=== PATIENT | female | born 1965 | race Caucasian/White ===

== ENCOUNTER → 2017-03-06 09:12 | Outpatient (CLI) | payer OTHER, SELFPAY ==
--- NOTE | 2017-03-06 | XR_ITS ---
XR foot RT min 3V, XR foot LT min 3V Ordering Physician: Indu Zhu DPM Patient Age: 51 years: Female HISTORY: ITS.REASON: FOOT PAIN Foot pain bilateral TECHNIQUE: Left foot 3 views weightbearing Right foot 3 views weightbearing COMPARISON :04/20/2011 left foot RIGHT FOOT 3 VIEWS: No previous right foot studies for comparison. Moderate bunion deformity. Moderate Hallux valgus deformity ~30 degree angulation first metatarsal phalangeal joint The mild irregularity at the dorsal medial aspect first minute partial head. Lateral films suggest mild pes planus scant developing plantar calcaneal spur. IMPRESSION: Moderate bunion/ hallux valgus deformity. [Suggestion mild has pes planus ===== LEFT FOOT 3 VIEWS Osseous structures appear intact. No significant callus valgus deformity on left The joint spaces are well-maintained. Lateral film does suggest pes planus Suggestion slight additional Mild soft tissue swelling is seen overlying the fifth MTP joint. Vs previous study. -Correlation required. Moderate ~8 mm plantar calcaneal spur noted minor flexion deformity at the fourth and fifth toe . Borderline narrowing first MTP joint. Oblique view shows a stable subcortical cyst beneath the more subtle medial aspect of first metatarsal head IMPRESSION suggestion mild pes planus moderate plantar calcaneal spur Question minor soft tissue swelling lateral to fifth MTP joint
== END ==
PROVIDERS: Visit Provider Podiatrist
DX: M79.673 Pain in unspecified foot (principal)
CPT/HCPCS: 73630

== ENCOUNTER 2017-05-16 10:00 | Outpatient (RCR) | payer OTHER, SELFPAY | END 2017-05-16 10:01 | disposition home or self-care (01) | LOC: OT 10:00 | PROVIDERS: Visit Provider Orthopaedic Surgery Adult Reconstructive Orthopaedic Surgery | DX: G56.01 Carpal tunnel syndrome, right upper limb (principal) | CPT/HCPCS: 97163; 97166 ==

== ENCOUNTER → 2017-05-30 08:00 | Outpatient (CLI) | payer OTHER, SELFPAY ==
[2017-05-30 08:20] LABS: Basophils # 0.1 K/mm3 (0-0.2); Basophils % 0.6 % (0.1-2.0); Eosinophils # 0.1 K/mm3 (0.0-0.4); Eosinophils % 1.1 % (0.1-12.0); Hematocrit 39.7 % (37.0-47.0); Hemoglobin 13.8 g/dL (12.2-16.2); Lymphocytes # 3.7 K/mm3 (0.7-4.5); Lymphocytes % 43.9 K/mm3 (10-50); Mean Corpuscular HGB Conc 34.9 g/dL (31.8-35.4); Mean Corpuscular Hemoglobin 30.9 pg (27.0-31.2); Mean Corpuscular Volume 88.5 fl (81-99); Mean Platelet Volume 6.8 fl (7.4-10.4); Monocytes # 0.5 K/mm3 (0.1-1.0); Monocytes % 5.4 % (1.7-9.3); Neutrophils # 4.1 K/mm3 (1.8-7.8); Neutrophils % 48.9 % (37.0-80.0); Platelet Count 332 K/mm3 (142-424); Red Blood Count 4.48 M/mm3 (4.20-5.40); Red Cell Distribution Width 12.2 % (11.5-17.5); White Blood Count 8.4 K/mm3 (4.8-10.8)
[2017-05-30 09:21] LABS: Alanine Aminotransferase 26 U/L (12-78); Albumin Level 4.1 gm/dL (3.4-5.0); Albumin/Globulin Ratio 1.1 (1.1-1.8); Alkaline Phosphatase 118 U/L (46-116); Anion Gap 13.3 mEq/L (5-15); Aspartate Amino Transferase 21 U/L (15-37); Bilirubin,Total 0.3 mg/dL (0.2-1.0); Blood Urea Nitrogen 21 mg/dL (7-18); Calcium 10.1 mg/dL (8.5-10.1); Carbon Dioxide 30 mmol/L (21.0-32.0); Chloride 96 mmol/L (98-107); Creatinine,Serum 1.06 mg/dL (0.55-1.02); Estimated Glomerular Filt Rate 54 ml/min (>60); GFR (African American) 66 ML/MIN (>60); Globulin 3.7 gm/dl (1.3-3.2); Glucose 114 mg/dL (74-106); Potassium 4.3 mmoL/L (3.5-5.1); Sodium 135 mmol/L (136-145); Thyroid Stimulating Hormone 0.35 uIU/ml (0.358-3.740); Total Protein,Serum 7.8 gm/dL (6.4-8.2)
[2017-05-31 16:17] LABS: Vitamin D 25 Hydroxy 37.5 ng/mL (30.0-100.0)
== END ==
PROVIDERS: Visit Provider Internal Medicine Adolescent Medicine
DX: N18.1 Chronic kidney disease, stage 1 (principal); E03.9 Hypothyroidism, unspecified; M81.0 Age-related osteoporosis without current pathological fracture
CPT/HCPCS: 36415; 80053; 82652; 84443; 85025

== ENCOUNTER → 2017-09-19 09:19 | Outpatient (POV) | payer OTHER, SELFPAY | PROVIDERS: Family Provider Internal Medicine Adolescent Medicine; PCP Internal Medicine Adolescent Medicine; Visit Provider Internal Medicine | DX: Z00.00 Encounter for general adult medical examination without abnormal findings (principal) ==

== ENCOUNTER → 2018-04-17 13:02 | Outpatient (CLI) | payer OTHER, SELFPAY ==
[2018-04-17 14:59] LABS: Alanine Aminotransferase 37 U/L (12-78); Albumin Level 4.1 gm/dL (3.4-5.0); Alkaline Phosphatase 137 U/L (46-116); Aspartate Amino Transferase 24 U/L (15-37); Bilirubin,Direct 0.1 mg/dL (0.0-0.2); Bilirubin,Indirect 0.4 mg/dL (0.0-0.9); Bilirubin,Total 0.5 mg/dL (0.2-1.0); Chol/HDL Ratio 6.5 (1-3.5); Cholesterol 253 mg/dL (140-200); HDL Cholesterol 39 mg/dL (29-89); LDL Cholesterol 148 mg/dL (0-130); Total Protein,Serum 7.9 gm/dL (6.4-8.2); Triglycerides 331 mg/dL (30-200); VLDL Cholesterol 66 mg/dL (0-40)
== END ==
PROVIDERS: Visit Provider Internal Medicine
DX: E78.5 Hyperlipidemia, unspecified (principal); I10 Essential (primary) hypertension; I25.10 Atherosclerotic heart disease of native coronary artery without angina pectoris
CPT/HCPCS: 36415; 80061; 80076

== ENCOUNTER → 2018-06-01 09:54 | Outpatient (CLI) | payer OTHER, SELFPAY ==
[2018-06-01 10:54] LABS: Basophils # 0.1 K/mm3 (0-0.2); Basophils % 0.7 % (0.1-2.0); Eosinophils # 0.1 K/mm3 (0.0-0.4); Eosinophils % 1.2 % (0.1-12.0); Mean Corpuscular HGB Conc 35.2 g/dL (31.8-35.4); Mean Corpuscular Hemoglobin 30.6 pg (27.0-31.2); Mean Corpuscular Volume 86.7 fl (81-99); Mean Platelet Volume 6.7 fl (7.4-10.4); Monocytes # 0.4 K/mm3 (0.1-1.0); Monocytes % 4.5 % (1.7-9.3); Neutrophils # 4.8 K/mm3 (1.8-7.8); Neutrophils % 57.7 % (37.0-80.0); Platelet Count 331 K/mm3 (142-424); Red Blood Count 4.27 M/mm3 (4.20-5.40); Red Cell Distribution Width 12.3 % (11.5-17.5); White Blood Count 8.3 K/mm3 (4.8-10.8)
[2018-06-01 13:51] LABS: Alanine Aminotransferase 33 U/L (12-78); Albumin Level 3.9 gm/dL (3.4-5.0); Albumin/Globulin Ratio 1.1 (1.1-1.8); Alkaline Phosphatase 128 U/L (46-116); Anion Gap 14.2 mEq/L (5-15); Aspartate Amino Transferase 17 U/L (15-37); Bilirubin,Total 0.4 mg/dL (0.2-1.0); Blood Urea Nitrogen 21 mg/dL (7-18); Calcium 9.3 mg/dL (8.5-10.1); Carbon Dioxide 28 mmol/L (21.0-32.0); Chloride 97 mmol/L (98-107); Chol/HDL Ratio 6.3 (1-3.5); Cholesterol 208 mg/dL (140-200); Creatinine,Serum 1.18 mg/dL (0.55-1.02); Estimated Glomerular Filt Rate 48 ml/min (>60); GFR (African American) 58 ML/MIN (>60); Globulin 3.5 gm/dl (1.3-3.2); Glucose 114 mg/dL (74-106); HDL Cholesterol 33 mg/dL (29-89); LDL Cholesterol 114 mg/dL (0-130); Potassium 4.2 mmoL/L (3.5-5.1); Sodium 135 mmol/L (136-145); Thyroid Stimulating Hormone 0.03 uIU/ml (0.358-3.740); Total Protein,Serum 7.4 gm/dL (6.4-8.2); Triglycerides 305 mg/dL (30-200); VLDL Cholesterol 61 mg/dL (0-40)
== END ==
PROVIDERS: Visit Provider Internal Medicine Adolescent Medicine
DX: Z00.00 Encounter for general adult medical examination without abnormal findings (principal); N18.1 Chronic kidney disease, stage 1; I10 Essential (primary) hypertension
CPT/HCPCS: 36415; 80053; 80061; 84443; 85025

== ENCOUNTER → 2018-07-25 08:10 | Outpatient (CLI) | payer OTHER, SELFPAY ==
[2018-07-25 10:52] LABS: Alanine Aminotransferase 30 U/L (12-78); Albumin Level 3.5 gm/dL (3.4-5.0); Alkaline Phosphatase 124 U/L (46-116); Aspartate Amino Transferase 14 U/L (15-37); Bilirubin,Direct 0.1 mg/dL (0.0-0.2); Bilirubin,Indirect 0.3 mg/dL (0.0-0.9); Bilirubin,Total 0.4 mg/dL (0.2-1.0); Cholesterol 180 mg/dL (140-200); HDL Cholesterol 30 mg/dL (29-89); LDL Cholesterol 77 mg/dL (0-130); Total Protein,Serum 6.6 gm/dL (6.4-8.2); Triglycerides 363 mg/dL (30-200); VLDL Cholesterol 73 mg/dL (0-40)
== END ==
PROVIDERS: Visit Provider Nurse Practitioner Family
DX: E78.5 Hyperlipidemia, unspecified (principal); I10 Essential (primary) hypertension; I25.10 Atherosclerotic heart disease of native coronary artery without angina pectoris
CPT/HCPCS: 36415; 80061; 80076

== ENCOUNTER → 2018-09-13 09:16 | Outpatient (CLI) | payer OTHER, SELFPAY ==
--- NOTE | 2018-09-13 09:21 | MM_ITS ---
MM Dig screening mamm BI w/CAD CAD Screening COMPARISON: Digital mammograms with CAD 08/18/2015 and postbiopsy right mammogram and biopsy specimen 10/08/2014 INDICATION: There is a history of breast cancer in patient's paternal great aunt and first cousin TECHNIQUE: Standard CC and MLO images were obtained. R2 CAD reviewed. FINDINGS: Scattered fibroglandular densities are seen throughout both breasts. There is a biopsy clip central portion right breast. There is very little fatty post biopsy scarring noted. There are couple benign-appearing microcalcifications left breast. There is no suspicious lesion in either breast and there are no suspicious microcalcifications. There are fatty replaced nodes in both axilla. IMPRESSION: Fibrofatty parenchyma with no suspicious lesion seen BI-RADS Category: 2 Benign Finding(s) RECOMMENDED FOLLOW-UP: 1YR - 1 YEAR FOLLOW-UP (A letter has been sent to the patient regarding results of the study.)
== END ==
PROVIDERS: PCP Internal Medicine Adolescent Medicine; Visit Provider Obstetrics & Gynecology
DX: Z12.31 Encounter for screening mammogram for malignant neoplasm of breast (principal)
CPT/HCPCS: 77067

== ENCOUNTER → 2018-09-25 08:37 | Outpatient (POV) | payer OTHER, SELFPAY | PROVIDERS: Visit Provider Internal Medicine | DX: Z00.00 Encounter for general adult medical examination without abnormal findings (principal) ==

== ENCOUNTER → 2018-10-22 09:41 | Outpatient (CLI) | payer OTHER, SELFPAY ==
[2018-10-22 14:30] VITALS: PULSE 63; PULSE 67
== END ==
PROVIDERS: PCP Internal Medicine Adolescent Medicine; Visit Provider Internal Medicine
DX: R06.09 Other forms of dyspnea (principal)
CPT/HCPCS: 94060; 94618; 94640; 94726; 94729

== ENCOUNTER → 2018-11-30 09:53 | Outpatient (CLI) | payer OTHER, SELFPAY | PROVIDERS: Visit Provider Internal Medicine Adolescent Medicine | DX: I10 Essential (primary) hypertension (principal) ==

== ENCOUNTER → 2018-12-05 07:18 | Outpatient (CLI) | payer OTHER, SELFPAY ==
[2018-12-05 07:39] LABS: Basophils # 0.1 K/mm3 (0-0.2); Basophils % 0.5 % (0.1-2.0); Eosinophils # 0.1 K/mm3 (0.0-0.4); Eosinophils % 1.5 % (0.1-12.0); Hematocrit 39.4 % (37.0-47.0); Hemoglobin 12.9 g/dL (12.2-16.2); Lymphocytes # 3.8 K/mm3 (0.7-4.5); Lymphocytes % 40.4 % (10-50); Mean Corpuscular HGB Conc 32.8 g/dL (31.8-35.4); Mean Corpuscular Hemoglobin 30.9 pg (27.0-31.2); Mean Corpuscular Volume 94.1 fl (81-99); Mean Platelet Volume 7.5 fl (7.4-10.4); Monocytes # 0.5 K/mm3 (0.1-1.0); Neutrophils % 52.6 % (37.0-80.0); Platelet Count 370 K/mm3 (142-424); Red Blood Count 4.19 M/mm3 (4.20-5.40); Red Cell Distribution Width 12.7 % (11.5-17.5); White Blood Count 9.4 K/mm3 (4.8-10.8)
[2018-12-05 08:21] LABS: Alanine Aminotransferase 23 U/L (12-78); Albumin Level 3.9 gm/dL (3.4-5.0); Albumin/Globulin Ratio 1.1 (1.1-1.8); Alkaline Phosphatase 128 U/L (46-116); Anion Gap 12.7 mEq/L (5-15); Aspartate Amino Transferase 14 U/L (15-37); Bilirubin,Total 0.4 mg/dL (0.2-1.0); Blood Urea Nitrogen 25 mg/dL (7-18); Carbon Dioxide 30 mmol/L (21.0-32.0); Chloride 99 mmol/L (98-107); Chol/HDL Ratio 5.4 (1-3.5); Cholesterol 198 mg/dL (140-200); Creatinine,Serum 1.19 mg/dL (0.55-1.02); Estimated Glomerular Filt Rate 47 ml/min (>60); GFR (African American) 57 ML/MIN (>60); Globulin 3.4 gm/dl (1.3-3.2); Glucose 127 mg/dL (74-106); HDL Cholesterol 37 mg/dL (29-89); LDL Cholesterol 92 mg/dL (0-130); Potassium 3.7 mmoL/L (3.5-5.1); Sodium 138 mmol/L (136-145); Thyroid Stimulating Hormone 0.04 uIU/ml (0.358-3.740); Total Protein,Serum 7.3 gm/dL (6.4-8.2); Triglycerides 347 mg/dL (30-200); VLDL Cholesterol 69 mg/dL (0-40)
[2018-12-06 11:00] LABS: Vitamin B12 420 pg/mL (232-1245)
[2018-12-06 11:01] LABS: Vitamin D 25 Hydroxy 39.7 ng/mL (30.0-100.0)
== END ==
PROVIDERS: Visit Provider Internal Medicine Adolescent Medicine
DX: N18.1 Chronic kidney disease, stage 1 (principal); I10 Essential (primary) hypertension; E03.9 Hypothyroidism, unspecified; M81.0 Age-related osteoporosis without current pathological fracture
CPT/HCPCS: 36415; 80053; 80061; 82607; 82652; 84443; 85025

== ENCOUNTER → 2019-03-12 08:28 | Outpatient (CLI) | payer OTHER, SELFPAY ==
[2019-03-12 11:35] LABS: Alanine Aminotransferase 20 U/L (12-78); Albumin Level 3.7 gm/dL (3.4-5.0); Albumin/Globulin Ratio 1.2 (1.1-1.8); Alkaline Phosphatase 107 U/L (46-116); Anion Gap 14.4 mEq/L (5-15); Aspartate Amino Transferase 17 U/L (15-37); Bilirubin,Total 0.4 mg/dL (0.2-1.0); Blood Urea Nitrogen 23 mg/dL (7-18); Calcium 9.3 mg/dL (8.5-10.1); Carbon Dioxide 30 mmol/L (21.0-32.0); Chloride 101 mmol/L (98-107); Chol/HDL Ratio 6.3 (1-3.5); Cholesterol 228 mg/dL (140-200); Estimated Glomerular Filt Rate 52 ml/min (>60); GFR (African American) 62 ML/MIN (>60); Globulin 3.1 gm/dl (1.3-3.2); Glucose 103 mg/dL (74-106); HDL Cholesterol 36 mg/dL (29-89); LDL Cholesterol 133 mg/dL (0-130); Potassium 4.4 mmoL/L (3.5-5.1); Sodium 141 mmol/L (136-145); Thyroid Stimulating Hormone 0.01 uIU/ml (0.358-3.740); Total Protein,Serum 6.8 gm/dL (6.4-8.2); Triglycerides 293 mg/dL (30-200); VLDL Cholesterol 59 mg/dL (0-40)
[2019-03-12 13:02] LABS: Hemoglobin A1C 6.2 % (0.0-7.0)
== END ==
PROVIDERS: Visit Provider Internal Medicine Adolescent Medicine
DX: R73.9 Hyperglycemia, unspecified (principal); E03.9 Hypothyroidism, unspecified
CPT/HCPCS: 36415; 80053; 80061; 83036; 84443

== ENCOUNTER → 2019-03-27 10:03 | Outpatient (CLI) | payer OTHER, SELFPAY ==
--- NOTE | 2019-03-27 10:04 | CA_ITS ---
APPROVED REPORT EXAM: Comprehensive 2D, Doppler, and color-flow Echocardiogram Telephony Engineer: Shirlene Terry RVT Ht: 5 ft 7 in Wt: 193lbs BSA: 1.99 BP: 122/78 mmHg Indications: Shortness of Breath, CAD, Hyperlipidemia, Hypertension,Edema 2D Dimensions LVOT 1.87 cm (M/F) 1.5-2.5 M-Mode Dimensions RVDd 3.32 cm (0.9-2.6) LVDd 3.64 cm (3.5-5.7) LVDs 2.39 cm (3.5-5.7) IVSd 1.04 cm (0.6-1.1) PWd 0.86 cm (0.6-1.1) EF (Teich) 64.20% FS 34.30% EDV (Teich) 55.90 mL ESV (Teich) 20.00 mL LV Diastology E/A Ratio 0.83 Mitral Valve MV A Velocity 83.00 (40-130 cm/s) Left Ventricle Left atrium is mildly enlarged, left ventricle is normal size, left ventricle wall thickness is upper limit of normal, there is preserved left ventricular systolic function, visually estimated ejection fraction 55% with no regional wall motion abnormality, grade 1 diastolic dysfunction seen without tissue Doppler evidence of raise left atrial pressure. Right Ventricle Right atrium and right ventricle is normal size and contractility. Aortic Valve Aortic valve is minimally thickened and fibrosed. There is no aortic stenosis or aortic insufficiency. Mitral Valve Mitral valve is grossly normal, there is mild mitral regurgitation. Tricuspid Valve Tricuspid valve is grossly normal, there is mild tricuspid regurgitation, calculated right ventricular systolic pressure is within normal range. Pulmonic Valve Pulmonic valve is poorly visualized. Great Vessels Aortic root is normal size. Pericardium No significant pericardial effusion noted. Conclusion 1. Normal left ventricular size, preserved left ventricular systolic function, visually estimated ejection fraction 55% with no regional wall motion abnormality, grade 1 diastolic dysfunction seen without tissue Doppler evidence of raise left atrial pressure. 2. Mild mitral and tricuspid regurgitation. Calculated right ventricular systolic pressure is within normal range. 3. No significant pericardial effusion noted. Electronically signed by : Juan Carlos Contreras, 03/28/2019 16:49:33
== END ==
PROVIDERS: PCP Internal Medicine Adolescent Medicine; Visit Provider Nurse Practitioner Family
DX: E78.5 Hyperlipidemia, unspecified (principal); I10 Essential (primary) hypertension; I25.10 Atherosclerotic heart disease of native coronary artery without angina pectoris; R06.00 Dyspnea, unspecified; R60.9 Edema, unspecified
CPT/HCPCS: 93306

== ENCOUNTER → 2019-06-04 07:25 | Outpatient (CLI) | payer OTHER, SELFPAY ==
[2019-06-04 08:07] LABS: Basophils # 0.1 K/mm3 (0-0.2); Basophils % 0.7 % (0.1-2.0); Eosinophils # 0.1 K/mm3 (0.0-0.4); Eosinophils % 1.8 % (0.1-12.0); Hematocrit 35.6 % (37.0-47.0); Lymphocytes # 3.6 K/mm3 (0.7-4.5); Lymphocytes % 44.5 % (10-50); Mean Corpuscular HGB Conc 33.8 g/dL (31.8-35.4); Mean Corpuscular Hemoglobin 30.9 pg (27.0-31.2); Mean Corpuscular Volume 91.4 fl (81-99); Mean Platelet Volume 7.3 fl (7.4-10.4); Monocytes # 0.4 K/mm3 (0.1-1.0); Monocytes % 5.1 % (1.7-9.3); Neutrophils # 3.9 K/mm3 (1.8-7.8); Platelet Count 317 K/mm3 (142-424); Red Blood Count 3.89 M/mm3 (4.20-5.40); Red Cell Distribution Width 12.4 % (11.5-17.5)
[2019-06-04 10:09] LABS: Alanine Aminotransferase 14 U/L (12-78); Albumin Level 4.3 g/dl (3.5-5.0); Albumin/Globulin Ratio 1.7 (1.1-1.8); Alkaline Phosphatase 77 U/L (38-126); Aspartate Amino Transferase 22 U/L (14-36); Bilirubin,Total 0.3 mg/dl (0.2-1.3); Blood Urea Nitrogen 18 mg/dl (7-17); Calcium 9.7 mg/dl (8.4-10.2); Carbon Dioxide 31 mmol/L (22.0-30.0); Chloride 98 mmol/L (98-107); Estimated Glomerular Filt Rate 58 ml/min (>60); GFR (African American) 70 ML/MIN (>60); Globulin 2.5 g/dL (1.3-3.2); Glucose 91 mg/dl (74-100); Sodium 135 mmol/L (136-145); Total Protein,Serum 6.8 g/dl (6.3-8.2)
[2019-06-04 10:39] LABS: Thyroid Stimulating Hormone 0.07 uIU/mL (0.465-4.68)
== END ==
PROVIDERS: Visit Provider Internal Medicine Adolescent Medicine
DX: N18.1 Chronic kidney disease, stage 1 (principal); E03.9 Hypothyroidism, unspecified
CPT/HCPCS: 36415; 80053; 84443; 85025

== ENCOUNTER → 2019-09-20 06:59 | Outpatient (CLI) | payer OTHER, SELFPAY ==
--- NOTE | 2019-09-20 | CA_ITS ---
APPROVED REPORT Exam: Pharmacologic Technologist: Laxmi Gr, Ht: 5 ft 7 in Wt: 197 lbs BSA: 2.01 m2 HR: 62 bpm BP: 106/61 mmHg Rhythm: NSR Medical History Medical History: HTN, Hyperlipidemia Medications: Omeprazole,,,,, Levothyroxine,,,,, Metoprolol,,,,, Asa,,,,, Allopurinol,,,,, Atorvastatin,,,,, Albuterol,,,,, Plavix,,,,, FeNOfibrate,,,,, Nitro,,,,, NifEDIPINE,,,,, IrbesTARTAN,,,,, Allergies: No known drug allergies Cardiac Risk Factors: HTN, Hyperlipidemia, FHX of CAD Stress Test Details Test: LEXISCAN HR Resting HR: 57 bpm Max Heart Rate (APMHR): 164 bpm Max HR Achieved: 87 bpm Target HR (85% APMHR): 139 bpm % of APMHR: 53 Recovery HR: 68 bpm BP Resting BP: 133.0/74.0 mmHg Max BP: 136.0/81.0 mmHg Recovery BP: 107.0/56.0 mmHg ECG Resting ECG: NSR Clinical Reason for Termination: Completed Protocol Exercise duration: 04:11 min Highest Stage Achieved: Exercise capacity: 1.0 METs Stress ECG Conclusion DURING INFUSION PATIENT HAD NO CHEST PAIN. NO ARRHYTHMIAS/ECTOPY. < 1.[address] SEGMENT CHANGES. NON-DIAGNOSTIC LEXISCAN STRESS TEST. Test Summary RECOVERY 04:19 . . 68 . 135/ 78 . . REST 07:07 . . 57 . 133/ 74 . . Stage 1 . . . . . . . Cardiolite injected Stage 1 01:00 . . 82 . . . . Stage 2 01:00 . . 75 . . . . Stage 3 01:00 . . 72 . 133/ 85 . . Stage 4 01:00 . . 69 . 135/ 85 . . Stage 4 01:11 . . 68 . 135/ 85 . Stop exercise at 04:11 RECOVERY 01:00 . . 66 . 136/ 81 . . RECOVERY 02:00 . . 63 . 136/ 81 . . RECOVERY 03:00 . . 65 . 132/ 79 . . RECOVERY 04:00 . . 67 . 135/ 78 . . RECOVERY 04:19 . . 68 . 135/ 78 . . RECOVERY 04:47 . . 68 . 90/ 57 . . Electronically signed by : Juan Carlos Contreras, 09/20/2019 11:53:47
--- NOTE | 2019-09-20 07:11 | NM_ITS ---
APPROVED REPORT Exam: Nuclear Stress Test Indication: HTN, HYPERLIPIDEMIA, FM HX, SOB, FATIGUE Patient Location: Outpatient Stress Tech: Kyra Bryantnkson AR Tech:Alycia Ugarte IRA RT(R)(N) Ht: 5 ft 7 in Wt: 144 lbs Bra Size: 46DD HR: 62 bpm BP: 106/61 mmHg BSA: 1.76 m2 BMI: 22.5 History: HTN, HYPERLIPIDEMIA, FM HX, SOB, FATIGUE Procedure: Patient received a 0.4 mg of intravenous Lexiscan, resting heart rate 62 bpm, resting blood pressure 106/61 mmHg, with Lexiscan maximum heart rate achived was 72 bpm which is Less than 85 % of the maximum predicted heart rate and blood pressure was 103/60 mmHg. With Lexiscan, patient denied any complaint of chest pain. Electrocardiogram Resting electrocardiogram showed sinus rhythm, with Lexiscan there is less than 1.[address] segment depression noted from the baseline EKG. The EKG portion of the Lexiscan Myoview is nondiagnostic. Cardiac Stress and Resting SPECT Images: Cardiac Stress and Resting SPECT images were obtained using technetium 99m Myoview 30.7 mCi stress and 9.91 mCi at rest. Gated SPECT for the analysis of segmental wall motion and calculation of the ejection fraction also done. Cardiac stress and resting SPECT images show uniform myocardial activity without segmental perfusion abnormality, computer derived ejection fraction is over 65% with no regional wall motion abnormality, right ventricle is normal size and contractility. Conclusion: 1. The EKG portion of the Lexiscan Myoview is nondiagnostic. 2. No scintigraphic evidence of reversible ischemia seen, computer derived ejection fraction is over 65% with no regional wall motion abnormality, right ventricle is normal size and contractility. 3. Normal Lexiscan Myoview study. Electronically signed by : Juan Carlos Contreras, 09/20/2019 11:56:41
== END ==
PROVIDERS: PCP Internal Medicine Adolescent Medicine; Visit Provider Internal Medicine Cardiovascular Disease
DX: R06.09 Other forms of dyspnea (principal); I25.10 Atherosclerotic heart disease of native coronary artery without angina pectoris; E78.2 Mixed hyperlipidemia; I10 Essential (primary) hypertension; R61 Generalized hyperhidrosis
CPT/HCPCS: 78452; 93017; A9502; J2785

== ENCOUNTER → 2019-10-31 12:35 | Outpatient (CLI) | payer OTHER, SELFPAY ==
[2019-10-31 13:15] LABS: Basophils % 0.5 % (0.1-2.0); Eosinophils # 0.1 K/mm3 (0.0-0.4); Eosinophils % 1.7 % (0.1-12.0); Hematocrit 37.4 % (37.0-47.0); Hemoglobin 13.6 g/dL (12.2-16.2); Lymphocytes # 3.6 K/mm3 (0.7-4.5); Lymphocytes % 44.4 % (10-50); Mean Corpuscular HGB Conc 36.5 g/dL (31.8-35.4); Mean Corpuscular Hemoglobin 32.5 pg (27.0-31.2); Mean Corpuscular Volume 89.1 fl (81-99); Mean Platelet Volume 7.1 fl (7.4-10.4); Monocytes # 0.4 K/mm3 (0.1-1.0); Monocytes % 4.7 % (1.7-9.3); Neutrophils # 3.9 K/mm3 (1.8-7.8); Neutrophils % 48.7 % (37.0-80.0); Platelet Count 363 K/mm3 (142-424); Red Cell Distribution Width 12.5 % (11.5-17.5)
[2019-10-31 14:31] LABS: 25-OH Vitamin D, Total 46.3 ng/mL (30-100)
[2019-10-31 14:53] LABS: Chloride 99 mmol/L (98-107); Potassium 4.7 mmoL/L (3.5-5.1); Sodium 137 mmol/L (136-145)
[2019-10-31 14:55] LABS: Blood Urea Nitrogen 26 mg/dl (7-17); Estimated Glomerular Filt Rate 51 ml/min (>60); GFR (African American) 62 ML/MIN (>60)
[2019-10-31 14:56] LABS: Alanine Aminotransferase 22 U/L (12-78); Albumin Level 4.4 g/dl (3.5-5.0); Albumin/Globulin Ratio 1.4 (1.1-1.8); Alkaline Phosphatase 94 U/L (38-126); Anion Gap 15.7 mEq/L (5-15); Aspartate Amino Transferase 28 U/L (14-36); Bilirubin,Total 0.4 mg/dl (0.2-1.3); Calcium 10.1 mg/dl (8.4-10.2); Carbon Dioxide 27 mmol/L (22.0-30.0); Cholesterol 304 mg/dl (140-200); Globulin 3.1 g/dL (1.3-3.2); Glucose 105 mg/dl (74-100); Total Protein,Serum 7.5 g/dl (6.3-8.2)
[2019-10-31 14:57] LABS: Chol/HDL Ratio 8.4 (1-3.5); HDL Cholesterol 36 mg/dl (40-60)
[2019-10-31 15:07] LABS: Direct LDL Cholesterol 122.55 mg/dL (100-129)
[2019-10-31 15:13] LABS: Triiodothryronine (T3) Uptake 30 % (23.5-40.5)
[2019-10-31 15:14] LABS: Free Thyroxine Index 3.9 ug/dL (5.93-13.13); T4 (Thyroxine) 12.9 ug/dl (5.53-11.0)
[2019-10-31 15:27] LABS: Thyroid Stimulating Hormone < 0.02 uIU/mL (0.465-4.68)
== END ==
PROVIDERS: Visit Provider Internal Medicine Adolescent Medicine
DX: N18.1 Chronic kidney disease, stage 1 (principal); M81.0 Age-related osteoporosis without current pathological fracture; E03.9 Hypothyroidism, unspecified
CPT/HCPCS: 36415; 80053; 80061; 82306; 84436; 84443; 84479; 85025

== ENCOUNTER → 2019-11-07 12:54 | Outpatient (CLI) | payer OTHER, SELFPAY ==
[2019-11-07 14:42] LABS: Free Thyroxine Index 3.4 ug/dL (5.93-13.13); T4 (Thyroxine) 11.7 ug/dl (5.53-11.0); Triiodothryronine (T3) Uptake 29 % (23.5-40.5)
[2019-11-07 14:56] LABS: Thyroid Stimulating Hormone 0.02 uIU/mL (0.465-4.68)
[2019-11-07 15:10] LABS: Vitamin B12 397 pg/mL (239-931)
[2019-11-09 18:18] LABS: Treponema pallidum Ab (FTA-ABS Non Reactive (Non Reactive)
[2019-11-10 17:05] LABS: Vitamin B6 20.5 ug/L (2.0-32.8)
[2019-11-12 03:11] LABS: Methylmalonic Acid 229 nmol/L (0-378)
== END ==
PROVIDERS: Visit Provider Internal Medicine Adolescent Medicine
DX: G60.9 Hereditary and idiopathic neuropathy, unspecified (principal)
CPT/HCPCS: 36415; 82131; 82607; 83036; 84207; 84436; 84443; 84479; 86780

== ENCOUNTER → 2020-03-16 15:20 | Outpatient (CLI) | payer BC, SELFPAY ==
[2020-03-16 16:21] LABS: Erythrocyte Sedimentation Rate 26 mm/hr (0-30)
[2020-03-19 10:15] LABS: Angiotensin Converting Enzyme <15 U/L (14-82)
[2020-04-18 21:53] LABS: Antinuclear Antibodies (ANA) NEGATIVE
== END ==
PROVIDERS: Visit Provider Specialist
DX: G62.9 Polyneuropathy, unspecified (principal)
CPT/HCPCS: 36415; 82164; 85651; 86038; 86225; 86235; 86618

== ENCOUNTER → 2020-05-14 11:21 | Outpatient (POV) | payer BC, SELFPAY ==
[2020-05-14 11:47] VITALS: BP 134/96; PULSE 80; RESP 18; O2SAT 97; BMI 31.3
--- NOTE | 2020-05-14 12:37 | HMH.PMCON ---
Assessment and Plan (1) Neuropathy Status: Chronic Category: Medical Code(s): G62.9 - Polyneuropathy, unspecified - Assessment and plan all Dx Assessment and Plan for all problems:: We will plan on getting an MRI of her lumbar spine to rule out any kind of disc issue and radicular symptoms I will follow-up with her after this reassess her symptoms at that time she has been instructed to call the office if she has any issues prior to her next appointment. Dr. Dawson has reviewed this note and agrees with this plan of care. This note was dictated using voice recognition software and may contain errors or omissions HPI - Data of Consult Consult date: 05/14/20 Requesting Physician: Cammy Erazo APRN Primary Care Provider: Kody Dunn MD - Consult Narrative Reason for consult: Neuropathy History of present illness: Ms. Ronquillo is a 54 year old female who presents today for consultation regards to her bilateral lower extremity neuropathy. Patient currently rates her pain a 9 out of 10. Patient states she has good days and bad days she is currently on Lyrica and gabapentin [place] per her neurologist they are switching her over from gabapentin to Lyrica as she states that they are weaning her in a specifically due to her bipolar disorder. Patient has tried gabapentin, tizanidine and Cymbalta for her pain. Patient does not have any recent imaging of her lower extremities or her lumbar spine. Patient states that she does not have diabetes. Patient states she has no idea where her neuropathy stemmed from. Patient does have a nerve conduction study showing neuropathy in her lower extremities. We discussed getting an MRI of her lower back to rule out any kind of disc issue or nerve impingement. She is agreeable CC: Cammy Erazo APRN [facility] History I have reviewed the patient's past medical history: Yes Medical History: Reports:: Anxiety, Asthma, Gastroesophageal Reflux Disease(GERD), Hypertension, Osteoporosis, Renal Disease Denies:: Aneurysm, Atherosclerotic Heart Disease, Atrial Fibrillation, Cancer, Cardiomyopathy, Carotid Stenosis, Congestive Heart Failure, Chronic Obstructive Pulmonary Disease (COPD), Congenital Heart Disease, Coronary Artery Disease, Cerebrovascular Accident, Diabetes Mellitus Type 1, Diabetes Mellitus Type 2, Gastrointestinal Bleed, Hyperlipidemia, Internal Pacemaker, Migraine, MRSA, Myocardial Infarction, Seizures *Have you ever received a pneumonia vaccine?: Yes *Have you received a flu vaccine this season?: Yes Other Medical History: Reports: Anemia, Arthritis, Cataracts, Hypothyroidism, Osteoporosis, Thyroid Disease. Denies: Blood Transfusion Reaction, Glaucoma Laterality Cases: Bilateral: Carpal Tunnel Release Other Surgeries: Yes: Appendectomy, Cardiac Catheterization, Colonoscopy, Hysterectomy-Total, Other. No: Pacemaker Amputation: No Fractures: No - *Social History Smoking Status: Never smoker Alcohol Intake: never Alcohol Intake Frequency:: other Substance Use Type: denies use *Occupational Status:: retired Housing: house Household Members: other *Travel in the last 8 weeks: None - Psychiatric History Pschychiatric History:: Reports:: Anxiety Family Hx:: Unable to obtain Review of Systems - Review of Systems ROS General: no recent weight change, no fever, no sleep disturbances Respiratory: no cough, no shortness of air, no recurring pulmonary infections Cardiovascular/Peripheral Vascular: No chest pain, No palpitations, no edema, no shortness of breath. Gastrointestinal: no new onset incontinence, normal bowel movements reported Genitourinary: no new onset incontinence Musculoskeletal: Bilateral leg pain Psychiatric: normal mood/ affect Neurological: [denies new onset weakness in extremities], [denies new onset balance issues] Meds Home Medications Medication Instructions Recorded Confirmed Type acetaminophen 325 mg tablet 650 mg PO Q4H PRN 03/06/17 0
== END ==
PROVIDERS: PCP Internal Medicine Adolescent Medicine; Visit Provider Clinical Nurse Specialist Family Health
DX: G62.9 Polyneuropathy, unspecified (principal)
CPT/HCPCS: 99202; G0463

== ENCOUNTER → 2020-05-20 09:35 | Outpatient (CLI) | payer BC, SELFPAY ==
[2020-05-20 10:15] VITALS: PULSE 75; PULSE 79
== END ==
PROVIDERS: PCP Internal Medicine Adolescent Medicine; Visit Provider Internal Medicine Pulmonary Disease
DX: J45.20 Mild intermittent asthma, uncomplicated (principal)
CPT/HCPCS: 94060; 94640

== ENCOUNTER → 2020-05-22 12:40 | Outpatient (CLI) | payer BC, SELFPAY ==
--- NOTE | 2020-05-22 12:52 | MR_ITS ---
PROCEDURE: MR LUMBAR SPINE WO CON CLINICAL INDICATION: BILATERAL FOOT NEUROPATHY Pt c/o bilateral neuropathy in lower extremities and feet with no known cause. Pt does not have back pain or hx of trauma. Prior x-ray of L-spine done 04/26/2016. COMPARISON: CR LS5 LUMBAR SPINE 5 VIEWS from 04/26/2016 TECHNIQUE: Standard multiplanar multiecho sequences are performed without contrast. 3-D MIP and myelographic images are also rendered and reviewed FINDINGS: There is normal alignment. The spinal cord ends at the T12-L1 level. L1-L2: Unremarkable. L2-L3:. L3-L4: Facet and ligamentum hypertrophy with mild bilateral lateral recess narrowing. Small amount fluid is present in facet joint at that level on the right. L4-5: Degenerative disc disease with minimal bulging disc with moderate facet and ligamentum hypertrophy with bilateral lateral recess narrowing and mild bilateral foraminal narrowing. Borderline narrowing of the canal is present at this level. L5-S1: Degenerative disc disease with bulging disc along with facet and ligamentum hypertrophy with moderate bilateral foraminal narrowing. Small annular fissure is present posteriorly. No extruded herniated disc or canal stenosis. No acute fracture or malalignment. IMPRESSION: 1. Multilevel lumbar spondylosis with degenerative disc disease, bulging disc, facet and ligamentum hypertrophy with lateral recess and foraminal narrowing. Please see above for detailed description at each level. 2. No extruded herniated disc Dictated by: Raman Blevins MD 05/24/2020 09:03 Raman Blevins MD in [place] 05/24/2020 09:03
== END ==
PROVIDERS: PCP Internal Medicine Adolescent Medicine; Visit Provider Clinical Nurse Specialist Family Health
DX: G62.9 Polyneuropathy, unspecified (principal); M79.605 Pain in left leg; M79.604 Pain in right leg
CPT/HCPCS: 72148; 76376

== ENCOUNTER → 2020-05-28 13:07 | Outpatient (POV) | payer BC, SELFPAY ==
[2020-05-28 13:53] VITALS: BP 132/78; PULSE 88; RESP 18; O2SAT 98; BMI 30.5
--- NOTE | 2020-05-28 14:23 | HMH.PAINSOAP ---
[facility] Pain Management SOAP Note Subjective:: Is a pleasant 54-year-old white female who presents today to follow-up after her MRI. Patient currently has pain in her bilateral lower extremities. Patient states she has good days and bad days today is a good day and she rates her pain a 2 out of 10. Patient is on Lyrica and gabapentin she is on this per her neurologist. They are weaning her in a specific pattern due to bipolar disorder. She is tried gabapentin, tizanidine and Cymbalta for her pain. Patient's MRI does show degenerative disc disease, bulging disc, facet and ligamentum hypertrophy. Patient and I discussed an epidural injection to see if this may benefit her. She is agreeable. ROS General: no recent weight change, no fever, no sleep disturbances Respiratory: no cough, no shortness of air, no recurring pulmonary infections Cardiovascular/Peripheral Vascular: No chest pain, No palpitations, no edema, no shortness of breath. Gastrointestinal: no new onset incontinence, normal bowel movements reported Genitourinary: no new onset incontinence Musculoskeletal: Bilateral lower extremity pain Psychiatric: normal mood/ affect Neurological: [denies new onset weakness in extremities], [denies new onset balance issues] Objective:: Physical Exam General: Alert and oriented x3, no acute distress, pleasant and cooperative, [on room air] Lungs: Resps E/U, Symmetrical chest expansion, Eyes: PERRL Musculoskeletal: Flexion and extension of lumbar spine somewhat guarded secondary to pain, deep tendon reflexes normal, strength in upper and lower extremities [5/5], slightly antalgic gait noted Neurological: speech clear, furniture reproducer equal, no gross sensory deficits Assessment:: Degenerative disc disease lumbar spine lumbar radiculopathy peripheral neuropathy Plan:: We will schedule L4-L5 lumbar epidural steroid injection for the patient. I will follow-up with her afterwards reassess her symptoms at that time she has been instructed to call the office if she has any issues prior to her next appointment. Patient is not on any anticoagulation therapy. Dr. Dawson has reviewed this note and agrees with this plan of care. This note was dictated using voice recognition software and may contain errors or omissions [facility] History I have reviewed the patient's past medical history: Yes Medical History: Reports:: Anxiety, Asthma, Gastroesophageal Reflux Disease(GERD), Hypertension, Osteoporosis, Renal Disease Denies:: Aneurysm, Atherosclerotic Heart Disease, Atrial Fibrillation, Cancer, Cardiomyopathy, Carotid Stenosis, Congestive Heart Failure, Chronic Obstructive Pulmonary Disease (COPD), Congenital Heart Disease, Coronary Artery Disease, Cerebrovascular Accident, Diabetes Mellitus Type 1, Diabetes Mellitus Type 2, Gastrointestinal Bleed, Hyperlipidemia, Internal Pacemaker, Migraine, MRSA, Myocardial Infarction, Seizures *Have you ever received a pneumonia vaccine?: Yes *Have you received a flu vaccine this season?: Yes Other Medical History: Reports: Anemia, Arthritis, Cataracts, Hypothyroidism, Osteoporosis, Thyroid Disease. Denies: Blood Transfusion Reaction, Glaucoma Laterality Cases: Bilateral: Carpal Tunnel Release Other Surgeries: Yes: Appendectomy, Cardiac Catheterization, Colonoscopy, Hysterectomy-Total, Other. No: Pacemaker Amputation: No Fractures: No - *Social History Smoking Status: Never smoker Alcohol Intake: never Alcohol Intake Frequency:: other Substance Use Type: denies use *Occupational Status:: other Housing: house Household Members: other *Travel in the last 8 weeks: None - Psychiatric History Pschychiatric History:: Reports:: Anxiety Family Hx:: Unable to obtain
== END ==
PROVIDERS: Visit Provider Clinical Nurse Specialist Family Health
DX: M51.16 Intervertebral disc disorders with radiculopathy, lumbar region (principal); G62.9 Polyneuropathy, unspecified
CPT/HCPCS: 99212; G0463

== ENCOUNTER 2020-06-05 11:47 | Day surgery (SDC) | payer BC, SELFPAY ==
[2020-06-05 11:52] VITALS: BP 136/85; PULSE 76; RESP 18; TEMP 36.6; O2SAT 98; BMI 30.5
[2020-06-05 12:07] VITALS: BP 131/63; PULSE 74; RESP 20; O2SAT 98
[2020-06-05 12:11] VITALS: BP 117/73; PULSE 72; RESP 20; O2SAT 97
--- NOTE | 2020-06-05 12:13 | P.PCN_ITS ---
- Procedure Date: 06/05/20 Time: 12:13 Anesthesiologist:: Maldonado Dawson MD Complications:: None Pre-procedure Diagnosis:: Degenerative disc disease of lumbar spine with lumbar radiculopathy symptoms Post-procedure Diagnosis:: Same Indications for Procedure:: This patient is a pleasant 54-year-old white female who we are treating for low back pain with lumbar radiculopathy symptoms. She has increasing pain in her back rating down both legs. She does have a bulging disc with facet and ligamentum flavum hypertrophy. We will do lumbar epidural steroid injection today to see if this will help her symptoms. Procedure Details:: Lumbar epidural steroid injection under fluoroscopy Informed consent was obtained and the risk and benefits of the procedure was ex plained to the patient. The patient was taken to the procedure room. The patient was placed prone on the procedure table. The patient was prepped and draped in sterile fashion. C-arm fluoroscopy was used to view the lumbar spine. Skin and subcutaneous tissues were anesthetized using lidocaine. I placed an 18-gauge epidural needle and advanced into the L4-L5 interspace using fluoroscopic guidance and [id number] to air. After confirmation of needle placement in the epidural space with dye I injected 2 mL of lidocaine 1.5% with Depo-Medrol 80 mg. Patient tolerated the procedure well with no complications. Plan and Disposition:: I will follow up with this patient 2 weeks. Will reevaluate symptoms at that time.
[2020-06-05 12:19] VITALS: BP 136/84; PULSE 76; RESP 18; O2SAT 98
== END 2020-06-05 12:20 | disposition home or self-care (01) ==
LOC: SC.PAINP 11:48
PROVIDERS: PCP Internal Medicine Adolescent Medicine; Visit Provider Anesthesiology
DX: M51.16 Intervertebral disc disorders with radiculopathy, lumbar region (principal); M81.0 Age-related osteoporosis without current pathological fracture; F41.9 Anxiety disorder, unspecified; D64.9 Anemia, unspecified; K21.9 Gastro-esophageal reflux disease without esophagitis; J45.909 Unspecified asthma, uncomplicated
CPT/HCPCS: 62323; J1040

== ENCOUNTER → 2020-06-15 09:29 | Outpatient (CLI) | payer BC, SELFPAY ==
--- NOTE | 2020-06-15 | ECG_ITS ---
APPROVED REPORT Exam: Resting ECG HR:71 bpm ECG Measurements Heart Rate 71 AXES IA 186 P 42 QRSd 82 QRS 55 QT 390 T 45 QTc 423 Conclusion Normal sinus rhythm Normal ECG Electronically signed by : Kody Dunn, 06/16/2020 08:49:28
--- NOTE | 2020-06-15 09:35 | XR_ITS ---
PROCEDURE: XR CHEST 2V CLINICAL HISTORY: HYPERTENSION COMPARISON: CR CXR CHEST(2 VIEWS-NOT PORTABLE) from 08/06/2012 CR CXR CHEST(2 VIEWS-NOT PORTABLE) from 09/23/2014 FINDINGS: The cardiomediastinal silhouette and pulmonary vascularity are within normal limits. The lungs are clear without infiltrates, suspicious nodules, or pleural effusions. There are minimal atelectatic or fibrotic changes in the left lower lobe IMPRESSION: Minimal atelectatic or fibrotic changes left lung base otherwise Dictated by: Raman Blevins MD 06/15/2020 10:26 Raman Blevins MD in [place] 06/15/2020 10:26
[2020-06-15 10:28] LABS: Basophils # 0.1 K/mm3 (0-0.2); Basophils % 0.4 % (0.1-2.0); Eosinophils # 0.1 K/mm3 (0.0-0.4); Eosinophils % 1.1 % (0.1-12.0); Hematocrit 39.5 % (37.0-47.0); Hemoglobin 13.8 g/dL (12.2-16.2); Lymphocytes # 4.4 K/mm3 (0.7-4.5); Lymphocytes % 39.2 % (10-50); Mean Corpuscular HGB Conc 34.9 g/dL (31.8-35.4); Mean Corpuscular Hemoglobin 31.1 pg (27.0-31.2); Mean Corpuscular Volume 89.1 fl (81-99); Mean Platelet Volume 7.3 fl (7.4-10.4); Monocytes # 0.6 K/mm3 (0.1-1.0); Neutrophils % 54.3 % (37.0-80.0); Platelet Count 393 K/mm3 (142-424); Red Blood Count 4.43 M/mm3 (4.20-5.40); Red Cell Distribution Width 12.3 % (11.5-17.5); White Blood Count 11.1 K/mm3 (4.8-10.8)
[2020-06-15 10:58] LABS: Anion Gap 14.4 mEq/L (5-15); Blood Urea Nitrogen 32 mg/dl (7-17); Calcium 10.3 mg/dl (8.4-10.2); Carbon Dioxide 29 mmol/L (22.0-30.0); Chloride 98 mmol/L (98-107); Estimated Glomerular Filt Rate 51 ml/min (>60); GFR (African American) 62 ML/MIN (>60); Glucose 106 mg/dl (74-100); Potassium 4.4 mmoL/L (3.5-5.1); Sodium 137 mmol/L (136-145)
== END ==
PROVIDERS: PCP Internal Medicine Adolescent Medicine; Visit Provider Colon & Rectal Surgery
DX: I10 Essential (primary) hypertension (principal); E07.9 Disorder of thyroid, unspecified; K59.02 Outlet dysfunction constipation
CPT/HCPCS: 36415; 71046; 80048; 85025; 93005

== ENCOUNTER → 2020-06-25 13:08 | Outpatient (POV) | payer BC, SELFPAY ==
[2020-06-25 13:23] VITALS: BP 118/80; PULSE 82; RESP 18; O2SAT 98; BMI 30.5
--- NOTE | 2020-07-02 09:14 | P.CONS_ITS ---
[facility] Pain Management SOAP Note Subjective:: Patient is a pleasant 54-year-old who presents today for follow-up after L4-L5 lumbar epidural steroid injection. Patient did extremely well with this getting up to 80% relief. She would like to move forward with a repeat injection. She is not on any anticoagulation therapy. She is done well with these in the past. We will set her up for an L4-L5 lumbar epidural steroid injection. She rates her pain today 4 out of 10. ROS General: no recent weight change, no fever, no sleep disturbances Respiratory: no cough, no shortness of air, no recurring pulmonary infections Cardiovascular/Peripheral Vascular: No chest pain, No palpitations, no edema, no shortness of breath. Gastrointestinal: no new onset incontinence, normal bowel movements reported Genitourinary: no new onset incontinence Musculoskeletal: Back pain, leg pain Psychiatric: normal mood/ affect Neurological: [denies new onset weakness in extremities], [denies new onset balance issues] Objective:: Physical Exam General: Alert and oriented x3, no acute distress, pleasant and cooperative, [on room air] Lungs: Resps E/U, Symmetrical chest expansion, Eyes: PERRL Musculoskeletal: Flexion and extension of lumbar spine somewhat guarded secondary to pain, deep tendon reflexes normal, strength in upper and lower extremities [5/5], [abnormal gait noted] Neurological: speech clear, 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 Patient's been instructed to call the office if she has any issues prior to her next appointment. Dr. Dawson has reviewed this note and agrees with this plan of care. This note was dictated using voice recognition software and may contain errors or omissions [facility] History I have reviewed the patient's past medical history: Yes Medical History: Reports:: Anxiety, Asthma, Congenital Heart Disease, Gastroesophageal Reflux Disease(GERD), Hyperlipidemia, Hypertension, Osteoporosis, Renal Disease Denies:: Aneurysm, Atherosclerotic Heart Disease, Atrial Fibrillation, Cancer, Cardiomyopathy, Carotid Stenosis, Congestive Heart Failure, Chronic Obstructive Pulmonary Disease (COPD), Coronary Artery Disease, Cerebrovascular Accident, Diabetes Mellitus Type 1, Diabetes Mellitus Type 2, Gastrointestinal Bleed, Internal Pacemaker, Migraine, MRSA, Myocardial Infarction, Seizures *Have you ever received a pneumonia vaccine?: No *Have you received a flu vaccine this season?: Yes Other Medical History: Reports: Anemia, Arthritis, Cataracts, Hypothyroidism, Osteoporosis, Thyroid Disease. Denies: Blood Transfusion Reaction, Glaucoma Laterality Cases: Bilateral: Carpal Tunnel Release Other Surgeries: Yes: Appendectomy, Cardiac Catheterization, Colonoscopy, Hysterectomy-Total, Other. No: Pacemaker Amputation: No Fractures: No - *Social History Smoking Status: Never smoker Alcohol Intake: never Alcohol Intake Frequency:: other Substance Use Type: denies use *Occupational Status:: employed Housing: house Household Members: other *Travel in the last 8 weeks: None - Psychiatric History Pschychiatric History:: Reports:: Anxiety Family Hx:: Unable to obtain
== END ==
PROVIDERS: PCP Internal Medicine Adolescent Medicine; Visit Provider Clinical Nurse Specialist Family Health
DX: M51.16 Intervertebral disc disorders with radiculopathy, lumbar region (principal)
CPT/HCPCS: 99212; G0463

== ENCOUNTER 2020-08-14 08:32 | Day surgery (SDC) | payer BC, SELFPAY ==
[2020-08-14 08:45] VITALS: BP 101/62; PULSE 64; RESP 18; TEMP 36.7; O2SAT 64; BMI 29.7
[2020-08-14 08:55] VITALS: BP 106/56; PULSE 55; RESP 18; O2SAT 96
[2020-08-14 09:02] VITALS: BP 103/67; PULSE 61; RESP 18; O2SAT 97
[2020-08-14 09:24] VITALS: BP 99/64; PULSE 20; PULSE 62; O2SAT 99
--- NOTE | 2020-08-14 10:10 | HMH.PMPROC ---
- Procedure Date: 08/14/20 Time: 10:10 Anesthesiologist:: Lisseth Larson MD Complications:: None Pre-procedure Diagnosis:: lumbar radiculopathy, degenerative disc disease lumbar spine Post-procedure Diagnosis:: Same Indications for Procedure:: Is a very pleasant 54-year-old white female who presents today with chronic low back pain radiating into bilateral lower extremities related to the above diagnosis. She is trialed and failed conservative treatment including oral pain medication and home stretching program. Is previously underwent a lumbar epidural steroid injection and notes receiving up to 80% pain relief but only for short-term. the plan for today is for the patient to undergo repeat lumbar epidural steroid injections at L5-S1. Procedure Details:: Informed consent was obtained and the risk and benefits of the procedure was explained to the patient. The patient was taken to the procedure room. The patient was placed prone on the procedure table. The patient was prepped and draped in sterile fashion. C-arm fluoroscopy was used to view the lumbar spine. Skin and subcutaneous tissues were anesthetized using lidocaine. I placed an 18-gauge epidural needle and advanced into the L5 -S1 interspace using fluoroscopic guidance and [id number] to air and saline. After confirmation of needle placement in the epidural space with dye I injected 2 mL of lidocaine 1.0% with Depo-Medrol 80 mg. Patient tolerated the procedure well with no complications. Plan and Disposition:: Follow-up with this patient in 2 weeks. Will reevaluate pain symptoms at that time. Discussed with the patient that should she only receive short-term pain relief she may benefit from spinal cord stimulation therapy in the future. We we discussed the spinal cord stim relation process today including trial prior to implant.
== END 2020-08-14 09:25 | disposition home or self-care (01) ==
LOC: SC.PAINP 08:32
PROVIDERS: PCP Internal Medicine Adolescent Medicine; Visit Provider Anesthesiology Pain Medicine
DX: M51.16 Intervertebral disc disorders with radiculopathy, lumbar region (principal); E07.9 Disorder of thyroid, unspecified; E78.5 Hyperlipidemia, unspecified; I10 Essential (primary) hypertension; J45.909 Unspecified asthma, uncomplicated; K21.9 Gastro-esophageal reflux disease without esophagitis; F41.9 Anxiety disorder, unspecified; F32.9 Major depressive disorder, single episode, unspecified
CPT/HCPCS: 62323; J1040; Q9966

== ENCOUNTER → 2020-08-21 09:59 | Outpatient (CLI) | payer BC, SELFPAY ==
--- NOTE | 2020-08-21 10:01 | MM_ITS ---
PROCEDURE INFORMATION: Exam: MG Screening 3D Mammography Exam date and time: 08/21/2020 10:01 AM Age: 54 years old Clinical indication: Encounter for screening mammogram for malignant neoplasm of breast TECHNIQUE: Imaging protocol: Screening tomosynthesis and 2D mammography including computer-aided detection (CAD) when performed. COMPARISON: 1. MG MM DIG SCREENING MAMM BI W/CAD 09/13/2018 9:38 AM 2. MG DMSB DIG MAMM-SCREEN IRENE 08/18/2015 10:00 AM FINDINGS: MAMMOGRAPHY: Breast composition: The breast tissue is composed of scattered areas of fibroglandular density. Mass: None. Architectural distortion: None. Calcifications: No suspicious calcifications. Asymmetric density: None. Skin thickening: None. Axillary adenopathy: None. IMPRESSION: No mammographic evidence of malignancy. Annual screening is recommended unless otherwise clinically indicated. ASSESSMENT: BI-RADS Category 1: Negative
== END ==
PROVIDERS: PCP Internal Medicine Adolescent Medicine; Visit Provider Internal Medicine Adolescent Medicine
DX: Z12.31 Encounter for screening mammogram for malignant neoplasm of breast (principal)
CPT/HCPCS: 77063; 77067

== ENCOUNTER → 2020-09-03 09:11 | Outpatient (POV) | payer BC, SELFPAY ==
[2020-09-03 09:32] VITALS: BP 117/68; PULSE 82; RESP 18; O2SAT 95; BMI 31.3
--- NOTE | 2020-09-03 12:54 | HMH.PAINSOAP ---
[facility] Pain Management SOAP Note Subjective:: Patient is a 55-year-old white female who presents today for follow-up after lumbar epidural steroid injection at L5-S1. She has been treated for degenerative disc disease lumbar spine with lumbar radiculopathy symptoms. Patient reports that she did not get any relief after her injection. She is having pain in her low back and her neck with radiation to her bilateral upper and lower extremities. Patient's pain is a 2 out of 10 at this time, however. She says that her pain is progressively worsening. She does not feel she is getting any significant relief with injective therapy. We did discuss possible spinal cord stimulation versus intrathecal therapy. Patient feels she may benefit more with oral medications and says that she will consider intrathecal therapy, however, she is also going to look into possible clinics that can offer her oral medications. Review of Systems General: No recent weight changes, no fever, no sleep disturbances Respiratory: No cough, no shortness of air, no recurring pulmonary infections Cardiovascular/peripheral vascular: No chest pain, no palpitations, no edema, no shortness of breath Gastrointestinal: No new onset incontinence, normal bowel movements reported Genitourinary: No new onset incontinence Musculoskeletal: Neck and low back pain Psychiatric: Normal mood/affect Neurological: [Denies weakness in extremities], [denies balance issues] Objective:: Physical exam General: Alert and oriented x3, no acute distress, pleasant and cooperative, [on room air] Lungs: Respirations even and unlabored, symmetrical chest expansion Eyes: PERRL Musculoskeletal: Flexion and extension of [] cervical and lumbar spine somewhat guarded secondary to pain, deep tendon reflexes normal, strength in upper and lower extremities [5/5], [abnormal gait noted] Neurological: Speech clear, 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 She will contact the clinic in the future if she decides to discuss alternative treatments other than oral medications. She also says she may seek other treatment options at other clinics for oral medications. If she does decide to return to the clinic, we will schedule her for psychological evaluation for possible intrathecal therapy versus spinal cord stimulation. Does have pain in the neck and low back. Intrathecal therapy may be a better option for her. She has tried physical therapy, along with continued home stretching and anti-inflammatories with no relief. Patient has been instructed to contact the clinic with any concerns before the next appointment. Dr. Dawson has reviewed this note and agrees with this plan of care. This note was dictated using voice recognition software and make contain errors or omissions. [facility] History I have reviewed the patient's past medical history: Yes Medical History: Reports:: Anxiety, Asthma, Congenital Heart Disease, Coronary Artery Disease, Gastroesophageal Reflux Disease(GERD), Hyperlipidemia, Hypertension, Osteoporosis, Renal Disease Denies:: Aneurysm, Atherosclerotic Heart Disease, Atrial Fibrillation, Cancer, Cardiomyopathy, Carotid Stenosis, Congestive Heart Failure, Chronic Obstructive Pulmonary Disease (COPD), Cerebrovascular Accident, Diabetes Mellitus Type 1, Diabetes Mellitus Type 2, Gastrointestinal Bleed, Internal Pacemaker, Migraine, MRSA, Myocardial Infarction, Seizures *Have you ever received a pneumonia vaccine?: No *Have you received a flu vaccine this season?: Yes Other Medical History: Reports: Anemia, Arthritis, Cataracts, Hormone Therapy, Hypothyroidism, Osteoporosis, Thyroid Disease. Denies: Blood Transfusion Reaction, Glaucoma Laterality Cases: Bilateral: Carpal Tunnel Release Other Surger
== END ==
PROVIDERS: PCP Internal Medicine Adolescent Medicine; Visit Provider Clinical Nurse Specialist Family Health
DX: M51.16 Intervertebral disc disorders with radiculopathy, lumbar region (principal); M45.2 Ankylosing spondylitis of cervical region; M54.12 Radiculopathy, cervical region
CPT/HCPCS: 99212; G0463

== ENCOUNTER → 2020-10-08 11:01 | Outpatient (POV) | payer BC, SELFPAY ==
[2020-10-08 11:17] VITALS: BP 120/90; PULSE 85; RESP 18; O2SAT 100; BMI 29.1
--- NOTE | 2020-10-08 11:35 | HMH.PAINSOAP ---
[facility] Pain Management SOAP Note Subjective:: Patient is a 55-year-old white female who presents today for follow-up. The patient was seen in the clinic on 09/03/2020. At that time she did not feel the injections were giving her much relief. As result she did not want to proceed with any further injective therapy. She is here today and does report that the injections have given her significant relief. Her pain is a 4 out of 10 at this time. She did want to discuss her options. Because the patient did get significant relief a couple weeks following the injection, she would like to discuss if further injective therapy would be beneficial for her pain. Patient says that this was her #2 lumbar epidural steroid injection at L5-S1. Patient says she is continue with home stretching and anti-inflammatories. She also takes gabapentin prescribed by Dr. Leo. Review of Systems General: No recent weight changes, no fever, no sleep disturbances Respiratory: No cough, no shortness of air, no recurring pulmonary infections Cardiovascular/peripheral vascular: No chest pain, no palpitations, no edema, no shortness of breath Gastrointestinal: No new onset incontinence, normal bowel movements reported Genitourinary: No new onset incontinence Musculoskeletal: Low back pain with bilateral lower extremity pain Psychiatric: [Normal mood/affect] Neurological: [Denies weakness in extremities], [denies balance issues] Objective:: Physical exam General: Alert and oriented x3, no acute distress, pleasant and cooperative, [on room air] Lungs: Respirations even and unlabored, symmetrical chest expansion Eyes: PERRL Musculoskeletal: Flexion and extension of lumbar [spine] somewhat guarded secondary to pain, strength in upper and lower extremities [5/5], [antalgic gait noted] Neurological: Speech clear, [technical professional equal], no gross sensory deficit Assessment:: Degenerative disc disease lumbar spine with lumbar radiculopathy symptoms Plan:: Patient does want to proceed with injective therapy, however, because she is at a 4 out of 10 at this time she would like to postpone the injection until her symptoms worsen. She has already had 2 injections this year. We did discuss trying a low-dose of tramadol to see if this helps in between injective therapy. We will order her tramadol 50 mg 1 tablet p.o. twice daily as needed pain. We will see her back in a month for reevaluation of symptoms. If her pain worsens before that time she can return to the clinic and we will schedule her for lumbar epidural steroid injection at L5-S1. Risks and benefits of the medication have been explained in detail to the patient. The patient has been advised to consult with his/her primary care provider and pharmacist regarding drug-drug interaction of medications currently prescribed. Patient has been instructed to contact the clinic with any concerns before the next appointment. Dr. Dawson has reviewed this note and agrees with this plan of care. This note was dictated using voice recognition software and make contain errors or omissions. [facility] History I have reviewed the patient's past medical history: Yes Medical History: Reports:: Anxiety, Asthma, Congenital Heart Disease, Coronary Artery Disease, Gastroesophageal Reflux Disease(GERD), Hyperlipidemia, Hypertension, Osteoporosis, Renal Disease Denies:: Aneurysm, Atherosclerotic Heart Disease, Atrial Fibrillation, Cancer, Cardiomyopathy, Carotid Stenosis, Congestive Heart Failure, Chronic Obstructive Pulmonary Disease (COPD), Cerebrovascular Accident, Diabetes Mellitus Type 1, Diabetes Mellitus Type 2, Gastrointestinal Bleed, Internal Pacemaker, Migraine, MRSA, Myocardial Infarction, Seizures *Have you ever received a pneumonia vaccine?: No *Have you received a flu vaccine this season?: Yes Other Medical History: Reports: Anemia, Arthritis, Cataracts, Hormone Therapy, Hypothyroidism, Osteoporosis, Thyroid Disease. Denies: Blood Tra
== END ==
PROVIDERS: Visit Provider Clinical Nurse Specialist Family Health
DX: M51.16 Intervertebral disc disorders with radiculopathy, lumbar region (principal)
CPT/HCPCS: 99212; G0463

== ENCOUNTER → 2020-11-05 13:26 | Outpatient (POV) | payer BC, SELFPAY ==
[2020-11-05 13:40] VITALS: BP 130/71; PULSE 89; RESP 18; O2SAT 97; BMI 27.3
--- NOTE | 2020-11-05 14:38 | HMH.PAINSOAP ---
[facility] Pain Management SOAP Note Subjective:: Patient is a pleasant 55-year-old white female who presents today for follow-up. She is being seen for degenerative disc disease lumbar spine with lumbar radiculopathy symptoms. Patient did have injective therapy in August 2020. She has had 2 lumbar epidural steroid injections. She has pain in her low back with radiation into bilateral lower extremities as well as numbness and tingling in feet and hands. Patient has been given tramadol in the past which she says did not give her any significant relief. She is not interested in further injective therapy at this time. Patient is very tearful today. She says that she feels guilty for having pain. She says that she does not feel comfortable discussing her pain due to family members telling the patient that she should not have pain. She says that she tries to tolerate the pain. At rest, her pain is 1 out of 10. Other days, the patient says the pain will be a 10 out of 10. She is very anxious along with complaints of pruritus today. She says that she has itching to her bilateral upper and lower extremities as well as her trunk. She does not have any notable rashes or open areas to her skin. She denies any changes in products that would contribute to pruritus. Review of Systems General: No recent weight changes, no fever, no sleep disturbances Respiratory: No cough, no shortness of air, no recurring pulmonary infections Cardiovascular/peripheral vascular: No chest pain, no palpitations, no edema, no shortness of breath Gastrointestinal: No new onset incontinence, normal bowel movements reported Genitourinary: No new onset incontinence Musculoskeletal: Low back pain with radiation into lower extremities, numbness and tingling hands and feet, itching to trunk and upper and lower extremities Psychiatric: [Normal mood/affect] Neurological: [Denies weakness in extremities], [denies balance issues] Objective:: Physical exam General: Alert and oriented x3, no acute distress, pleasant and cooperative, [on room air] Lungs: Respirations even and unlabored, symmetrical chest expansion Eyes: PERRL Musculoskeletal: Flexion and extension of lumbar [spine] somewhat guarded secondary to pain, strength in upper and lower extremities [5/5], [antalgic gait noted] Neurological: Speech clear, [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 3 times daily as needed for pruritus and for anxiety. The patient does not want to proceed with further injective therapy at this time. She understands that she is limited to the number of injections she can take within the year. At next visit, she may want to schedule an injection. The previous injections in her lumbar spine. She has had #2 lumbar epidural steroid injections at this point to the L5-S1 area. She also takes gabapentin as prescribed by Dr. Leo. In the future, if she does not want to proceed with injective therapy, she may be a spinal cord stimulator candidate. She was given educational information today. We will follow-up with patient in 1 month for reevaluation of symptoms. The medication was discussed in detail with the patient. She does understand the side effects of the medication and should use caution in conjunction with her other medications. She has also been advised to use caution with driving taking the medication. Risks and benefits of the medication have been explained in detail to the patient. The patient has been advised to consult with his/her primary care provider and pharmacist regarding drug-drug interaction of medications currently prescribed. Patient has been prescribed a controlled substance after being counseled on the medication, medication safety, and possible side effects. GEORGE report has been obtained and reviewed prior to prescri
[2020-11-05 16:45] LABS: Alanine Aminotransferase 20 U/L (12-78); Albumin Level 4.3 g/dl (3.5-5.0); Albumin/Globulin Ratio 1.7 (1.1-1.8); Alkaline Phosphatase 101 U/L (38-126); Aspartate Amino Transferase 27 U/L (14-36); Bilirubin,Total 0.3 mg/dl (0.2-1.3); Blood Urea Nitrogen 19 mg/dl (7-17); Calcium 9.1 mg/dl (8.4-10.2); Carbon Dioxide 27 mmol/L (22.0-30.0); Creatinine Clearance Estimated 80 mL/min (50-200); Estimated Glomerular Filt Rate 57 ml/min (>60); GFR (African American) 69 ML/MIN (>60); Globulin 2.6 g/dL (1.3-3.2); Glucose 92 mg/dl (74-100); Potassium 4.1 mmoL/L (3.5-5.1); Sodium 138 mmol/L (136-145); Total Protein,Serum 6.9 g/dl (6.3-8.2)
[2020-11-05 17:51] LABS: Vitamin B12 371 pg/mL (239-931)
[2020-11-05 17:56] LABS: Folate 8.64 ng/mL
[2020-11-05 18:13] LABS: Anion Gap 14.1 mEq/L (5-15); Chloride 101 mmol/L (98-107)
[2020-11-09 15:13] LABS: Albumin 3.5 g/dL (2.9-4.4); Alpha-1-Globulin 0.2 g/dL (0.0-0.4)
[2020-11-10 20:13] LABS: Vitamin B1 139.6 nmol/L (66.5-200.0)
[2020-11-13 04:14] LABS: Vitamin B6 11.4 ug/L (2.0-32.8)
== END ==
PROVIDERS: PCP Internal Medicine Adolescent Medicine; Visit Provider Clinical Nurse Specialist Family Health
DX: M51.16 Intervertebral disc disorders with radiculopathy, lumbar region (principal)
CPT/HCPCS: 36415; 80053; 82525; 82607; 82746; 84155; 84165; 84207; 84425; 99212; G0463

== ENCOUNTER → 2020-11-23 09:52 | Outpatient (POV) | payer BC, SELFPAY ==
--- NOTE | 2020-11-23 10:21 | HMH.PAINSOAP ---
[facility] Pain Management SOAP Note Subjective:: Patient is a 55-year-old white female who presents today for follow-up. The patient is having worsening low back pain with radiation into her bilateral lower extremities. The patient has had 2 lumbar epidural steroid injections and is continuing to have significant pain as well as numbness and tingling in her feet and hands. She is scheduled to see a neurologist and will undergo imaging. She says at rest the pain is a 1 out of 10 or 2 out of 10. With standing and walking the pain goes to a 10 out of 10. At last visit the patient was not interested in further injective therapy or spinal cord stimulation though given educational information. Today she is here to discuss a repeat injection at the L5-S1 area. Patient has tried and failed conservative therapies of physical therapy for more than 6 weeks along with continued home stretching and anti-inflammatories. These have not given her any significant relief. Review of Systems General: No recent weight changes, no fever, no sleep disturbances Respiratory: No cough, no shortness of air, no recurring pulmonary infections Cardiovascular/peripheral vascular: No chest pain, no palpitations, no edema, no shortness of breath Gastrointestinal: No new onset incontinence, normal bowel movements reported Genitourinary: No new onset incontinence Musculoskeletal: Low back pain with radiation into bilateral lower extremities Psychiatric: [Normal mood/affect] Neurological: [Denies weakness in extremities], [denies balance issues] Objective:: Physical exam General: Alert and oriented x3, no acute distress, pleasant and cooperative, [on room air] Lungs: Respirations even and unlabored, symmetrical chest expansion Eyes: PERRL Musculoskeletal: Flexion and extension of lumbar [spine] somewhat guarded secondary to pain, [antalgic gait noted] Neurological: Speech clear, no gross sensory deficit Assessment:: Degenerative disc disease lumbar spine with lumbar radiculopathy symptoms Plan:: We will schedule the patient for a #3 lumbar epidural steroid injection at L5-S1. She is not on anticoagulation therapy. We will follow up with her after her injection for reevaluation of symptoms. Possible side effects of corticosteroids have been discussed with the patient. Risks and benefits of the procedure have been explained to the patient. Patient would like to proceed with the procedure. Patient has been instructed to contact the clinic with any concerns before the next appointment. Dr. Dawson has reviewed this note and agrees with this plan of care. This note was dictated using voice recognition software and make contain errors or omissions. [facility] History I have reviewed the patient's past medical history: Yes Medical History: Reports:: Anxiety, Asthma, Congenital Heart Disease, Coronary Artery Disease, Gastroesophageal Reflux Disease(GERD), Hyperlipidemia, Hypertension, Osteoporosis, Renal Disease Denies:: Aneurysm, Atherosclerotic Heart Disease, Atrial Fibrillation, Cancer, Cardiomyopathy, Carotid Stenosis, Congestive Heart Failure, Chronic Obstructive Pulmonary Disease (COPD), Cerebrovascular Accident, Diabetes Mellitus Type 1, Diabetes Mellitus Type 2, Gastrointestinal Bleed, Internal Pacemaker, Migraine, MRSA, Myocardial Infarction, Seizures *Have you ever received a pneumonia vaccine?: No *Have you received a flu vaccine this season?: Yes Other Medical History: Reports: Anemia, Arthritis, Cataracts, Hormone Therapy, Hypothyroidism, Osteoporosis, Thyroid Disease. Denies: Blood Transfusion Reaction, Glaucoma Laterality Cases: Bilateral: Carpal Tunnel Release Other Surgeries: Yes: Appendectomy, Cardiac Catheterization, Colonoscopy, Hysterectomy-Total, Other (hemorrhoidectomy). No: Pacemaker Amputation: No Fractures: No - *Social History Smoking Status: Never smoker Alcohol Intake: never Alcohol Intake Frequency:: other Substance Use Type: denies use
[2020-11-23 10:23] VITALS: BP 127/81; PULSE 74; RESP 18; O2SAT 98; BMI 31.3
== END ==
PROVIDERS: Visit Provider Clinical Nurse Specialist Family Health
DX: M51.16 Intervertebral disc disorders with radiculopathy, lumbar region (principal)
CPT/HCPCS: 99212; G0463

== ENCOUNTER 2020-12-04 12:24 | Day surgery (SDC) | payer BC, SELFPAY ==
[2020-12-04 12:27] VITALS: BP 146/87; PULSE 80; RESP 18; TEMP 36.9; O2SAT 98; BMI 31.3
[2020-12-04 12:39] VITALS: BP 132/88; PULSE 79; RESP 20; O2SAT 96
[2020-12-04 12:40] VITALS: BP 145/89; PULSE 80; RESP 20; O2SAT 95
--- NOTE | 2020-12-04 12:44 | P.PCN_ITS ---
- Procedure Date: 12/04/20 Time: 12:44 Anesthesiologist:: Maldonado Dawson MD Complications:: None Pre-procedure Diagnosis:: Degenerative disc disease of lumbar spine with lumbar radiculopathy symptoms Post-procedure Diagnosis:: Same Indications for Procedure:: This patient is a pleasant 55-year-old white female who we are treating for low back pain with lumbar radiculopathy symptoms. She has increasing pain in her low back radiating down into both legs. She has done well with previous epidural steroid injections. She presents for repeat lumbar epidural steroid injection under fluoroscopy today. Procedure Details:: Informed consent was obtained and the risk and benefits of the procedure was explained to the patient. The patient was taken to the procedure room. The patient was placed prone on the procedure table. The patient was prepped and draped in sterile fashion. C-arm fluoroscopy was used to view the lumbar spine. Skin and subcutaneous tissues were anesthetized using lidocaine. I placed an 18-gauge epidural needle and advanced into the L4-L5 interspace using fluoroscopic guidance and [id number] to air. After confirmation of ne edle placement in the epidural space with dye I injected 2 mL of lidocaine 1.5% with Depo-Medrol 80 mg. Patient tolerated the procedure well with no complications. Plan and Disposition:: We will follow-up with her in 2 weeks. Will reevaluate symptoms at that time.
[2020-12-04 12:55] VITALS: BP 125/78; PULSE 78; RESP 20; O2SAT 98
== END 2020-12-04 12:55 | disposition home or self-care (01) ==
LOC: SC.PAINP 12:25
PROVIDERS: PCP Internal Medicine Adolescent Medicine; Visit Provider Anesthesiology
DX: M51.16 Intervertebral disc disorders with radiculopathy, lumbar region (principal); I10 Essential (primary) hypertension; E78.5 Hyperlipidemia, unspecified; I25.10 Atherosclerotic heart disease of native coronary artery without angina pectoris; J45.909 Unspecified asthma, uncomplicated; K21.9 Gastro-esophageal reflux disease without esophagitis; E07.9 Disorder of thyroid, unspecified
CPT/HCPCS: 62323; J1040; Q9966

== ENCOUNTER → 2021-01-11 11:20 | Outpatient (POV) | payer BC, SELFPAY ==
[2021-01-11 11:25] VITALS: BP 130/75; PULSE 86; RESP 20; TEMP 37.2; O2SAT 99; BMI 31.3
--- NOTE | 2021-01-11 11:39 | HMH.PAINSOAP ---
[facility] Pain Management SOAP Note Subjective:: Patient is a 55-year-old white female who presents today for follow-up after #3 lumbar epidural steroid injection at L4-L5 area. Patient says that her pain is a 3 out of 10 today. She does say that the injection gave her moderate relief. She was started on Elavil by her primary care provider and says that this is helped tremendously with her pain, however, she is having drowsiness. She is also taking Cymbalta. She says that Vistaril provided by our clinic has given her relief as well. Overall she is feeling much better since the 3 injections and changes in medication. Review of Systems General: No recent weight changes, no fever, no sleep disturbances Respiratory: No cough, no shortness of air, no recurring pulmonary infections Cardiovascular/peripheral vascular: No chest pain, no palpitations, no edema, no shortness of breath Gastrointestinal: No new onset incontinence, normal bowel movements reported Genitourinary: No new onset incontinence Musculoskeletal: Intermittent low back pain Psychiatric: [Normal mood/affect] Neurological: [Denies weakness in extremities], [denies balance issues] Objective:: Physical exam General: Alert and oriented x3, no acute distress, pleasant and cooperative Lungs: Respirations even and unlabored, symmetrical chest expansion Eyes: PERRL Musculoskeletal: Flexion and extension of lumbar [spine] somewhat guarded secondary to pain, [antalgic gait noted] Neurological: Speech clear, no gross sensory deficit Assessment:: Degenerative disc disease lumbar spine with lumbar radiculopathy symptoms Plan:: We will follow up with the patient in 2 months for further evaluation. The patient is not eligible for a repeat injection until June 05, 2021. She does have facet arthropathy noted to her MRI. We did discuss if patient's pain worsens she may be eligible to undergo injective therapy to her facet joints. At this time she is doing well. She can contact the clinic if she has any concerns before next visit. Patient has been instructed to contact the clinic with any concerns before the next appointment. Dr. Dawson has reviewed this note and agrees with this plan of care. This note was dictated using voice recognition software and make contain errors or omissions. [facility] History I have reviewed the patient's past medical history: Yes Medical History: Reports:: Anxiety, Asthma, Congenital Heart Disease, Coronary Artery Disease, Gastroesophageal Reflux Disease(GERD), Hyperlipidemia, Hypertension, Osteoporosis, Renal Disease, Seizures Denies:: Aneurysm, Atherosclerotic Heart Disease, Atrial Fibrillation, Cancer, Cardiomyopathy, Carotid Stenosis, Congestive Heart Failure, Chronic Obstructive Pulmonary Disease (COPD), Cerebrovascular Accident, Diabetes Mellitus Type 1, Diabetes Mellitus Type 2, Gastrointestinal Bleed, Internal Pacemaker, Migraine, MRSA, Myocardial Infarction *Have you ever received a pneumonia vaccine?: No *Have you received a flu vaccine this season?: Yes Other Medical History: Reports: Anemia, Arthritis, Cataracts, Hormone Therapy, Hypothyroidism, Osteoporosis, Thyroid Disease. Denies: Blood Transfusion Reaction, Glaucoma Laterality Cases: Bilateral: Carpal Tunnel Release Other Surgeries: Yes: Appendectomy, Cardiac Catheterization, Colonoscopy, Hysterectomy-Total, Other (hemorroid sx). No: Pacemaker Amputation: No Fractures: No - *Social History Smoking Status: Never smoker Alcohol Intake: never Alcohol Intake Frequency:: other Substance Use Type: denies use *Occupational Status:: employed Housing: house Household Members: other *Travel in the last 8 weeks: None - Psychiatric History Pschychiatric History:: Reports:: Anxiety Family Hx:: Unable to obtain
== END ==
PROVIDERS: Visit Provider Clinical Nurse Specialist Family Health
DX: M51.16 Intervertebral disc disorders with radiculopathy, lumbar region (principal)
CPT/HCPCS: 99212; G0463

== ENCOUNTER → 2021-03-08 17:13 | Outpatient (CLI) | payer MEDICARE, SELFPAY | PROVIDERS: Visit Provider Nurse Practitioner Family | DX: J02.9 Acute pharyngitis, unspecified (principal); U07.1 COVID-19 | CPT/HCPCS: C9803; U0003; U0005 ==

== ENCOUNTER → 2021-04-06 09:48 | Outpatient (CLI) | payer MEDICARE, SELFPAY ==
[2021-04-06 10:25] VITALS: PULSE 80; PULSE 84
== END ==
PROVIDERS: PCP Internal Medicine Adolescent Medicine; Visit Provider Internal Medicine Pulmonary Disease
DX: R06.09 Other forms of dyspnea (principal)
CPT/HCPCS: 94060; 94640; 94727; 94729

== ENCOUNTER → 2021-07-27 09:28 | Outpatient (CLI) | payer MEDICARE, SELFPAY ==
[2021-07-27 10:30] LABS: Hemoglobin A1C 6.5 % (4.0-6.0)
== END ==
PROVIDERS: PCP Internal Medicine Adolescent Medicine; Visit Provider Anesthesiology
DX: R73.09 Other abnormal glucose (principal)
CPT/HCPCS: 36415; 83036

== ENCOUNTER 2022-01-01 09:19 | Emergency (ER) | payer MEDICARE, SELFPAY ==
[2022-01-01 09:26] VITALS: BP 136/85; PULSE 72; RESP 19; TEMP 36.8; O2SAT 98; BMI 31.8
--- NOTE | 2022-01-01 09:34 | XR_ITS ---
PROCEDURE INFORMATION: Exam: XR Soft Tissue Neck Exam date and time: 01/01/2022 9:33 AM Age: 56 years old Clinical indication: Other: Pill stuck; Additional info: *pill stuck TECHNIQUE: Imaging protocol: Radiologic exam of the soft tissues of the neck. COMPARISON: CR XR CHEST 2V 06/15/2020 9:36 AM FINDINGS: Airway: No abnormal narrowing. Soft tissues: No radiopaque foreign body is demonstrated. Bones/joints: Mild degenerative changes not fully assessed. IMPRESSION: 1. No radiopaque foreign body is demonstrated. 2. If a non radiopaque foreign body is suspected, or if esophageal obstruction could be present, a barium swallow may be indicated.
[2022-01-01 09:43] VITALS: BP 130/86; PULSE 81; RESP 16; TEMP 36.5; O2SAT 98; BMI 31.3
--- NOTE | 2022-01-01 09:55 | EXP.UTC ---
Discharge Plan Disposition Patient Disposition: Home, Self-Care Condition: Good Prescriptions Prescriptions: New prednisone 10 mg tablet 10 mg PO BID 3 Days Qty: 6 0RF No Action duloxetine [Cymbalta] 60 mg capsule,delayed release(DR/EC) 60 mg PO BID gabapentin 800 mg tablet 800 mg PO QID acetaminophen [Tylenol] 325 mg tablet 650 mg PO Q4H PRN (Reason: pain) tizanidine 2 mg capsule 4 mg PO Q8H cholecalciferol (vitamin D3) 1,000 unit capsule 1,000 unit PO ONCE oxcarbazepine [Trileptal] 300 mg tablet 600 mg PO DAILY docusate sodium 50 mg capsule 100 mg PO QDAY PRN (Reason: stool softener) fluoxetine [Prozac] 20 mg capsule 40 mg PO BID levothyroxine 200 mcg tablet 200 mcg PO DAILY omeprazole 20 mg capsule,delayed release(DR/EC) 40 mg PO DAILY bupropion HCl 150 mg tablet extended release 24 hr 300 mg PO DAILY Label Comments: TAKE 2 TABLETS BY MOUTH ONCE DAILY albuterol sulfate 90 mcg/actuation HFA aerosol inhaler 2 inh INHALATION Q6H PRN (Reason: shortness of breath or wheezing) 90 Days Qty: 8.5 3RF Flovent HFA 110 mcg/actuation HFA aerosol inhaler 1 puff INHALATION BID 90 Days Qty: 12 3RF bisoprolol fumarate 5 mg tablet 5 mg PO DAILY Qty: 30 5RF lisinopril-hydrochlorothiazide 20-12.5 mg tablet 1 tab PO DAILY Qty: 30 5RF estradiol 2 mg tablet 2 mg PO DAILY Qty: 30 11RF Referrals Follow up/Referrals: Kody Dunn MD [Primary Care Provider] - See instructions Activity Restrictions/Add. Instructions Additional Instructions/Restrictions: Drink plenty of fluids. Eat soft foods like pudding and drink plenty of fluids for the next couple of days. Take the medications as directed. Follow up with your regular doctor. GO TO THE ER FOR ANY WORSENING SYMPTOMS Don't start the oral steroids (prednisone) tomorrow, since you had the shot here today. Clinical Impressions Clinical Impression: Unspecified foreign body in esophagus causing other injury, initial encounter Instructions Patient Instructions: Sore Throat Discharge ED Provider: Bayron Sharpe [facility] General Stated complaint: Pill didn't go all the way down Mode of Arrival: Ambulatory Source of Information: Patient Limitations: No Limitations Time Seen by Provider: 01/01/22 09:53 Description of Symptoms (Recalled from Triage Doc. by RN): pt states that last night around 2100 she attemped to take a tylenol pm and it went down the wrong way . pt states she vomitted last night and has been coughing since then. HEENT Symptoms (Recalled from RN notes): Yes Resp Symptoms (Recalled from RN notes): No Skin Symptoms (Recalled from RN notes): No MS Symptoms (Recalled from RN notes): No Functional Status (Recalled from RN notes): n/a History of Present Illness Provider Complaint: She states that she took her night time meds last night and she began feeling like one was stuck in her throat. She managed to cough up 1/2 of the pill and then she vomited up the rest of the pill, but since then her throat has been irritated and she has had a cough. She denies any shortness of breath. Related Data Home Medications Medication Instructions Recorded Confirmed acetaminophen 325 mg tablet 650 mg PO Q4H PRN pain 03/06/17 12/07/21 (Tylenol) cholecalciferol (vitamin D3) 25 1,000 unit PO ONCE Supplement 03/06/17 12/07/21 mcg (1,000 unit) capsule tizanidine 2 mg capsule 4 mg PO Q8H muscle relaxer 03/06/17 12/07/21 levothyroxine 200 mcg tablet 200 mcg PO DAILY thyroid 01/30/18 12/07/21 oxcarbazepine 300 mg tablet 600 mg PO DAILY epilepsy 01/30/18 12/07/21 (Trileptal) duloxetine 60 mg capsule,delayed 60 mg PO BID mood 03/19/18 12/07/21 release (Cymbalta) docusate sodium 50 mg capsule 100 mg PO QDAY PRN stool softener 09/11/19 12/07/21 omeprazole 20 mg capsule,delayed 40 mg PO DAILY GERD 09/11/19 12/07/21 release bupropion HCl 150 mg 24 hr tab
[2022-01-01 10:25] VITALS: BP 130/86; PULSE 81; RESP 16; TEMP 36.5
== END 2022-01-01 10:26 | disposition home or self-care (01) ==
PROVIDERS: Emergency Provider Nurse Practitioner Family; PCP Internal Medicine Adolescent Medicine
DX: T18.108A Unspecified foreign body in esophagus causing other injury, initial encounter (principal)
CPT/HCPCS: 70360; 96372; 99213; G0463

== ENCOUNTER 2022-02-23 06:38 | Emergency (ER) | payer MEDICARE, SELFPAY ==
[2022-02-23] VITALS (7 sets, daily range): BP systolic 115–146; BP diastolic 63–78; PULSE 89–95; RESP 18–20; TEMP 36.7–37.3; O2SAT 97–99; BMI 30.5
[2022-02-23 07:38] LABS: Basophils % 0.3 % (0.1-2.0); Eosinophils # 0.2 K/mm3 (0.0-0.4); Eosinophils % 1.6 % (0.1-12.0); Hematocrit 33.4 % (37.0-47.0); Hemoglobin 11.2 g/dL (12.2-16.2); Lymphocytes # 1.9 K/mm3 (0.7-4.5); Lymphocytes % 14.5 % (10-50); Mean Corpuscular HGB Conc 33.7 g/dL (31.8-35.4); Mean Platelet Volume 7.4 fl (7.4-10.4); Monocytes % 7.2 % (1.7-9.3); Neutrophils # 10.2 K/mm3 (1.8-7.8); Neutrophils % 76.3 % (37.0-80.0); Platelet Count 296 K/mm3 (142-424); Red Blood Count 3.63 M/mm3 (4.20-5.40); Red Cell Distribution Width 12.3 % (11.5-17.5); White Blood Count 13.3 K/mm3 (4.8-10.8)
[2022-02-23 07:50] LABS: Alanine Aminotransferase 20 U/L (12-78); Albumin Level 4.2 g/dl (3.5-5.0); Albumin/Globulin Ratio 1.3 (1.1-1.8); Alkaline Phosphatase 90 U/L (38-126); Amylase 46 U/L (30-110); Aspartate Amino Transferase 29 U/L (14-36); Bilirubin,Total 0.7 mg/dl (0.2-1.3); Blood Urea Nitrogen 22 mg/dl (7-17); Calcium 8.2 mg/dl (8.4-10.2); Carbon Dioxide 28 mmol/L (22.0-30.0); Chloride 88 mmol/L (98-107); Creatinine Clearance Estimated 78 mL/min (50-200); Estimated Glomerular Filt Rate 51 ml/min (>60); GFR (African American) 62 ML/MIN (>60); Globulin 3.2 g/dL (1.3-3.2); Glucose 149 mg/dl (74-100); Lipase 33 U/L (23-300); Sodium 126 mmol/L (136-145); Total Protein,Serum 7.4 g/dl (6.3-8.2)
[2022-02-23 08:04] LABS: Coronavirus 19, PCR Not Detected (NotDetected); Influenza A, PCR Not Detected (NotDetected); Influenza B, PCR Not Detected (NotDetected)
--- NOTE | 2022-02-23 08:08 | HMH.EDGENADL ---
Discharge Plan Disposition Patient Disposition: Home, Self-Care Condition: Good Prescriptions Prescriptions: New cefdinir 300 mg capsule 300 mg PO BID 10 Days Qty: 20 0RF ondansetron 4 mg tablet,disintegrating 4 mg PO Q8H PRN (Reason: nausea and vomiting) Qty: 10 0RF No Action duloxetine [Cymbalta] 60 mg capsule,delayed release(DR/EC) 60 mg PO BID gabapentin 800 mg tablet 800 mg PO QID acetaminophen [Tylenol] 325 mg tablet 650 mg PO Q4H PRN (Reason: pain) tizanidine 2 mg capsule 4 mg PO Q8H cholecalciferol (vitamin D3) 1,000 unit capsule 1,000 unit PO ONCE oxcarbazepine [Trileptal] 300 mg tablet 600 mg PO DAILY docusate sodium 50 mg capsule 100 mg PO QDAY PRN (Reason: stool softener) fluoxetine [Prozac] 20 mg capsule 40 mg PO BID levothyroxine 200 mcg tablet 200 mcg PO DAILY omeprazole 20 mg capsule,delayed release(DR/EC) 40 mg PO DAILY bupropion HCl 150 mg tablet extended release 24 hr 300 mg PO DAILY Label Comments: TAKE 2 TABLETS BY MOUTH ONCE DAILY albuterol sulfate 90 mcg/actuation HFA aerosol inhaler 2 inh INHALATION Q6H PRN (Reason: shortness of breath or wheezing) 90 Days Qty: 8.5 3RF Flovent HFA 110 mcg/actuation HFA aerosol inhaler 1 puff INHALATION BID 90 Days Qty: 12 3RF bisoprolol fumarate 5 mg tablet 5 mg PO DAILY Qty: 30 5RF lisinopril-hydrochlorothiazide 20-12.5 mg tablet 1 tab PO DAILY Qty: 30 5RF estradiol 2 mg tablet 2 mg PO DAILY Qty: 30 11RF prednisone 10 mg tablet 10 mg PO BID 3 Days Qty: 6 0RF Referrals Follow up/Referrals: Kody Dunn MD [Primary Care Provider] - See instructions Activity Restrictions/Add. Instructions Additional Instructions/Restrictions: Drink plenty of fluids, Gatorade or electrolyte drinks to hydrate. Zofran as needed for nausea. Antibiotic as prescribed for possible urinary tract infection, culture results are pending. Urine culture has been performed, results generally take 2 to 3 days. Follow-up the results of this test with your primary care provider within 2 to 3 days. Return emergency department if worsening symptoms. Clinical Impressions Clinical Impression: Nausea, Hyponatremia Instructions Patient Instructions: DI for Nausea -- Adult Discharge ED Provider: Tod Cesar General Adult HPI General Chief complaint: Nausea/Vomiting/Diarrhea Stated complaint: possible dehydration; nausea; tired Time Seen by Provider: 02/23/22 08:08 Mode of Arrival: Ambulatory Source of Information: Patient Limitations: No Limitations Description of Symptoms (Recalled from ER Triage Doc. by RN): Pt states that she has been nauseaus since last following suspected food poisoning. States she vomited consistently overnight and into the next day. States that she has been nauseaus since then and is afraid that she may be dehydrated. History of Present Illness HPI narrative: Patient states that she has been sick since or Monday of last week. She states she ate pizza and afterwards got sick. She had vomiting. Since then she has been nauseated, but has not vomited in several days. Denies diarrhea. Denies abdominal pain. States she is hungry, but does not feel like she can eat. States she has been drinking lots of water. She has some slight lower right-sided back pain. She thinks she had a low-grade fever 1 night. She says her urine turned brown and she thought she might be dehydrated. She says she has a history of stage I kidney disease. Related Data Home Medications Medication Instructions Recorded Confirmed acetaminophen 325 mg tablet 650 mg PO Q4H PRN pain 03/06/17 12/07/21 (Tylenol) cholecalciferol (vitamin D3) 25 1,000 unit PO ONCE Supplement 03/06/17 12/07/21 mcg (1,000 unit) capsule tizanidine 2 mg capsule 4 mg PO Q8H muscle relaxer 03/06/17 12/07/21 levothyroxine 200 mcg tablet 200 mcg PO DEREK
--- NOTE | 2022-02-23 08:46 | PC.NURSE ---
UA COLLECTED AND SENT TO LAB
[2022-02-23 08:56] LABS: Microscopic, Urine URINE MICROSCOPIC (MICROSCOPIC)
[2022-02-23 09:00] LABS: Appearance,Urine CLEAR (Clear); Bilirubin,Urine Negative (Negative); Blood, Urine Negative (Negative); Color,Urine YELLOW (Yellow); Glucose,Urine (UA) Negative (Negative); Ketones,Urine Negative (Negative); Leukocyte Esterase,Urine 1+ (Negative); Nitrate,Urine Negative (Negative); Protein,Urine 1+ (Negative); Specific Gravity, Urine 1.015 (1.005-1.030)
[2022-02-23 09:09] LABS: Bacteria,Urine Trace /lpf; RBC,Urine Occasional #/hpf (0-3); Squamous Epithelial Cell,Urine Occasional #/hpf (0-5)
== END 2022-02-23 09:36 | disposition home or self-care (01) ==
PROVIDERS: Emergency Medicine; Emergency Provider Emergency Medicine; PCP Internal Medicine Adolescent Medicine
DX: E87.1 Hypo-osmolality and hyponatremia (principal); R11.2 Nausea with vomiting, unspecified; J45.909 Unspecified asthma, uncomplicated; I25.10 Atherosclerotic heart disease of native coronary artery without angina pectoris; E78.5 Hyperlipidemia, unspecified; K21.9 Gastro-esophageal reflux disease without esophagitis; I10 Essential (primary) hypertension; G62.9 Polyneuropathy, unspecified; E07.9 Disorder of thyroid, unspecified; Z90.710 Acquired absence of both cervix and uterus; Z20.822 Contact with and (suspected) exposure to COVID-19
CPT/HCPCS: 80053; 81001; 82150; 83690; 85025; 87086; C9803; J2405; U0003; U0005

== ENCOUNTER 2022-02-23 17:41 | Emergency (ER) | payer MEDICARE, SELFPAY ==
[2022-02-23 18:34] VITALS: BMI 31.3
--- NOTE | 2022-02-23 18:35 | CT_ITS ---
PROCEDURE INFORMATION: Exam: CT Head Without Contrast Exam date and time: 02/23/2022 6:42 PM Age: 56 years old Clinical indication: Altered mental status/memory loss; Confusion or disorientation; Additional info: AMS TECHNIQUE: Imaging protocol: Computed tomography of the head without contrast. Radiation optimization: All CT scans at this facility use at least one of these dose optimization techniques: automated exposure control; mA and/or kV adjustment per patient size (includes targeted exams where dose is matched to clinical indication); or iterative reconstruction. COMPARISON: CR XR SOFT TISSUE NECK 01/01/2022 9:33 AM FINDINGS: Brain: Tiny remote lacunar infarct within the left basal ganglia. No hemorrhage. Unremarkable white matter. No mass effect. Cerebral ventricles: No ventriculomegaly. Paranasal sinuses: Visualized sinuses are unremarkable. No fluid levels. Mastoid air cells: Visualized mastoid air cells are well aerated. Bones/joints: Unremarkable. No acute fracture. Soft tissues: Unremarkable. IMPRESSION: No acute intracranial abnormality.
[2022-02-23 18:40] VITALS: BP 115/69; PULSE 79; RESP 16; TEMP 39; O2SAT 93; BMI 31.4
[2022-02-23 19:17] LABS: Basophils # 0.1 K/mm3 (0-0.2); Basophils % 0.3 % (0.1-2.0); Eosinophils # 0.2 K/mm3 (0.0-0.4); Eosinophils % 1.2 % (0.1-12.0); Hematocrit 30.9 % (37.0-47.0); Hemoglobin 10.6 g/dL (12.2-16.2); Lymphocytes # 1.7 K/mm3 (0.7-4.5); Lymphocytes % 11.8 % (10-50); Mean Corpuscular HGB Conc 34.4 g/dL (31.8-35.4); Mean Corpuscular Hemoglobin 31.7 pg (27.0-31.2); Mean Corpuscular Volume 92.2 fl (81-99); Mean Platelet Volume 7.6 fl (7.4-10.4); Monocytes # 0.9 K/mm3 (0.1-1.0); Monocytes % 6.2 % (1.7-9.3); Neutrophils # 11.7 K/mm3 (1.8-7.8); Neutrophils % 80.4 % (37.0-80.0); Platelet Count 300 K/mm3 (142-424); Red Blood Count 3.36 M/mm3 (4.20-5.40); Red Cell Distribution Width 12.2 % (11.5-17.5); White Blood Count 14.5 K/mm3 (4.8-10.8)
[2022-02-23 19:25] LABS: Alanine Aminotransferase 23 U/L (12-78); Albumin/Globulin Ratio 1.3 (1.1-1.8); Alkaline Phosphatase 88 U/L (38-126); Anion Gap 13.3 mEq/L (5-15); Aspartate Amino Transferase 29 U/L (14-36); Bilirubin,Total 0.6 mg/dl (0.2-1.3); Blood Urea Nitrogen 20 mg/dl (7-17); Calcium 7.7 mg/dl (8.4-10.2); Carbon Dioxide 26 mmol/L (22.0-30.0); Chloride 88 mmol/L (98-107); Creatinine Clearance Estimated 88 mL/min (50-200); Estimated Glomerular Filt Rate 57 ml/min (>60); GFR (African American) 69 ML/MIN (>60); Globulin 3.1 g/dL (1.3-3.2); Glucose 168 mg/dl (74-100); Lactic Acid 1.3 mmol/L (0.7-2.1); Potassium 3.3 mmoL/L (3.5-5.1); Sodium 124 mmol/L (136-145); Total Protein,Serum 7.1 g/dl (6.3-8.2)
[2022-02-23 20:00] VITALS: BP 115/65; PULSE 87; O2SAT 96
[2022-02-23 20:30] VITALS: BP 125/69; PULSE 83; O2SAT 95
--- NOTE | 2022-02-23 20:30 | XR_ITS ---
PROCEDURE INFORMATION: Exam: XR Chest Exam date and time: 02/23/2022 8:53 PM Age: 56 years old Clinical indication: Cough TECHNIQUE: Imaging protocol: Radiologic exam of the chest. Views: 2 views. COMPARISON: CR XR CHEST 2V 06/15/2020 9:36 AM FINDINGS: Lungs: Large area of opacity in the right lower lobe concerning for pneumonia. Mild densities in the left lung base concerning for pneumonia. Pleural spaces: Unremarkable. No pleural effusion. No pneumothorax. Heart/Mediastinum: Unremarkable. No cardiomegaly. Bones/joints: Unremarkable. IMPRESSION: Bilateral lower lobe pneumonia right greater than left. Recommend follow-up radiographs until resolution to exclude malignancy on the right.
--- NOTE | 2022-02-23 20:30 | CT_ITS ---
PROCEDURE INFORMATION: Exam: CT Abdomen And Pelvis With Contrast Exam date and time: 02/23/2022 9:08 PM Age: 56 years old Clinical indication: Abdominal pain; Flank; Right; Additional info: Abd pain TECHNIQUE: Imaging protocol: Computed tomography of the abdomen and pelvis with contrast. Radiation optimization: All CT scans at this facility use at least one of these dose optimization techniques: automated exposure control; mA and/or kV adjustment per patient size (includes targeted exams where dose is matched to clinical indication); or iterative reconstruction. Contrast material: ISOVUE; Contrast volume: 75 ml; Contrast route: IV; COMPARISON: MR LUMBAR SPINE WO CON 05/22/2020 1:02 PM FINDINGS: Lungs: There is focal airspace disease/consolidation in the inferior right upper lobe concerning for pneumonia. Liver: Normal. No mass. Gallbladder and bile ducts: Normal. No calcified stones. No ductal dilation. Pancreas: Normal. No ductal dilation. Spleen: Normal. No splenomegaly. Adrenal glands: Normal. No mass. Kidneys and ureters: Normal. No hydronephrosis. Stomach and bowel: Unremarkable. No obstruction. No mucosal thickening. Appendix: No evidence of appendicitis. Intraperitoneal space: Unremarkable. No free air. No significant fluid collection. Vasculature: Unremarkable. No abdominal aortic aneurysm. Lymph nodes: Unremarkable. No enlarged lymph nodes. Urinary bladder: Unremarkable as visualized. Reproductive: Hysterectomy. Bones/joints: Degenerative changes at L4-L5 and L5-S1. No acute fracture. Soft tissues: Unremarkable. IMPRESSION: 1. No acute findings within the abdomen and pelvis. 2. Right lower lobe pneumonia
--- NOTE | 2022-02-23 20:35 | HMH.EDAMS ---
Discharge Plan Disposition Patient Disposition: Home, Self-Care Prescriptions Prescriptions: New azithromycin [azithromycin] 250 mg tablet 250 mg PO DIRECTED Qty: 6 0RF Rx Instructions: Take two (2) tablets on day #1, then one (1) tablet day #2 thru #5 No Action duloxetine [Cymbalta] 60 mg capsule,delayed release(DR/EC) 60 mg PO BID gabapentin 800 mg tablet 800 mg PO QID acetaminophen [Tylenol] 325 mg tablet 650 mg PO Q4H PRN (Reason: pain) tizanidine 2 mg capsule 4 mg PO Q8H cholecalciferol (vitamin D3) 1,000 unit capsule 1,000 unit PO ONCE oxcarbazepine [Trileptal] 300 mg tablet 600 mg PO DAILY docusate sodium 50 mg capsule 100 mg PO QDAY PRN (Reason: stool softener) fluoxetine [Prozac] 20 mg capsule 40 mg PO BID levothyroxine 200 mcg tablet 200 mcg PO DAILY omeprazole 20 mg capsule,delayed release(DR/EC) 40 mg PO DAILY bupropion HCl 150 mg tablet extended release 24 hr 300 mg PO DAILY Label Comments: TAKE 2 TABLETS BY MOUTH ONCE DAILY albuterol sulfate 90 mcg/actuation HFA aerosol inhaler 2 inh INHALATION Q6H PRN (Reason: shortness of breath or wheezing) 90 Days Qty: 8.5 3RF Flovent HFA 110 mcg/actuation HFA aerosol inhaler 1 puff INHALATION BID 90 Days Qty: 12 3RF bisoprolol fumarate 5 mg tablet 5 mg PO DAILY Qty: 30 5RF lisinopril-hydrochlorothiazide 20-12.5 mg tablet 1 tab PO DAILY Qty: 30 5RF estradiol 2 mg tablet 2 mg PO DAILY Qty: 30 11RF cefdinir 300 mg capsule 300 mg PO BID 10 Days Qty: 20 0RF ondansetron 4 mg tablet,disintegrating 4 mg PO Q8H PRN (Reason: nausea and vomiting) Qty: 10 0RF prednisone 10 mg tablet 10 mg PO BID 3 Days Qty: 6 0RF Referrals Follow up/Referrals: Kody Dunn MD [Primary Care Provider] - See instructions Clinical Impressions Clinical Impression: Pneumonia, CAP (community acquired pneumonia), Delirium due to general medical condition, SIRS (systemic inflammatory response syndrome) Instructions Patient Instructions: Pneumonia-Adult Discharge ED Provider: Asad Stone Altered Mental Status HPI General Chief Complaint: Altered Mental Status Stated Complaint: confussed weakness Time Seen by Provider: 02/23/22 20:36 Mode of Arrival: Family Vehicle Source of Information: Patient and Medical Record Limitations: Altered Mental Status Description of Symptoms (Recalled from ER Triage Doc. by RN): Pt from home via neighbor who reports doing welfare check and finding pt in floor between couch and bed, and household items scattered about, stating she's become much more disoriented since this morning when she was evaluated for UTI at ED and took one dose of abx. Pt c/o dysuria and right back/flank pain History of Present Illness HPI narrative: pt was seen in the ed this am and tonight was in floor at home and confused - has fever - sl cough and sl abd pain - no rash MD complaint: confusion Onset (ago): day(s) Timing confirmed by: family member and other (neighbor ) Severity: moderate Consistency of symptoms: waxing and waning Context: recent fever Associated symptoms: denies other symptoms Related Data Home Medications Medication Instructions Recorded Confirmed acetaminophen 325 mg tablet 650 mg PO Q4H PRN pain 03/06/17 12/07/21 (Tylenol) cholecalciferol (vitamin D3) 25 1,000 unit PO ONCE Supplement 03/06/17 12/07/21 mcg (1,000 unit) capsule tizanidine 2 mg capsule 4 mg PO Q8H muscle relaxer 03/06/17 12/07/21 levothyroxine 200 mcg tablet 200 mcg PO DAILY thyroid 01/30/18 12/07/21 oxcarbazepine 300 mg tablet 600 mg PO DAILY epilepsy 01/30/18 12/07/21 (Trileptal) duloxetine 60 mg capsule,delayed 60 mg PO BID mood 03/19/18 12/07/21 release (Cymbalta) docusate sodium 50 mg capsule 100 mg PO QDAY PRN stool softener 09/11/19 12/07/21 omeprazole 20 mg capsule,delayed 40 mg PO DAILY GERD 09/11/19 12/07/21 release buprop
[2022-02-23 21:02] LABS: C-Reactive Protein 310.7 mg/L (0-4)
[2022-02-23 21:05] LABS: T4 (Thyroxine) 9.9 ug/dl (5.53-11.0)
[2022-02-23 21:18] LABS: Thyroid Stimulating Hormone 0.05 uIU/mL (0.465-4.68)
[2022-02-23 21:30] VITALS: BP 114/66; PULSE 80; RESP 15; O2SAT 95
[2022-02-23 22:51] VITALS: BP 110/62; PULSE 80; RESP 16; TEMP 37.1; O2SAT 95
== END 2022-02-23 22:51 | disposition home or self-care (01) ==
PROVIDERS: Emergency Medicine; Emergency Provider Emergency Medicine; PCP Internal Medicine Adolescent Medicine
DX: R65.10 Systemic inflammatory response syndrome (SIRS) of non-infectious origin without acute organ dysfunction (principal); J18.9 Pneumonia, unspecified organism; F05 Delirium due to known physiological condition; J45.909 Unspecified asthma, uncomplicated; I25.10 Atherosclerotic heart disease of native coronary artery without angina pectoris; E78.5 Hyperlipidemia, unspecified; I10 Essential (primary) hypertension; K21.9 Gastro-esophageal reflux disease without esophagitis; G62.9 Polyneuropathy, unspecified; E07.9 Disorder of thyroid, unspecified
CPT/HCPCS: 70450; 71046; 74177; 80053; 81001; 82150; 83605; 83690; 84436; 84443; 85025; 86140; 87040; 87086; 96361; 96374; 96375; 99285; C9803; J0456; J0696; J2405; Q9967; U0003; U0005

== ENCOUNTER 2022-03-01 15:25 | Observation (INO) | payer MEDICARE, SELFPAY ==
[2022-03-01 13:41] VITALS: BP 131/70; PULSE 75; RESP 18; O2SAT 99
[2022-03-01 14:06] LABS: Chloride 88 mmol/L (98-107); Sodium 127 mmol/L (136-145)
[2022-03-01 14:09] LABS: Alanine Aminotransferase 38 U/L (12-78); Albumin Level 3.8 g/dl (3.5-5.0); Albumin/Globulin Ratio 1.1 (1.1-1.8); Alkaline Phosphatase 156 U/L (38-126); Aspartate Amino Transferase 52 U/L (14-36); Bilirubin,Total 0.6 mg/dl (0.2-1.3); Blood Urea Nitrogen 13 mg/dl (7-17); Calcium 8.1 mg/dl (8.4-10.2); Carbon Dioxide 28 mmol/L (22.0-30.0); Creatinine Clearance Estimated 105 mL/min (50-200); Estimated Glomerular Filt Rate 74 ml/min (>60); GFR (African American) 89 ML/MIN (>60); Globulin 3.6 g/dL (1.3-3.2); Glucose 120 mg/dl (74-100); Total Protein,Serum 7.4 g/dl (6.3-8.2)
[2022-03-01 14:18] LABS: Basophils # 0.1 K/mm3 (0-0.2); Basophils % 0.6 % (0.1-2.0); Eosinophils # 0.1 K/mm3 (0.0-0.4); Eosinophils % 0.8 % (0.1-12.0); Hematocrit 33.9 % (37.0-47.0); Hemoglobin 11.7 g/dL (12.2-16.2); Lymphocytes # 2.5 K/mm3 (0.7-4.5); Lymphocytes % 17.5 % (10-50); Mean Corpuscular HGB Conc 34.7 g/dL (31.8-35.4); Mean Corpuscular Hemoglobin 30.7 pg (27.0-31.2); Mean Corpuscular Volume 88.5 fl (81-99); Mean Platelet Volume 7.8 fl (7.4-10.4); Monocytes # 0.7 K/mm3 (0.1-1.0); Monocytes % 4.6 % (1.7-9.3); Neutrophils % 76.5 % (37.0-80.0); Platelet Count 608 K/mm3 (142-424); Red Blood Count 3.83 M/mm3 (4.20-5.40); Red Cell Distribution Width 12.6 % (11.5-17.5); White Blood Count 14.4 K/mm3 (4.8-10.8)
[2022-03-01 15:32] VITALS: BP 132/74; PULSE 73; RESP 18; O2SAT 99
--- NOTE | 2022-03-01 15:57 | PC.NURSE ---
PT arrived to the floor at this time
[2022-03-01 16:00] VITALS: BP 139/81; PULSE 91; RESP 18; TEMP 36.9; O2SAT 92; BMI 29.7
--- NOTE | 2022-03-01 16:23 | XR_ITS ---
PROCEDURE INFORMATION: Exam: XR Chest Exam date and time: 03/01/2022 5:30 PM Age: 56 years old Clinical indication: Shortness of breath; Additional info: SOA TECHNIQUE: Imaging protocol: Radiologic exam of the chest. Views: 2 views. COMPARISON: CR XR CHEST 2V 02/23/2022 8:53 PM FINDINGS: Lungs: Persistent large, dense right perihilar consolidations consistent with pneumonia, slight improvement compared with 02/23/2022. This appears greatest in the anterior right upper lobe. There is increased hazy airspace opacity in the periphery of the right lung compared with the prior exam, which could be new or worsening ground-glass pulmonary infiltrates. Milder patchy airspace opacity in the left lower lung, improved. Pulmonary vessels do not appear congested. Pleural spaces: Trace fluid or thickening in the minor fissure on the right. No significant layering pleural effusion. No pneumothorax. Heart/Mediastinum: Cardiac silhouette within upper limits normal. Bones/joints: Bones appear mildly demineralized. Mild multilevel disc narrowing and spondylosis in the visualized cervical and thoracic spine. Cervical facet arthropathy. IMPRESSION: 1. Persistent dense right perihilar consolidations have slightly improved compared with 02/23/2022, but there are increased hazy airspace opacities in the periphery of the right lung compared with the prior study. 2. Milder patchy left lower lobe airspace disease has slightly improved. 3. Findings are most likely due to bilateral pneumonia; as previously reported, recommend follow-up to resolution to exclude underlying malignancy on the right.
[2022-03-01 16:41] LABS: Coronavirus 19, PCR Not Detected (NotDetected); Influenza A, PCR Not Detected (NotDetected); Influenza B, PCR Not Detected (NotDetected)
[2022-03-01 16:55] VITALS: O2SAT 96
--- NOTE | 2022-03-01 17:16 | EXP.HP ---
History of Present Illness *Admission Date: 03/01/22 *Reason for visit:: SOA, weakness *History of present illness: 56 year old female who was seen in the ED last week bilateral pneumonia presented to PCP office with worsening SOA and weakness. In the ED, she was noted to be hyponatremic, given IVF's and sent home with a zpack. Today, sodium remained low. Reports diarrhea, mildly hypokalemic at 3. She was given 1 liter of NS and 40 MEQ of KCL po in outpatient infusion early today. Continued to feel weak, soa, oxygen saturations 92% on RA. She was direct admitted for IV fluids for her hyponatremia and IV antibiotics for pneumonia failed outpatient treatment. [facility] Disclaimer: The information contained in this section may have been updated after the patient was seen, as this information can be updated by other users. 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 current occupational exposures/hazards: No caffeine: Yes Review of Systems Review of Systems Review of systems:: pertinent systems reviewed and negative unless documented below Constitutional Constitutional: Reports body ache(s), Reports chills, Reports headache(s) and Reports malaise ENT Ears, Nose, Mouth, and Throat: Reports headache(s) *Cardiovascular Cardiovascular: Reports dyspnea *Respiratory Respiratory: Reports cough and Reports dyspnea *Gastrointestinal Gastrointestinal: Reports diarrhea *Neurologic Neurologic: Reports headache(s) Meds Home Medications and Allergies Home Medications Medication Instructions Recorded Confirmed Type acetaminophen 325 mg tablet 650 mg PO Q4H PRN pain 03/06/17 03/01/22 History (Tylenol) cholecalciferol (vitamin D3) 25 1,000 unit PO ONCE Supplement 03/06/17 03/01/22 History mcg (1,000 unit) capsule tizanidine 2 mg capsule 4 mg PO Q8H muscle relaxer 03/06/17 03/01/22 History levothyroxine 200 mcg tablet 200 mcg PO DAILY thyroid 01/30/18 03/01/22 History oxcarbazepine 300 mg tablet 600 mg PO DAILY epilepsy 01/30/18 03/01/22 History (Trileptal) duloxetine 60 mg capsule,delayed 60 mg PO BID mood 03/19/18 03/01/22 History release (Cymbalta) docusate sodium 50 mg capsule 100 mg PO QDAY PRN stool softener 09/11/19 03/01/22 History omeprazole 20 mg capsule,delayed 40 mg PO DAILY GERD 09/11/19 03/01/22 History release bupropion HCl 150 mg 24 hr tablet, 300 mg PO DAILY mood 03/16/20 03/01/22 History extended release fluoxetine 20 mg capsule (Prozac) 40 mg PO BID Depression 03/16/20 03/01/22 History bisoprolol fumarate 5 mg tablet 5 mg PO DAILY bp #30 tabs 12/08/20 03/01/22 Rx lisinopril 20 1 tab PO DAILY bp #30 tabs 12/08/20 03/01/22 Rx mg-hydrochlorothiazide 12.5 mg tablet albuterol sulfate 90 mcg/actuation 2 inh inhalation Q6H PRN shortness 04/27/21 03/01/22 Rx aerosol inhaler of breath or wheezing 90 days #8.5 grams gabapentin 800 mg tablet 800 mg PO QID neuropathy 06/07/21 03/01/22 History estradiol 2 mg tablet 2 mg PO DAILY hormones #30 tabs 11/10/21 03/01/22 Rx New Prescriptions to Start Prescriptions: Allergies Allergy/AdvReac Type Severity Reaction Status Date / Time No Known Allergies Allergy Verified 01/01/22 09:45
[2022-03-01 18:44] LABS: Lactic Acid 1.7 mmol/L (0.7-2.1)
[2022-03-01 20:00] VITALS: BP 148/76; PULSE 81; RESP 16; TEMP 36.6; O2SAT 96
--- NOTE | 2022-03-01 21:24 | PC.NURSE ---
2105- Teofilo JIM here to speak with pt.
[2022-03-02] VITALS: BP 124/68; PULSE 66; RESP 16; TEMP 36.6; O2SAT 99
[2022-03-02 04:00] VITALS: BP 116/71; PULSE 67; RESP 16; TEMP 36.6; O2SAT 99; BMI 29.8
--- NOTE | 2022-03-02 05:05 | PC.NURSE ---
Pt has not voiced any c/o to staff t/o shift. Lung sounds clear and tolerating RA well with sats >90%. Ambulating to BR with standby assist. Call light within reach.
[2022-03-02 06:37] LABS: Basophils # 0.1 K/mm3 (0-0.2); Basophils % 1.1 % (0.1-2.0); Eosinophils # 0.2 K/mm3 (0.0-0.4); Eosinophils % 1.3 % (0.1-12.0); Hematocrit 29.5 % (37.0-47.0); Lymphocytes # 2.7 K/mm3 (0.7-4.5); Lymphocytes % 22.9 % (10-50); Mean Corpuscular HGB Conc 34.7 g/dL (31.8-35.4); Mean Corpuscular Hemoglobin 31.1 pg (27.0-31.2); Mean Corpuscular Volume 89.5 fl (81-99); Mean Platelet Volume 7.9 fl (7.4-10.4); Monocytes # 0.5 K/mm3 (0.1-1.0); Monocytes % 4.4 % (1.7-9.3); Neutrophils # 8.1 K/mm3 (1.8-7.8); Neutrophils % 70.3 % (37.0-80.0); Platelet Count 571 K/mm3 (142-424); Red Cell Distribution Width 12.7 % (11.5-17.5); White Blood Count 11.6 K/mm3 (4.8-10.8)
[2022-03-02 06:42] LABS: Hemoglobin 10.2 g/dL (12.2-16.2)
[2022-03-02 06:49] LABS: Anion Gap 8.9 mEq/L (5-15); Blood Urea Nitrogen 10 mg/dl (7-17); Calcium 7.8 mg/dl (8.4-10.2); Carbon Dioxide 26 mmol/L (22.0-30.0); Chloride 99 mmol/L (98-107); Creatinine Clearance Estimated 104 mL/min (50-200); Estimated Glomerular Filt Rate 74 ml/min (>60); GFR (African American) 89 ML/MIN (>60); Glucose 125 mg/dl (74-100); Sodium 131 mmol/L (136-145)
[2022-03-02 06:52] LABS: Potassium 2.9 mmoL/L (3.5-5.1)
--- NOTE | 2022-03-02 07:28 | EXP.ACUTE.PN ---
Subjective *Date: 03/02/22 *Time: 07:28 Interval history: Overall feels much better. Is hungry. Has had 1 or 2 episodes of loose stools but no vomiting. Breathing is much better. Medical Exam Vital signs and Labs for Last 24 Hours: Vital Signs Temp Pulse Resp BP Pulse Ox 03/02/22 00:00 98 F 66 16 124/68 99 03/02/22 04:00 98 F 67 16 116/71 99 03/01/22 20:00 98 F 81 16 148/76 H 96 03/01/22 16:55 96 03/01/22 16:00 98.5 F 91 H 18 139/81 92 L 03/01/22 15:32 73 18 132/74 99 03/01/22 13:41 75 18 131/70 99 Intake and Output 03/01/22 03/02/22 03/02/22 19:59 03:59 11:59 Intake Total 360 / 360 Output Total 0 / 0 0 / 0 Balance 360 / 360 0 / 360 0 / 360 Intake: Intake, Oral Amount 360 / 360 Output: Output, Urine Amount 0 / 0 0 / 0 Other: Number of Unmeasured Voids 1 3 Weight 190 lb 1 oz 190 lb Patient Weight 03/02/22 11:59 Weight 190 lb Laboratory Results - last 24 hr 03/01/22 13:33: WBC 14.4 H, RBC 3.83 L, Hgb 11.7 L, Hct 33.9 L, MCV 88.5, MCH 30.7, MCHC 34.7, RDW 12.6, Plt Count 608 H, MPV 7.8, Neut % (Auto) 76.5, Lymph % (Auto) 17.5, [place] % (Auto) 4.6, Eos % (Auto) 0.8, Baso % (Auto) 0.6, Neut # (Auto) 11.0 H, Lymph # (Auto) 2.5, [place] # (Auto) 0.7, Eos # (Auto) 0.1, Baso # (Auto) 0.1 03/01/22 13:33: Sodium 127 L, Potassium 3.0 L, Chloride 88 L, Carbon Dioxide 28, Anion Gap 14.0, BUN 13, Creatinine 0.80, Estimated Creat Clear 105, Estimated GFR 74, Est GFR ( Amer) 89, Glucose 120 H, Calcium 8.1 L, Total Bilirubin 0.6, AST 52 H, ALT 38, Alkaline Phosphatase 156 H, Total Protein 7.4, Albumin 3.8, Globulin 3.6 H, Albumin/Globulin Ratio 1.1 03/01/22 16:12: SARS-CoV-2 (PCR) Not detected, Influenza A Untype (PCR) Not detected, Influenza Type B (PCR) Not detected 03/01/22 18:05: Lactate 1.7 03/02/22 06:21: WBC 11.6 H, RBC 3.30 L, Hgb 10.2 L D, Hct 29.5 L, MCV 89.5, MCH 31.1, MCHC 34.7, RDW 12.7, Plt Count 571 H, MPV 7.9, Neut % (Auto) 70.3, Lymph % (Auto) 22.9, [place] % (Auto) 4.4, Eos % (Auto) 1.3, Baso % (Auto) 1.1, Neut # (Auto) 8.1 H, Lymph # (Auto) 2.7, [place] # (Auto) 0.5, Eos # (Auto) 0.2, Baso # (Auto) 0.1 03/02/22 06:21: Sodium 131 L, Potassium 2.9 L*, Chloride 99, Carbon Dioxide 26, Anion Gap 8.9, BUN 10, Creatinine 0.80, Estimated Creat Clear 104, Estimated GFR 74, Est GFR ( Amer) 89, Glucose 125 H, Calcium 7.8 L I & O for Labs for Last 24 Hours: Intake & Output 02/27/22 02/28/22 03/01/22 03/02/22 11:59 11:59 11:59 11:59 Intake Total 360 / 360 Output Total 0 / 0 Balance 360 / 360 Weight 190 lb Comment:: Alert, pleasant. Oriented. Oropharynx clear and moist. Heart rate regular. Lungs have good air movement. Abdomen soft, no edema or clubbing. Neurologically back to baseline. Assessment and Plan *Assessment and plan (1) Community acquired bilateral lower lobe pneumonia: Status: Acute Category: Medical Code(s): J18.9 - Pneumonia, unspecified organism (2) Hyponatremia: Status: Acute Category: Medical Code(s): E87.1 - Hypo-osmolality and hyponatremia (3) Nausea: Status: Acute Category: Medical Code(s): R11.0 - Nausea (4) Neuropathy: Status: Chronic Category: Medical Code(s): G62.9 - Polyneuropathy, unspecified (5) HLD (hyperlipidemia): Status: Chronic Qualifiers: Hyperlipidemia type: mixed hyperlipidemia Qualified Code(s): E78.2 - Mixed hyperlipidemia Category: Medical Code(s): E78.5 - Hyperlipidemia, unspecified (6) HTN (hypertension): Status: Chronic Qualifiers: Hypertension type: essential hypertension Qualified Code(s): I10 - Essential (primary) hypertension Category: Medical Code(s): I10 - Essential (primary) hypertension (7) Hypothyroidism (acquired): Status: Acute Category: Medical Code(s): E03.9 - Hypothyroidism, unspecified (8) Hypocalcem
[2022-03-02 08:00] VITALS: BP 141/58; PULSE 69; RESP 16; TEMP 36.7; O2SAT 94
[2022-03-02 08:50] VITALS: PULSE 74; RESP 18
[2022-03-02 11:06] VITALS: BMI 29.7
[2022-03-02 12:00] VITALS: BP 154/87; PULSE 70; RESP 20; TEMP 36.6; O2SAT 96
--- NOTE | 2022-03-02 12:04 | HMH.PHAINT1 ---
Pharmacy Intervention Comments: Home medications reconciled via patient interview and external fill history from outside pharmacy. -Nevin Siegel, PharmD Candidate 2022
[2022-03-02 14:03] LABS: Chloride 103 mmol/L (98-107); Potassium 3.8 mmoL/L (3.5-5.1); Sodium 134 mmol/L (136-145)
[2022-03-02 14:06] LABS: Anion Gap 12.8 mEq/L (5-15); Blood Urea Nitrogen 9 mg/dl (7-17); Calcium 8.5 mg/dl (8.4-10.2); Carbon Dioxide 22 mmol/L (22.0-30.0); Creatinine Clearance Estimated 119 mL/min (50-200); Estimated Glomerular Filt Rate 86 ml/min (>60); GFR (African American) 104 ML/MIN (>60); Glucose 148 mg/dl (74-100)
--- NOTE | 2022-03-02 15:19 | EXP.DC.SUM ---
General Admission date:: 03/01/22 Discharge date: 03/02/22 HPI HPI HPI: 56 year old female who was seen in the ED last week bilateral pneumonia presented to PCP office with worsening SOA and weakness. In the ED, she was noted to be hyponatremic, given IVF's and sent home with a zpack. Today, sodium remained low. Reports diarrhea, mildly hypokalemic at 3. She was given 1 liter of NS and 40 MEQ of KCL po in outpatient infusion early today. Continued to feel weak, soa, oxygen saturations 92% on RA. She was direct admitted for IV fluids for her hyponatremia and IV antibiotics for pneumonia failed outpatient treatment. Hospital Course Hospital Course Hospital Course: Patient was placed on Levaquin, tolerated this well. White count normalized. Treated with electrolyte replacement and did well with this. Appetite normalized and felt much better. Today electrolytes were demonstrated to be normal. She will be discharged home. Follow-up on Monday morning Exam Data for Last 24 hours Vital signs and Labs for Last 24 Hours: Temp Pulse Resp BP Pulse Ox 97.9 F 70 20 154/87 H 96 03/02/22 12:00 03/02/22 12:00 03/02/22 12:00 03/02/22 12:00 03/02/22 12:00 Laboratory Results - last 24 hr 03/01/22 16:12: SARS-CoV-2 (PCR) Not detected, Influenza A Untype (PCR) Not detected, Influenza Type B (PCR) Not detected 03/01/22 18:05: Lactate 1.7 03/02/22 06:21: WBC 11.6 H, RBC 3.30 L, Hgb 10.2 L D, Hct 29.5 L, MCV 89.5, MCH 31.1, MCHC 34.7, RDW 12.7, Plt Count 571 H, MPV 7.9, Neut % (Auto) 70.3, Lymph % (Auto) 22.9, [place] % (Auto) 4.4, Eos % (Auto) 1.3, Baso % (Auto) 1.1, Neut # (Auto) 8.1 H, Lymph # (Auto) 2.7, [place] # (Auto) 0.5, Eos # (Auto) 0.2, Baso # (Auto) 0.1 03/02/22 06:21: Sodium 131 L, Potassium 2.9 L*, Chloride 99, Carbon Dioxide 26, Anion Gap 8.9, BUN 10, Creatinine 0.80, Estimated Creat Clear 104, Estimated GFR 74, Est GFR ( Amer) 89, Glucose 125 H, Calcium 7.8 L 03/02/22 13:29: Sodium 134 L, Potassium 3.8 D, Chloride 103, Carbon Dioxide 22, Anion Gap 12.8, BUN 9, Creatinine 0.70, Estimated Creat Clear 119, Estimated GFR 86, Est GFR ( Amer) 104, Glucose 148 H, Calcium 8.5 I & O for Last 24 hours: Intake & Output 02/28/22 03/01/22 03/02/22 03/03/22 11:59 11:59 11:59 11:59 Intake Total 840 / 840 240 / 240 Output Total 0 / 0 0 / 0 Balance 840 / 840 240 / 240 Weight 189 lb 9.561 oz Constitutional Constitutional: no acute distress *Routine HEENT Exam Head: Present normocephalic Eye: Present EOMI and PERRL ENT: Present mucous membranes moist *Routine Neck Exam Neck: Present supple; Absent lymphadenopathy *Routine Respiratory Exam Respiratory: Present CTA bilaterally *Routine Cardiovascular Exam Cardiovascular: Present RRR *Routine Abdominal Exam Abdominal: Present soft and normoactive bowel sounds; Absent tenderness *Routine Extremities Exam Extremities: Absent cyanosis, clubbing or edema *Routine Skin Exam Skin: Present warm; Absent rash *Routine Neurological Exam Neurological: Present alert and oriented X3 Results Data Completed and Pending Labs on day of discharge: Labs from last 24 hours 03/02/22 03/02/22 03/02/22 13:29 06:21 06:21 WBC 11.6 H RBC 3.30 L Hgb 10.2 L D Hct 29.5 L MCV 89.5 MCH 31.1 MCHC 34.7 RDW 12.7 Plt Count 571 H MPV 7.9 Neut % (Auto) 70.3 Lymph % (Auto) 22.9 [place] % (Auto) 4.4 Eos % (Auto) 1.3 Baso % (Auto) 1.1 Neut # (Auto) 8.1 H Lymph # (Auto) 2.7 [place] # (Auto) 0.5 Eos # (Auto) 0.2 Baso # (Auto) 0.1 Sodium 134 L 131 L Potassium 3.8 D 2.9 L* Chloride 103 99 Carbon Dioxide 22 26 Anion Gap 12.8 8.9 BUN 9 10 Creatinine 0.70 0.80 Estimated Creat Clear 119 104 Estimated GFR 86 74 Est GFR ( Amer) 104 89 Glucose 148 H 125 H Lactate Calcium 8.5 7.8 L SARS-CoV-2 (PCR) Influenza A Untype (PCR) Influenza Type B (PCR) 03/01/22 03/01/22
--- NOTE | 2022-03-03 13:45 | CARE MANAGER ---
Spoke with patient related to hospital discharge. She states that she is doing ok. She picked up prescription and is aware of follow up appointment. Denies other questions or concerns. LALIT Max
== END 2022-03-02 16:08 | disposition home or self-care (01) ==
LOC: 2ND 15:26
PROVIDERS: Nurse Practitioner Family; Admitting Provider Internal Medicine Adolescent Medicine; PCP Internal Medicine Adolescent Medicine; Visit Provider Internal Medicine Adolescent Medicine
DX: J18.9 Pneumonia, unspecified organism (principal); I10 Essential (primary) hypertension; E03.9 Hypothyroidism, unspecified; E83.51 Hypocalcemia; E78.5 Hyperlipidemia, unspecified; Z79.899 Other long term (current) drug therapy; I25.10 Atherosclerotic heart disease of native coronary artery without angina pectoris; R11.0 Nausea; E87.1 Hypo-osmolality and hyponatremia; Z20.822 Contact with and (suspected) exposure to COVID-19
CPT/HCPCS: G0378; G0379; 36415; 71046; 80048; 80053; 83605; 85025; 87040; C9803; J1956; U0003; U0005

== ENCOUNTER → 2022-03-05 09:21 | Outpatient (CLI) | payer MEDICARE, SELFPAY ==
[2022-03-05 10:53] LABS: Alanine Aminotransferase 35 U/L (12-78); Albumin Level 3.9 g/dl (3.5-5.0); Albumin/Globulin Ratio 1.2 (1.1-1.8); Alkaline Phosphatase 162 U/L (38-126); Anion Gap 17.7 mEq/L (5-15); Aspartate Amino Transferase 44 U/L (14-36); Bilirubin,Total 0.6 mg/dl (0.2-1.3); Blood Urea Nitrogen 14 mg/dl (7-17); Carbon Dioxide 25 mmol/L (22.0-30.0); Chloride 96 mmol/L (98-107); Estimated Glomerular Filt Rate 64 ml/min (>60); GFR (African American) 78 ML/MIN (>60); Globulin 3.3 g/dL (1.3-3.2); Glucose 174 mg/dl (74-100); Potassium 4.7 mmoL/L (3.5-5.1); Sodium 134 mmol/L (136-145); Total Protein,Serum 7.2 g/dl (6.3-8.2)
[2022-03-07 18:08] LABS: Calcium, Ionized 5.3 mg/dL (4.5-5.6)
== END ==
PROVIDERS: PCP Internal Medicine Adolescent Medicine; Visit Provider Internal Medicine Adolescent Medicine
DX: E03.9 Hypothyroidism, unspecified (principal); M81.0 Age-related osteoporosis without current pathological fracture
CPT/HCPCS: 36415; 80053; 82330; 83970

== ENCOUNTER → 2022-03-28 12:39 | Outpatient (CLI) | payer MEDICARE, SELFPAY ==
[2022-03-28 14:29] LABS: Albumin Level 4.5 g/dl (3.5-5.0); Anion Gap 11.7 mEq/L (5-15); Blood Urea Nitrogen 16 mg/dl (7-17); Calcium 9.2 mg/dl (8.4-10.2); Carbon Dioxide 30 mmol/L (22.0-30.0); Chloride 98 mmol/L (98-107); Estimated Glomerular Filt Rate 57 ml/min (>60); GFR (African American) 69 ML/MIN (>60); Glucose 105 mg/dl (74-100); Phosphorous 4.2 mg/dl (2.5-4.5); Potassium 4.7 mmoL/L (3.5-5.1); Sodium 135 mmol/L (136-145)
[2022-04-01 00:09] LABS: N-Telopeptide Cross-linked 12.7 nmol BCE/L (6.2-19.0); Tandem-R Ostase 14.4 ug/L (.)
== END ==
PROVIDERS: PCP Internal Medicine Adolescent Medicine; Visit Provider Physician Assistant Medical
DX: M81.0 Age-related osteoporosis without current pathological fracture (principal); E55.9 Vitamin D deficiency, unspecified
CPT/HCPCS: 36415; 80069; 82306; 82523; 84080

== ENCOUNTER → 2022-04-13 09:43 | Outpatient (CLI) | payer MEDICARE, SELFPAY ==
[2022-04-13 10:30] VITALS: PULSE 76; PULSE 79
== END ==
PROVIDERS: PCP Internal Medicine Adolescent Medicine; Visit Provider Internal Medicine Pulmonary Disease
DX: R06.02 Shortness of breath (principal)
CPT/HCPCS: 94060; 94640

== ENCOUNTER → 2022-04-27 11:50 | Outpatient (CLI) | payer MEDICARE, SELFPAY ==
--- NOTE | 2022-04-27 11:53 | XR_ITS ---
FINAL REPORT CLINICAL HISTORY: PNM COMPARISON: 03/01/2022 FINDINGS: Two views of the chest were obtained. The heart size and pulmonary vascularity are within normal limits. The mediastinum is normal. No acute pulmonary abnormality is identified. There is no pneumothorax. The bony thorax is intact. IMPRESSION: No active cardiopulmonary disease, improved since the prior exam. Reviewed, Interpreted and Dictated by Ck Mitchell III, MD Transcribed by Bryanna Martin Authenticated and [facility]
== END ==
PROVIDERS: PCP Internal Medicine Adolescent Medicine; Visit Provider Internal Medicine Pulmonary Disease
DX: R06.02 Shortness of breath (principal)
CPT/HCPCS: 71046

== ENCOUNTER → 2022-05-23 12:09 | Outpatient (CLI) | payer MEDICARE, SELFPAY ==
[2022-05-23 12:22] LABS: Microscopic, Urine URINE MICROSCOPIC (MICROSCOPIC)
[2022-05-23 12:38] LABS: Appearance,Urine CLEAR (Clear); Bilirubin,Urine Negative (Negative); Blood, Urine Negative (Negative); Color,Urine YELLOW (Yellow); Glucose,Urine (UA) Negative (Negative); Ketones,Urine Negative (Negative); Leukocyte Esterase,Urine Negative (Negative); Nitrate,Urine Negative (Negative); Protein,Urine TRACE (Negative); Specific Gravity, Urine 1.025 (1.005-1.030)
[2022-05-23 12:45] LABS: Basophils # 0.1 K/mm3 (0-0.2); Basophils % 0.7 % (0.1-2.0); Eosinophils # 0.2 K/mm3 (0.0-0.4); Hematocrit 38.9 % (37.0-47.0); Hemoglobin 13.3 g/dL (12.2-16.2); Lymphocytes # 3.5 K/mm3 (0.7-4.5); Mean Corpuscular HGB Conc 34.1 g/dL (31.8-35.4); Mean Corpuscular Hemoglobin 30.7 pg (27.0-31.2); Mean Platelet Volume 7.3 fl (7.4-10.4); Monocytes # 0.4 K/mm3 (0.1-1.0); Monocytes % 5.5 % (1.7-9.3); Neutrophils # 3.5 K/mm3 (1.8-7.8); Neutrophils % 45.9 % (37.0-80.0); Platelet Count 342 K/mm3 (142-424); Red Blood Count 4.32 M/mm3 (4.20-5.40); Red Cell Distribution Width 13.7 % (11.5-17.5); White Blood Count 7.5 K/mm3 (4.8-10.8)
[2022-05-23 12:48] LABS: Bacteria,Urine Trace /lpf
[2022-05-23 13:16] LABS: Erythrocyte Sedimentation Rate 23 mm/hr (0-30)
[2022-05-23 14:04] LABS: Alanine Aminotransferase 28 U/L (12-78); Albumin Level 4.6 g/dl (3.5-5.0); Albumin/Globulin Ratio 1.5 (1.1-1.8); Alkaline Phosphatase 106 U/L (38-126); Anion Gap 14.6 mEq/L (5-15); Aspartate Amino Transferase 36 U/L (14-36); Bilirubin,Total 0.5 mg/dl (0.2-1.3); Blood Urea Nitrogen 21 mg/dl (7-17); Calcium 8.9 mg/dl (8.4-10.2); Carbon Dioxide 25 mmol/L (22.0-30.0); Chloride 98 mmol/L (98-107); Estimated Glomerular Filt Rate 64 ml/min (>60); GFR (African American) 78 ML/MIN (>60); Glucose 122 mg/dl (74-100); Potassium 4.6 mmoL/L (3.5-5.1); Sodium 133 mmol/L (136-145); Total Protein,Serum 7.6 g/dl (6.3-8.2)
[2022-05-23 14:11] LABS: C-Reactive Protein 11.9 mg/L (0-4)
[2022-05-23 14:22] LABS: 25-OH Vitamin D, Total 39.7 ng/mL (30-100)
[2022-05-23 14:53] LABS: Vitamin B12 574 pg/mL (239-931)
[2022-05-24 12:59] LABS: Anti-Cyclic Citrullinated Pept 6 units (0-19); Complement C3 182 mg/dL (82-167)
[2022-05-24 14:34] LABS: Anti-Centromere B Antibodies <0.2 AI (0.0-0.9); Anti-DNA (DS) Ab Qn 1 IU/mL (0-9); Anti-Jo-1 <0.2 AI (0.0-0.9); Anti-Smith Antibody <0.2 AI (0.0-0.9); Antichromatin Antibodies <0.2 AI (0.0-0.9); Antiscleroderma-70 Antibodies <0.2 AI (0.0-0.9); Sjogren's Anti-SS-A <0.2 AI (0.0-0.9); Sjogren's Anti-SS-B <0.2 AI (0.0-0.9)
== END ==
PROVIDERS: PCP Internal Medicine Adolescent Medicine; Visit Provider Nurse Practitioner Family
DX: E53.8 Deficiency of other specified B group vitamins (principal); E55.9 Vitamin D deficiency, unspecified; M25.50 Pain in unspecified joint; N28.9 Disorder of kidney and ureter, unspecified; R76.8 Other specified abnormal immunological findings in serum
CPT/HCPCS: 36415; 80053; 81001; 82306; 82607; 82746; 85025; 85651; 86140; 86161; 86200; 86225; 86235

== ENCOUNTER → 2022-06-01 12:54 | Outpatient (CLI) | payer MEDICARE, SELFPAY ==
[2022-06-01 13:00] LABS: Microscopic, Urine URINE MICROSCOPIC (MICROSCOPIC)
[2022-06-01 13:23] LABS: Basophils # 0.1 K/mm3 (0-0.2); Basophils % 1.2 % (0.1-2.0); Eosinophils # 0.2 K/mm3 (0.0-0.4); Hematocrit 40.2 % (37.0-47.0); Hemoglobin 13.9 g/dL (12.2-16.2); Lymphocytes # 3.9 K/mm3 (0.7-4.5); Lymphocytes % 43.6 % (10-50); Mean Corpuscular HGB Conc 34.5 g/dL (31.8-35.4); Mean Corpuscular Hemoglobin 30.9 pg (27.0-31.2); Mean Corpuscular Volume 89.5 fl (81-99); Mean Platelet Volume 6.9 fl (7.4-10.4); Monocytes # 0.5 K/mm3 (0.1-1.0); Monocytes % 5.2 % (1.7-9.3); Neutrophils # 4.3 K/mm3 (1.8-7.8); Platelet Count 360 K/mm3 (142-424); Red Cell Distribution Width 13.6 % (11.5-17.5); White Blood Count 8.9 K/mm3 (4.8-10.8)
[2022-06-01 13:25] LABS: Appearance,Urine CLEAR (Clear); Bilirubin,Urine Negative (Negative); Blood, Urine Negative (Negative); Color,Urine YELLOW (Yellow); Glucose,Urine (UA) Negative (Negative); Ketones,Urine Negative (Negative); Leukocyte Esterase,Urine Negative (Negative); Nitrate,Urine Negative (Negative); Protein,Urine Negative (Negative); Urobilinogen,Urine 0.2 EU/dl (0.2)
[2022-06-01 13:56] LABS: Bacteria,Urine Trace /lpf
[2022-06-01 15:00] LABS: Alanine Aminotransferase 26 U/L (12-78); Albumin Level 4.7 g/dl (3.5-5.0); Albumin/Globulin Ratio 1.5 (1.1-1.8); Alkaline Phosphatase 109 U/L (38-126); Anion Gap 16.6 mEq/L (5-15); Aspartate Amino Transferase 35 U/L (14-36); Bilirubin,Total 0.4 mg/dl (0.2-1.3); Blood Urea Nitrogen 18 mg/dl (7-17); Calcium 9.4 mg/dl (8.4-10.2); Carbon Dioxide 25 mmol/L (22.0-30.0); Chloride 100 mmol/L (98-107); Estimated Glomerular Filt Rate 64 ml/min (>60); GFR (African American) 78 ML/MIN (>60); Globulin 3.1 g/dL (1.3-3.2); Glucose 103 mg/dl (74-100); Potassium 4.6 mmoL/L (3.5-5.1); Sodium 137 mmol/L (136-145); Total Protein,Serum 7.8 g/dl (6.3-8.2)
[2022-06-01 15:08] LABS: C-Reactive Protein 11.6 mg/L (0-4)
[2022-06-01 15:18] LABS: 25-OH Vitamin D, Total 41.1 ng/mL (30-100)
[2022-06-01 16:06] LABS: Vitamin B12 531 pg/mL (239-931)
[2022-06-01 17:44] LABS: Erythrocyte Sedimentation Rate 22 mm/hr (0-30)
== END ==
PROVIDERS: PCP Internal Medicine Adolescent Medicine; Visit Provider Nurse Practitioner Family
DX: E53.8 Deficiency of other specified B group vitamins (principal); E55.9 Vitamin D deficiency, unspecified; M25.50 Pain in unspecified joint; N28.9 Disorder of kidney and ureter, unspecified; R76.8 Other specified abnormal immunological findings in serum
CPT/HCPCS: 36415; 80053; 81001; 82306; 82607; 82746; 85025; 85651; 86140

== ENCOUNTER → 2022-06-22 14:17 | Outpatient (CLI) | payer MEDICARE, SELFPAY | PROVIDERS: PCP Internal Medicine Adolescent Medicine; Visit Provider Nurse Practitioner Family | DX: R06.09 Other forms of dyspnea (principal) | CPT/HCPCS: 93306 ==

== ENCOUNTER 2022-07-09 15:36 | Emergency (ER) | payer MEDICARE, SELFPAY ==
[2022-07-09 15:36] VITALS: BP 133/83; PULSE 82; RESP 17; TEMP 36.8; O2SAT 97; BMI 31.3
[2022-07-09 16:00] VITALS: BP 133/83; PULSE 82; RESP 17; TEMP 36.8; O2SAT 97; BMI 31.4
--- NOTE | 2022-07-09 16:36 | EXP.UTC ---
Discharge Plan Disposition Patient Disposition: Home, Self-Care Condition: Good Prescriptions Prescriptions: New mupirocin 2 % ointment 1 applic topical BID Qty: 15 0RF cephalexin [cephalexin] 500 mg tablet 500 mg PO BID 7 Days Qty: 14 0RF No Action duloxetine [Cymbalta] 60 mg capsule,delayed release(DR/EC) 60 mg PO BID gabapentin 800 mg tablet 800 mg PO QID acetaminophen [Tylenol] 325 mg tablet 650 mg PO Q4H PRN (Reason: pain) cholecalciferol (vitamin D3) 1,000 unit capsule 1,000 unit PO DAILY oxcarbazepine [Trileptal] 300 mg tablet 600 mg PO HS docusate sodium 50 mg capsule 100 mg PO QDAY PRN (Reason: stool softener) fluoxetine [Prozac] 20 mg capsule 40 mg PO BID levothyroxine 200 mcg tablet 200 mcg PO DAILY omeprazole 20 mg capsule,delayed release(DR/EC) 20 mg PO BID bupropion HCl 150 mg tablet extended release 24 hr 150 mg PO TID Label Comments: TAKE 2 TABLETS BY MOUTH ONCE DAILY Advair HFA 230-21 mcg/actuation HFA aerosol inhaler 1 puff inhalation BID 90 Days Qty: 12 3RF albuterol sulfate 90 mcg/actuation HFA aerosol inhaler 2 inh INHALATION Q6H PRN (Reason: shortness of breath or wheezing) 90 Days Qty: 8.5 3RF estradiol 2 mg tablet 2 mg PO DAILY Qty: 30 11RF bisoprolol fumarate 5 mg tablet 5 mg PO DAILY Auvelity 45-105 mg tablet,IR,delayed rel,biphasic 1 tab PO DAILY bisoprolol fumarate 5 mg tablet 5 mg PO HS lisinopril-hydrochlorothiazide 20-12.5 mg tablet 1 tab PO DAILY tizanidine 4 mg tablet 4 - 8 mg PO DIRECTED Label Comments: 1 in morning, 1 in afternoon, 2 at night niacin 500 mg Tablet 500 mg PO HS Referrals Follow up/Referrals: Jemma Lees APRN [Primary Care Provider] - See instructions Activity Restrictions/Add. Instructions Additional Instructions/Restrictions: monitor s/s infection meds as ordered call dr Zhu on for a appointment Clinical Impressions Clinical Impression: Foot ulcer Instructions Patient Instructions: DI for Blisters Discharge [facility] [place] General Stated complaint: blister and bruise on RT foot Mode of Arrival: Ambulatory Source of Information: Patient Limitations: No Limitations Time Seen by Provider: 07/09/22 16:37 Description of Symptoms (Recalled from Triage Doc. by RN): blister on R foot HEENT Symptoms (Recalled from RN notes): Yes Resp Symptoms (Recalled from RN notes): No Skin Symptoms (Recalled from RN notes): No MS Symptoms (Recalled from RN notes): No Functional Status (Recalled from RN notes): n/a History of Present Illness Provider Complaint: 56 yr old female presents for a blister to rt foot. pt states she was on vacation last week and walked alot more than usual and she had a corn that now has turned into a blister area Related Data Home Medications Medication Instructions Recorded Confirmed acetaminophen 325 mg tablet 650 mg PO Q4H PRN pain 03/06/17 06/07/22 (Tylenol) cholecalciferol (vitamin D3) 25 1,000 unit PO DAILY Supplement 03/06/17 06/07/22 mcg (1,000 unit) capsule levothyroxine 200 mcg tablet 200 mcg PO DAILY thyroid 01/30/18 07/09/22 oxcarbazepine 300 mg tablet 600 mg PO HS Mood 01/30/18 07/09/22 (Trileptal) duloxetine 60 mg capsule,delayed 60 mg PO BID mood and nerve pain 03/19/18 07/09/22 release (Cymbalta) docusate sodium 50 mg capsule 100 mg PO QDAY PRN stool softener 09/11/19 06/07/22 omeprazole 20 mg capsule,delayed 20 mg PO BID Acid reflux 09/11/19 07/09/22 release bupropion HCl 150 mg 24 hr tablet, 150 mg PO TID mood 03/16/20 07/09/22 extended release fluoxetine 20 mg capsule (Prozac) 40 mg PO BID Depression 03/16/20 07/09/22 gabapentin 800 mg tablet 800 mg PO QID neuropathy 06/07/21 07/09/22 bisoprolol fumarate 5 mg tablet 5 mg PO HS High blood pressure 03/01/22 06/07/22 lisinopril 20 1 tab PO DAILY High blood pre
[2022-07-09 16:53] VITALS: BP 133/83; PULSE 82; RESP 17; TEMP 36.8; O2SAT 97
== END 2022-07-09 16:53 | disposition home or self-care (01) ==
PROVIDERS: Emergency Provider Nurse Practitioner Family; PCP Nurse Practitioner Family
DX: L97.519 Non-pressure chronic ulcer of other part of right foot with unspecified severity (principal); K21.9 Gastro-esophageal reflux disease without esophagitis; E78.5 Hyperlipidemia, unspecified; I10 Essential (primary) hypertension; J45.40 Moderate persistent asthma, uncomplicated
CPT/HCPCS: 99212; 99214; G0463

== ENCOUNTER → 2022-08-26 14:25 | Outpatient (CLI) | payer MEDICARE, SELFPAY ==
[2022-08-26 15:13] LABS: Basophils # 0.1 K/mm3 (0-0.2); Basophils % 0.6 % (0.1-2.0); Eosinophils # 0.1 K/mm3 (0.0-0.4); Eosinophils % 1.3 % (0.1-12.0); Hematocrit 37.5 % (37.0-47.0); Hemoglobin 12.7 g/dL (12.2-16.2); Lymphocytes # 3.2 K/mm3 (0.7-4.5); Lymphocytes % 34.7 % (10-50); Mean Corpuscular HGB Conc 33.9 g/dL (31.8-35.4); Mean Corpuscular Hemoglobin 30.5 pg (27.0-31.2); Mean Platelet Volume 7.3 fl (7.4-10.4); Monocytes # 0.4 K/mm3 (0.1-1.0); Monocytes % 4.6 % (1.7-9.3); Neutrophils # 5.4 K/mm3 (1.8-7.8); Neutrophils % 58.9 % (37.0-80.0); Platelet Count 330 K/mm3 (142-424); Red Blood Count 4.16 M/mm3 (4.20-5.40); Red Cell Distribution Width 12.5 % (11.5-17.5); White Blood Count 9.1 K/mm3 (4.8-10.8)
[2022-08-26 16:32] LABS: Alanine Aminotransferase 27 U/L (12-78); Albumin Level 4.7 g/dl (3.5-5.0); Albumin/Globulin Ratio 1.6 (1.1-1.8); Alkaline Phosphatase 93 U/L (38-126); Anion Gap 14.7 mEq/L (5-15); Aspartate Amino Transferase 34 U/L (14-36); Bilirubin,Total 0.4 mg/dl (0.2-1.3); Blood Urea Nitrogen 23 mg/dl (7-17); Calcium 9.8 mg/dl (8.4-10.2); Carbon Dioxide 30 mmol/L (22.0-30.0); Chloride 96 mmol/L (98-107); Estimated Glomerular Filt Rate 42 ml/min (>60); GFR (African American) 51 ML/MIN (>60); Globulin 2.9 g/dL (1.3-3.2); Glucose 161 mg/dl (74-100); Potassium 4.7 mmoL/L (3.5-5.1); Sodium 136 mmol/L (136-145); Total Protein,Serum 7.6 g/dl (6.3-8.2)
[2022-08-28 08:10] LABS: HBsAg Screen Negative (Negative); HCV Ab Non Reactive (Non Reactive); Hep A Ab, IGM Negative (Negative); Hep B Core Ab, IgM Negative (Negative)
== END ==
PROVIDERS: PCP Internal Medicine Adolescent Medicine; Visit Provider Internal Medicine Rheumatology
DX: L40.50 Arthropathic psoriasis, unspecified (principal); R53.83 Other fatigue; N28.9 Disorder of kidney and ureter, unspecified; R76.8 Other specified abnormal immunological findings in serum; Z79.899 Other long term (current) drug therapy
CPT/HCPCS: 36415; 80053; 80074; 85025

== ENCOUNTER → 2022-09-02 11:57 | Outpatient (CLI) | payer MEDICARE, SELFPAY ==
--- NOTE | 2022-09-02 12:05 | XR_ITS ---
FINAL REPORT CLINICAL HISTORY: Ankle Pain, hx of arthritis FINDINGS: AP, oblique, and lateral views of the right ankle were obtained. There is no prior exam for comparison. There is no fracture or dislocation. The ankle mortise is intact. Soft tissues are normal. Mild degenerative change is noted in multiple joints. IMPRESSION: No acute osseous abnormality of the right ankle. Reviewed, Interpreted and Dictated by Becka Lemus MD Transcribed by Roselia Muhammad Authenticated and [facility]
--- NOTE | 2022-09-02 12:05 | XR_ITS ---
FINAL REPORT CLINICAL HISTORY: Foot Pain, hx of arthritis FINDINGS: AP, oblique and lateral views of the right foot were obtained. There is no prior exam for comparison. There is no acute fracture or dislocation. There is mild degenerative change in multiple joints, especially at the first MTP articulation. There is a mild hallux valgus deformity. Soft tissues are normal. IMPRESSION: Mild degenerative change, no acute abnormality identified. Reviewed, Interpreted and Dictated by Becka Lemus MD Transcribed by Roselia Muhammad Authenticated and [facility]
--- NOTE | 2022-09-02 12:05 | XR_ITS ---
FINAL REPORT CLINICAL HISTORY: Foot Pain, hx of arthritis COMPARISON: None FINDINGS: AP, oblique and lateral views of the left foot were obtained. There is no prior exam for comparison. There is no acute fracture or dislocation. There is mild multijoint degenerative change present, particularly involving the first MTP articulation. Soft tissues are normal. IMPRESSION: Mild degenerative change, otherwise unremarkable. Reviewed, Interpreted and Dictated by Becka Lemus MD Transcribed by Roselia Muhammad Authenticated and [facility]
--- NOTE | 2022-09-02 12:05 | XR_ITS ---
FINAL REPORT CLINICAL HISTORY: Ankle Pain, hx of arthritis COMPARISON: None FINDINGS: AP, oblique, and lateral views of the left ankle were obtained. There is no prior exam for comparison. There is no fracture or dislocation. The ankle mortise is intact. Soft tissues are normal. IMPRESSION: No acute osseous abnormality of the left ankle. Reviewed, Interpreted and Dictated by Becka Lemus MD Transcribed by Roselia Muhammad Authenticated and [facility]
== END ==
PROVIDERS: PCP Internal Medicine Adolescent Medicine; Visit Provider Podiatrist
DX: M25.571 Pain in right ankle and joints of right foot; M25.572 Pain in left ankle and joints of left foot; M79.671 Pain in right foot; M79.672 Pain in left foot
CPT/HCPCS: 73610; 73630

== ENCOUNTER → 2022-11-15 09:37 | Outpatient (POV) | payer MEDICARE, SELFPAY | PROVIDERS: Visit Provider Dermatology | DX: Z00.00 Encounter for general adult medical examination without abnormal findings (principal) ==

== ENCOUNTER → 2022-12-15 13:16 | Outpatient (CLI) | payer MEDICARE, SELFPAY ==
--- NOTE | 2022-12-15 13:16 | MM_ITS ---
PROCEDURE INFORMATION: Exam: MG Bilateral Screening 3D Mammography Exam date and time: 12/15/2022 1:08 PM Age: 57 years old Clinical indication: Screening examination TECHNIQUE: Imaging protocol: Bilateral Screening tomosynthesis and 2D mammography including computer-aided detection (CAD) when performed. COMPARISON: 1. MG MM DIG SCREENING MAMM BI W/CAD 08/21/2020 10:02 AM 2. MG MM DIG SCREENING MAMM BI W/CAD 09/13/2018 9:38 AM FINDINGS: MAMMOGRAPHY: Breast composition: There are scattered areas of fibroglandular density. Mass: None. Architectural distortion: None. Calcifications: Clustered calcifications in the posterior left upper inner quadrant Asymmetric density: None. Skin thickening: None. Axillary adenopathy: None. IMPRESSION: Patient to be recalled for spot magnification views of the left breast in the CC and MLO projections for further evaluation of left breast calcifications. ASSESSMENT: BI-RADS Category 0: Incomplete- Need Additional Imaging Evaluation and/or Prior Mammograms for Comparison
== END ==
PROVIDERS: PCP Internal Medicine Adolescent Medicine; Visit Provider Nurse Practitioner Obstetrics & Gynecology
DX: Z12.31 Encounter for screening mammogram for malignant neoplasm of breast (principal)
CPT/HCPCS: 77063; 77067

== ENCOUNTER → 2022-12-30 11:04 | Outpatient (CLI) | payer MEDICARE, SELFPAY ==
--- OUTSIDE RECORDS SUMMARY | 2022-12-30 11:08 | XMS_ITS | Patient Health Record ---
Author Name Unknown Organization [facility] Address [address] [place] [address] Care Team Providers Care Sba Business Development Officer Name Role Phone Kody Dunn Primary Care Provider UnavailCk Oliva Unavailable [phone] Sara Bob Unavailable Unavailable ALLERGIES Allergen (clinical drug ingredient) Drug/Non Drug Allergy documented on EMR Reaction Allergy Type Onset Date Status hydroxychloroquine Plaquenil hives Drug Allergy Active REASON FOR REFERRAL No Information MEDICATIONS Medication SIG (Take, Route, Frequency, Duration) Notes Start Date End Date Status Docusate Sodium 100 MG 1 capsule as need ed Orally Once a day Active Vitamin D3 50 MCG (1999) 1 tablet Ora lly Once a day Active Estradiol 2 MG 1 tablet Orally Once a day Active Niacin 500 MG 1 tablet with food Orally Once a day Active Omeprazole 20 MG 1 capsule 30 minutes before morning meal Orally Once a day Active Bisoprolol Fumarate 5 MG 1 tablet Orally Once a day Active Magnesium 400 MG as directed Orally daily Active Biotin 10 MG as directed Orally Active tiZANidine HCl 4 MG 1 tablet as needed Orally Three times a day Active Gabapentin 800 MG 1 tablet Ora
--- OUTSIDE RECORDS SUMMARY | 2022-12-30 11:10 | XMS_ITS | Continuity of Care Document ---
Author Name Unknown Organization [facility] Address [address] [id number] Phone Care Team Providers Care Supervisor Whipped Topping Name Role Phone Sara Bob MD Unavailable Unavailable Allergies, Adverse Reactions, Alerts Substance Reaction Status Criticality HYDROXYCHLOROQUINE SULFATE Active N o Information Medications Medication Instructions Dosage Effective Dates (start - stop) Status Comments TIZANIDINE TAB 4MG TAKE 1/2 TO 1 TABLET BY MOUTH 3 TIMES A DAY NEEDED FOR SPASM BUT CAN TAKE 2 AT BEDTIME. *MAY CAUSE DROWSINESS* - Active methotrexate sodium 2.5 mg tablet take 6 tablet by oral route every week 15 MG - Active folic acid 1 mg tablet 1 tablet daily except mtx day. - Active Tylenol Arthritis Pain 650 mg tablet,extended release take 1 tablet by oral route every 8 hours as needed swallowing whole with water. Do not break, crush, dissolve and/or chew. 650 MG - Active Prozac 20 mg capsule Take 1 po qam and 2 in the afternoon. - Active gabapentin 800 mg tablet take 1 tablet by oral route 4 times daily - Active niacin 500 mg tablet take 1 tablet by oral ro
[2022-12-30 11:12] LABS: Microscopic, Urine URINE MICROSCOPIC (MICROSCOPIC)
[2022-12-30 11:51] LABS: Basophils % 0.6 % (0.1-2.0); Eosinophils # 0.1 K/mm3 (0.0-0.4); Eosinophils % 1.5 % (0.1-12.0); Hematocrit 38.9 % (37.0-47.0); Hemoglobin 14.1 g/dL (12.2-16.2); Lymphocytes # 2.6 K/mm3 (0.7-4.5); Lymphocytes % 40.5 % (10-50); Mean Corpuscular HGB Conc 36.3 g/dL (31.8-35.4); Mean Corpuscular Hemoglobin 32.9 pg (27.0-31.2); Mean Corpuscular Volume 90.6 fl (81-99); Mean Platelet Volume 6.2 fl (7.4-10.4); Monocytes # 0.3 K/mm3 (0.1-1.0); Monocytes % 4.5 % (1.7-9.3); Neutrophils # 3.4 K/mm3 (1.8-7.8); Neutrophils % 52.9 % (37.0-80.0); Platelet Count 301 K/mm3 (142-424); Red Cell Distribution Width 12.3 % (11.5-17.5); White Blood Count 6.4 K/mm3 (4.8-10.8)
[2022-12-30 11:53] LABS: Appearance,Urine CLEAR (Clear); Bilirubin,Urine Negative (Negative); Blood, Urine Negative (Negative); Color,Urine YELLOW (Yellow); Glucose,Urine (UA) Negative (Negative); Ketones,Urine Negative (Negative); Leukocyte Esterase,Urine Negative (Negative); Nitrate,Urine Negative (Negative); Protein,Urine Negative (Negative); Specific Gravity, Urine 1.025 (1.005-1.030)
[2022-12-30 11:58] LABS: Alanine Aminotransferase 24 U/L (12-78); Albumin Level 4.5 g/dl (3.5-5.0); Albumin/Globulin Ratio 1.5 (1.1-1.8); Alkaline Phosphatase 108 U/L (38-126); Anion Gap 14.4 mEq/L (5-15); Aspartate Amino Transferase 36 U/L (14-36); Bilirubin,Total 0.3 mg/dl (0.2-1.3); Blood Urea Nitrogen 23 mg/dl (7-17); Calcium 9.6 mg/dl (8.4-10.2); Carbon Dioxide 29 mmol/L (22.0-30.0); Chloride 97 mmol/L (98-107); Estimated Glomerular Filt Rate 57 ml/min (>60); GFR (African American) 69 ML/MIN (>60); Glucose 117 mg/dl (74-100); Potassium 4.4 mmoL/L (3.5-5.1); Sodium 136 mmol/L (136-145); Total Protein,Serum 7.5 g/dl (6.3-8.2)
[2022-12-30 13:45] LABS: Bacteria,Urine Trace /lpf; WBC,Urine Occasional #/hpf (0-3)
== END ==
PROVIDERS: PCP Internal Medicine Adolescent Medicine; Visit Provider Internal Medicine Nephrology
DX: N18.2 Chronic kidney disease, stage 2 (mild) (principal); I12.9 Hypertensive chronic kidney disease with stage 1 through stage 4 chronic kidney disease, or unspecified chronic kidney disease
CPT/HCPCS: 36415; 80053; 81001; 85025

== ENCOUNTER → 2023-01-06 14:09 | Outpatient (CLI) | payer MEDICARE, SELFPAY ==
--- NOTE | 2023-01-06 14:10 | MM_ITS ---
PROCEDURE INFORMATION: Exam: MG Left Diagnostic Breast Tomosynthesis Exam date and time: 01/06/2023 2:04 PM Age: 57 years old Clinical indication: Patient recalled on the basis of a screening mammogram for further evaluation; Left breast; calcifications TECHNIQUE: Imaging protocol: Left Diagnostic tomosynthesis and 2D mammography including computer-aided detection (CAD) when performed. Unilateral or bilateral exam. COMPARISON: 1. MG MM DIG SCREENING MAMM BI W/CAD 12/15/2022 1:08 PM 2. MG MM DIG SCREENING MAMM BI W/CAD 08/21/2020 10:02 AM FINDINGS: MAMMOGRAPHY: Digital diagnostic magnification views of the posterior left upper breast demonstrate 3 smoothly marginated uniformly dense calcifications. These are considered benign. IMPRESSION: No mammographic evidence of malignancy. Benign calcifications in the left posterior breast.Annual bilateral mammographic screening is recommended unless otherwise clinically indicated. ASSESSMENT: BI-RADS Category 2: Benign
[2023-01-10 23:07] LABS: QuantiFERON-TB Gold Plus Negative (Negative)
== END ==
PROVIDERS: Internal Medicine Rheumatology; PCP Internal Medicine Adolescent Medicine; Visit Provider Nurse Practitioner Obstetrics & Gynecology
DX: R92.8 Other abnormal and inconclusive findings on diagnostic imaging of breast (principal); E53.8 Deficiency of other specified B group vitamins; E55.9 Vitamin D deficiency, unspecified; L40.50 Arthropathic psoriasis, unspecified; N28.9 Disorder of kidney and ureter, unspecified; R76.8 Other specified abnormal immunological findings in serum; Z68.30 Body mass index [BMI] 30.0-30.9, adult
CPT/HCPCS: 36415; 77061; 77065; 86480; G0279

== ENCOUNTER → 2023-01-10 16:03 | Outpatient (POV) | payer MEDICARE, SELFPAY | PROVIDERS: PCP Internal Medicine Adolescent Medicine; Visit Provider Dermatology | DX: Z00.00 Encounter for general adult medical examination without abnormal findings (principal) ==

== ENCOUNTER 2023-02-04 13:54 | Emergency (ER) | payer MEDICARE, SELFPAY ==
[2023-02-04 15:55] VITALS: BP 141/85; PULSE 78; RESP 19; TEMP 36.8; O2SAT 99; BMI 29.8
--- NOTE | 2023-02-04 17:02 | EXP.UTC ---
Discharge Plan Disposition Patient Disposition: Home, Self-Care Condition: Good Prescriptions Prescriptions: New ondansetron 8 mg tablet,disintegrating 8 mg PO Q8H PRN (Reason: nausea and vomiting) Qty: 15 0RF No Action duloxetine [Cymbalta] 60 mg capsule,delayed release(DR/EC) 60 mg PO BID levothyroxine 200 mcg tablet 200 mcg PO DAILY fluoxetine 20 mg tablet 20 mg PO DAILY estradiol 2 mg tablet 2 mg PO DAILY Qty: 30 11RF lisinopril-hydrochlorothiazide 20-12.5 mg tablet 1 tab PO DAILY Referrals Follow up/Referrals: Kody Dunn MD [Primary Care Provider] - See instructions Activity Restrictions/Add. Instructions Additional Instructions/Restrictions: Follow up with Dr. Dunn next week. BRAT (Bananas, rice, apple sauce, and toast) diet as needed. Increase fluids. If symptoms worsen, return to the clinic. Clinical Impressions Clinical Impression: Diarrhea in adult patient Nausea & vomiting Qualifiers: Vomiting type: unspecified Qualified Code(s): R11.2 - Nausea with vomiting, unspecified Instructions Patient Instructions: Nausea and Vomiting-Adult, DI for Diarrhea and Traveler's Diarrhea -- Adult Discharge ED Provider: Gilda Issa [facility] General Stated complaint: nausea vomiting diarrhea for 2wks Mode of Arrival: Ambulatory Source of Information: Patient Limitations: No Limitations Time Seen by Provider: 02/04/23 17:01 Description of Symptoms (Recalled from Triage Doc. by RN): PATIENT C/O NAUSEA, VOMITING, AND DIARRHEA X 2 WEEKS HEENT Symptoms (Recalled from RN notes): No Resp Symptoms (Recalled from RN notes): No Skin Symptoms (Recalled from RN notes): No MS Symptoms (Recalled from RN notes): No Functional Status (Recalled from RN notes): WNL History of Present Illness Provider Complaint: Pt reports that she has had Nausea, vomiting, and diarrhea for the past 2 weeks and has lost 10 pounds. Related Data Home Medications Medication Instructions Recorded Confirmed levothyroxine 200 mcg tablet 200 mcg PO DAILY thyroid 01/30/18 02/04/23 duloxetine 60 mg capsule,delayed 60 mg PO BID mood and nerve pain 03/19/18 02/04/23 release (Cymbalta) lisinopril 20 1 tab PO DAILY High blood pressure 03/02/22 02/04/23 mg-hydrochlorothiazide 12.5 mg tablet fluoxetine 20 mg tablet 20 mg PO DAILY 12/01/22 02/04/23 Previous Rx's Medication Instructions Recorded estradiol 2 mg tablet 2 mg PO DAILY #30 tabs 12/01/22 ondansetron 8 mg disintegrating 8 mg PO Q8H PRN nausea and 02/04/23 tablet vomiting #15 tabs Allergies Allergy/AdvReac Type Severity Reaction Status Date / Time hydroxychloroquine Allergy Verified 12/01/22 13:23 [From Plaquenil] Worker's Comp Is this a Worker's Comp case?: No [facility] Disclaimer: The information contained in this section may have been updated after the patient was seen, as this information can be updated by other users. Medical History Asthma CAD (coronary artery disease) Diaphoresis Dyspnea Dyspnea on exertion Dyspnea on exertion Edema GERD (gastroesophageal reflux disease) History of 2019 novel coronavirus disease (COVID-19) HLD (hyperlipidemia) HTN (hypertension) Moderate persistent asthma Neuropathy Psoriatic arthritis SOB (shortness of breath) on exertion Thyroid condition Surgical History History of cardiac cath History of carpal tunnel release History of hemorrhoidectomy History of hysterectomy Family History Other Family history of acute congestive heart failure Family history of cancer Social History Smoking Status: Never smoker second hand exposure: No alcohol intake: never substance use type: denies use current
[2023-02-04 17:22] VITALS: BP 141/85; PULSE 78; RESP 19; TEMP 36.8; O2SAT 99
== END 2023-02-04 17:25 | disposition home or self-care (01) ==
PROVIDERS: Emergency Provider Nurse Practitioner Family; PCP Internal Medicine Adolescent Medicine
DX: R11.2 Nausea with vomiting, unspecified (principal); R19.7 Diarrhea, unspecified; I25.10 Atherosclerotic heart disease of native coronary artery without angina pectoris; I11.9 Hypertensive heart disease without heart failure; E78.5 Hyperlipidemia, unspecified; E03.9 Hypothyroidism, unspecified; J45.909 Unspecified asthma, uncomplicated; K21.9 Gastro-esophageal reflux disease without esophagitis
CPT/HCPCS: 99212; 99214; G0463

== ENCOUNTER 2023-02-16 16:40 | Outpatient (CLI) | payer MEDICARE, SELFPAY ==
--- NOTE | 2023-02-16 17:02 | XR_ITS ---
PROCEDURE INFORMATION: Exam: XR Chest Exam date and time: 02/16/2023 5:03 PM Age: 57 years old Clinical indication: Fever and shortness of breath; Patient HX: C/O SOA, weakness for 2 weeks. ; Additional info: Fever, weakness TECHNIQUE: Imaging protocol: Radiologic exam of the chest. Views: 2 views. Total images: 2 COMPARISON: CR XR CHEST 2V 04/27/2022 11:55 AM FINDINGS: Lungs: Atelectatic changes noted within both lung bases. Bilateral hyperinflation is present. Pleural spaces: Unremarkable. No pleural effusion. No pneumothorax. Heart/Mediastinum: Unremarkable. No cardiomegaly. Bones/joints: Unremarkable. IMPRESSION: 1. Atelectatic changes noted within both lung bases. 2. Bilateral hyperinflation is present.
[2023-02-16 17:03] LABS: Basophils # 0.1 K/mm3 (0-0.2); Basophils % 0.9 % (0.1-2.0); Eosinophils # 0.1 K/mm3 (0.0-0.4); Eosinophils % 1.3 % (0.1-12.0); Hematocrit 40.3 % (37.0-47.0); Hemoglobin 14.4 g/dL (12.2-16.2); Lymphocytes # 1.6 K/mm3 (0.7-4.5); Lymphocytes % 25.2 % (10-50); Mean Corpuscular HGB Conc 35.8 g/dL (31.8-35.4); Mean Corpuscular Hemoglobin 32.3 pg (27.0-31.2); Mean Corpuscular Volume 90.3 fl (81-99); Mean Platelet Volume 7.6 fl (7.4-10.4); Monocytes # 0.4 K/mm3 (0.1-1.0); Neutrophils # 4.3 K/mm3 (1.8-7.8); Neutrophils % 66.5 % (37.0-80.0); Platelet Count 298 K/mm3 (142-424); Red Blood Count 4.47 M/mm3 (4.20-5.40); Red Cell Distribution Width 12.4 % (11.5-17.5); White Blood Count 6.4 K/mm3 (4.8-10.8)
[2023-02-16 17:22] LABS: Chloride 86 mmol/L (98-107); Potassium 3.7 mmoL/L (3.5-5.1); Sodium 126 mmol/L (136-145)
[2023-02-16 17:25] LABS: Alanine Aminotransferase 33 U/L (12-78); Albumin Level 4.5 g/dl (3.5-5.0); Albumin/Globulin Ratio 1.3 (1.1-1.8); Alkaline Phosphatase 119 U/L (38-126); Anion Gap 14.7 mEq/L (5-15); Aspartate Amino Transferase 51 U/L (14-36); Bilirubin,Total 0.6 mg/dl (0.2-1.3); Blood Urea Nitrogen 12 mg/dl (7-17); Carbon Dioxide 29 mmol/L (22.0-30.0); Estimated Glomerular Filt Rate 57 ml/min (>60); GFR (African American) 69 ML/MIN (>60); Globulin 3.4 g/dL (1.3-3.2); Total Protein,Serum 7.9 g/dl (6.3-8.2)
[2023-02-16 17:26] LABS: Glucose 108 mg/dl (74-100)
== END 2023-02-16 23:59 ==
LOC: LAB 16:41
PROVIDERS: PCP Internal Medicine Adolescent Medicine; Visit Provider Nurse Practitioner Family
DX: R50.9 Fever, unspecified; R53.1 Weakness
CPT/HCPCS: 36415; 71046; 80053; 85025

== ENCOUNTER 2023-02-17 08:49 | Outpatient (CLI) | payer MEDICARE, SELFPAY ==
[2023-02-17 09:15] VITALS: BP 142/92; PULSE 73; RESP 17; O2SAT 98
[2023-02-17] MEDS: 0.9 % SODIUM CHLORIDE 1000ML 1,000 ML 999 ML IV ×2 (09:15→10:12)
[2023-02-17 10:15] VITALS: BP 143/88; PULSE 71; RESP 17
[2023-02-17 11:15] VITALS: BP 129/71; PULSE 76; RESP 18
== END 2023-02-17 11:50 | disposition home or self-care (01) ==
LOC: INF 08:51
PROVIDERS: PCP Internal Medicine Adolescent Medicine; Visit Provider Nurse Practitioner Family
DX: R19.7 Diarrhea, unspecified (principal); E86.0 Dehydration
CPT/HCPCS: 96360; 96361

== ENCOUNTER 2023-02-18 09:00 | Outpatient (CLI) | payer MEDICARE, SELFPAY ==
[2023-02-18 10:34] LABS: Chloride 97 mmol/L (98-107); Potassium 3.7 mmoL/L (3.5-5.1); Sodium 134 mmol/L (136-145)
[2023-02-18 10:37] LABS: Anion Gap 15.7 mEq/L (5-15); Blood Urea Nitrogen 12 mg/dl (7-17); Calcium 8.8 mg/dl (8.4-10.2); Carbon Dioxide 25 mmol/L (22.0-30.0); Estimated Glomerular Filt Rate 64 ml/min (>60); GFR (African American) 78 ML/MIN (>60); Glucose 126 mg/dl (74-100)
== END 2023-02-18 23:59 ==
LOC: LAB 09:01
PROVIDERS: PCP Internal Medicine Adolescent Medicine; Visit Provider Nurse Practitioner Family
DX: R53.1 Weakness (principal); R19.7 Diarrhea, unspecified
CPT/HCPCS: 36415; 80048

== ENCOUNTER 2023-02-18 19:16 | Emergency (ER) | payer MEDICARE, SELFPAY ==
[2023-02-18 19:16] VITALS: BP 174/99; PULSE 68; RESP 16; TEMP 36.6; O2SAT 98; BMI 28.8
--- NOTE | 2023-02-18 19:24 | ECG_ITS ---
APPROVED REPORT Exam: Resting ECG HR:65 bpm ECG Measurements Heart Rate 65 AXES AL 190 P 51 QRSd 92 QRS 32 QT 440 T 38 QTc 451 Conclusion SINUS RHYTHM LOW QRS VOLTAGE IN PRECORDIAL LEADS [QRS DEFLECTION < 1.0 mV IN CHEST LEADS] BORDERLINE ECG UNCONFIRMED REPORT Electronically signed by : Kody Dunn MD 02/19/2023 09:02:47
--- NOTE | 2023-02-18 19:24 | XR_ITS ---
PROCEDURE INFORMATION: Exam: XR Chest Exam date and time: 02/18/2023 7:26 PM Age: 57 years old Clinical indication: Shortness of breath; Additional info: SOB, productive cough TECHNIQUE: Imaging protocol: Radiologic exam of the chest. Views: 1 view. Total images: 1 COMPARISON: CR XR CHEST 2V 02/16/2023 5:03 PM FINDINGS: Lungs: Nonspecific hyperinflation. Upper lungs appear emphysematous. No consolidation. No pulmonary vascular congestion or edema. Pleural spaces: Unremarkable. No pleural effusion. No pneumothorax. Heart/Mediastinum: Unremarkable. No cardiomegaly. No mediastinal widening or hilar enlargement. Bones/joints: Unremarkable. IMPRESSION: 1. No radiographically acute cardiopulmonary process. 2. Emphysema/COPD.
--- NOTE | 2023-02-18 19:26 | ED_ITS ---
Discharge Plan Disposition Patient Disposition: Home, Self-Care Prescriptions Prescriptions: New oseltamivir 75 mg capsule 75 mg PO DAILY 7 Days Qty: 7 0RF No Action duloxetine [Cymbalta] 60 mg capsule,delayed release(DR/EC) 60 mg PO BID levothyroxine 200 mcg tablet 200 mcg PO DAILY fluoxetine 20 mg tablet 20 mg PO DAILY estradiol 2 mg tablet 2 mg PO DAILY Qty: 30 11RF tizanidine 4 mg tablet 4 mg PO BID oxcarbazepine 300 mg Tablet 300 mg PO HS bisoprolol fumarate 5 mg Tablet 5 mg PO DAILY gabapentin 800 mg tablet 800 mg PO TID biotin 10,000 mcg Capsule 10,000 mcg PO DAILY niacin 500 mg Tablet 500 mg PO DAILY docusate sodium [Colace] 100 mg Capsule 100 mg PO DAILY omeprazole 20 mg capsule,delayed release(DR/EC) 20 mg PO DAILY levothyroxine 200 mcg tablet 200 mcg PO DAILY cholecalciferol (vitamin D3) [Vitamin D3] 50 mcg (2,000 unit) Capsule 50 mcg PO DAILY magnesium oxide 400 mg magnesium Capsule 400 mg PO DAILY lisinopril-hydrochlorothiazide 20-12.5 mg tablet 1 tab PO DAILY ondansetron 8 mg tablet,disintegrating 8 mg PO Q8H PRN (Reason: nausea and vomiting) Qty: 15 0RF Referrals Follow up/Referrals: Provider,Referral, MD [Primary Care Provider] - See instructions Activity Restrictions/Add. Instructions Additional Instructions/Restrictions: Please follow-up with your primary care provider. Please return to the emergency department if you develop any new or worsening symptoms or become concerned for your health. Please use inhaler as needed. Take Tylenol and ibuprofen as needed for pain. Clinical Impressions Clinical Impression: Asthma, Influenza A, Dyspnea Discharge ED Provider: Goran Worley General Adult HPI General Chief complaint: Weakness Stated complaint: Weakness Time Seen by Provider: 02/18/23 19:24 Mode of Arrival: EMS Source of Information: Patient Limitations: No Limitations Description of Symptoms (Recalled from ER Triage Doc. by RN): pt states she being having diarrhea x 2 weeks and being treated for dehyrdation. pt c/o SOA, dizzy and weakness. also per her md pt hasn't taken lisinopril x 3 days History of Present Illness HPI narrative: 57-year-old female, history of asthma (has been unable to use her inhaler recently due to pharmacy being out of the [facility]) psoriatic arthritis on no immunomodulators, presents with relatively sudden onset shortness of breath. Patient reports that she started wheezing and feeling tight consistent with asthma. Patient also reports intermittently productive cough recently. She called EMS and they brought her in. Reports that her symptoms already improved. She denies any chest pain during any of this. She denies any history of cardiac pathology. She reports that she had a recent diarrheal/GI illness. Related Data Home Medications Medication Instructions Recorded Confirmed levothyroxine 200 mcg tablet 200 mcg PO DAILY thyroid 01/30/18 02/18/23 duloxetine 60 mg capsule,delayed 60 mg PO BID mood and nerve pain 03/19/18 02/18/23 release (Cymbalta) lisinopril 20 1 tab PO DAILY High blood pressure 03/02/22 02/18/23 mg-hydrochlorothiazide 12.5 mg tablet fluoxetine 20 mg tablet 20 mg PO DAILY 12/01/22 02/18/23 biotin 10,000 mcg capsule 10,000 mcg PO DAILY 02/18/23 02/18/23 bisoprolol fumarate 5 mg tablet 5 mg PO DAILY 02/18/23 02/18/23 cholecalciferol (vitamin D3) 50 50 mcg PO DAILY 02/18/23 02/18/23 mcg (2,000 unit) capsule (Vitamin D3) docusate sodium 100 mg capsule 100 mg PO DAILY 02/18/23 02/18/23 (Colace) gabapentin 800 mg tablet 800 mg PO TID 02/18/23 02/18/23 levothyroxine 200 mcg tablet 200 mcg PO DAILY 02/18/23 02/18/23 magnesium oxide 400 mg PO DAILY 02/18/23 02/18/23 niacin 500 mg tablet 500 mg PO DAILY 02/18/23 02/18/23 omeprazole 20 mg capsule,delayed 20 mg PO DAILY 02/18/23 02/18/23 release oxcarbazepine 300 mg tablet 300 mg PO HS 02/18/23 02/18/23 tizanidine 4 mg tablet 4 mg PO BID 02/18/23 02/18/23 Previous Rx's Medication Instructions Recorded estradiol 2 mg tablet 2 mg PO DAILY #30 tabs 12/01/22 ondansetron 8 mg disintegrating 8 mg PO Q8H PRN nausea and 02/04/23 tablet vomiting #15 tabs oseltamivir 75 mg capsule 75 mg PO DAILY 7 days #7 caps 02/19/23 Allergies Allergy/AdvReac Type Severity Reaction Status Date / Time hydroxychloroquine Allergy Verified 12/01/22 13:23 [From Plaquenil] [facility] Disclaimer: The information contained in this section may have been updated after the patient was seen, as this information can be updated by other users. Medical History Asthma CAD (coronary artery disease) Diaphoresis Dyspnea Dyspnea on exertion Dyspnea on exertion Edema GERD (gastroesophageal reflux disease) History of 2019 novel coronavirus disease (COVID-19) HLD (hyperlipidemia) HTN (hypertension) Moderate persistent asthma Neuropathy Psoriatic arthritis SOB (shortness of breath) on exertion Thyroid condition Surgical History History of cardiac cath History of carpal tunnel release History of hemorrhoidectomy History of hysterectomy Family History Other Family history of acute congestive heart failure Family history of cancer Social History Smoking Status: Never smoker second hand exposure: No alcohol intake: never substance use type: denies use current occupational status: employed Travel in the last 8 weeks: None household members: other housing: house 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 current occupational exposures/hazards: No caffeine: Yes ROS Obtained: Yes All systems reviewed & no additional complaints except as documented Physical Exam General General appearance: alert and anxious Head Head exam: atraumatic and normocephalic Eye Eye exam: Present normal appearance, PERRL and EOMI ENT ENT exam: Present normal oropharynx and normal external ear exam Neck Neck exam: Present normal inspection and full ROM Chest Chest inspection: Present normal inspection and symmetric chest wall rise; Absent tenderness Respiratory Respiratory exam: Present wheezes and prolonged expiratory phase; Absent respiratory distress Cardiovascular Cardiovascular exam: Present regular rate and normal rhythm Abdominal Exam Abdominal exam: Present soft; Absent distention, tenderness or guarding Extremities Exam Extremities exam: Present normal inspection; Absent edema or joint swelling Back Exam Back exam: Present normal inspection; Absent tenderness Neurological Exam Neurological exam: Present alert and oriented X3; Absent motor sensory deficit Psychiatric Psychiatric exam: Present normal affect and normal mood Skin Skin exam: Present warm, dry and normal color Lymphatic Lymphatic Findings: no adenopathy Medical Decision Making Medical Records Medical records reviewed: Yes I reviewed the patient's medical records. Wilfrido Inquiry Pt receiving controlled substance: No Wilfrido was queried for this patient: No Vital Signs: 02/18/23 19:16 02/18/23 19:55 02/18/23 20:00 Temperature 97.8 F Temperature Source Oral Pulse Rate 71 76 Pulse Rate [Right] 68 Respiratory Rate 16 20 Blood Pressure 160/116 H Blood Pressure [Right Arm] 174/99 H Blood Pressure Mean 122 Blood Pressure Mean [Right Arm] 124 02 Sat by Pulse Oximetry 98 99 Oxygen Delivery Method Room Air 02/18/23 21:15 Temperature 98.2 F Temperature Source Oral Pulse Rate 98 H Pulse Rate [Right] Respiratory Rate 18 Blood Pressure 130/78 Blood Pressure [Right Arm] Blood Pressure Mean Blood Pressure Mean [Right Arm] 02 Sat by Pulse Oximetry Oxygen Delivery Method Lab Data Lab results reviewed: Yes I reviewed the patient's lab results. Lab Results 02/18/23 19:29: SARS-CoV-2 (PCR) Not detected, Influenza A Untype (PCR) Detected A, Influenza Type B (PCR) Not detected Orders (Tests/Meds): ED MEDICATIONS Discontinued Medications Generic Name Dose Route Start Last Admin Trade Name Freq PRN Reason Stop Dose Admin Albuterol Sulfate 2 puff 02/18/23 21:02 Albuterol-Hfa 90mcg/Puff Inhaler 8gm 03/20/23 21:01 Q4HP PRN Shortness Of Breath Albuterol/Ipratropium 6 ml 02/18/23 19:24 02/18/23 19:54 Ipratropium/Albuterol 3 Ml Neb 02/18/23 19:25 6 ml ONCE ONE Administration Fluticasone Propionate 2 puff 02/19/23 06:00 Fluticasone Hfa 220mcg Inhaler 03/21/23 05:59 Q12RT YARELIS Fluticasone Propionate 2 puff 02/18/23 21:21 02/18/23 21:22 Fluticasone Hfa 110mcg Inhaler 02/18/23 21:22 2 puff ONCE ONE Administration Miscellaneous 1 unit 02/18/23 21:02 Aerochamber/Optihaler 02/18/23 21:03 ONCE ONE Miscellaneous 1 unit 02/18/23 21:10 Aerochamber/Optihaler 02/18/23 21:11 ONCE ONE ORDERS Category Date Time Status CXR --portable [XR chest portable] Stat Exams 02/18/23 19:24 Completed Rapid PCR Covid and Flu A/B Stat Lab 02/18/23 19:29 Completed ECG initial Besson Routine Y 02/18/23 19:24 Completed Medical Decision Narrative: 57-year-old female, presentation complicated by history of asthma and psoriatic arthritis presents with acute shortness of breath without chest pain that is already resolved. History was obtained via conversation with patient, EMS. On arrival, patient is [afebrile, hemodynamically stable, satting appropriately, alert, oriented x4, GCS 15], moving all extremities spontaneously. Full physical exam performed and significant for mild wheezing and prolonged expiratory phase in all lung meyer. Differential includes but is not limited to asthma exacerbation, COVID, flu, allergies, pneumonia. Patient was given DuoNeb's x 2 for symptomatic management and correction of underlying abnormalities. Workup initiated including chest x-ray, COVID flu swab. On re-evaluation, patient [remains afebrile, HD stable.] Reports symptomatic resolution. Lungs clear bilaterally on exam now. Laboratory workup independently interpreted by me and significant for positive flu test.. Imaging independently interpreted by me and significant for no focal lung opacities. See radiology read for full review of final results. EKG independently interpreted by me and significant for sinus rhythm, regular rate at 65, no concerning ST changes.. Steroids for asthma exacerbation in setting of influenza was considered, but patient reports that she cannot tolerate steroids due to they make me crazy . Given patient history, exam and workup, patient's presentation most likely represents mild asthma exacerbation in the setting of influenza infection. Patient discharged in stable condition. She was her fluticasone inhaler that she was unable to get from her pharmacy. Return precautions given. Procedures Risk/Benefits of Procedure(s) Were Explained: Yes Critical Care Critical Care Time Critical Care Time: No
[2023-02-18 19:35] LABS: Coronavirus 19, PCR Not Detected (NotDetected); Influenza B, PCR Not Detected (NotDetected)
[2023-02-18] MEDS: IPRATROPIUM/ALBUTEROL 3 ML NEB 6 ML IH (19:54)
[2023-02-18 19:55] VITALS: PULSE 71
[2023-02-18 20:00] VITALS: BP 160/116; PULSE 76; RESP 20; O2SAT 99
[2023-02-18 20:19] LABS: Influenza A, PCR Detected (NotDetected)
--- NOTE | 2023-02-18 20:59 | PC.NURSE ---
in room talking with patient at this time.
[2023-02-18 21:15] VITALS: BP 130/78; PULSE 98; RESP 18; TEMP 36.8
[2023-02-18] MEDS: FLUTICASONE HFA 110MCG INHALER 2 PUFF IH (21:22)
== END 2023-02-18 21:31 | disposition home or self-care (01) ==
PROVIDERS: Emergency Provider Emergency Medicine
DX: J10.1 Influenza due to other identified influenza virus with other respiratory manifestations (principal); J10.2 Influenza due to other identified influenza virus with gastrointestinal manifestations; R06.02 Shortness of breath; R05.9 Cough, unspecified; R19.7 Diarrhea, unspecified; J45.30 Mild persistent asthma, uncomplicated; I25.10 Atherosclerotic heart disease of native coronary artery without angina pectoris; E78.5 Hyperlipidemia, unspecified; I10 Essential (primary) hypertension; L40.52 Psoriatic arthritis mutilans
CPT/HCPCS: 36415; 71045; 80048; 87636; 93005; 99284

== ENCOUNTER 2023-02-28 07:18 | Inpatient (IN) | payer MEDICARE, SELFPAY ==
[2023-02-28] VITALS (12 sets, daily range): BP systolic 103–131; BP diastolic 59–79; PULSE 77–100; RESP 14–29; TEMP 36.6–37.7; O2SAT 90–97; BMI 29.0; BMI 29.1
--- NOTE | 2023-02-28 07:20 | ECG_ITS ---
APPROVED REPORT Exam: Resting ECG HR:95 bpm ECG Measurements Heart Rate 95 AXES RI 177 P 62 QRSd 90 QRS 68 QT 340 T 91 QTc 393 Conclusion SINUS RHYTHM NORMAL ECG UNCONFIRMED REPORT Electronically signed by : Kody Dunn MD 03/01/2023 08:39:04
--- NOTE | 2023-02-28 07:31 | XR_ITS ---
FINAL REPORT CLINICAL HISTORY: dyspnea asthma since 2000 cough since january 2023 COMPARISON: 02/18/2023 FINDINGS: A single portable view of the chest was obtained. The heart size is within normal limits. The mediastinum is within normal limits. There are bilateral pulmonary opacities new since the prior chest x-ray of February 18, consistent with either pneumonia or pulmonary edema. The bony thorax is intact. IMPRESSION: New bilateral pulmonary opacities since the prior film of February 18, consistent with either pneumonia or pulmonary edema. Reviewed, Interpreted and Dictated by Ck Mitchell III, MD Transcribed by Roselia Muhammad Authenticated and [facility]
--- NOTE | 2023-02-28 07:32 | [facility]H.EDCP ---
Discharge Plan Disposition Patient Disposition: Admitted Prescriptions Prescriptions: No Action duloxetine [Cymbalta] 60 mg capsule,delayed release(DR/EC) 60 mg PO BID levothyroxine 200 mcg tablet 200 mcg PO DAILY fluoxetine 20 mg tablet 20 mg PO DAILY estradiol 2 mg tablet 2 mg PO DAILY Qty: 30 11RF ipratropium-albuterol 0.5 mg-3 mg(2.5 mg base)/3 mL solution for nebulization 3 ml inhalation Q6H PRN (Reason: shortness of breath or wheezing) 30 Days Qty: 90 3RF tizanidine 4 mg tablet 4 mg PO BID oxcarbazepine 300 mg Tablet 300 mg PO HS bisoprolol fumarate 5 mg Tablet 5 mg PO DAILY gabapentin 800 mg tablet 800 mg PO TID biotin 10,000 mcg Capsule 10,000 mcg PO DAILY niacin 500 mg Tablet 500 mg PO DAILY docusate sodium [Colace] 100 mg Capsule 100 mg PO DAILY omeprazole 20 mg capsule,delayed release(DR/EC) 20 mg PO DAILY levothyroxine 200 mcg tablet 200 mcg PO DAILY cholecalciferol (vitamin D3) [Vitamin D3] 50 mcg (2,000 unit) Capsule 50 mcg PO DAILY magnesium oxide 400 mg magnesium Capsule 400 mg PO DAILY oseltamivir 75 mg capsule 75 mg PO DAILY 7 Days Qty: 7 0RF lisinopril-hydrochlorothiazide 20-12.5 mg tablet 1 tab PO DAILY ondansetron 8 mg tablet,disintegrating 8 mg PO Q8H PRN (Reason: nausea and vomiting) Qty: 15 0RF Referrals Follow up/Referrals: Provider,Referral, MD [Referring] - See instructions Clinical Impressions Clinical Impression: Multifocal pneumonia, Sepsis Discharge ED Provider: Yelitza Seth HPI General Chief Complaint: Shortness of Breath/Dyspnea Stated Complaint: SOA Time Seen by Provider: 02/28/23 07:20 Mode of Arrival: EMS Source of Information: Patient Limitations: No Limitations Description of Symptoms (Recalled from ER Triage Doc. by RN): Patient reports being diagnosed with the Flu last week. States that she has been SOB, wheezing and cough. Increased anxiety this morning. History of Present Illness HPI narrative: Patient is a 57-year-old female presents today with anxiety feeling like she cannot breathe. She states that she began feeling sick in January has had a mild cough since that time has a history of asthma has had some wheezing was actually the emergency department last week diagnosed with the flu. She has not had a fever greater than 100.4 recently. She denies any worsening sputum production or wheezing. She states she was sitting at home she lives by herself and that she had a sensation of not being able to breathe and worked herself up into a panic being unable to fall asleep which was her prompted her to come to the emergency department. Related Data Home Medications Medication Instructions Recorded Confirmed levothyroxine 200 mcg tablet 200 mcg PO DAILY thyroid 01/30/18 02/18/23 duloxetine 60 mg capsule,delayed 60 mg PO BID mood and nerve pain 03/19/18 02/18/23 release (Cymbalta) lisinopril 20 1 tab PO DAILY High blood pressure 03/02/22 02/18/23 mg-hydrochlorothiazide 12.5 mg tablet fluoxetine 20 mg tablet 20 mg PO DAILY 12/01/22 02/18/23 biotin 10,000 mcg capsule 10,000 mcg PO DAILY 02/18/23 02/18/23 bisoprolol fumarate 5 mg tablet 5 mg PO DAILY 02/18/23 02/18/23 cholecalciferol (vitamin D3) 50 50 mcg PO DAILY 02/18/23 02/18/23 mcg (2,000 unit) capsule (Vitamin D3) docusate sodium 100 mg capsule 100 mg PO DAILY 02/18/23 02/18/23 (Colace) gabapentin 800 mg tablet 800 mg PO TID 02/18/23 02/18/23 levothyroxine 200 mcg tablet 200 mcg PO DAILY 02/18/23 02/18/23 magnesium oxide 400 mg PO DAILY 02/18/23 02/18/23 niacin 500 mg tablet 500 mg PO DAILY 02/18/23 02/18/23 omeprazole 20 mg capsule,delayed 20 mg PO DAILY 02/18/23 02/18/23 release oxcarbazepine 300 mg tablet 300 mg PO HS 02/18/23 02/18/23 tizanidine 4 mg tablet 4 mg PO BID 02/18/23 02/18/23 Previous Rx's Medication Instructions Recorded estradiol 2 mg tablet 2 mg PO DAILY #30 tabs 12/01/22 ondansetron 8 mg disintegrating 8 mg PO Q8H PRN nausea and 02/04/23 tablet vomiting #15 tabs oseltamivir 75 mg capsule 75 mg PO DAILY 7 days #7 caps 02/19/23 ipratropium 0.5 mg-albuterol 3 mg 3 ml inhalation Q6H PRN shortness 02/21/23 (2.5 mg base)/3 mL nebulization of breath or wheezing 30 days #90 soln mL Allergies Allergy/AdvReac Type Severity Reaction Status Date / Time hydroxychloroquine Allergy Verified 12/01/22 13:23 [From Plaquenil] [facility] Disclaimer: The information contained in this section may have been updated after the patient was seen, as this information can be updated by other users. Medical History Asthma CAD (coronary artery disease) Diaphoresis Dyspnea Dyspnea on exertion Dyspnea on exertion Edema GERD (gastroesophageal reflux disease) History of 2019 novel coronavirus disease (COVID-19) HLD (hyperlipidemia) HTN (hypertension) Moderate persistent asthma Neuropathy Psoriatic arthritis SOB (shortness of breath) on exertion Thyroid condition Surgical History History of cardiac cath History of carpal tunnel release History of hemorrhoidectomy History of hysterectomy Family History Other Family history of acute congestive heart failure Family history of cancer Social History Smoking Status: Unknown if ever smoked second hand exposure: No alcohol intake: never substance use type: denies use current occupational status: employed Travel in the last 8 weeks: None household members: other housing: house 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 current occupational exposures/hazards: No caffeine: Yes ROS Obtained: Yes All systems reviewed & no additional complaints except as documented Physical Exam General General appearance: alert and anxious Respiratory Respiratory exam: Present normal lung sounds bilaterally; Absent respiratory distress, wheezes or stridor Cardiovascular Cardiovascular exam: Present regular rate and normal rhythm; Absent bradycardia or tachycardia Neurological Exam Neurological exam: Present alert and oriented X3 HEART Score HEART Score HEART Score assessment performed?: Yes History (anamnesis): Slightly suspicious ECG: Normal Age: 45-65 years Risk factors: No known risk factors Troponin: </= normal limit HEART Score: 1 Critical Care Critical Care Time Critical Care Time: Yes Attestation: On 02/28/23, the high probability of a clinically significant, sudden or life threatening deterioration of the following system(s) required my full and direct attention, intervention and personal management. The time I documented below is in addition to time spent performing reported procedures but includes the following listed in this critical care notation. Total Time Total Critical Care Time: 35 Medical Decision Making Wilfrido Inquiry Pt receiving controlled substance: No Vital Signs Vital Signs: 02/28/23 07:18 02/28/23 07:31 02/28/23 08:00 Temperature 98.8 F Temperature Source Oral Pulse Rate 93 H 83 Pulse Rate [Radial] 77 Respiratory Rate 22 17 15 Blood Pressure 116/59 L 121/79 Blood Pressure [Right Arm] 103/59 L Blood Pressure Mean [Right Arm] 73 Blood Pressure Source [Right Arm] Automatic Cuff Blood Pressure Position [Right Arm] Sitting 02 Sat by Pulse Oximetry 94 L 96 96 Oxygen Delivery Method Room Air Room Air Room Air 02/28/23 08:30 Temperature Temperature Source Pulse Rate 99 H Pulse Rate [Radial] Respiratory Rate 20 Blood Pressure 130/73 Blood Pressure [Right Arm] Blood Pressure Mean [Right Arm] Blood Pressure Source [Right Arm] Blood Pressure Position [Right Arm] 02 Sat by Pulse Oximetry 95 Oxygen Delivery Method Room Air Lab Data Lab results reviewed: Yes I reviewed the patient's lab results. Labs: Lab Results 02/28/23 07:25: WBC 14.3 H, RBC 3.74 L, Hgb 11.7 L, Hct 33.5 L, MCV 89.5, MCH 31.2, MCHC 34.9, RDW 12.9, Plt Count 450 H, MPV 7.3 L, Neut % (Auto) 80.8 H, Lymph % (Auto) 13.8, [place] % (Auto) 4.5, Eos % (Auto) 0.6, Baso % (Auto) 0.3, Neut # (Auto) 11.6 H, Lymph # (Auto) 2.0, [place] # (Auto) 0.6, Eos # (Auto) 0.1, Baso # (Auto) 0.0, Sodium 131 L, Potassium 3.6, Chloride 98, Carbon Dioxide 24, Anion Gap 12.6, BUN 14, Creatinine 0.90, Estimated Creat Clear 89, Estimated GFR 64, Est GFR ( Amer) 78, Glucose 163 H, Calcium 8.3 L, Total Bilirubin 1.2, AST 27, ALT 23, Alkaline Phosphatase 109, Total Protein 7.2, Albumin 3.9, Globulin 3.3 H, Albumin/Globulin Ratio 1.2 02/28/23 08:02: Lactate 1.8 02/28/23 08:04: SARS-CoV-2 (PCR) Not detected, Influenza A Untype (PCR) Not detected, Influenza Type B (PCR) Not detected 02/28/23 07:25 02/28/23 07:25 Response Orders (Tests/Meds): ED MEDICATIONS Generic Name Dose Route Start Last Admin Trade Name Freq PRN Reason Stop Dose Admin Vancomycin/PEG/NADA/Lysine/Water 1.75 gm in 350 mls @ 175 mls/hr 02/28/23 08:30 Vancomycin 1.75gm/350ml (Peg) Premix IV 02/28/23 10:29 ONCE ONE Miscellaneous 1 each 02/28/23 08:00 02/28/23 08:12 Vancomycin Consult Request NOTAPPLIC 03/30/23 07:59 1 each CONSULT PHARMACY YARELIS Administration Sodium Chloride 10 ml 02/28/23 07:31 Sodium Chloride 0.9% 10ml Vial IV 03/30/23 07:30 NEEDED PRN to Dilute Lorazepam inj Discontinued Medications Generic Name Dose Route Start Last Admin Trade Name Freq PRN Reason Stop Dose Admin Benzonatate 100 mg 02/28/23 07:45 Benzonatate 100mg Capsule PO 03/30/23 07:44 ONCE YARELIS Benzonatate 100 mg 02/28/23 07:45 02/28/23 08:33 Benzonatate 100mg Capsule PO 02/28/23 07:46 100 mg ONCE ONE Administration Ceftriaxone Sodium 2 gm/ 100 mls @ 200 mls/hr 02/28/23 08:01 02/28/23 08:07 Sodium Chloride IV 02/28/23 08:30 200 mls/hr ONCE ONE Administration Azithromycin 500 mg/ Sodium 250 mls @ 250 mls/hr 02/28/23 08:01 02/28/23 08:33 Chloride IV 02/28/23 08:02 250 mls/hr ONCE ONE Administration Lactated Ringer's 1,000 mls @ 999 mls/hr 02/28/23 08:15 02/28/23 08:32 Lactated Ringer's 1000 Ml Bag IV 02/28/23 09:15 999 mls/hr .Q1H1M YARELIS Administration Lorazepam 1 mg 02/28/23 07:31 02/28/23 07:52 Lorazepam 2mg/Ml Vial IV 02/28/23 07:32 1 mg ONCE ONE Administration ORDERS Category Date Time Status CXR --portable [XR chest portable] Stat Exams 02/28/23 07:31 Completed BNP [Brain Natriuretic Peptide] Stat Lab 02/28/23 07:25 Results CBC w/Auto Diff [Complete Blood Count Auto Diff] Stat Lab 02/28/23 07:25 Completed CMP [Comprehensive Metabolic Panel] Stat Lab 02/28/23 07:25 Results Lactic Acid Stat Lab 02/28/23 08:02 Completed Rapid PCR Covid and Flu A/B Stat Lab 02/28/23 08:04 Completed Streptococcus pneumoniae Ag Stat Lab 02/28/23 07:59 Ordered Trop I [Troponin I] Stat Lab 02/28/23 07:25 Results Troponin I Q3H Lab 02/28/23 10:45 Ordered Troponin I Q3H Lab 02/28/23 13:45 Ordered Blood Culture Stat Micro 02/28/23 08:02 Received ECG initial Besson Routine Y 02/28/23 07:20 Completed MDM Narrative Medical Decision Narrative: Very well-appearing 57-year-old female with normal respiratory exam normal oxygen saturations no focal adventitious lung sounds no respiratory distress presents today with difficulty breathing. She has had a cough and was diagnosed with an asthma exacerbation superimposed upon influenza over a week ago. Differential includes pneumonia, heart failure, OR, asthma exacerbation, anxiety. Currently I favor anxiety as her exam is objectively normal. Will obtain a chest x-ray basic blood work give Ativan as well as benzonatate for cough and reassess. EKG performed which I personally interpreted shows a ventricular rate of 95 no acute ischemic changes noted normal axis no conduction abnormalities nondiagnostic emergency EKG. Reassessment 8:08 AM patient is mildly tachypneic at this point respiratory in the mid 20s additionally white blood cell count came back at 14 chest x-ray performed which I personally interpreted which shows multifocal airspace disease significantly worse than when she was admitted last year with multifocal pneumonia. At this point her anxiety that she was feeling is appropriate in the setting of air hunger with multifocal pneumonia. Given the fact that she has tachypnea and leukocytosis we will treat her for sepsis. IV fluids initiated blood cultures lactate added. She was diagnosed with influenza 10 days ago I will repeat a COVID and flu to see if she still positive from a PCR standpoint which would change my management and I would add antiviral therapy onto her because she will be admitted. Rationale for admission is highly concerned about post influenza staph pneumonia. For this reason I will add vancomycin onto her coverage. Most likely this is strep pneumo but staph pneumonia is my great concern. Strep pneumo antigen has been added as well. Rocephin azithromycin added in addition to the vancomycin. She still does not have any oxygen requirement and actually looks better clinically than her radiographic appearance and I am also concerned that she may worsen clinically given the appearance of her chest x-ray. Patient is agreeable to be admitted I will discuss the case with Dr. Leo her primary care doctor after a chemistries return. Dr. Leo's patient's are being admitted to hospital medicine spoke to Dereck who agreed to admit this patient further evaluation and treatment.
[2023-02-28 07:45] LABS: Alanine Aminotransferase 23 U/L (12-78); Albumin Level 3.9 g/dl (3.5-5.0); Albumin/Globulin Ratio 1.2 (1.1-1.8); Alkaline Phosphatase 109 U/L (38-126); Anion Gap 12.6 mEq/L (5-15); Aspartate Amino Transferase 27 U/L (14-36); Bilirubin,Total 1.2 mg/dl (0.2-1.3); Blood Urea Nitrogen 14 mg/dl (7-17); Calcium 8.3 mg/dl (8.4-10.2); Carbon Dioxide 24 mmol/L (22.0-30.0); Chloride 98 mmol/L (98-107); Creatinine Clearance Estimated 89 mL/min (50-200); Estimated Glomerular Filt Rate 64 ml/min (>60); GFR (African American) 78 ML/MIN (>60); Globulin 3.3 g/dL (1.3-3.2); Glucose 163 mg/dl (74-100); Potassium 3.6 mmoL/L (3.5-5.1); Sodium 131 mmol/L (136-145); Total Protein,Serum 7.2 g/dl (6.3-8.2)
[2023-02-28 07:51] LABS: Basophils % 0.3 % (0.1-2.0); Eosinophils # 0.1 K/mm3 (0.0-0.4); Eosinophils % 0.6 % (0.1-12.0); Hematocrit 33.5 % (37.0-47.0); Hemoglobin 11.7 g/dL (12.2-16.2); Lymphocytes % 13.8 % (10-50); Mean Corpuscular HGB Conc 34.9 g/dL (31.8-35.4); Mean Corpuscular Hemoglobin 31.2 pg (27.0-31.2); Mean Corpuscular Volume 89.5 fl (81-99); Mean Platelet Volume 7.3 fl (7.4-10.4); Monocytes # 0.6 K/mm3 (0.1-1.0); Monocytes % 4.5 % (1.7-9.3); Neutrophils # 11.6 K/mm3 (1.8-7.8); Neutrophils % 80.8 % (37.0-80.0); Platelet Count 450 K/mm3 (142-424); Red Blood Count 3.74 M/mm3 (4.20-5.40); Red Cell Distribution Width 12.9 % (11.5-17.5); White Blood Count 14.3 K/mm3 (4.8-10.8)
[2023-02-28] MEDS: LORazepam 2MG/ML VIAL 1 MG IV (07:52)
[2023-02-28] MEDS: CEFTRIAXONE SODIUM 2 GM in 0.9 % SODIUM CHLORIDE 100 ML IV (08:07)
--- NOTE | 2023-02-28 08:08 | PC.NURSE ---
covid/flu swab sent to lab
[2023-02-28] MEDS: VANCOMYCIN CONSULT REQUEST 1 EACH NOTAPPLIC (08:12)
[2023-02-28 08:14] LABS: Coronavirus 19, PCR Not Detected (NotDetected); Influenza A, PCR Not Detected (NotDetected); Influenza B, PCR Not Detected (NotDetected)
[2023-02-28 08:23] LABS: Lactic Acid 1.8 mmol/L (0.7-2.1)
[2023-02-28] MEDS: LACTATED RINGERS 1000ML 1,000 ML 999 ML IV (08:32)
[2023-02-28] MEDS: BENZONATATE 100MG CAPSULE 100 MG PO (08:33)
[2023-02-28] MEDS: AZITHROMYCIN 500 MG in 0.9 % SODIUM CHLORIDE 250 ML 250 MG IV (08:33)
--- NOTE | 2023-02-28 09:23 | PC.NURSE ---
on phone with hospitalist
--- NOTE | 2023-02-28 09:29 | PC.NURSE ---
pt unable to provide urine at this time for lab test. Pt aware we need some to collect. Rachana in lab aware that pt is unable to urinate at this time but will send it as soon as pt provides a sample
--- NOTE | 2023-02-28 10:04 | PC.NURSE ---
spoke with lab about pt BNP , states that they have to put it on the other analyzer, will result in 5-10 minutes. aware
--- NOTE | 2023-02-28 10:06 | PC.NURSE ---
transported to 2nd floor via wheelchair and [facility] staff
[2023-02-28] MEDS: VANCOMYCIN/WATER FOR INJ (PEG) 1.75 GM/350 ML PIGGYBACK IV (10:14)
[2023-02-28 10:16] LABS: Troponin I 0.18 ng/ml (0.00-0.034)
--- NOTE | 2023-02-28 10:26 | PC.NURSE ---
spoke with Rachana in lab, bnp will be approx another 10 minutes due to analyzer
[2023-02-28 10:37] LABS: NT Pro Brain Natriuretic Pep. 19400 pg/mL (0-125)
--- NOTE | 2023-02-28 10:46 | PC.NURSE ---
aware of BNP results, contacting to update
--- NOTE | 2023-02-28 10:54 | HMH.PHAINT1 ---
Pharmacy Intervention Comments: Home med list verified with patient at bedside and with external pharmacy list.
[2023-02-28 11:33] LABS: Troponin I 0.22 ng/ml (0.00-0.034)
[2023-02-28] MEDS: HEPARIN SODIUM 5,000 UNIT/ML VIAL 5000 UNIT SQ ×2 (12:46→20:58)
--- NOTE | 2023-02-28 13:40 | CA_ITS ---
APPROVED REPORT EXAM: Comprehensive 2D, Doppler, and color-flow Echocardiogram [employer]: Sabra Wang RT(R) Ht: 5 ft 7 in Wt: 186lbs BSA: 1.96 BP: 130/73 mmHg Indications: SOA, edema, HTN, hyperlipidemia, recent flu, CAD, GERD. 2D Dimensions LA Volume 31.70 mL LA Volume Index 16.17 mL/m2 (M/F) 16-34 EF AP4 52.30 % GL Strain -18.1 % M-Mode Dimensions RVDd 3.23 cm (0.9-2.6) LA Diam 3.11 cm (1.9-4.0) LVDd 4.88 cm (3.5-5.7) LVDs 4.25 cm (3.5-5.7) IVSd 0.85 cm (0.6-1.1) PWd 0.85 cm (0.6-1.1) EF (Teich) 27.70% FS 12.90% EDV (Teich) 111.70 mL ESV (Teich) 80.80 mL LV Diastology E Decel Time 150 (160-240 msec) E/A Ratio 0.9 Mitral Valve MV E Max Nikolai. 82.0 (40-130 cm/s) MV A Velocity 90.0 (40-130 cm/s) E/A Ratio 0.91 MV PHT 44.0 ms Tricuspid Valve TR P. Velocity 316.00 cm/s RAP Estimate 15.00 mmHg RVSP 54.80 mmHg Left Ventricle The left ventricle is normal size. Left ventricular systolic function is severely decreased. There is increased left ventricular wall thickness. There is no evidence of LVOT gradient at rest. The bases appear to have normal systolic function. However, there is near akinesis of the entire mid to distal as well as apical LV blas. Grade 1 diastolic dysfunction is present. LVEF is 20-25%. Right Ventricle The right ventricle is mildly dilated. The right ventricular systolic function is normal. Atria The left atrium size is normal. The right atrium is mildly dilated. There is no Doppler evidence of interatrial shunt. Aortic Valve The aortic valve is mildly thickened. There is no aortic valvular stenosis. Trace aortic regurgitation. Mitral Valve The mitral valve leaflets are mildly thickened. There is no evidence of systolic anterior motion of the mitral valve. No evidence of mitral valve stenosis. Trace mitral regurgitation. Tricuspid Valve The tricuspid valve leaflets are thin and pliable. Mild tricuspid regurgitation. RVSP is 40-45 mmHg. Pulmonic Valve The pulmonary valve is normal in structure. Mild pulmonic regurgitation. Great Vessels The aortic root is normal in size. The ascending aorta is normal in size. IVC is normal in size and collapses >50% with inspiration. Pericardium There is no pericardial effusion. Other Information Study Quality: Fair Conclusion Severe reduction in LV systolic function (LVEF 20-25%). Near akinesis of the mid to distal, as well as the apical, LV blas. The LV base systolic function is preserved. Mild RV dilation with normal RV function. Mild TR. Elevated RVSP 40-45 mmHg. The above findings are suggestive of possible stress cardiomyopathy. However, as this is a diagnosis of exclusion, further evaluation for ischemia is recommended first. Also, in the absence of ultrasound enhancing agent. Evaluation of LV apical thrombus cannot be made. Repeat limited TTE with administration of ultrasound enhancing agent to evaluate for apical LV thrombus in the setting of apical akinesis is recommended. Electronically signed by : Nadia Bundy MD 03/01/2023 03:50:46
--- NOTE | 2023-02-28 14:47 | EXP.CARD.CON ---
History of Present Illness History of Present Illness Consult date: 02/28/23 Requesting physician: Salty Harden Consult reason: shortness of breath Chief complaint: soa History of present illness: 57-year-old white female with past medical history of coronary artery disease with medical management 2014 and a normal Myoview in 2019, asthma and historically normal ejection fraction presented to emergency department with complaints of increased shortness of breath. Patient reports he has been sick since right after [place] and was diagnosed with influenza on 02/18/2023 and that last week she was diagnosed with an asthma exacerbation. Reports since then has continued to have shortness of breath, generalized weakness and overall not feeling well. Reports fever of 99.9 yesterday morning with a productive cough. Also endorses 3 days ago experienced some anterior chest pain at rest that lasted about 30 minutes.. EKG upon presentation to ER shows normal sinus rhythm at a rate of 95 without acute ischemic changes noted. Sepsis protocol was initiated based on symptoms of tachypnea and leukocytosis upon presentation. Labs as follow: WBCs 14.3, hemoglobin 11.7, platelet count 450, sodium 131, potassium 3.6, creatinine 0.9, initial troponin 0.18 trending up to 0.3 and a proBNP 19,400. Chest x-ray obtained shows new bilateral pulmonary opacities since the prior film February 18 which is consistent with either pneumonia or pulmonary edema. Patient was admitted for pneumonia versus pulmonary edema and for cardiology consultation. On exam patient is tachypneic and reports mild chest tightness. A stat bedside echo and Lasix 40 mg IV x 1 is ordered. [facility] Disclaimer: The information contained in this section may have been updated after the patient was seen, as this information can be updated by other users. Medical History Asthma CAD (coronary artery disease) Diaphoresis Dyspnea Dyspnea on exertion Dyspnea on exertion Edema GERD (gastroesophageal reflux disease) History of 2019 novel coronavirus disease (COVID-19) HLD (hyperlipidemia) HTN (hypertension) Moderate persistent asthma Neuropathy Psoriatic arthritis SOB (shortness of breath) on exertion Thyroid condition Surgical History History of cardiac cath History of carpal tunnel release History of hemorrhoidectomy History of hysterectomy Family History Other Family history of acute congestive heart failure Family history of cancer Social History (Updated 02/28/23 @ 11:48 by Gilda Malik, LALIT) Smoking Status: Former smoker second hand exposure: No alcohol intake: never substance use type: denies use current occupational status: employed and retired Travel in the last 8 weeks: None household members: other housing: house 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 current occupational exposures/hazards: No caffeine: Yes Review of Systems *Cardiovascular Cardiovascular: Reports chest pain and Reports dyspnea *Respiratory Respiratory: Reports cough and Reports dyspnea Exam Data for Last 24 hours Vital signs and Labs for Last 24 Hours: Temp Pulse Resp BP Pulse Ox O2 Del Method 99.9 F H 93 H 20 107/66 L 92 L Room Air 02/28/23 10:31 02/28/23 10:31 02/28/23 10:31 02/28/23 10:31 02/28/23 10:31 02/28/23 10:31 Laboratory Results - last 24 hr 02/28/23 07:25: WBC 14.3 H, RBC 3.74 L, Hgb 11.7 L, Hct 33.5 L, MCV 89.5, MCH 31.2, MCHC 34.9, RDW 12.9, Plt Count 450 H, MPV 7.3 L, Neut % (Auto) 80.8 H, Lymph % (Auto) 13.8, [place] % (Auto) 4.5, Eos % (Auto) 0.6, Baso % (Auto) 0.3, Neut # (Auto) 11.6 H, Lymph # (Auto) 2.0, [place] # (Auto) 0.6, Eos # (Auto) 0.1, Baso # (Auto) 0.0, Sodium 131 L, Potassium 3.6, Chloride 98, Carbon Dioxide 24, Anion Gap 12.6, BUN 14, Creatinine 0.90, Estimated Creat Clear 89, Estimated GFR 64, Est GFR ( Amer) 78, Glucose 163 H, Calcium 8.3 L, Total Bilirubin 1.2, AST 27, ALT 23, Alkaline Phosphatase 109, Troponin I 0.18 H, NT-Pro-B Natriuret Pep 70901 H, Total Protein 7.2, Albumin 3.9, Globulin 3.3 H, Albumin/Globulin Ratio 1.2 02/28/23 08:02: Lactate 1.8 02/28/23 08:04: SARS-CoV-2 (PCR) Not detected, Influenza A Untype (PCR) Not detected, Influenza Type B (PCR) Not detected 02/28/23 10:40: Troponin I 0.22 H 02/28/23 13:58: Troponin I 0.30 H I & O for Last 24 hours: Intake & Output 02/25/23 02/26/23 02/27/23 02/28/23 23:59 23:59 23:59 23:59 Intake Total 240 / 240 Output Total 0 / 0 Balance 240 / 240 Weight 186 lb 1 oz Constitutional Constitutional: no acute distress *Routine Respiratory Exam Respiratory: Present rhonchi, wheezes and symmetric chest movement *Routine Cardiovascular Exam Cardiovascular: Present RRR, Normal S1 and Normal S2 *Routine Abdominal Exam Abdominal: Present soft and normoactive bowel sounds; Absent tenderness *Routine Extremities Exam Extremities: Present full ROM and normal capillary refill; Absent edema *Routine Skin Exam Skin: Present intact, dry and warm Detailed Neck Exam: Thyroids Thyroid: Absent bruit Meds Home Medications and Allergies Home Medications Medication Instructions Recorded Confirmed Type levothyroxine 200 mcg tablet 200 mcg PO DAILY 01/30/18 02/28/23 History duloxetine 60 mg capsule,delayed 60 mg PO BID 03/19/18 02/28/23 History release (Cymbalta) lisinopril 20 1 tab PO DAILY 03/02/22 02/28/23 History mg-hydrochlorothiazide 12.5 mg tablet estradiol 2 mg tablet 2 mg PO DAILY #30 tabs 12/01/22 02/28/23 Rx fluoxetine 20 mg tablet 20 mg PO DAILY 12/01/22 02/28/23 History cholecalciferol (vitamin D3) 50 50 mcg PO DAILY 02/18/23 02/28/23 History mcg (2,000 unit) capsule (Vitamin D3) docusate sodium 100 mg capsule 100 mg PO DAILY 02/18/23 02/28/23 History (Colace) gabapentin 800 mg tablet 800 mg PO TID 02/18/23 02/28/23 History omeprazole 20 mg capsule,delayed 20 mg PO BID 02/18/23 02/28/23 History release oxcarbazepine 300 mg tablet 300 mg PO BID 02/18/23 02/28/23 History tizanidine 4 mg tablet 4 mg PO Q8H PRN Muscle Pain 02/18/23 02/28/23 History oseltamivir 75 mg capsule 75 mg PO DAILY 7 days #7 caps 02/19/23 02/28/23 Rx ipratropium 0.5 mg-albuterol 3 mg 3 ml inhalation Q6H PRN Shortness 02/28/23 02/28/23 History (2.5 mg base)/3 mL nebulization Of Breath Or Wheezing soln New Prescriptions to Start Prescriptions: Allergies Allergy/AdvReac Type Severity Reaction Status Date / Time hydroxychloroquine Allergy Verified 12/01/22 13:23 [From Plaquenil] Assessment and Plan *Assessment and plan (1) Multifocal pneumonia: Status: Acute Category: Medical Code(s): J18.9 - Pneumonia, unspecified organism (2) Dyspnea: Status: Acute Category: Medical Code(s): R06.00 - Dyspnea, unspecified (3) Influenza A: Status: Acute Category: Medical Code(s): J10.1 - Influenza due to other identified influenza virus with other respiratory manifestations (4) HLD (hyperlipidemia): Status: Chronic Qualifiers: Hyperlipidemia type: mixed hyperlipidemia Qualified Code(s): E78.2 - Mixed hyperlipidemia Category: Medical Code(s): E78.5 - Hyperlipidemia, unspecified (5) HTN (hypertension): Status: Chronic Qualifiers: Hypertension type: essential hypertension Qualified Code(s): I10 - Essential (primary) hypertension Category: Medical Code(s): I10 - Essential (primary) hypertension (6) Moderate persistent asthma: Status: Chronic Category: Medical Code(s): J45.40 - Moderate persistent asthma, uncomplicated (7) NSTEMI (non-ST elevated myocardial infarction): Status: Acute Category: Medical Code(s): I21.4 - Non-ST elevation (NSTEMI) myocardial infarction Plan Dyspnea Mulitfocual pneumonia vs volume overload Moderate persistent asthma -Chest x-ray today shows new bilateral pulmonary opacities consistent with either pneumonia or pulmonary edema -Sepsis protocol was initiated in ER and patient received fluid bolus -IV antibiotics per primary service -proBNP 19,400 -WBC 14.3 -Will diurese with Lasix 40 mg IV x 1 for possible volume overload -Echocardiogram is pending but prelim shows an EF of 20 with wall motion abnormality present, official read pending Acute onset HFrEF-NYHA III -Preliminary echo shows EF 20 -Diures with Lasix 40 mg IV x 1 -Strict I's and O's History of coronary artery disease NSTEMI -Medical management heart cath 2014, normal Myoview 2019 -Recently declined repeat testing or EKG due to cost -Serial troponins trending up from 0.18-0.3 -EKG is negative for acute ischemic changes -Patient does endorse episode of chest pain 2 to 3 days ago lasting 30 minutes with associated worsening shortness of breath. -Plan is for diuresis tonight and proceed with left heart catheterization for further evaluation of reduced EF and elevated troponins tomorrow morning. Discussed risks vs. benefits, she is agreeable. -Will load patient with aspirin 325 mg x 1 today then 81 mg p.o. daily. Continue heparin subq per primary service order. Add atorvastatin 80 mg p.o. daily. Will add metoprolol once stable after diuresis. HTN -Well controlled -Hold home blood pressure medicine at this time given low BP and needed diuresis. Will restart after patient has been diuresed. 02/28/2023: Stat echo shows a reduced ejection fraction of 20% with wall motion abnormalities noted. Patient is likely suffering from volume overload secondary to reduced ejection fraction. Recommend to diurese patient throughout the evening and plan for left heart catheterization tomorrow morning for further evaluation for coronary artery disease. Please contact Dr. Carrillo this evening for any further concerns.
--- NOTE | 2023-02-28 14:50 | EXP.PHA.CONS ---
Pharmacy Consult Date: 02/28/23 Time: 14:50 Referring provider: DR. CORTES Reason for Consult:: VANCOMYCIN DOSING Allergies Allergy/AdvReac Type Severity Reaction Status Date / Time hydroxychloroquine Allergy Verified 12/01/22 13:23 [From Plaquenil] Home Medications Medication Instructions Recorded Confirmed Type levothyroxine 200 mcg tablet 200 mcg PO DAILY 01/30/18 02/28/23 History duloxetine 60 mg capsule,delayed 60 mg PO BID 03/19/18 02/28/23 History release (Cymbalta) lisinopril 20 1 tab PO DAILY 03/02/22 02/28/23 History mg-hydrochlorothiazide 12.5 mg tablet estradiol 2 mg tablet 2 mg PO DAILY #30 tabs 12/01/22 02/28/23 Rx fluoxetine 20 mg tablet 20 mg PO DAILY 12/01/22 02/28/23 History cholecalciferol (vitamin D3) 50 50 mcg PO DAILY 02/18/23 02/28/23 History mcg (2,000 unit) capsule (Vitamin D3) docusate sodium 100 mg capsule 100 mg PO DAILY 02/18/23 02/28/23 History (Colace) gabapentin 800 mg tablet 800 mg PO TID 02/18/23 02/28/23 History omeprazole 20 mg capsule,delayed 20 mg PO BID 02/18/23 02/28/23 History release oxcarbazepine 300 mg tablet 300 mg PO BID 02/18/23 02/28/23 History tizanidine 4 mg tablet 4 mg PO Q8H PRN Muscle Pain 02/18/23 02/28/23 History oseltamivir 75 mg capsule 75 mg PO DAILY 7 days #7 caps 02/19/23 02/28/23 Rx ipratropium 0.5 mg-albuterol 3 mg 3 ml inhalation Q6H PRN Shortness 02/28/23 02/28/23 History (2.5 mg base)/3 mL nebulization Of Breath Or Wheezing soln New Prescriptions to Start Prescriptions: Height: 1.7 m Weight: 84.397 kg Laboratory Results:: Laboratory Results - last 24 hr 02/28/23 07:25: WBC 14.3 H, RBC 3.74 L, Hgb 11.7 L, Hct 33.5 L, MCV 89.5, MCH 31.2, MCHC 34.9, RDW 12.9, Plt Count 450 H, MPV 7.3 L, Neut % (Auto) 80.8 H, Lymph % (Auto) 13.8, [place] % (Auto) 4.5, Eos % (Auto) 0.6, Baso % (Auto) 0.3, Neut # (Auto) 11.6 H, Lymph # (Auto) 2.0, [place] # (Auto) 0.6, Eos # (Auto) 0.1, Baso # (Auto) 0.0, Sodium 131 L, Potassium 3.6, Chloride 98, Carbon Dioxide 24, Anion Gap 12.6, BUN 14, Creatinine 0.90, Estimated Creat Clear 89, Estimated GFR 64, Est GFR ( Amer) 78, Glucose 163 H, Calcium 8.3 L, Total Bilirubin 1.2, AST 27, ALT 23, Alkaline Phosphatase 109, Troponin I 0.18 H, NT-Pro-B Natriuret Pep 95164 H, Total Protein 7.2, Albumin 3.9, Globulin 3.3 H, Albumin/Globulin Ratio 1.2 02/28/23 08:02: Lactate 1.8 02/28/23 08:04: SARS-CoV-2 (PCR) Not detected, Influenza A Untype (PCR) Not detected, Influenza Type B (PCR) Not detected 02/28/23 10:40: Troponin I 0.22 H 02/28/23 13:58: Troponin I 0.30 H Medical History: Medical History (Updated 02/28/23 @ 08:11 by Yelitza Seth MD) Asthma CAD (coronary artery disease) Diaphoresis Dyspnea Dyspnea on exertion Dyspnea on exertion Edema GERD (gastroesophageal reflux disease) History of 2019 novel coronavirus disease (COVID-19) HLD (hyperlipidemia) HTN (hypertension) Moderate persistent asthma Neuropathy Psoriatic arthritis SOB (shortness of breath) on exertion Thyroid condition Assessment and Plan Assessment and plan all Dx Assessment and Plan for all problems:: Pharmacokinetic dosing service Objective: Patient: Floor: Age: 57 yo Serum creatinine: 0.90 mg/dL Height: 66.9 Inches Weight (kg): 83.9 Assessment: IBW (kg): 61.37 Dosing wt(kg): 83.9 Estimated Creatinine clearance (ml/min): 65.2 CRCL method: Cockcroft and Gault using ibw(default). Drug selected: Vancomycin Loading dose (mg): Vd (liters): 67.1 (factor used: 0.8 L/kg) Antolin (hr-1): 0.059 Half life (hrs): 11.75 CLvanco=?? 3.959 L/hr Recommended dose: 1750 mg Interval: 18 hrs Infusion time (hrs): 2.0 Predicted peak (mcg/mL): 37.6 Predicted trough (mcg/mL): 14.63 Total body weight is being used for vancomycin dosing. Recommendations: Give Vancomycin 1750 mg q 18 hrs with an expected Cpeak of 37.6 mcg/ml and an expected Ctrough of 14.63 mcg/ml AUC 0-24 /EVON Data: EVON 0.5 mcg/mL:?? AUC/EVON:? 1178.7 EVON 1.0 mcg/mL:?? AUC/EVON:? 589.4 --------- EVON 1.5 mcg/mL:?? AUC/EVON:? 392.9 EVON 2.0 mcg/mL:?? AUC/EVON:? 294.7 Thank you for the consult, will continue to follow. -AIDAN NICHOLAS, OFELIAD
[2023-02-28] MEDS: FUROSEMIDE 40MG/4ML VIAL 40 MG IV (15:34)
[2023-02-28] MEDS: ASPIRIN 325MG TABLET 325 MG PO (15:48)
[2023-02-28 15:55] LABS: Basophils % 0.2 % (0.1-2.0); Chloride 99 mmol/L (98-107); Eosinophils # 0.1 K/mm3 (0.0-0.4); Eosinophils % 0.4 % (0.1-12.0); Lymphocytes # 2.1 K/mm3 (0.7-4.5); Mean Corpuscular HGB Conc 33.3 g/dL (31.8-35.4); Mean Corpuscular Hemoglobin 30.1 pg (27.0-31.2); Mean Corpuscular Volume 90.4 fl (81-99); Monocytes # 0.7 K/mm3 (0.1-1.0); Monocytes % 4.3 % (1.7-9.3); Platelet Count 444 K/mm3 (142-424); Potassium 3.9 mmoL/L (3.5-5.1); Red Blood Count 3.65 M/mm3 (4.20-5.40); Red Cell Distribution Width 13.1 % (11.5-17.5); Sodium 132 mmol/L (136-145); White Blood Count 15.8 K/mm3 (4.8-10.8)
[2023-02-28] MEDS: CEFEPIME HCL 2 GM in 0.9 % SODIUM CHLORIDE 100 ML IV ×2 (15:55→23:28)
[2023-02-28 15:58] LABS: Blood Urea Nitrogen 15 mg/dl (7-17); Creatinine Clearance Estimated 90 mL/min (50-200); Estimated Glomerular Filt Rate 64 ml/min (>60); GFR (African American) 78 ML/MIN (>60)
[2023-02-28 15:59] LABS: Anion Gap 11.9 mEq/L (5-15); Calcium 8.3 mg/dl (8.4-10.2); Carbon Dioxide 25 mmol/L (22.0-30.0); Glucose 159 mg/dl (74-100)
[2023-02-28 16:00] LABS: MANUAL DIFFERENTIAL MANUAL DIFFERENTIAL (MANUAL DIFF)
[2023-02-28 16:12] LABS: Troponin I 0.34 ng/ml (0.00-0.034)
[2023-02-28 16:47] LABS: Lymphocytes % 9 % (10-50); Neutrophils % 91 % (42-76); Platelet Estimate Normal; RBC Morphology Normal; Total Cells Counted 100
--- NOTE | 2023-02-28 17:18 | P.HP_ITS ---
History of Present Illness *Admission Date: 02/28/23 *Reason for visit:: SOB *History of present illness: Patient is a 57-year-old female with past medical history of CAD asthma hypertension hyperlipidemia neuropathy who presents to the hospital due to shortness of breath. According the patient she has been having shortness of breath since before . Patient mentions it has been getting worse, she also had associated heartburn, chest pain. She denies any active chest pain at time of my evaluation. Patient denies fever chills diarrhea constipation dysuria. Patient mentions she had an episode of nausea which she denies having it now. She denies numbness tingling sensation lightheadedness dizziness. [facility] Disclaimer: The information contained in this section may have been updated after the patient was seen, as this information can be updated by other users. Medical History Asthma CAD (coronary artery disease) Diaphoresis Dyspnea Dyspnea on exertion Dyspnea on exertion Edema GERD (gastroesophageal reflux disease) History of 2019 novel coronavirus disease (COVID-19) HLD (hyperlipidemia) HTN (hypertension) Moderate persistent asthma Neuropathy Psoriatic arthritis SOB (shortness of breath) on exertion Thyroid condition Surgical History History of cardiac cath History of carpal tunnel release History of hemorrhoidectomy History of hysterectomy Family History Other Family history of acute congestive heart failure Family history of cancer Social History (Updated 02/28/23 @ 11:48 by Gilda Malik RN) Smoking Status: Former smoker second hand exposure: No alcohol intake: never substance use type: denies use current occupational status: employed and retired Travel in the last 8 weeks: None household members: other housing: house 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 current occupational exposures/hazards: No caffeine: Yes Review of Systems Review of Systems Review of systems (narrative): as per HPI Meds Home Medications and Allergies Home Medications Medication Instructions Recorded Confirmed Type levothyroxine 200 mcg tablet 200 mcg PO DAILY 01/30/18 02/28/23 History duloxetine 60 mg capsule,delayed 60 mg PO BID 03/19/18 02/28/23 History release (Cymbalta) lisinopril 20 1 tab PO DAILY 03/02/22 02/28/23 History mg-hydrochlorothiazide 12.5 mg tablet estradiol 2 mg tablet 2 mg PO DAILY #30 tabs 12/01/22 02/28/23 Rx fluoxetine 20 mg tablet 20 mg PO DAILY 12/01/22 02/28/23 History cholecalciferol (vitamin D3) 50 50 mcg PO DAILY 02/18/23 02/28/23 History mcg (2,000 unit) capsule (Vitamin D3) docusate sodium 100 mg capsule 100 mg PO DAILY 02/18/23 02/28/23 History (Colace) gabapentin 800 mg tablet 800 mg PO TID 02/18/23 02/28/23 History omeprazole 20 mg capsule,delayed 20 mg PO BID 02/18/23 02/28/23 History release oxcarbazepine 300 mg tablet 300 mg PO BID 02/18/23 02/28/23 History tizanidine 4 mg tablet 4 mg PO Q8H PRN Muscle Pain 02/18/23 02/28/23 History oseltamivir 75 mg capsule 75 mg PO DAILY 7 days #7 caps 02/19/23 02/28/23 Rx ipratropium 0.5 mg-albuterol 3 mg 3 ml inhalation Q6H PRN Shortness 02/28/23 02/28/23 History (2.5 mg base)/3 mL nebulization Of Breath Or Wheezing soln New Prescriptions to Start Prescriptions: Allergies Allergy/AdvReac Type Severity Reaction Status Date / Time hydroxychloroquine Allergy Verified 12/01/22 13:23 [From Plaquenil] Exam Data for Last 24 hours Vital signs and Labs for Last 24 Hours: Temp Pulse Resp BP Pulse Ox O2 Del Method 99.3 F 100 H 18 110/66 90 L Room Air 02/28/23 16:00 02/28/23 16:00 02/28/23 16:00 02/28/23 16:00 02/28/23 16:00 02/28/23 16:00 Laboratory Results - last 24 hr 02/28/23 07:25: WBC 14.3 H, RBC 3.74 L, Hgb 11.7 L, Hct 33.5 L, MCV 89.5, MCH 31.2, MCHC 34.9, RDW 12.9, Plt Count 450 H, MPV 7.3 L, Neut % (Auto) 80.8 H, Lymph % (Auto) 13.8, [place] % (Auto) 4.5, Eos % (Auto) 0.6, Baso % (Auto) 0.3, Neut # (Auto) 11.6 H, Lymph # (Auto) 2.0, [place] # (Auto) 0.6, Eos # (Auto) 0.1, Baso # (Auto) 0.0, Sodium 131 L, Potassium 3.6, Chloride 98, Carbon Dioxide 24, Anion Gap 12.6, BUN 14, Creatinine 0.90, Estimated Creat Clear 89, Estimated GFR 64, Est GFR ( Amer) 78, Glucose 163 H, Calcium 8.3 L, Total Bilirubin 1.2, AST 27, ALT 23, Alkaline Phosphatase 109, Troponin I 0.18 H, NT-Pro-B Natriuret Pep 35144 H, Total Protein 7.2, Albumin 3.9, Globulin 3.3 H, Albumin/Globulin Ratio 1.2 02/28/23 08:02: Lactate 1.8 02/28/23 08:04: SARS-CoV-2 (PCR) Not detected, Influenza A Untype (PCR) Not detected, Influenza Type B (PCR) Not detected 02/28/23 10:40: Troponin I 0.22 H 02/28/23 13:58: Troponin I 0.30 H 02/28/23 15:41: WBC 15.8 H, RBC 3.65 L, Hgb 11.0 L, Hct 33.0 L, MCV 90.4, MCH 30.1, MCHC 33.3, RDW 13.1, Plt Count 444 H, MPV 7.0 L, Neut % (Auto) 82.0 H, Lymph % (Auto) 13.0, [place] % (Auto) 4.3, Eos % (Auto) 0.4, Baso % (Auto) 0.2, Neut # (Auto) 13.0 H, Lymph # (Auto) 2.1, [place] # (Auto) 0.7, Eos # (Auto) 0.1, Baso # (Auto) 0.0, Total Counted 100, Neutrophils % (Manual) 91 H, Lymphocytes % (Manual) 9 L, Platelet Estimate Normal, RBC Morphology Normal, Sodium 132 L, Potassium 3.9, Chloride 99, Carbon Dioxide 25, Anion Gap 11.9, BUN 15, Creatinine 0.90, Estimated Creat Clear 90, Estimated GFR 64, Est GFR ( Amer) 78, Glucose 159 H, Calcium 8.3 L, Troponin I 0.34 H I & O for Last 24 hours: Intake & Output 02/25/23 02/26/23 02/27/23 02/28/23 23:59 23:59 23:59 23:59 Intake Total 240 / 240 Output Total 500 / 500 Balance -260 / -260 Weight 84.397 kg Constitutional Constitutional: no acute distress *Routine HEENT Exam Head: Present normocephalic Eye: Present EOMI and PERRL ENT: Present mucous membranes moist *Routine Neck Exam Neck: Present supple; Absent lymphadenopathy *Routine Respiratory Exam Respiratory: Present CTA bilaterally *Routine Cardiovascular Exam Cardiovascular: Present RRR *Routine Abdominal Exam Abdominal: Present soft and normoactive bowel sounds; Absent tenderness *Routine Rectal Exam Rectal:: deferred *Routine Genitalia Exam Genitalia:: deferred *Routine Extremities Exam Extremities: Absent cyanosis, clubbing or edema *Routine Skin Exam Skin: Present warm; Absent rash *Routine Neurological Exam Neurological: Present alert and oriented X3 Assessment and Plan *Assessment and plan (1) NSTEMI (non-ST elevated myocardial infarction): Status: Acute Category: Medical Code(s): I21.4 - Non-ST elevation (NSTEMI) myocardial infarction (2) Dyspnea: Status: Acute Category: Medical Code(s): R06.00 - Dyspnea, unspecified (3) Multifocal pneumonia: Status: Acute Category: Medical Code(s): J18.9 - Pneumonia, unspecified organism (4) Sepsis: Status: Acute Category: Medical Code(s): A41.9 - Sepsis, unspecified organism (5) Asthma: Status: Acute Category: Medical Code(s): J45.909 - Unspecified asthma, uncomplicated Plan Patient is a 57-year-old female with past medical history of CAD asthma hypertension hyperlipidemia neuropathy who presents to the hospital due to shortness of breath. According the patient she has been having shortness of breath since before [place]. Patient mentions it has been getting worse, she also had associated heartburn, chest pain. She denies any active chest pain at time of my evaluation. Patient denies fever chills diarrhea constipation dysuria. Patient mentions she had an episode of nausea which she denies having it now. She denies numbness tingling sensation lightheadedness dizziness. Assessment Shortness of breath, suspect multifactorial pneumonia, acute onset CHF NSTEMI History of CAD Histpry of Asthma Hypertension Hyperlipidemia History of neuropathy Plan Start patient given 40 of IV Lasix once proBNP significantly elevated, echocardiogram ordered Cardiology consulted Low-salt diet started on Empirical Vanc and cefepime Patient mention she made significant amount of urine plan for cardiac cath in morning Resume home lisinopril, HCTZ DVT PPx - Heparin
--- NOTE | 2023-02-28 17:57 | PC.NURSE ---
Patient new admit this shift. patient was confused upon arrival to unit post dose of lorazepam from ER. Patient tolerating IV antibiotics and is no longer confused at this time.
[2023-02-28 20:01] LABS: Troponin I 0.33 ng/ml (0.00-0.034)
[2023-02-28] MEDS: PANTOPRAZOLE 40MG TABLET 40 MG PO (20:57)
[2023-02-28] MEDS: GABAPENTIN 800MG TABLET 800 MG PO (20:58)
[2023-02-28] MEDS: TIZANIDINE 4MG TABLET 4 MG PO (21:10)
[2023-02-28 21:31] LABS: POC Glucose,Bedside 185 (70-110)
[2023-02-28] MEDS: ONDANSETRON 4MG/2ML VIAL 4 MG IV (22:31)
[2023-03-01] VITALS (24 sets, daily range): BP systolic 68–117; BP diastolic 39–67; PULSE 68–100; RESP 16–24; TEMP 36.1–37.9; O2SAT 2–100; BMI 29.2
[2023-03-01] MEDS: VANCOMYCIN/WATER FOR INJ (PEG) 1.75 GM/350 ML PIGGYBACK IV ×2 (04:23→21:38)
[2023-03-01] MEDS: HEPARIN SODIUM 5,000 UNIT/ML VIAL 5000 UNIT SQ ×2 (04:23→20:23)
[2023-03-01 06:15] LABS: Basophils # 0.1 K/mm3 (0-0.2); Basophils % 0.3 % (0.1-2.0); Eosinophils % 0.2 % (0.1-12.0); Hematocrit 31.7 % (37.0-47.0); Hemoglobin 10.5 g/dL (12.2-16.2); Lymphocytes # 2.8 K/mm3 (0.7-4.5); Lymphocytes % 17.7 % (10-50); Mean Corpuscular Hemoglobin 31.1 pg (27.0-31.2); Mean Corpuscular Volume 94.1 fl (81-99); Mean Platelet Volume 8.2 fl (7.4-10.4); Monocytes # 0.8 K/mm3 (0.1-1.0); Monocytes % 4.9 % (1.7-9.3); Neutrophils # 12.1 K/mm3 (1.8-7.8); Platelet Count 397 K/mm3 (142-424); Red Blood Count 3.37 M/mm3 (4.20-5.40); Red Cell Distribution Width 13.2 % (11.5-17.5); White Blood Count 15.7 K/mm3 (4.8-10.8)
[2023-03-01 06:16] LABS: MANUAL DIFFERENTIAL MANUAL DIFFERENTIAL (MANUAL DIFF)
[2023-03-01 06:30] LABS: Anion Gap 11.3 mEq/L (5-15); Blood Urea Nitrogen 16 mg/dl (7-17); Calcium 7.7 mg/dl (8.4-10.2); Carbon Dioxide 27 mmol/L (22.0-30.0); Chloride 99 mmol/L (98-107); Creatinine Clearance Estimated 90 mL/min (50-200); Estimated Glomerular Filt Rate 64 ml/min (>60); GFR (African American) 78 ML/MIN (>60); Glucose 131 mg/dl (74-100); Potassium 3.3 mmoL/L (3.5-5.1); Sodium 134 mmol/L (136-145)
[2023-03-01 06:31] LABS: POC Glucose,Bedside 132 (70-110)
--- OUTSIDE RECORDS SUMMARY | 2023-03-01 07:48 | XMS_ITS | Patient Health Record ---
Author Name Unknown Organization [facility], [facility] . Address [address] [place] [address] Care Team Providers Care Factory Representative Name Role Phone Kody Dunn Primary Care Provider UnavailCk Oliva Unavailable [phone] Sara Bob Unavailable Unavailable ALLERGIES Allergen (clinical [...] day Active Gabapentin 800 MG 1 tablet Orally thre e times daily Active OXcarbazepine 300 MG 1 tablet Orally Twi ce a day Active Acetaminophen-Codeine 300-30 MG 1 tablet as needed Orally every 6 hrs Active N-Acetyl Cysteine 600 MG 1 capsule Orall y Once a day Active DULoxetine HCl 60 MG 1 capsule Orally On ce a day Active Levothyroxine Sodium 200 MCG 1 tablet in the morning on an empty stomach Orally Once a day Active Lisinopril-hydroCHLOROthiazi de 20-12.5 MG 1 tablet Orally Once a day Active FLUoxetine HCl 20 MG 2 tablet Orally twi ce daily Active Wellbutrin XL 300 MG 1 tablet in the mor tiffanie Orally Once a day Active SOCIAL HISTORY Tobacco Use: Social History Observation Description Date Details (start date - stop date) Never Smoker NA - NA Sex Assigned At : Social History Observation Description Sex Assigned At Unknown Tobacco Use/Smoking Question Answer Notes Status: nonsmoker Alcohol Screen (Audit-C) Question Answer Notes Did you have a drink containing alcohol in the p ast year? No Points 0 Interpretation Negative PROBLEMS Problem Type ICD Code Onset Dates Problem Status W/U Status Risk SNOMED Code Notes Problem Osteoporosis (M81.0) Active confirmed O steoporosis (91551279) Problem Depression (F32.9) Active confirmed Dep ression (513060621) Problem Hypothyroidism (E03.9) Active confirmed Hypothyroidism (83145363) Problem Hypertension (I10) Active confirmed Hyp ertension (67402548) Problem Asthma (J45.909) Active confirmed Asthm a (670014023) Problem Psoriatic arthritis (L40.50) Active confirmed Psoriatic arthr itis (118569910) Problem Degenerative joint disease (M19.90) Active confirmed Degenerativ e joint disease (325116447) Problem Hypoparathyroidism (E20.9) Active confirmed Hypoparathyroid ism (99345710) Problem Neuropathy (G62.9) Active confirmed Joaquin ropathy (045709132) Problem Diastolic dysfunction (I51.89) Active confirmed Diastol ic dysfunction (6980400) Problem Chronic kidney disease stage 2 (N18.2) Active confirmed Chronic kidney disease stage 2 (070281527) Problem Hypertension with renal disease (I12.9) Active confirmed Chronic kidney disease due to hypertension (157186795072973) Problem 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 confirmed Analgesi c nephropathy (19605709) VITAL SIGNS Heart Rate 74 /min 12/27/2022 Temperature 97.3 degrees Fahrenheit 12/27/2022 Blood pressure diastolic 81 mm Hg 12/27/2022 Height 67 in 12/27/2022 Blood pressure systolic 138 mm Hg 12/27/2022 Weight 195.5 lbs 12/27/2022 BMI 30.62 kg/m2 12/27/2022 Encounters Encounter Location Date Provider Diagnosis [facility] [address] [address] [place] [address] 12/27/2022 Ck Kay Chronic kidney disease stage 2 N18.2 ; Analgesic nephropathy N14.0 and Hypertension with renal disease I12.9 ASSESSMENTS Encounter Date Diagnosis Assessment Notes Treatment Notes Treatment Clinical Notes 12/27/2022 Chronic kidney disease stage 2 (ICD-10 - N18.2) 12/27/2022 Analgesic nephropathy (ICD-10 - N14.0) 12/27/2022 Hypertension with renal disease (ICD-10 - I12.9) PLAN OF TREATMENT Pending Test Test Name Order Date CBC WITH DIFF 12/27/2022 CMP14+eGFR 12/27/2022 URINALYSIS COMPLETE 12/27/2022 Next Appt Details Provider Name:Ck langley, 04/27/2023 11:20:00 AM, [address], [facility] [address], [place], [address], Insurance Providers Payer Name Payer Address Payer Phone Subscriber Number Group Number Insured Name Patient Relationship to Insured Coverage Start Date Coverage End Date [facility] [address] [place] [phone] [id number] Jeannie Ronquillo Self - patient is the insured MEDICAL (GENERAL) HISTORY Medical History History ICD Code Asthma J45.909 Degenerative joint disease M19.90 Depression F32.9 Diastolic dysfunction I51.89 Hypertension I10 Hypoparathyroidism E20.9 Hypothyroidism E03.9 Neuropathy G62.9 History of kidney stones Z87.442 Osteoporosis M81.0 Psoriatic arthritis L40.50 Surgical History Surgery Date(Month/Year) hysterectomy 2009 bilateral carpal tunnel release 2013 hemmeroidectotmy 2019 Hospitalization History Reason Date(Month/Year) [facility] - 2 day - pneumonia/UT I 02/2023
--- NOTE | 2023-03-01 08:16 | IR_ITS ---
APPROVED REPORT Patient Location: Inpatient PROCEDURES Left heart catheterization Left ventriculogram Selective coronary angiogram INDICATION Non-ST elevation myocardial infarction, No onset cardiomyopathy, Informed consent was obtained prior to the procedure. COMPLICATIONS NONE Estimated Blood Loss: LESS THAN 10 ML TECHNIQUE One percent lidocaine used to anesthetize the right anterior aspect of the wrist. The right radial artery was accessed via the Seldinger technique. A 6 [place] sheath was placed in the right radial artery. 2.5 mg of Verapamil, 800 mcg of nitroglycerin, 1mg Lidocaine and 5000 U Heparin were given through the arterial sheath. The papa catheter was also used to perform left heart catheterization, left ventriculogram and selective coronary angiogram. At the end of the procedure the sheath was removed good hemostasis was achieved using Traclet band, patient was transferred to the postop holding area in stable condition. ANGIOGRAPHIC RESULTS The left main artery Normal The left anterior descending artery Has mild proximal and mid vessel 10% luminal regularities The circumflex artery Normal The right coronary artery Dominant normal The BRITTON ventriculogram reveals Dilated with mid anterior apical and inferior apical severe hypokinesis estimate ejection fraction 15 to 20% The left ventricular end-diastolic pressure 20 to 25 mmHg IMPRESSION Nonischemic cardiomyopathy Severe left ventricular dysfunction with elevated LVEDP PLAN 1. Standard care for systolic heart failure using standard medicines which should include Farxiga and Entresto carvedilol and diuresis 2. Cardiac MRI this admission 3. LifeVest prior to discharge Electronically signed by : Robert Carrillo MD 03/01/2023 12:34:00
[2023-03-01 08:42] LABS: Lymphocytes % 20 % (10-50); Monocytes % 2 % (2-9); Neutrophils % 78 % (42-76); Platelet Estimate Normal; RBC Morphology Normal; Total Cells Counted 100
[2023-03-01] MEDS: estradioL 1 MG TABLET 2 MG PO (08:57)
[2023-03-01] MEDS: CHOLECALCIFEROL 1,000 UNITS (25MCG) TABLET 50 MCG PO (08:57)
[2023-03-01] MEDS: DULOXETINE 30MG CAPSULE.DR 60 MG PO ×2 (08:57→20:22)
[2023-03-01] MEDS: CEFEPIME HCL 2 GM in 0.9 % SODIUM CHLORIDE 100 ML IV ×3 (08:57→23:40)
[2023-03-01] MEDS: LISINOPRIL 20MG TABLET 20 MG PO (08:58)
[2023-03-01] MEDS: ACETAMINOPHEN 325MG TAB 650 MG PO ×2 (08:58→20:30)
[2023-03-01] MEDS: hydroCHLOROthiazide 12.5MG CAPSULE 12.5 MG PO (08:58)
[2023-03-01] MEDS: FLUOXETINE 20MG CAPSULE 20 MG PO (08:58)
[2023-03-01] MEDS: LEVOTHYROXINE 100MCG (0.1MG) TAB 200 MCG PO (09:02)
[2023-03-01] MEDS: GUAIFENESIN/DEXTROMETHORPHAN 200MG/20MG 10ML UDC 5 ML PO ×2 (09:05→21:38)
--- NOTE | 2023-03-01 09:23 | P.PN_ITS ---
Subjective Subjective Date: 03/01/23 Time: 08:00 Principal diagnosis: Volume overload and pneumonia Interval history: Patient doing well this morning. Reports shortness of air has improved but still is present. Left heart cath pending. Exam Data for Last 24 hours Vital signs and Labs for Last 24 Hours: Temp Pulse Resp BP Pulse Ox O2 Del Method O2 Flow Rate 100.3 F H 92 H 16 117/65 95 Nasal Cannula 2.5 03/01/23 08:00 03/01/23 08:00 03/01/23 08:00 03/01/23 08:00 03/01/23 08:00 03/01/23 08:00 03/01/23 08:00 Laboratory Results - last 24 hr 02/28/23 07:25: Troponin I 0.18 H, NT-Pro-B Natriuret Pep 99356 H 02/28/23 10:40: Troponin I 0.22 H 02/28/23 13:58: Troponin I 0.30 H 02/28/23 15:41: WBC 15.8 H, RBC 3.65 L, Hgb 11.0 L, Hct 33.0 L, MCV 90.4, MCH 30.1, MCHC 33.3, RDW 13.1, Plt Count 444 H, MPV 7.0 L, Neut % (Auto) 82.0 H, Lymph % (Auto) 13.0, [place] % (Auto) 4.3, Eos % (Auto) 0.4, Baso % (Auto) 0.2, Neut # (Auto) 13.0 H, Lymph # (Auto) 2.1, [place] # (Auto) 0.7, Eos # (Auto) 0.1, Baso # (Auto) 0.0, Total Counted 100, Neutrophils % (Manual) 91 H, Lymphocytes % (Manual) 9 L, Platelet Estimate Normal, RBC Morphology Normal, Sodium 132 L, Potassium 3.9, Chloride 99, Carbon Dioxide 25, Anion Gap 11.9, BUN 15, Creatinine 0.90, Estimated Creat Clear 90, Estimated GFR 64, Est GFR ( Amer) 78, Glucose 159 H, Calcium 8.3 L, Troponin I 0.34 H 02/28/23 18:55: Troponin I 0.33 H 02/28/23 21:23: POC Glucose 185 H 03/01/23 05:42: WBC 15.7 H, RBC 3.37 L, Hgb 10.5 L, Hct 31.7 L, MCV 94.1, MCH 31.1, MCHC 33.0, RDW 13.2, Plt Count 397, MPV 8.2, Neut % (Auto) 77.0, Lymph % (Auto) 17.7, [place] % (Auto) 4.9, Eos % (Auto) 0.2, Baso % (Auto) 0.3, Neut # (Auto) 12.1 H, Lymph # (Auto) 2.8, [place] # (Auto) 0.8, Eos # (Auto) 0.0, Baso # (Auto) 0.1, Total Counted 100, Neutrophils % (Manual) 78 H, Lymphocytes % (Manual) 20, Monocytes % (Manual) 2, Platelet Estimate Normal, RBC Morphology Normal, Sodium 134 L, Potassium 3.3 L, Chloride 99, Carbon Dioxide 27, Anion Gap 11.3, BUN 16, Creatinine 0.90, Estimated Creat Clear 90, Estimated GFR 64, Est GFR ( Amer) 78, Glucose 131 H, Calcium 7.7 L 03/01/23 06:23: POC Glucose 132 H I & O for Last 24 hours: Intake & Output 02/26/23 02/27/23 02/28/23 03/01/23 23:59 23:59 23:59 23:59 Intake Total 720 / 720 Output Total 700 / 700 650 / 650 Balance -650 / -650 Weight 186 lb 1 oz 186 lb 1.6 oz Constitutional Constitutional: no acute distress *Routine Respiratory Exam Respiratory: Present rhonchi, wheezes and symmetric chest movement *Routine Cardiovascular Exam Cardiovascular: Present RRR, Normal S1 and Normal S2 *Routine Abdominal Exam Abdominal: Present soft and normoactive bowel sounds; Absent tenderness *Routine Extremities Exam Extremities: Present full ROM and normal capillary refill; Absent edema *Routine Skin Exam Skin: Present intact, dry and warm Detailed Neck Exam: Thyroids Thyroid: Absent bruit Progress Note: A&P Assessment and plan (1) NSTEMI (non-ST elevated myocardial infarction): Status: Acute (2) Dyspnea: Status: Acute (3) Multifocal pneumonia: Status: Acute (4) Sepsis: Status: Acute (5) Asthma: Status: Acute Assessment and Plan Assessment and Plan for All Diagnoses:: Dyspnea Mulitfocual pneumonia vs volume overload Moderate persistent asthma -Chest x-ray shows new bilateral pulmonary opacities consistent with either pneumonia or pulmonary edema -Sepsis protocol was initiated in ER and patient received fluid bolus -IV antibiotics per primary service -proBNP 19,400 -WBC 14.3 -Will diurese with Lasix 40 mg po daily -Echocardiogram: Severe reduction in LV systolic function EF 20 to 25%, near akinesis of the mid to distal, as well as apical LV blas. Mild RV dilation with normal function. Elevated RVSP 40-45. -Repeat limited echo with Definity is negative for LV thrombus Acute onset HFrEF-NYHA III Nonischemic cardiomyopathy -Echo shows EF 20-25 with wall motion abnormalities present -Diures with Lasix 40 mg p.o. daily -Strict I's and O's -Obtain cardiac MRI on an oupatient basis to further evaluate nonischemic cardiomyopathy -Start Entresto 24/26 mg p.o. twice daily and Jardiance 10 mg p.o. daily. Will resume beta-jerry and Aldactone prior to discharge. Contact Dr. Carrillo before holding Entresto. History of coronary artery disease NSTEMI -Medical management heart cath 2014, normal Myoview 2019 -Recently declined repeat testing or EKG due to cost -Serial troponins trending up from 0.18-0.3 -EKG is negative for acute ischemic changes -Patient does endorse episode of chest pain 2 to 3 days ago lasting 30 minutes with associated worsening shortness of breath. -Will load patient with aspirin 325 mg x 1 today then 81 mg p.o. daily. Continue heparin subq per primary service order. Add atorvastatin 80 mg p.o. daily. Will add metoprolol once stable after diuresis. -Left heart catheterization 03/01/2023: Mild disease noted, nonischemic cardiomyopathy, severe left ventricular dysfunction with elevated LVEDP. HTN -Well controlled 03/01/2023: Repeat limited echo with Definity is negative for LV thrombus. Left heart catheterization showed mild disease and nonischemic cardiomyopathy. Will order cardiac MRI to further evaluate on an oupatient basis. Continue to diurese with Lasix 40 mg daily and start Entresto 24/26 mg p.o. twice daily and Jardiance 10mg daily. Will repeat chest xray in the am.
--- NOTE | 2023-03-01 09:26 | PC.NURSE ---
COURTESY TECH NOTE; ROUNDED ON PT 0730, ASSISTED PT TO BATHROOM X1 ASSIST, ACTIVITY TOLERATED WELL. PT REQUESTED MEDICINE FOR COUGH, NURSE NOTIFIED. CALL LIGHT WITHIN REACH, NO FURTHER REQUESTS AT THIS TIME MEENU DENIS
--- NOTE | 2023-03-01 09:29 | CA_ITS ---
APPROVED REPORT EXAM: Limited 2D Echocardiogram Pharmacy District Manager: Shirlene TerryEMMIE Ht: 5 ft 6 in Wt: 186lbs BSA: 1.94 BP: 117/65 mmHg Indications: WITH DEFINITY R/O LV THROMBUS,CM Echo Enhancing Agent Indication: Rule out thrombus Agent(s) / Amount(s) Used: Definity 2 cc Other Information Study Quality: Adequate Conclusion This is a limited TTE to evaluate for LV thrombus. Limited windows were obtained. The left ventricle is normal in size. There is normal LV wall thickness. There is a severe reduction in LV systolic function. The basal LV function is preserved, whereas the mid to distal, as well as the apical, LV blas are nearly akinetic. LVEF is 20%. Following administration of ultrasound enhancing agent, there is no evidence of apical LV thrombus. In the setting of normal coronary arteries, the above findings with the pattern of wall motion abnormalities is most suggestive of stress (Takotsubo) cardiomyopathy, but diagnoses cannot be entirely excluded. Electronically signed by : Nadia Bundy MD 03/02/2023 02:24:32
[2023-03-01] MEDS: ASPIRIN EC 81MG TABLET 81 MG PO (09:53)
[2023-03-01] MEDS: PANTOPRAZOLE 40MG TABLET 40 MG PO ×2 (09:53→20:23)
[2023-03-01] MEDS: GABAPENTIN 800MG TABLET 800 MG PO ×2 (09:53→20:22)
[2023-03-01] MEDS: DOCUSATE SODIUM 100 MG CAPSULE PO (09:53)
[2023-03-01] MEDS: FUROSEMIDE 40MG/4ML VIAL 40 MG IV (09:54)
[2023-03-01] MEDS: DEFINITY US ECHO CONTRAST 2ML INJ 2 MG IV (10:04)
[2023-03-01] MEDS: VERAPAMIL 2.5MG/ML 2ML VIAL 2.5 MG IV (12:02)
[2023-03-01] MEDS: diphenhydrAMINE 50MG/ML VIAL 50 MG IV (12:02)
[2023-03-01] MEDS: NITROGLYCERIN 800MCG/8ML SYR (CATH LAB) 800 MCG IA (12:03)
[2023-03-01] MEDS: 0.9 % SODIUM CHLORIDE 500 ML 25 ML IV (12:03)
[2023-03-01] MEDS: HEPARIN 1,000 UNITS/500ML NS (CATH LAB) 3000 UNIT IV (12:03)
[2023-03-01] MEDS: LIDOCAINE 1% 10ML MDV 20 ML IJ (12:03)
[2023-03-01] MEDS: IOPAMIDOL-370 (76%);100ML BOTTLE 50 ML IV (13:05)
[2023-03-01 13:29] LABS: POC Glucose,Bedside 121 (70-110)
[2023-03-01] MEDS: EMPAGLIFLOZIN 10MG TABLET 10 MG PO (13:40)
[2023-03-01 16:14] LABS: POC Glucose,Bedside 116 (70-110)
--- NOTE | 2023-03-01 16:19 | PC.NURSE ---
Patient went for left heart cath today. Patient very lethargic and had to be lightly shaken to wake up. Blood pressures are low but cardiology aware and Dr. Harden notified. Patient able to wake up and answer questions and obey commands. No pain reported. Lung sounds diminished and patient on 2LNC.
--- NOTE | 2023-03-01 17:04 | EXP.PN ---
Subjective *Date: 03/01/23 *Time: 17:04 Interval history: patient was seen and evaluated at the bedside. complains of SOB, No reported acute events overnight, denies chest pain, nausea, vomiting, abdominal pain. Exam Data for Last 24 hours Vital signs and Labs for Last 24 Hours: Temp Pulse Resp BP Pulse Ox O2 Del Method O2 Flow Rate 98.6 F 71 17 84/39 L 97 Room Air 2 03/01/23 13:20 03/01/23 15:50 03/01/23 15:50 03/01/23 15:50 03/01/23 15:50 03/01/23 15:50 03/01/23 15:20 Laboratory Results - last 24 hr 02/28/23 18:55: Troponin I 0.33 H 02/28/23 21:23: POC Glucose 185 H 03/01/23 05:42: WBC 15.7 H, RBC 3.37 L, Hgb 10.5 L, Hct 31.7 L, MCV 94.1, MCH 31.1, MCHC 33.0, RDW 13.2, Plt Count 397, MPV 8.2, Neut % (Auto) 77.0, Lymph % (Auto) 17.7, [place] % (Auto) 4.9, Eos % (Auto) 0.2, Baso % (Auto) 0.3, Neut # (Auto) 12.1 H, Lymph # (Auto) 2.8, [place] # (Auto) 0.8, Eos # (Auto) 0.0, Baso # (Auto) 0.1, Total Counted 100, Neutrophils % (Manual) 78 H, Lymphocytes % (Manual) 20, Monocytes % (Manual) 2, Platelet Estimate Normal, RBC Morphology Normal, Sodium 134 L, Potassium 3.3 L, Chloride 99, Carbon Dioxide 27, Anion Gap 11.3, BUN 16, Creatinine 0.90, Estimated Creat Clear 90, Estimated GFR 64, Est GFR ( Amer) 78, Glucose 131 H, Calcium 7.7 L 03/01/23 06:23: POC Glucose 132 H 03/01/23 13:12: POC Glucose 121 H 03/01/23 16:06: POC Glucose 116 H I & O for Last 24 hours: Intake & Output 02/26/23 02/27/23 02/28/23 03/01/23 23:59 23:59 23:59 23:59 Intake Total 720 / 720 629 / 629 Output Total 700 / 700 650 / 650 Balance - / - Weight 84.397 kg 84.414 kg Constitutional Constitutional: no acute distress *Routine HEENT Exam Head: Present normocephalic Eye: Present EOMI and PERRL ENT: Present mucous membranes moist *Routine Neck Exam Neck: Present supple; Absent lymphadenopathy *Routine Respiratory Exam Respiratory: Present CTA bilaterally *Routine Cardiovascular Exam Cardiovascular: Present RRR *Routine Abdominal Exam Abdominal: Present soft and normoactive bowel sounds; Absent tenderness *Routine Extremities Exam Extremities: Absent cyanosis, clubbing or edema *Routine Skin Exam Skin: Present warm; Absent rash *Routine Neurological Exam Neurological: Present alert and oriented X3 Assessment and Plan *Assessment and plan (1) NSTEMI (non-ST elevated myocardial infarction): Status: Acute Category: Medical Code(s): I21.4 - Non-ST elevation (NSTEMI) myocardial infarction (2) Dyspnea: Status: Acute Category: Medical Code(s): R06.00 - Dyspnea, unspecified (3) Multifocal pneumonia: Status: Acute Category: Medical Code(s): J18.9 - Pneumonia, unspecified organism (4) Sepsis: Status: Acute Category: Medical Code(s): A41.9 - Sepsis, unspecified organism (5) Asthma: Status: Acute Category: Medical Code(s): J45.909 - Unspecified asthma, uncomplicated Plan Patient is a 57-year-old female with past medical history of CAD asthma hypertension hyperlipidemia neuropathy who presents to the hospital due to shortness of breath. According the patient she has been having shortness of breath since before . Patient mentions it has been getting worse, she also had associated heartburn, chest pain. She denies any active chest pain at time of my evaluation. Patient denies fever chills diarrhea constipation dysuria. Patient mentions she had an episode of nausea which she denies having it now. She denies numbness tingling sensation lightheadedness dizziness. Assessment Shortness of breath, suspect multifactorial pneumonia, acute onset CHF NSTEMI History of CAD Histpry of Asthma Hypertension Hyperlipidemia History of neuropathy Plan Echo positive fpr Cardiomyopathy, low EF 20%, await further cardiology plan -plan for Cardiac MRI as OP s/p Cardaic cath - no stenting was needed Started on GDMT for CHF/Cardiomyopathy proBNP significantly elevated, echocardiogram ordered Cardiology consulted Low-salt diet started on Empirical Vanc and cefepime Patient mention she made significant amount of urine plan for cardiac cath in morning Resume home lisinopril, HCTZ DVT PPx - Heparin dc 1-2 days
[2023-03-01] MEDS: SACUBITRIL/VALSARTAN 24-26MG TABLET 1 EACH PO (20:22)
[2023-03-01] MEDS: OXcarbazepine 300MG TABLET 300 MG PO (20:23)
[2023-03-01] MEDS: IPRATROPIUM/ALBUTEROL 3 ML NEB IH (20:30)
[2023-03-01 23:38] LABS: POC Glucose,Bedside 132 (70-110)
[2023-03-02] VITALS (8 sets, daily range): BP systolic 106–149; BP diastolic 61–70; PULSE 78–100; RESP 15–20; TEMP 36.3–36.9; O2SAT 93–98; BMI 29.2
[2023-03-02] MEDS: HEPARIN SODIUM 5,000 UNIT/ML VIAL 5000 UNIT SQ ×3 (03:29→20:07)
--- NOTE | 2023-03-02 05:57 | PC.NURSE ---
post cath site has remained c/d/i t/o shift. denies cp, soa. patient has c/o h/a, tx per APR. patients O2 has remained <90% but was persistent that she needs oxygen because she was worried, patient was gave 1LNC to apply PRN and educated to only use if she needed it. patient verbalized understanding - pt has wore o2 all night. otherwise, no complications.
--- NOTE | 2023-03-02 06:00 | XR_ITS ---
FINAL REPORT CLINICAL HISTORY: volume overload COMPARISON: 02/28/2023 FINDINGS: A single portable view of the chest was obtained. The heart size and pulmonary vascularity are within normal limits. The mediastinum is within normal limits. Improved bilateral pulmonary opacities are likely improved edema.. The bony thorax is intact. Improved IMPRESSION: Improved bilateral pulmonary opacities. Reviewed, Interpreted and Dictated by Ck Mitchell III, MD Transcribed by Tianna Diego Authenticated and . [facility]
[2023-03-02 06:29] LABS: Basophils # 0.1 K/mm3 (0-0.2); Basophils % 0.4 % (0.1-2.0); Eosinophils # 0.1 K/mm3 (0.0-0.4); Eosinophils % 0.8 % (0.1-12.0); Hematocrit 30.8 % (37.0-47.0); Hemoglobin 10.6 g/dL (12.2-16.2); Lymphocytes # 2.2 K/mm3 (0.7-4.5); Mean Corpuscular HGB Conc 34.4 g/dL (31.8-35.4); Mean Corpuscular Hemoglobin 31.7 pg (27.0-31.2); Mean Corpuscular Volume 92.2 fl (81-99); Mean Platelet Volume 7.8 fl (7.4-10.4); Monocytes # 0.6 K/mm3 (0.1-1.0); Monocytes % 4.2 % (1.7-9.3); Neutrophils # 11.5 K/mm3 (1.8-7.8); Neutrophils % 79.6 % (37.0-80.0); Platelet Count 375 K/mm3 (142-424); Red Blood Count 3.34 M/mm3 (4.20-5.40); Red Cell Distribution Width 13.1 % (11.5-17.5); White Blood Count 14.4 K/mm3 (4.8-10.8)
[2023-03-02] MEDS: LEVOTHYROXINE 100MCG (0.1MG) TAB 200 MCG PO (06:35)
[2023-03-02 06:45] LABS: Anion Gap 10.1 mEq/L (5-15); Blood Urea Nitrogen 21 mg/dl (7-17); Carbon Dioxide 26 mmol/L (22.0-30.0); Chloride 100 mmol/L (98-107); Creatinine Clearance Estimated 73 mL/min (50-200); Estimated Glomerular Filt Rate 51 ml/min (>60); GFR (African American) 62 ML/MIN (>60); Glucose 109 mg/dl (74-100); Potassium 3.1 mmoL/L (3.5-5.1); Sodium 133 mmol/L (136-145)
[2023-03-02] MEDS: GUAIFENESIN/DEXTROMETHORPHAN 200MG/20MG 10ML UDC 5 ML PO ×2 (08:45→20:11)
[2023-03-02] MEDS: TIZANIDINE 4MG TABLET 4 MG PO (08:45)
[2023-03-02] MEDS: ACETAMINOPHEN 325MG TAB 650 MG PO ×2 (08:45→20:11)
[2023-03-02] MEDS: estradioL 1 MG TABLET 2 MG PO (08:46)
[2023-03-02] MEDS: ASPIRIN EC 81MG TABLET 81 MG PO (08:46)
[2023-03-02] MEDS: EMPAGLIFLOZIN 10MG TABLET 10 MG PO (08:47)
[2023-03-02] MEDS: GABAPENTIN 800MG TABLET 800 MG PO ×3 (08:47→20:06)
[2023-03-02] MEDS: SACUBITRIL/VALSARTAN 24-26MG TABLET 1 EACH PO ×2 (08:47→20:06)
[2023-03-02] MEDS: PANTOPRAZOLE 40MG TABLET 40 MG PO ×2 (08:47→20:06)
[2023-03-02] MEDS: DOCUSATE SODIUM 100 MG CAPSULE PO (08:47)
[2023-03-02] MEDS: CHOLECALCIFEROL 1,000 UNITS (25MCG) TABLET 50 MCG PO (08:47)
[2023-03-02] MEDS: FLUOXETINE 20MG CAPSULE 20 MG PO (08:47)
[2023-03-02] MEDS: FUROSEMIDE 40 MG TABLET PO (08:47)
[2023-03-02] MEDS: OXcarbazepine 300MG TABLET 300 MG PO ×2 (08:47→20:06)
[2023-03-02] MEDS: DULOXETINE 30MG CAPSULE.DR 60 MG PO ×2 (08:47→20:06)
[2023-03-02] MEDS: CEFEPIME HCL 2 GM in 0.9 % SODIUM CHLORIDE 100 ML IV ×3 (08:48→23:29)
--- NOTE | 2023-03-02 09:14 | P.PN_ITS ---
Subjective Subjective Date: 03/02/23 Time: 09:00 Principal diagnosis: Volume overload and pneumonia Interval history: Patient doing well this morning. Morning labs reviewed and stable. Chest x-ray from this morning shows improved bilateral opacities. Exam Data for Last 24 hours Vital signs and Labs for Last 24 Hours: Temp Pulse Resp BP Pulse Ox O2 Del Method O2 Flow Rate 97.4 F L 90 19 118/64 94 L Room Air 1 03/02/23 08:00 03/02/23 08:00 03/02/23 08:00 03/02/23 08:00 03/02/23 08:00 03/02/23 08:00 03/02/23 06:30 Laboratory Results - last 24 hr 03/01/23 13:12: POC Glucose 121 H 03/01/23 16:06: POC Glucose 116 H 03/01/23 23:31: POC Glucose 132 H 03/02/23 06:06: WBC 14.4 H, RBC 3.34 L, Hgb 10.6 L, Hct 30.8 L, MCV 92.2, MCH 31.7 H, MCHC 34.4, RDW 13.1, Plt Count 375, MPV 7.8, Neut % (Auto) 79.6, Lymph % (Auto) 15.0, [place] % (Auto) 4.2, Eos % (Auto) 0.8, Baso % (Auto) 0.4, Neut # (Auto) 11.5 H, Lymph # (Auto) 2.2, [place] # (Auto) 0.6, Eos # (Auto) 0.1, Baso # (Auto) 0.1, Sodium 133 L, Potassium 3.1 L, Chloride 100, Carbon Dioxide 26, Anion Gap 10.1, BUN 21 H D, Creatinine 1.10 H D, Estimated Creat Clear 73, Estimated GFR 51 L, Est GFR ( Amer) 62 D, Glucose 109 H, Calcium 8.0 L I & O for Last 24 hours: Intake & Output 02/27/23 02/28/23 03/01/23 03/02/23 23:59 23:59 23:59 23:59 Intake Total 720 / 720 1499 / 1499 Output Total 700 / 700 1350 / 1350 450 / 450 Balance 149 / 149 -450 / -450 Weight 186 lb 1 oz 186 lb 1.6 oz 186 lb 1.687 oz Constitutional Constitutional: no acute distress *Routine Respiratory Exam Respiratory: Present wheezes and symmetric chest movement *Routine Cardiovascular Exam Cardiovascular: Present RRR, Normal S1 and Normal S2 *Routine Abdominal Exam Abdominal: Present soft and normoactive bowel sounds; Absent tenderness *Routine Extremities Exam Extremities: Present full ROM and normal capillary refill; Absent edema *Routine Skin Exam Skin: Present intact, dry and warm Detailed Neck Exam: Thyroids Thyroid: Absent bruit Progress Note: A&P Assessment and plan (1) NSTEMI (non-ST elevated myocardial infarction): Status: Acute (2) Dyspnea: Status: Acute (3) Multifocal pneumonia: Status: Acute (4) Sepsis: Status: Acute (5) Asthma: Status: Acute Assessment and Plan Assessment and Plan for All Diagnoses:: Dyspnea Mulitfocual pneumonia vs volume overload Moderate persistent asthma -Chest x-ray shows new bilateral pulmonary opacities consistent with either pneumonia or pulmonary edema -Sepsis protocol was initiated in ER and patient received fluid bolus -IV antibiotics per primary service -proBNP 19,400 -WBC 14.3 -Will diurese with Lasix 40 mg po daily -Echocardiogram: Severe reduction in LV systolic function EF 20 to 25%, near akinesis of the mid to distal, as well as apical LV blas. Mild RV dilation with normal function. Elevated RVSP 40-45. -Repeat limited echo with Definity is negative for LV thrombus Acute onset HFrEF-NYHA III Nonischemic cardiomyopathy -Echo shows EF 20-25 with wall motion abnormalities present -Diures with Lasix 40 mg p.o. daily -Strict I's and O's -Obtain cardiac MRI on an oupatient basis to further evaluate nonischemic cardiomyopathy -Start Entresto 24/26 mg p.o. twice daily and Jardiance 10 mg p.o. daily. Will resume beta-jerry and Aldactone prior to discharge. Contact Dr. Carrlilo before holding Entresto. 03/02/2023 update: Patient continues to diurese well. Chest x-ray from this morning shows improved bilateral opacities. Patient reports shortness of air has improved. Continue with Lasix 40 mg p.o. daily, Entresto, Jardiance and add Aldactone 25 mg p.o. daily. Patient will be fitted for LifeVest due nonischemic cardiomyopathy with an EF of 20 to 25%. History of coronary artery disease NSTEMI -Medical management heart cath 2014, normal Myoview 2019 -Recently declined repeat testing or EKG due to cost -Serial troponins trending up from 0.18-0.3 -EKG is negative for acute ischemic changes -Patient does endorse episode of chest pain 2 to 3 days ago lasting 30 minutes with associated worsening shortness of breath. -Will load patient with aspirin 325 mg x 1 today then 81 mg p.o. daily. Continue heparin subq per primary service order. Add atorvastatin 80 mg p.o. daily. Will add metoprolol once stable after diuresis. -Left heart catheterization 03/01/2023: Mild disease noted, nonischemic ca rdiomyopathy, severe left ventricular dysfunction with elevated LVEDP. HTN -Well controlled 03/01/2023: Patient continues to improve. Will continue with diuresis and add A ldactone 25 mg p.o. daily today. Patient will be fitted for LifeVest today. Anticipate discharge home probably tomorrow.
[2023-03-02] MEDS: SODIUM CHLORIDE 3% 15ML NEB 3 ML IH (09:35)
[2023-03-02] MEDS: SPIRONOLACTONE 25MG TABLET 25 MG PO (10:22)
[2023-03-02 15:30] LABS: Vancomycin,Trough 12.5 ug/mL (5.0-10.0)
--- NOTE | 2023-03-02 16:05 | PC.NURSE ---
Pt. had a 22 beat run of [facility]. Dr. Harden notified. Pt. stated he felt weak and dizzy while he was trying to have a BM. He states he feels back to normal now.
[2023-03-02] MEDS: VANCOMYCIN/WATER FOR INJ (PEG) 1.75 GM/350 ML PIGGYBACK IV (16:11)
--- NOTE | 2023-03-02 17:04 | P.PN_ITS ---
Subjective *Date: 03/02/23 *Time: 17:04 Interval history: patient was seen and evaluated at the bedside. SOB is better, No reported acute events overnight, denies chest pain, nausea, vomiting, abdominal pain. Exam Data for Last 24 hours Vital signs and Labs for Last 24 Hours: Temp Pulse Resp BP Pulse Ox O2 Del Method O2 Flow Rate 97.8 F 96 H 18 149/70 H 97 Room Air 1 03/02/23 12:00 03/02/23 12:00 03/02/23 12:03/02/23 12:03/02/23 12:03/02/23 15:00 03/02/23 06:30 Laboratory Results - last 24 hr 03/01/23 23:31: POC Glucose 132 H 03/02/23 06:06: WBC 14.4 H, RBC 3.34 L, Hgb 10.6 L, Hct 30.8 L, MCV 92.2, MCH 31.7 H, MCHC 34.4, RDW 13.1, Plt Count 375, MPV 7.8, Neut % (Auto) 79.6, Lymph % (Auto) 15.0, [place] % (Auto) 4.2, Eos % (Auto) 0.8, Baso % (Auto) 0.4, Neut # (Auto) 11.5 H, Lymph # (Auto) 2.2, [place] # (Auto) 0.6, Eos # (Auto) 0.1, Baso # (Auto) 0.1, Sodium 133 L, Potassium 3.1 L, Chloride 100, Carbon Dioxide 26, Anion Gap 10.1, BUN 21 H D, Creatinine 1.10 H D, Estimated Creat Clear 73, Estimated GFR 51 L, Est GFR ( Amer) 62 D, Glucose 109 H, Calcium 8.0 L 03/02/23 14:40: Vancomycin Trough 12.5 H I & O for Last 24 hours: Intake & Output 02/27/23 02/28/23 03/01/23 03/02/23 23:59 23:59 23:59 23:59 Intake Total 720 / 720 1499 / 1499 150 / 150 Output Total 700 / 700 1350 / 1350 450 / 450 Balance 149 / 149 -300 / -300 Weight 84.397 kg 84.414 kg 84.41 kg Constitutional Constitutional: no acute distress *Routine HEENT Exam Head: Present normocephalic Eye: Present EOMI and PERRL ENT: Present mucous membranes moist *Routine Neck Exam Neck: Present supple; Absent lymphadenopathy *Routine Respiratory Exam Respiratory: Present CTA bilaterally *Routine Cardiovascular Exam Cardiovascular: Present RRR *Routine Abdominal Exam Abdominal: Present soft and normoactive bowel sounds; Absent tenderness *Routine Extremities Exam Extremities: Absent cyanosis, clubbing or edema *Routine Skin Exam Skin: Present warm; Absent rash *Routine Neurological Exam Neurological: Present alert and oriented X3 Assessment and Plan *Assessment and plan (1) NSTEMI (non-ST elevated myocardial infarction): Status: Acute Category: Medical Code(s): I21.4 - Non-ST elevation (NSTEMI) myocardial infarction (2) Dyspnea: Status: Acute Category: Medical Code(s): R06.00 - Dyspnea, unspecified (3) Multifocal pneumonia: Status: Acute Category: Medical Code(s): J18.9 - Pneumonia, unspecified organism (4) Sepsis: Status: Acute Category: Medical Code(s): A41.9 - Sepsis, unspecified organism (5) Asthma: Status: Acute Category: Medical Code(s): J45.909 - Unspecified asthma, uncomplicated Plan Patient is a 57-year-old female with past medical history of CAD asthma hypertension hyperlipidemia neuropathy who presents to the hospital due to shortness of breath. According the patient she has been having shortness of breath since before [place]. Patient mentions it has been getting worse, she also had associated heartburn, chest pain. She denies any active chest pain at time of my evaluation. Patient denies fever chills diarrhea constipation dysuria. Patient mentions she had an episode of nausea which she denies having it now. She denies numbness tingling sensation lightheadedness dizziness. Assessment Shortness of breath, suspect multifactorial pneumonia, acute onset CHF NSTEMI History of CAD Histpry of Asthma Hypertension Hyperlipidemia History of neuropathy Plan Echo positive for Cardiomyopathy, low EF 20%, await further cardiology plan - plan for Cardiac MRI as OP s/p Cardaic cath - no stenting was needed Started on GDMT for CHF/Cardiomyopathy proBNP significantly elevated, echocardiogram ordered Cardiology consulted - following Low-salt diet started on Empirical Vanc and cefepime Patient mention she made significant amount of urine plan for cardiac cath in morning Resume home lisinopril, HCTZ DVT PPx - Heparin dc 1-2 days cont IV abx, dc tomorrow, await lifevest
[2023-03-02 20:31] LABS: Vancomycin,Peak 35.1 ug/ml (11-39)
[2023-03-03] VITALS: PULSE 84
[2023-03-03] MEDS: GUAIFENESIN/DEXTROMETHORPHAN 200MG/20MG 10ML UDC 5 ML PO (03:10)
[2023-03-03 04:00] VITALS: BP 144/91; PULSE 102; PULSE 96; RESP 20; TEMP 37; O2SAT 95; BMI 28.9
[2023-03-03] MEDS: LEVOTHYROXINE 100MCG (0.1MG) TAB 200 MCG PO (06:00)
[2023-03-03] MEDS: TIZANIDINE 4MG TABLET 4 MG PO (06:00)
--- NOTE | 2023-03-03 06:33 | PC.NURSE ---
Addendum entered by Jaqueline Hill RN 03/03/23 06:47: patient refused to let lab draw her morning labs, this nurse went to the room to see if patient would allow me to, she complied and labs were collected. She stated that she is feeling depressed and continues to have crying episodes. Original Note: this morning, patient has became anxious, complaining about neuropathy and cough. TX per mar. Also, at 0300 patient stated she now wants to be DNR - explained what that entails and paperwork complete. Informed patient that she can change this code status if her mind changes. patient did not wear life vest t/o night.
[2023-03-03 07:39] LABS: Basophils % 0.2 % (0.1-2.0); Eosinophils # 0.1 K/mm3 (0.0-0.4); Eosinophils % 0.4 % (0.1-12.0); Hematocrit 31.4 % (37.0-47.0); Hemoglobin 10.9 g/dL (12.2-16.2); Lymphocytes # 1.2 K/mm3 (0.7-4.5); Lymphocytes % 9.3 % (10-50); Mean Corpuscular HGB Conc 34.6 g/dL (31.8-35.4); Mean Corpuscular Hemoglobin 32.2 pg (27.0-31.2); Mean Corpuscular Volume 92.9 fl (81-99); Mean Platelet Volume 8.4 fl (7.4-10.4); Monocytes # 0.6 K/mm3 (0.1-1.0); Monocytes % 4.9 % (1.7-9.3); Neutrophils # 11.1 K/mm3 (1.8-7.8); Neutrophils % 85.1 % (37.0-80.0); Platelet Count 409 K/mm3 (142-424); Red Blood Count 3.38 M/mm3 (4.20-5.40); Red Cell Distribution Width 12.9 % (11.5-17.5); White Blood Count 13.1 K/mm3 (4.8-10.8)
[2023-03-03 07:43] LABS: Anion Gap 10.9 mEq/L (5-15); Blood Urea Nitrogen 17 mg/dl (7-17); Calcium 8.8 mg/dl (8.4-10.2); Carbon Dioxide 23 mmol/L (22.0-30.0); Chloride 101 mmol/L (98-107); Creatinine Clearance Estimated 89 mL/min (50-200); Estimated Glomerular Filt Rate 64 ml/min (>60); GFR (African American) 78 ML/MIN (>60); Glucose 150 mg/dl (74-100); Sodium 132 mmol/L (136-145)
[2023-03-03 07:45] LABS: MANUAL DIFFERENTIAL MANUAL DIFFERENTIAL (MANUAL DIFF)
[2023-03-03 08:00] VITALS: BP 102/60; PULSE 85; PULSE 92; RESP 20; TEMP 37.6; O2SAT 96
--- NOTE | 2023-03-03 08:01 | EXP.PHA.PN ---
Subjective *Date: 03/03/23 *Time: 08:01 Medical Exam Vital signs and Labs for Last 24 Hours: Vital Signs Temp Pulse Pulse Resp BP Pulse Ox O2 Del Method 03/03/23 06:25 Room Air 03/03/23 04:00 96 H 03/03/23 04:00 98.6 F 102 H 20 144/91 H 95 Room Air 03/03/23 04:17 Room Air 03/03/23 03:00 Room Air 03/03/23 01:00 Room Air 03/03/23 00:00 84 03/02/23 23:53 98.4 F 90 18 120/61 95 Room Air 03/02/23 20:00 80 03/02/23 23:00 Room Air 03/02/23 21:00 Room Air 03/02/23 20:00 98.5 F 89 18 109/63 L 93 L Room Air 03/02/23 19:32 Room Air 03/02/23 16:00 98.1 F 90 19 118/64 94 L Room Air 03/02/23 16:00 80 03/02/23 17:00 Room Air 03/02/23 15:00 Room Air 03/02/23 12:00 90 03/02/23 13:00 Room Air 03/02/23 11:00 Room Air 03/02/23 12:00 97.8 F 96 H 18 149/70 H 97 Room Air 03/02/23 09:35 78 15 03/02/23 09:00 Room Air Intake and Output 03/02/23 03/03/23 03/03/23 23:59 07:59 15:59 Intake Total 830 / 880 Output Total 0 / 450 Balance 830 / 430 Intake: Intake, Oral Amount 720 / 770 Intake, Other Amount 10 / 10 Intake, Total IV Amount 100 / 100 Cefepime HCl 2 gm In 0.9 % 100 / 100 Sodium Chloride 100 ml @ 200 mls/hr IV Q8H [facility] Rx#:[id number] Output: Output, Urine Amount 0 / 450 Other: Intake, Other Source Saline Solution Number of Unmeasured Voids 1 Weight 83.688 kg Patient Weight 03/03/23 23:59 Weight 83.688 kg Laboratory Results - last 24 hr 03/02/23 14:40: Vancomycin Trough 12.5 H 03/02/23 19:35: Vancomycin Peak 35.1 03/03/23 06:46: WBC 13.1 H, RBC 3.38 L, Hgb 10.9 L, Hct 31.4 L, MCV 92.9, MCH 32.2 H, MCHC 34.6, RDW 12.9, Plt Count 409, MPV 8.4, Neut % (Auto) 85.1 H, Lymph % (Auto) 9.3 L, [place] % (Auto) 4.9, Eos % (Auto) 0.4, Baso % (Auto) 0.2, Neut # (Auto) 11.1 H, Lymph # (Auto) 1.2, [place] # (Auto) 0.6, Eos # (Auto) 0.1, Baso # (Auto) 0.0 I & O for Labs for Last 24 Hours: Intake & Output 02/28/23 03/01/23 03/02/23 03/03/23 23:59 23:59 23:59 23:59 Intake Total 720 / 720 1499 / 1499 880 / 880 Output Total 700 / 700 1350 / 1350 450 / 450 Balance 149 / 149 430 / 430 Weight 84.397 kg 84.414 kg 84.41 kg 83.688 kg Microbiology Reports for the Last 24 Hours: Microbiology 02/28/23 08:03 Blood Blood Culture - Preliminary 02/28/23 08:02 Blood Blood Culture - Preliminary The patient's infection will respond to the chosen ABx?: Yes Is the patient receiving the right drug, dose, and route?: Yes Could a more targeted ABx be ordered?: No (WBC DECREASED, BLD CX X2 NEGATIVE, CONTINUE CURRENT ABX.)
--- NOTE | 2023-03-03 08:16 | P.CONPHA_ITS ---
Pharmacy Consult Date: 03/03/23 Time: 08:18 Referring provider: DR. CORTES Reason for Consult:: VANCOMYCIN LEVELS Allergies Allergy/AdvReac Type Severity Reaction Status Date / Time hydroxychloroquine Allergy Verified 12/01/22 13:23 [From Plaquenil] Home Medications Medication Instructions Recorded Confirmed Type levothyroxine 200 mcg tablet 200 mcg PO DAILY 01/30/18 02/28/23 History duloxetine 60 mg capsule,delayed 60 mg PO BID 03/19/18 02/28/23 History release (Cymbalta) estradiol 2 mg tablet 2 mg PO DAILY #30 tabs 12/01/22 02/28/23 Rx fluoxetine 20 mg tablet 20 mg PO DAILY 12/01/22 02/28/23 History cholecalciferol (vitamin D3) 50 50 mcg PO DAILY 02/18/23 02/28/23 History mcg (2,000 unit) capsule (Vitamin D3) docusate sodium 100 mg capsule 100 mg PO DAILY 02/18/23 02/28/23 History (Colace) gabapentin 800 mg tablet 800 mg PO TID 02/18/23 02/28/23 History omeprazole 20 mg capsule,delayed 20 mg PO BID 02/18/23 02/28/23 History release oxcarbazepine 300 mg tablet 300 mg PO BID 02/18/23 02/28/23 History tizanidine 4 mg tablet 4 mg PO Q8H PRN Muscle Pain 02/18/23 02/28/23 History oseltamivir 75 mg capsule 75 mg PO DAILY 7 days #7 caps 02/19/23 02/28/23 Rx bisoprolol fumarate 5 mg tablet 5 mg PO HS 02/28/23 02/28/23 History ipratropium 0.5 mg-albuterol 3 mg 3 ml inhalation Q6H PRN Shortness 02/28/23 02/28/23 History (2.5 mg base)/3 mL nebulization Of Breath Or Wheezing soln New Prescriptions to Start Prescriptions: Height: 1.7 m Weight: 83.688 kg Laboratory Results:: Laboratory Results - last 24 hr 03/02/23 14:40: Vancomycin Trough 12.5 H 03/02/23 19:35: Vancomycin Peak 35.1 03/03/23 06:46: WBC 13.1 H, RBC 3.38 L, Hgb 10.9 L, Hct 31.4 L, MCV 92.9, MCH 32.2 H, MCHC 34.6, RDW 12.9, Plt Count 409, MPV 8.4, Neut % (Auto) 85.1 H, Lymph % (Auto) 9.3 L, [place] % (Auto) 4.9, Eos % (Auto) 0.4, Baso % (Auto) 0.2, Neut # (Auto) 11.1 H, Lymph # (Auto) 1.2, [place] # (Auto) 0.6, Eos # (Auto) 0.1, Baso # (Auto) 0.0 Medical History: Medical History (Updated 02/28/23 @ 15:04 by Kristal Sarah, LACHELLE) Asthma CAD (coronary artery disease) Diaphoresis Dyspnea Dyspnea on exertion Dyspnea on exertion Edema GERD (gastroesophageal reflux disease) History of 2019 novel coronavirus disease (COVID-19) HLD (hyperlipidemia) HTN (hypertension) Moderate persistent asthma Neuropathy Psoriatic arthritis SOB (shortness of breath) on exertion Thyroid condition Assessment and Plan Assessment and plan all Dx Assessment and Plan for all problems:: PATIENT'S VANCOMYCIN PEAK AND TROUGH LEVELS WERE 35.1 MCG/ML AND 12.5 MCG/ML, RESPECTIVELY. RECOMMEND CONTINUING WITH CURRENT DOSE OF VANCOMYCIN 1750 MG Q18H AT THIS TIME.
[2023-03-03 08:19] LABS: Potassium 2.9 mmoL/L (3.5-5.1)
[2023-03-03 08:24] LABS: Lymphocytes % 17 % (10-50); Monocytes % 5 % (2-9); Neutrophils % 78 % (42-76); Platelet Estimate Normal; RBC Morphology Normal; Total Cells Counted 100
--- NOTE | 2023-03-03 09:22 | P.PN_ITS ---
Subjective Subjective Date: 03/03/23 Time: 09:22 Principal diagnosis: Volume overload and pneumonia Interval history: Patient doing well. Denies chest pain or shortness of breath Exam Data for Last 24 hours Vital signs and Labs for Last 24 Hours: Temp Pulse Resp BP Pulse Ox O2 Del Method O2 Flow Rate 99.7 F H 92 H 20 102/60 L 96 Room Air 1 03/03/23 08:00 03/03/23 08:00 03/03/23 08:00 03/03/23 08:00 03/03/23 08:00 03/03/23 08:00 03/02/23 06:30 Laboratory Results - last 24 hr 03/02/23 14:40: Vancomycin Trough 12.5 H 03/02/23 19:35: Vancomycin Peak 35.1 03/03/23 06:46: WBC 13.1 H, RBC 3.38 L, Hgb 10.9 L, Hct 31.4 L, MCV 92.9, MCH 32.2 H, MCHC 34.6, RDW 12.9, Plt Count 409, MPV 8.4, Neut % (Auto) 85.1 H, Lymph % (Auto) 9.3 L, [place] % (Auto) 4.9, Eos % (Auto) 0.4, Baso % (Auto) 0.2, Neut # (Auto) 11.1 H, Lymph # (Auto) 1.2, [place] # (Auto) 0.6, Eos # (Auto) 0.1, Baso # (Auto) 0.0, Total Counted 100, Neutrophils % (Manual) 78 H, Lymphocytes % (Manual) 17, Monocytes % (Manual) 5, Platelet Estimate Normal, RBC Morphology Normal, Sodium 132 L, Potassium 2.9 L*, Chloride 101, Carbon Dioxide 23, Anion Gap 10.9, BUN 17, Creatinine 0.90, Estimated Creat Clear 89, Estimated GFR 64, Est GFR ( Amer) 78 D, Glucose 150 H, Calcium 8.8 I & O for Last 24 hours: Intake & Output 02/28/23 03/01/23 03/02/23 03/03/23 23:59 23:59 23:59 23:59 Intake Total 720 / 720 1499 / 1499 880 / 880 120 / 120 Output Total 700 / 700 1350 / 1350 450 / 450 Balance 149 / 149 430 / 430 120 / 120 Weight 186 lb 1 oz 186 lb 1.6 oz 186 lb 1.475 oz 184 lb 8 oz Microbiology Reports for the Last 24 Hours: Microbiology 02/28/23 08:03 Blood Blood Culture - Preliminary 02/28/23 08:02 Blood Blood Culture - Preliminary Constitutional Constitutional: no acute distress *Routine HEENT Exam Head: Present normocephalic Eye: Present EOMI and PERRL ENT: Present mucous membranes moist *Routine Neck Exam Neck: Present supple; Absent lymphadenopathy *Routine Respiratory Exam Respiratory: Present CTA bilaterally *Routine Cardiovascular Exam Cardiovascular: Present RRR *Routine Abdominal Exam Abdominal: Present soft and normoactive bowel sounds; Absent tenderness *Routine Extremities Exam Extremities: Absent cyanosis, clubbing or edema *Routine Skin Exam Skin: Present warm; Absent rash *Routine Neurological Exam Neurological: Present alert and oriented X3 Progress Note: A&P Assessment and plan (1) NSTEMI (non-ST elevated myocardial infarction): Status: Acute (2) Dyspnea: Status: Acute (3) Multifocal pneumonia: Status: Acute (4) Sepsis: Status: Acute (5) Asthma: Status: Acute Assessment and Plan Assessment and Plan for All Diagnoses:: Dyspnea Mulitfocual pneumonia vs volume overload Moderate persistent asthma -Chest x-ray shows new bilateral pulmonary opacities consistent with either pneumonia or pulmonary edema -Sepsis protocol was initiated in ER and patient received fluid bolus -IV antibiotics per primary service -proBNP 19,400 -WBC 14.3 -Will diurese with Lasix 40 mg po daily -Echocardiogram: Severe reduction in LV systolic function EF 20 to 25%, near akinesis of the mid to distal, as well as apical LV blas. Mild RV dilation with normal function. Elevated RVSP 40-45. -Repeat limited echo with Definity is negative for LV thrombus Acute onset HFrEF-NYHA III Nonischemic cardiomyopathy -Echo shows EF 20-25 with wall motion abnormalities present -Diures with Lasix 40 mg p.o. daily -Strict I's and O's -Obtain cardiac MRI on an oupatient basis to further evaluate nonischemic cardiomyopathy -Start Entresto 24/26 mg p.o. twice daily and Jardiance 10 mg p.o. daily. Will resume beta-jerry and Aldactone prior to discharge. Contact Dr. Carrillo before holding Entresto. 03/02/2023 update: Patient continues to diurese well. Chest x-ray from this morning shows improved bilateral opacities. Patient reports shortness of air has improved. Continue with Lasix 40 mg p.o. daily, Entresto, Jardiance and add Aldactone 25 mg p.o. daily. Patient will be fitted for LifeVest due nonischemic cardiomyopathy with an EF of 20 to 25%. 03/03/2023 update: Patient doing well with additional medications. Denies chest pain or shortness of breath. Patient has been fitted for LifeVest. History of coronary artery disease NSTEMI -Medical management heart cath 2014, normal Myoview 2019 -Recently declined repeat testing or EKG due to cost -Serial troponins trending up from 0.18-0.3 -EKG is negative for acute ischemic changes -Patient does endorse episode of chest pain 2 to 3 days ago lasting 30 minutes with associated worsening shortness of breath. -Will load patient with aspirin 325 mg x 1 today then 81 mg p.o. daily. Continue heparin subq per primary service order. Add atorvastatin 80 mg p.o. daily. Will add metoprolol once stable after diuresis. -Left heart catheterization 03/01/2023: Mild disease noted, nonischemic cardiomyopathy, severe left ventricular dysfunction with elevated LVEDP. HTN -Well controlled 03/03/2023: Patient is CV stable for discharge home. Please discharge patient home with below listed medications and have patient follow-up in cardiology clinic in 1 week for reevaluation. Patient will be going home with LifeVest in place. Patient need outpatient MRI scheduled for nonischemic cardiomyopathy with an ejection fraction of 20 to 25%. CV meds for discharge : Aspirin 81 mg p.o. daily Atorvastatin 80 mg p.o. daily Entresto 24/26 mg p.o. twice daily Aldactone 25 mg p.o. daily Lasix 40 mg p.o. daily Jardiance 10 mg p.o. daily
[2023-03-03] MEDS: estradioL 1 MG TABLET 2 MG PO (09:45)
[2023-03-03] MEDS: SPIRONOLACTONE 25MG TABLET 25 MG PO (09:45)
[2023-03-03] MEDS: FLUOXETINE 20MG CAPSULE 20 MG PO (09:45)
[2023-03-03] MEDS: ASPIRIN EC 81MG TABLET 81 MG PO (09:46)
[2023-03-03] MEDS: OXcarbazepine 300MG TABLET 300 MG PO (09:46)
[2023-03-03] MEDS: CHOLECALCIFEROL 1,000 UNITS (25MCG) TABLET 50 MCG PO (09:46)
[2023-03-03] MEDS: GABAPENTIN 800MG TABLET 800 MG PO (09:46)
[2023-03-03] MEDS: FUROSEMIDE 40 MG TABLET PO (09:47)
[2023-03-03] MEDS: DULOXETINE 30MG CAPSULE.DR 60 MG PO (09:47)
[2023-03-03] MEDS: DOCUSATE SODIUM 100 MG CAPSULE PO (09:47)
[2023-03-03] MEDS: EMPAGLIFLOZIN 10MG TABLET 10 MG PO (09:47)
--- NOTE | 2023-03-03 09:58 | EXP.DC.SUM ---
General Admission date:: 02/28/23 Discharge date: 03/03/23 HPI HPI HPI: Patient is a 57-year-old female with past medical history of CAD asthma hypertension hyperlipidemia neuropathy who presents to the hospital due to shortness of breath. According the patient she has been having shortness of breath since before . Patient mentions it has been getting worse, she also had associated heartburn, chest pain. She denies any active chest pain at time of my evaluation. Patient denies fever chills diarrhea constipation dysuria. Patient mentions she had an episode of nausea which she denies having it now. She denies numbness tingling sensation lightheadedness dizziness. Hospital Course Hospital Course Hospital Course: Patient is a 57-year-old female with past medical history of CAD asthma hypertension hyperlipidemia neuropathy who presents to the hospital due to shortness of breath. According the patient she has been having shortness of breath since before . Patient mentions it has been getting worse, she also had associated heartburn, chest pain. She denies any active chest pain at time of my evaluation. Patient denies fever chills diarrhea constipation dysuria. Patient mentions she had an episode of nausea which she denies having it now. She denies numbness tingling sensation lightheadedness dizziness. Assessment Shortness of breath, suspect multifactorial pneumonia, acute onset CHF - improved, dc with lifevest, f/u with cardiology as OP NSTEMI History of CAD Histpry of Asthma Hypertension Hyperlipidemia History of neuropathy Echo positive for Cardiomyopathy, low EF 20%, await further cardiology plan -plan for Cardiac MRI as OP s/p Cardaic cath - no stenting was needed Exam Data for Last 24 hours Vital signs and Labs for Last 24 Hours: Temp Pulse Resp BP Pulse Ox O2 Del Method O2 Flow Rate 99.7 F H 92 H 20 102/60 L 96 Room Air 1 03/03/23 08:00 03/03/23 08:00 03/03/23 08:00 03/03/23 08:00 03/03/23 08:00 03/03/23 08:00 03/02/23 06:30 Laboratory Results - last 24 hr 03/02/23 14:40: Vancomycin Trough 12.5 H 03/02/23 19:35: Vancomycin Peak 35.1 03/03/23 06:46: WBC 13.1 H, RBC 3.38 L, Hgb 10.9 L, Hct 31.4 L, MCV 92.9, MCH 32.2 H, MCHC 34.6, RDW 12.9, Plt Count 409, MPV 8.4, Neut % (Auto) 85.1 H, Lymph % (Auto) 9.3 L, Gates % (Auto) 4.9, Eos % (Auto) 0.4, Baso % (Auto) 0.2, Neut # (Auto) 11.1 H, Lymph # (Auto) 1.2, Gates # (Auto) 0.6, Eos # (Auto) 0.1, Baso # (Auto) 0.0, Total Counted 100, Neutrophils % (Manual) 78 H, Lymphocytes % (Manual) 17, Monocytes % (Manual) 5, Platelet Estimate Normal, RBC Morphology Normal, Sodium 132 L, Potassium 2.9 L*, Chloride 101, Carbon Dioxide 23, Anion Gap 10.9, BUN 17, Creatinine 0.90, Estimated Creat Clear 89, Estimated GFR 64, Est GFR ( Amer) 78 D, Glucose 150 H, Calcium 8.8 I & O for Last 24 hours: Intake & Output 02/28/23 03/01/23 03/02/23 03/03/23 23:59 23:59 23:59 23:59 Intake Total 720 / 720 1499 / 1499 880 / 880 120 / 120 Output Total 700 / 700 1350 / 1350 450 / 450 Balance 149 / 149 430 / 430 120 / 120 Weight 84.397 kg 84.414 kg 84.41 kg 83.688 kg Microbiology Reports for the Last 24 Hours: Microbiology 02/28/23 08:03 Blood Blood Culture - Preliminary 02/28/23 08:02 Blood Blood Culture - Preliminary Constitutional Constitutional: no acute distress *Routine HEENT Exam Head: Present normocephalic Eye: Present EOMI and PERRL ENT: Present mucous membranes moist *Routine Neck Exam Neck: Present supple; Absent lymphadenopathy *Routine Respiratory Exam Respiratory: Present CTA bilaterally *Routine Cardiovascular Exam Cardiovascular: Present RRR *Routine Abdominal Exam Abdominal: Present soft and normoactive bowel sounds; Absent tenderness *Routine Extremities Exam Extremities: Absent cyanosis, clubbing or edema *Routine Skin Exam Skin: Present warm; Absent rash *Routine Neurological Exam Neurological: Present alert and oriented X3 Results Data Completed and Pending Labs on day of discharge: Labs from last 24 hours 03/03/23 03/02/23 03/02/23 06:46 19:35 14:40 WBC 13.1 H RBC 3.38 L Hgb 10.9 L Hct 31.4 L MCV 92.9 MCH 32.2 H MCHC 34.6 RDW 12.9 Plt Count 409 MPV 8.4 Neut % (Auto) 85.1 H Lymph % (Auto) 9.3 L Gates % (Auto) 4.9 Eos % (Auto) 0.4 Baso % (Auto) 0.2 Neut # (Auto) 11.1 H Lymph # (Auto) 1.2 Gates # (Auto) 0.6 Eos # (Auto) 0.1 Baso # (Auto) 0.0 Total Counted 100 Neutrophils % (Manual) 78 H Lymphocytes % (Manual) 17 Monocytes % (Manual) 5 Platelet Estimate Normal RBC Morphology Normal Sodium 132 L Potassium 2.9 L* Chloride 101 Carbon Dioxide 23 Anion Gap 10.9 BUN 17 Creatinine 0.90 Estimated Creat Clear 89 Estimated GFR 64 Est GFR ( Amer) 78 D Glucose 150 H Calcium 8.8 Vancomycin Peak 35.1 Vancomycin Trough 12.5 H Preliminary micro results at discharge 02/28/23 08:03 Blood Culture - Preliminary Blood 02/28/23 08:02 Blood Culture - Preliminary Blood DS: Diagnosis Discharge Diagnosis (1) NSTEMI (non-ST elevated myocardial infarction): Status: Acute Code(s): I21.4 - Non-ST elevation (NSTEMI) myocardial infarction (2) Dyspnea: Status: Acute Code(s): R06.00 - Dyspnea, unspecified (3) Multifocal pneumonia: Status: Acute Code(s): J18.9 - Pneumonia, unspecified organism (4) Sepsis: Status: Acute Code(s): A41.9 - Sepsis, unspecified organism (5) Asthma: Status: Acute Code(s): J45.909 - Unspecified asthma, uncomplicated Meds Home Medications and Allergies Home Medications Medication Instructions Recorded Confirmed Type levothyroxine 200 mcg tablet 200 mcg PO DAILY 01/30/18 02/28/23 History duloxetine 60 mg capsule,delayed 60 mg PO BID 03/19/18 02/28/23 History release (Cymbalta) estradiol 2 mg tablet 2 mg PO DAILY #30 tabs 12/01/22 02/28/23 Rx fluoxetine 20 mg tablet 20 mg PO DAILY 12/01/22 02/28/23 History cholecalciferol (vitamin D3) 50 50 mcg PO DAILY 02/18/23 02/28/23 History mcg (2,000 unit) capsule (Vitamin D3) docusate sodium 100 mg capsule 100 mg PO DAILY 02/18/23 02/28/23 History (Colace) gabapentin 800 mg tablet 800 mg PO TID 02/18/23 02/28/23 History omeprazole 20 mg capsule,delayed 20 mg PO BID 02/18/23 02/28/23 History release oxcarbazepine 300 mg tablet 300 mg PO BID 02/18/23 02/28/23 History tizanidine 4 mg tablet 4 mg PO Q8H PRN Muscle Pain 02/18/23 02/28/23 History ipratropium 0.5 mg-albuterol 3 mg 3 ml inhalation Q6H PRN Shortness 02/28/23 02/28/23 History (2.5 mg base)/3 mL nebulization Of Breath Or Wheezing soln aspirin 81 mg tablet,delayed 81 mg PO DAILY 30 days #30 tabs 03/03/23 Rx release atorvastatin 40 mg tablet 80 mg PO HS 30 days #60 tabs 03/03/23 Rx diphenhydramine 12.5 mg-PE 5 5 ml PO .q8hr PRN cough 30 days 03/03/23 Rx mg-acetaminophen 325 mg/10 mL oral #118 mL liquid (Robitussin Cold-Flu Night (PE)) empagliflozin 10 mg tablet 10 mg PO DAILY 30 days #30 tabs 03/03/23 Rx (Jardiance) furosemide 40 mg tablet 40 mg PO DAILY 30 days #30 tabs 03/03/23 Rx levofloxacin 250 mg tablet 250 mg PO DAILY 5 days #5 tabs 03/03/23 Rx sacubitril 24 mg-valsartan 26 mg 1 tab PO BID 30 days #60 tabs 03/03/23 Rx tablet (Entresto) spironolactone 25 mg tablet 25 mg PO DAILY 30 days #30 tabs 03/03/23 Rx New Prescriptions to Start Prescriptions: aspirin Dereck,Valentinaan atorvastatin Dereck,Irfan [id number] [Robitussin Cold-Flu Night (PE)] [facility]Jard[facility] f[facility] levofloxacin [facility] sacubitril-valsartan [Entresto] [facility] spironolactone [facility] Allergies Allergy/AdvReac Type Severity Reaction Status Date / Time hydroxychloroquine Allergy Verified 12/01/22 13:23 [From Plaquenil] Discharge Plan Disposition Patient Disposition: Home, Self-Care Condition: Good Discharge Order Discharge Orders: Discharge Order (Routine); Ordered 03/03/23 Ordered By: Salty Harden Follow up Plan Follow up with: Robert Carrillo MD [Staff Physician] - 03/08/23 1:45 pm Kody Dunn MD [Primary Care Provider] - 03/08/23 11:30 am Prescriptions/Medication Reconciliation: New spironolactone 25 mg Tablet 25 mg PO DAILY 30 Days Qty: 30 0RF Entresto 24-26 mg Tablet 1 tab PO BID 30 Days Qty: 60 0RF levofloxacin 250 mg tablet 250 mg PO DAILY 5 Days Qty: 5 0RF Robitussin Cold-Flu Night (PE) 12.5-5-325 mg/10 mL liquid 5 ml PO .q8hr PRN (Reason: cough) 30 Days Qty: 118 0RF atorvastatin 40 mg Tablet 80 mg PO HS 30 Days Qty: 60 0RF aspirin 81 mg Tablet,Delayed Release (Dr/Ec) 81 mg PO DAILY 30 Days Qty: 30 0RF Jardiance 10 mg Tablet 10 mg PO DAILY 30 Days Qty: 30 0RF furosemide 40 mg Tablet 40 mg PO DAILY 30 Days Qty: 30 0RF Continued duloxetine [Cymbalta] 60 mg capsule,delayed release(DR/EC) 60 mg PO BID levothyroxine 200 mcg tablet 200 mcg PO DAILY fluoxetine 20 mg tablet 20 mg PO DAILY estradiol 2 mg tablet 2 mg PO DAILY Qty: 30 11RF tizanidine 4 mg tablet 4 mg PO Q8H PRN (Reason: Muscle Pain) oxcarbazepine 300 mg Tablet 300 mg PO BID gabapentin 800 mg tablet 800 mg PO TID docusate sodium [Colace] 100 mg Capsule 100 mg PO DAILY omeprazole 20 mg capsule,delayed release(DR/EC) 20 mg PO BID cholecalciferol (vitamin D3) [Vitamin D3] 50 mcg (2,000 unit) Capsule 50 mcg PO DAILY ipratropium-albuterol 0.5 mg-3 mg(2.5 mg base)/3 mL solution for nebulization 3 ml inhalation Q6H PRN (Reason: Shortness Of Breath Or Wheezing) Discontinued oseltamivir 75 mg capsule 75 mg PO DAILY 7 Days Qty: 7 0RF bisoprolol fumarate 5 mg Tablet 5 mg PO HS Problem Reconciliation Problems Reviewed?: Yes Patient Discharge Instructions ACTIVITY: Ambulate as tolerated DIET: advance to your usual diet Patient Instructions: Pneumonia-Adult, DI for Shortness of Breath Providers Primary Care Provider: Kody Dunn Admit Provider: Salty Harden Attending Provider: Salty Harden
[2023-03-03] MEDS: POTASSIUM CHLORIDE 20MEQ TAB 60 MEQ PO (10:55)
[2023-03-03] MEDS: SACUBITRIL/VALSARTAN 24-26MG TABLET 1 EACH PO (10:55)
--- NOTE | 2023-03-06 14:48 | CARE MANAGER ---
Called and spoke with patient regarding recent discharge. Patient states that she is doing ok, no concerns voiced at time of call. She has started new medication prescribed at discharge and is aware of scheduled f/u appts.
[2023-03-06 16:54] LABS: Body Fluid Culture, Sterile Not indicated. (.); Organism ID Not indicated. (.); Specimen Source Urine (.); Streptococcus pneumoniae Ag Negative (Negative)
== END 2023-03-03 13:30 | disposition home or self-care (01) | DRG 280 ==
LOC: ER 08:11 → 2ND 09:36
PROVIDERS: Internal Medicine; Nurse Practitioner; Admitting Provider Internal Medicine; Emergency Provider Student in an Organized Health Care Education/Training Program; PCP Internal Medicine Adolescent Medicine; Visit Provider Internal Medicine
PROC: 4A023N7 Measurement of Cardiac Sampling and Pressure, Left Heart, Percutaneous Approach (ICD-10-PCS; principal; 2023-03-01 11:30)
DX: I21.4 Non-ST elevation (NSTEMI) myocardial infarction (principal); A41.9 Sepsis, unspecified organism; J18.9 Pneumonia, unspecified organism; I50.21 Acute systolic (congestive) heart failure; I42.8 Other cardiomyopathies; G62.9 Polyneuropathy, unspecified; K21.9 Gastro-esophageal reflux disease without esophagitis; I10 Essential (primary) hypertension; J45.40 Moderate persistent asthma, uncomplicated; I25.10 Atherosclerotic heart disease of native coronary artery without angina pectoris
CPT/HCPCS: 36415; 71045; 80048; 80053; 80202; 82962; 83605; 83880; 84484; 85007; 85025; 87040; 87636; 87899; 93005; 93306; 93308; 93458; 94640; 99152; 99291; C1725; C1769; J0456; J0696; J1644; J2405; Q9957; Q9967

== ENCOUNTER 2023-03-22 14:32 | Outpatient (CLI) | payer MEDICARE, SELFPAY ==
--- NOTE | 2023-03-22 14:42 | XR_ITS ---
FINAL REPORT CLINICAL HISTORY: dyspnea/HFrEF COMPARISON: 03/02/2023 FINDINGS: TWO-VIEW CHEST The heart size is normal. The mediastinum is normal. Life vest device is noted. The lungs are clear. There is no pneumothorax. IMPRESSION: No acute cardiopulmonary process. Reviewed, Interpreted and Dictated by Ck Mitchell III, MD Transcribed by Valentine Canela Authenticated and [facility]
[2023-03-22 16:04] LABS: Anion Gap 15.9 mEq/L (5-15); Blood Urea Nitrogen 16 mg/dl (7-17); Calcium 10.3 mg/dl (8.4-10.2); Carbon Dioxide 29 mmol/L (22.0-30.0); Chloride 98 mmol/L (98-107); Estimated Glomerular Filt Rate 51 ml/min (>60); GFR (African American) 62 ML/MIN (>60); Glucose 117 mg/dl (74-100); Potassium 4.9 mmoL/L (3.5-5.1); Sodium 138 mmol/L (136-145)
[2023-03-22 16:13] LABS: NT Pro Brain Natriuretic Pep. 530 pg/mL (0-125)
== END 2023-03-22 23:59 ==
LOC: RAD 14:34
PROVIDERS: Physician Assistant; PCP Internal Medicine Adolescent Medicine; Visit Provider Internal Medicine
DX: E78.5 Hyperlipidemia, unspecified (principal); I10 Essential (primary) hypertension; I25.10 Atherosclerotic heart disease of native coronary artery without angina pectoris; I42.0 Dilated cardiomyopathy; I50.20 Unspecified systolic (congestive) heart failure; R06.00 Dyspnea, unspecified
CPT/HCPCS: 36415; 71046; 80048; 83735; 83880

== ENCOUNTER 2023-04-04 13:29 | Outpatient (CLI) | payer MEDICARE, SELFPAY ==
[2023-04-04 14:11] LABS: Basophils # 0.1 K/mm3 (0-0.2); Eosinophils # 0.2 K/mm3 (0.0-0.4); Eosinophils % 1.8 % (0.1-12.0); Hematocrit 40.4 % (37.0-47.0); Hemoglobin 14.3 g/dL (12.2-16.2); Lymphocytes # 4.5 K/mm3 (0.7-4.5); Lymphocytes % 47.4 % (10-50); Mean Corpuscular HGB Conc 35.3 g/dL (31.8-35.4); Mean Corpuscular Hemoglobin 31.2 pg (27.0-31.2); Mean Corpuscular Volume 88.3 fl (81-99); Mean Platelet Volume 7.4 fl (7.4-10.4); Monocytes # 0.5 K/mm3 (0.1-1.0); Monocytes % 5.4 % (1.7-9.3); Neutrophils # 4.2 K/mm3 (1.8-7.8); Neutrophils % 44.5 % (37.0-80.0); Platelet Count 364 K/mm3 (142-424); Red Blood Count 4.58 M/mm3 (4.20-5.40); Red Cell Distribution Width 12.8 % (11.5-17.5); White Blood Count 9.5 K/mm3 (4.8-10.8)
[2023-04-04 14:29] LABS: Chloride 95 mmol/L (98-107)
[2023-04-04 14:30] LABS: Potassium 3.2 mmoL/L (3.5-5.1); Sodium 134 mmol/L (136-145)
[2023-04-04 14:32] LABS: Alanine Aminotransferase 20 U/L (12-78); Anion Gap 6.2 mEq/L (5-15); Aspartate Amino Transferase 29 U/L (14-36); Bilirubin,Unconjugated 0.2 mg/dL (0.0-1.1); Blood Urea Nitrogen 23 mg/dl (7-17); Carbon Dioxide 36 mmol/L (22.0-30.0); Estimated Glomerular Filt Rate 51 ml/min (>60); GFR (African American) 62 ML/MIN (>60)
[2023-04-04 14:33] LABS: Albumin Level 4.6 g/dl (3.5-5.0); Alkaline Phosphatase 102 U/L (38-126); Bilirubin,Direct 0.3 mg/dl (0.0-0.4); Bilirubin,Indirect 0.2 mg/dL (0.0-0.9); Bilirubin,Total 0.5 mg/dl (0.2-1.3); Glucose 91 mg/dl (74-100); Iron 144 ug/dL (37-170); Magnesium 1.7 mg/dl (1.6-2.3); Total Protein,Serum 7.8 g/dl (6.3-8.2)
[2023-04-04 14:34] LABS: HDL Cholesterol 36 mg/dl (40-60)
[2023-04-04 14:35] LABS: Triglycerides 511 mg/dl (30-150)
[2023-04-04 14:44] LABS: Total Iron Binding Capacity 317 ug/dL (265-497)
[2023-04-04 14:50] LABS: Free T4 (Free Thyroxine) 1.18 ng/dl (0.78-2.19)
[2023-04-04 14:51] LABS: Chol/HDL Ratio 10.5 (1-3.5); Cholesterol 377 mg/dl (140-200); Direct LDL Cholesterol 176.38 mg/dL (100-129)
[2023-04-04 15:05] LABS: Thyroid Stimulating Hormone < 0.02 uIU/mL (0.465-4.68)
[2023-04-04 16:37] LABS: Vitamin B12 576 pg/mL (239-931)
== END 2023-04-04 23:59 ==
LOC: LAB 13:31
PROVIDERS: PCP Internal Medicine Adolescent Medicine; Visit Provider Nurse Practitioner Family
DX: I50.20 Unspecified systolic (congestive) heart failure (principal); E78.5 Hyperlipidemia, unspecified; I10 Essential (primary) hypertension; I25.10 Atherosclerotic heart disease of native coronary artery without angina pectoris; I42.0 Dilated cardiomyopathy; I51.9 Heart disease, unspecified; R06.00 Dyspnea, unspecified; E03.8 Other specified hypothyroidism
CPT/HCPCS: 36415; 80048; 80061; 80076; 82607; 82728; 82746; 83540; 83550; 83735; 84439; 84443; 85025

== ENCOUNTER 2023-04-06 09:54 | Outpatient (CLI) | payer MEDICARE, SELFPAY ==
--- NOTE | 2023-04-06 09:55 | MR_ITS ---
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 Software platform sequences were performed using the Siemens [employer] MR B19 platform. A set of three-plane, low-resolution, large [id number] localizers were initially acquired. Then axial, coronal, sagittal TrueFISP, as well as axial HASTE images, were obtained. These were followed by gated TrueFISP breathold cinematic sequences obtained in the short axis with 8 mm slices and 2 mm gaps, 2-chamber (vertical long axis), 3-chamber, 4-chamber (horizontal long axis). A bolus of contrast was injected intravenously with first-pass sequences obtained in the short axis and four-chamber planes. After approximately 10 minutes, a TI plaster lather sequence was performed to determine the optimal TI time. Using the optimized TI time, delayed contrast enhancement segmented inversion???recovery TurboFLASH sequences were obtained in the short axis, 2-chamber, 3-chamber, and 4-chamber projections. 2D-velocity phase mapping was performed. Functional parameters were calculated by offline analysis on an independent workstation ([employer], [employer]). Contrast: ProHance??? (Gadoteridol) FINDINGS MORPHOLOGY AND FUNCTION Left ventricle: The left ventricle is normal in size. The indexed left ventricular end-diastolic volume (LVEDVi) is 57 ml/m2 (reference range 57-105 ml/m2 in males, 56-96 ml/m2 in females). Normal left ventricular systolic function is present. There is normal left ventricular wall thickness. There are no regional wall motion abnormalities noted. LVEF is calculated at 61.8% (reference range 57-77%). Right ventricle: The right ventricle is normal in size. The indexed right ventricular end-diastolic volume (RVEDVi) is 47 ml/m2 (reference range 61-121 ml/m2 in males, 48-112 ml/m2 in females). Normal right ventricular systolic function is present. RVEF is calculated at 57.3% (reference range 52-72% in males, 51-71% in females). Atria: The left atrium cavity is small. The maximum indexed left atrial volume is 10 ml/m2 (reference range 26-52 ml/m2 in males, 27-53 ml/m2 in females). The right atrium is normal in size. The maximum indexed right atrial volume is 21 ml/m2 (reference range 18-90 ml/m2). Aorta: The diameter of the aortic annulus is normal, measuring 21 mm (coronal view reference range 21-30 mm in males, 19-27 mm in females). The diameter of the aortic sinus is normal, measuring 29 mm (coronal view reference range 25-42 mm in males, 24-36 mm in females). The diameter of the sinotubular junction is normal, measuring 26 mm (coronal view reference range 18-32 mm in males, 18-28 mm in females). The diameters of the ascending and descending thoracic aorta are normal. Main pulmonary artery: The main pulmonary artery diameter is normal. Pericardium: The pericardial thickness is normal. The pericardial thickness measures 1.0 cm (normal < 4.0 cm). There is no pericardial effusion. VALVES The valvular morphologies in the visualized sequences appear normal. There is no significant valvular stenosis or regurgitation of the mitral, aortic, tricuspid, or pulmonic valve noted visually. Systolic anterior motion of the mitral valve is not visualized. Ratio of pulmonary to systemic flow, Qp:Qs ratio = 1.2 (normal < or = 1.2), demonstrating no evidence of hemodynamically significant shunt. TISSUE CHARACTERIZATION Resting Perfusion: Normal myocardial blood flow at rest. No evidence of resting hypoperfusion. Myocardial Fibrosis and/or edema: Normal gadolinium kinetics are present. No evidence of late gadolinium enhancement is noted, consistent with absence of myocardial scarring, infarction, or necrosis. T2-weighted imaging demonstrates no evidence of myocardial edema or inflammation. OTHER No other significant findings are noted. However, this exam is focused on the cardiac structure and function. IMPRESSION Normal LV size with normal LV systolic function. LVEDVi= 57 ml/m2 and LVEF= 61.8%. Normal RV size with normal RV systolic function. RVEDVi= 47 ml/m2 and RVEF= 57.3%. No atrial enlargement. No CMR evidence of myocardial scarring, infarction, or necrosis. No evidence of myocardial edema or inflammation. Perfusion analysis demonstrates normal blood flow at rest with no evidence of resting hypoperfusion. Ratio of pulmonary to systemic flow, Qp:Qs ratio = 1.2 (normal < or = 1.2), demonstrating no evidence of hemodynamically significant shunt. COMPARISON None CRITICAL RESULT None COMMUNICATION Per this written report The findings of this cardiac MR were reviewed, reported, and signed by Adolfo Bundy MD (Customer Engineer). Conclusion Electronically signed by : Nadia Bundy MD 04/19/2023 16:03:24
[2023-04-06] MEDS: GADOTERIDOL INJ 17ML SYRINGE 18 ML IV (12:01)
[2023-04-06] MEDS: SODIUM CHLORIDE 0.9% 10ML SYR (RAD ONLY) 10 ML IV (12:01)
[2023-04-06] MEDS: SODIUM CHLORIDE 0.9% 50ML BAG 25 ML IV (12:01)
== END 2023-04-06 23:59 ==
LOC: RAD 09:55
PROVIDERS: PCP Internal Medicine Adolescent Medicine; Visit Provider Nurse Practitioner Family
DX: E78.5 Hyperlipidemia, unspecified (principal); I10 Essential (primary) hypertension; I25.5 Ischemic cardiomyopathy; R06.02 Shortness of breath; R94.31 Abnormal electrocardiogram [ECG] [EKG]
CPT/HCPCS: 75561; A9576

== ENCOUNTER 2023-04-10 14:26 | Outpatient (CLI) | payer MEDICARE, SELFPAY ==
[2023-04-10 15:35] LABS: Anion Gap 10.5 mEq/L (5-15); Blood Urea Nitrogen 22 mg/dl (7-17); Calcium 9.6 mg/dl (8.4-10.2); Carbon Dioxide 33 mmol/L (22.0-30.0); Chloride 96 mmol/L (98-107); Estimated Glomerular Filt Rate 57 ml/min (>60); GFR (African American) 69 ML/MIN (>60); Glucose 135 mg/dl (74-100); Potassium 3.5 mmoL/L (3.5-5.1); Sodium 136 mmol/L (136-145)
== END 2023-04-10 23:59 ==
LOC: LAB 14:27
PROVIDERS: PCP Internal Medicine Adolescent Medicine; Visit Provider Nurse Practitioner Family
DX: E78.2 Mixed hyperlipidemia (principal); I10 Essential (primary) hypertension; I25.10 Atherosclerotic heart disease of native coronary artery without angina pectoris; I50.20 Unspecified systolic (congestive) heart failure; R06.09 Other forms of dyspnea
CPT/HCPCS: 36415; 80048

== ENCOUNTER 2023-04-25 13:54 | Outpatient (POV) | payer MEDICARE, SELFPAY | END 2023-04-25 23:59 | disposition home or self-care (01) | LOC: SC 13:55 | PROVIDERS: PCP Internal Medicine Adolescent Medicine; Visit Provider Dermatology | DX: Z00.00 Encounter for general adult medical examination without abnormal findings (principal) ==

== ENCOUNTER 2023-04-27 13:04 | Outpatient (RCR) | payer MEDICARE, SELFPAY | END 2023-06-21 15:00 | disposition home or self-care (01) | LOC: PT 13:04 | PROVIDERS: Visit Provider Nurse Practitioner Family | DX: I25.10 Atherosclerotic heart disease of native coronary artery without angina pectoris (principal); R06.00 Dyspnea, unspecified; I51.81 Takotsubo syndrome; I50.20 Unspecified systolic (congestive) heart failure; E03.9 Hypothyroidism, unspecified; E78.5 Hyperlipidemia, unspecified | CPT/HCPCS: 93798 ==

== ENCOUNTER 2023-05-02 11:39 | Emergency (ER) | payer MEDICARE, SELFPAY ==
[2023-05-02 11:46] VITALS: BP 129/81; PULSE 82; RESP 16; TEMP 36.6; O2SAT 99; BMI 25.0
--- NOTE | 2023-05-02 11:53 | XR_ITS ---
FINAL REPORT CLINICAL HISTORY: third and 4th digit erosions and blisters COMPARISON: 09/02/2022 FINDINGS: Right foot Three views were obtained. There is no acute fracture or dislocation. There is mild hallux valgus deformity. Mild degenerative changes are present. There is a small calcaneal spur. No definite bony erosion is identified. IMPRESSION: Mild degenerative changes. No definite bony erosion. Reviewed, Interpreted and Dictated by Ck Mitchell III, MD Transcribed by Valentine Canela Authenticated and [facility]
--- NOTE | 2023-05-02 11:56 | HMH.EDGENADL ---
Discharge Plan Disposition Patient Disposition: Home, Self-Care Prescriptions Prescriptions: New sulfamethoxazole-trimethoprim [Bactrim DS] 800-160 mg tablet 1 tab PO BID 7 Days Qty: 14 0RF cephalexin 500 mg capsule 1,000 mg PO BID 7 Days Qty: 28 0RF No Action duloxetine [Cymbalta] 60 mg capsule,delayed release(DR/EC) 60 mg PO BID bupropion HCl 150 mg tablet extended release 24 hr 150 mg PO DAILY furosemide 40 mg tablet 40 mg PO DAILY Qty: 90 3RF levothyroxine 200 mcg tablet 200 mcg PO DAILY Jardiance 10 mg tablet 10 mg PO DAILY Qty: 90 3RF metoprolol succinate [Toprol XL] 25 mg tablet extended release 24 hr 25 mg PO DAILY Qty: 90 3RF Entresto 49-51 mg tablet 1 tab PO BID Qty: 180 3RF fluoxetine 20 mg tablet 20 mg PO DAILY estradiol 2 mg tablet 2 mg PO DAILY Qty: 30 11RF spironolactone [Aldactone] 50 mg tablet 50 mg PO DAILY Qty: 30 5RF tizanidine 4 mg tablet 4 mg PO Q8H PRN (Reason: Muscle Pain) oxcarbazepine 300 mg Tablet 300 mg PO BID gabapentin 800 mg tablet 800 mg PO TID docusate sodium [Colace] 100 mg Capsule 100 mg PO DAILY omeprazole 20 mg capsule,delayed release(DR/EC) 20 mg PO BID cholecalciferol (vitamin D3) [Vitamin D3] 50 mcg (2,000 unit) Capsule 50 mcg PO DAILY ipratropium-albuterol 0.5 mg-3 mg(2.5 mg base)/3 mL solution for nebulization 3 ml inhalation Q6H PRN (Reason: Shortness Of Breath Or Wheezing) aspirin 81 mg Tablet,Delayed Release (Dr/Ec) 81 mg PO DAILY 30 Days Qty: 30 0RF doxycycline hyclate 100 mg capsule 100 mg PO BID 5 Days Qty: 10 0RF Referrals Follow up/Referrals: Kody Dunn MD [Primary Care Provider] - See instructions Activity Restrictions/Add. Instructions Additional Instructions/Restrictions: Bactrim and Keflex twice daily for 7 days. Maintain follow-up with podiatry. Call your family doctor to establish care for this visit to the emergency department and schedule follow-up within 48 hours to ensure improvement. If you have any worsening of your condition or any other concerning signs or symptoms, return to the emergency department or your primary care doctor for further evaluation. Clinical Impressions Clinical Impression: Cellulitis of toe of right foot Discharge ED Provider: Andres Hunt General Adult HPI General Chief complaint: Extremity Injury, Lower Stated complaint: pain in middle toe on Rt foot Time Seen by Provider: 05/02/23 11:47 Mode of Arrival: Ambulatory Source of Information: Patient Limitations: No Limitations Description of Symptoms (Recalled from ER Triage Doc. by RN): Pt. complains of right 3rd, 4th, & 5th toe pain and swelling. Toes appear to have blisters and purluent discharge from 3rd toe. Toes are red and swollen. Swelling started april 21 per patient. No known injury noted. She has been using neosporin. History of Present Illness HPI narrative: Is a 57-year-old female with a hyper to, hyperlipidemia, decompensated heart failure in the setting of presumed myocarditis, asthma, CAD, neuropathy presenting with right foot pain and blistering. Patient states that earlier this month on 04/20 she started noticing her right third toe flapped open. Since that time, she has been keeping it closed with a Band-Aid. Over the last couple days, red send pain has spread from that toe to her right fourth and fifth digits as well. Right fourth digit is now blistering at the end and is painful. No fevers or chills, nausea or vomiting, known trauma to the area, fresh or salt water exposure, history of diabetes, new medications, or any other concerns. States that she had something like this in the past which resolved with antibiotics. Called in order to schedule appointment with podiatry tomorrow, 05/02, they recommended she come to the emergency department before scheduling the appointment. Please note that above description of symptoms, in this electronic medical record under categorization of recalled from ER triage doctor by RN are reflective of an initial nursing assessment, however, is not reflective of my full history and physical exam that was personally taken and clarified. Consequentially, this preceding description of symptoms, which may include the patient's categorized chief complaint in the EMR, do not reflect my personal clinical impression, and the ultimate description of history of present illness and patient stated complaints should be deferred to this section of the note. Unless stated otherwise or congruent with this section of the note, additional signs, symptoms, or incongruence should be interpreted as inaccurate with my clinical impression. Related Data Home Medications Medication Instructions Recorded Confirmed levothyroxine 200 mcg tablet 200 mcg PO DAILY 01/30/18 05/02/23 duloxetine 60 mg capsule,delayed 60 mg PO BID 03/19/18 05/02/23 release (Cymbalta) fluoxetine 20 mg tablet 20 mg PO DAILY 12/01/22 05/02/23 cholecalciferol (vitamin D3) 50 50 mcg PO DAILY 02/18/23 05/02/23 mcg (2,000 unit) capsule (Vitamin D3) docusate sodium 100 mg capsule 100 mg PO DAILY 02/18/23 05/02/23 (Colace) gabapentin 800 mg tablet 800 mg PO TID 02/18/23 05/02/23 omeprazole 20 mg capsule,delayed 20 mg PO BID 02/18/23 05/02/23 release oxcarbazepine 300 mg tablet 300 mg PO BID 02/18/23 05/02/23 tizanidine 4 mg tablet 4 mg PO Q8H PRN Muscle Pain 02/18/23 05/02/23 ipratropium 0.5 mg-albuterol 3 mg 3 ml inhalation Q6H PRN Shortness 02/28/23 05/02/23 (2.5 mg base)/3 mL nebulization Of Breath Or Wheezing soln bupropion HCl 150 mg 24 hr tablet, 150 mg PO DAILY 03/27/23 05/02/23 extended release Previous Rx's Medication Instructions Recorded estradiol 2 mg tablet 2 mg PO DAILY #30 tabs 12/01/22 aspirin 81 mg tablet,delayed 81 mg PO DAILY 30 days #30 tabs 03/03/23 release doxycycline hyclate 100 mg capsule 100 mg PO BID 5 days #10 caps 03/03/23 empagliflozin 10 mg tablet 10 mg PO DAILY #90 tabs 03/22/23 (Jardiance) metoprolol succinate 25 mg 25 mg PO DAILY #90 tabs 03/22/23 tablet,extended release 24 hr (Toprol XL) sacubitril 49 mg-valsartan 51 mg 1 tab PO BID #180 tabs 03/22/23 tablet (Entresto) spironolactone 50 mg tablet 50 mg PO DAILY #30 tabs 04/05/23 (Aldactone) furosemide 40 mg tablet 40 mg PO DAILY #90 tabs 04/10/23 cephalexin 500 mg capsule 1,000 mg (2 x 500 mg) PO BID 7 05/02/23 days #28 caps sulfamethoxazole 800 1 tab PO BID 7 days #14 tabs 05/02/23 mg-trimethoprim 160 mg tablet (Bactrim DS) Allergies Allergy/AdvReac Type Severity Reaction Status Date / Time hydroxychloroquine Allergy Unknown Verified 04/10/23 13:33 [From Plaquenil] allergy reaction levofloxacin [From Levaquin] AdvReac Intermediate INTERACTION Verified 04/10/23 13:33 WITH ANTIDEPRESSANTS Cqinohc-QSW-NhC Reductase AdvReac Intermediate MUSCLE PAIN Verified 04/10/23 13:33 Inhibitor PFSH PFS Disclaimer: The information contained in this section may have been updated after the patient was seen, as this information can be updated by other users. Medical History (Updated 05/02/23 @ 13:48 by Andres Hunt MD) Chest pain HFrEF (heart failure with reduced ejection fraction) LV dysfunction Dilated cardiomyopathy NSTEMI (non-ST elevated myocardial infarction) Sepsis Multifocal pneumonia Dyspnea Influenza A Diarrhea in adult patient Nausea & vomiting Callus of foot Hammertoes of both feet Acquired hallux valgus of both feet Chronic pain Chronic foot pain Class 1 obesity Osteoarthritis of feet, bilateral Psoriatic arthritis Foot ulcer SOB (shortness of breath) on exertion Dyspnea on exertion History of 2019 novel coronavirus disease (COVID-19) Moderate persistent asthma Dyspnea on exertion Hypothyroidism (acquired) Community acquired bilateral lower lobe pneumonia CAP (community acquired pneumonia) GERD (gastroesophageal reflux disease) Thyroid condition Asthma Neuropathy Diaphoresis Dyspnea Edema HLD (hyperlipidemia) HTN (hypertension) CAD (coronary artery disease) Neuropathy Surgical History History of hemorrhoidectomy History of cardiac cath History of carpal tunnel release History of hysterectomy Family History Other Family history of acute congestive heart failure Family history of cancer Social History Smoking Status: Never smoker second hand exposure: No alcohol intake: never substance use type: denies use current occupational status: employed and retired Travel in the last 8 weeks: None household members: other housing: house 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 current occupational exposures/hazards: No caffeine: Yes ROS Obtained: Yes All systems reviewed & no additional complaints except as documented Physical Exam General General appearance: alert and in no apparent distress Head Head exam: atraumatic and normocephalic Eye Eye exam: Present normal appearance, PERRL and EOMI ENT ENT exam: Present mucous membranes moist Neck Neck exam: Present normal inspection, full ROM and trachea midline Respiratory Respiratory exam: Absent respiratory distress, wheezes, stridor, accessory muscle use or prolonged expiratory phase Cardiovascular Cardiovascular exam: Present normal rhythm Abdominal Exam Abdominal exam: Present soft; Absent distention, tenderness, guarding, rebound or rigidity Extremities Exam Extremities exam: Present edema and other (Edema, erythema, numbness about right third through fifth digits. Blistering which has opened at the distal end of third digit, blistering with surrounding duskiness right fourth digit. Erythematous right fifth digit.) Neurological Exam Neurological exam: Present alert, oriented X3, CN II-XII intact and normal gait; Absent motor sensory deficit Skin Skin exam: Present warm and dry; Absent diaphoresis or erythema Medical Decision Making Medical Records Medical records reviewed: Yes I reviewed the patient's medical records. Wilfrido Inquiry Pt receiving controlled substance: No Wilfr[place] was queried for this patient: No Vital Signs: 05/02/23 11:46 05/02/23 12:32 05/02/23 13:00 Temperature 97.9 F Temperature Source Oral Pulse Rate 74 69 Pulse Rate [Right Brachial] 82 Respiratory Rate 16 Blood Pressure 127/96 H 140/83 Blood Pressure [Left Arm] 129/81 Blood Pressure Mean [Left Arm] 97 Blood Pressure Source [Left Arm] Automatic Cuff Blood Pressure Position [Left Arm] Sitting 02 Sat by Pulse Oximetry 99 98 97 Oxygen Delivery Method Room Air Lab Data Lab Results 05/02/23 12:50: WBC 9.7, RBC 4.67, Hgb 14.8, Hct 44.1, MCV 94.6, MCH 31.7 H, MCHC 33.5, RDW 13.4, Plt Count 366, MPV 7.3 L, Neut % (Auto) 58.7, Lymph % (Auto) 34.4, [place] % (Auto) 4.3, Eos % (Auto) 1.4, Baso % (Auto) 1.3, Neut # (Auto) 5.7, Lymph # (Auto) 3.3, [place] # (Auto) 0.4, Eos # (Auto) 0.1, Baso # (Auto) 0.1, Sodium 137, Potassium 3.3 L, Chloride 99, Carbon Dioxide 29, Anion Gap 12.3, BUN 22 H, Creatinine 1.00, Estimated Creat Clear 69, Estimated GFR 57 L, Est GFR ( Amer) 69, Glucose 129 H, Calcium 9.8, Total Bilirubin 0.4, AST 28, ALT 21, Alkaline Phosphatase 92, C-Reactive Protein 13.9 H, Total Protein 8.1, Albumin 4.6, Globulin 3.5 H, Albumin/Globulin Ratio 1.3 05/02/23 12:50 05/02/23 12:50 Orders (Tests/Meds): ED MEDICATIONS Discontinued Medications Generic Name Dose Route Start Last Admin Trade Name Freq PRN Reason Stop Dose Admin Cephalexin HCl 1,000 mg 05/02/23 11:53 05/02/23 12:12 Cephalexin 500mg Capsule PO 05/02/23 11:54 1,000 mg ONCE ONE Administration Trimethoprim/Sulfamethoxazole 1 each 05/02/23 11:53 05/02/23 12:12 Sulfa/Trimethoprim 1 Tablet PO 05/02/23 11:54 1 each ONCE ONE Administration ORDERS Category Date Time Status Foot XR right minimum 3 views [XR foot RT min 3V] Stat Exams 05/02/23 11:53 Completed CBC w/Auto Diff [Complete Blood Count Auto Diff] Stat Lab 05/02/23 12:50 Results CMP [Comprehensive Metabolic Panel] Stat Lab 05/02/23 12:50 Completed CRP [C-Reactive Protein] Stat Lab 05/02/23 12:50 Completed ESR [Erythrocyte Sedimentation Rate] Stat Lab 05/02/23 12:50 Results Hemoglobin A1C Stat Lab 05/02/23 12:50 Received Lipid Panel Stat Lab 05/02/23 12:50 Received Medical Decision Narrative: Is a 57-year-old female with a hyper to, hyperlipidemia, decompensated heart failure in the setting of presumed myocarditis, asthma, CAD, neuropathy presenting with right foot pain and blistering. Patient states that earlier this month on 04/20 she started noticing her right third toe flapped open. Since that time, she has been keeping it closed with a Band-Aid. Over the last couple days, red send pain has spread from that toe to her right fourth and fifth digits as well. Right fourth digit is now blistering at the end and is painful. No fevers or chills, nausea or vomiting, known trauma to the area, fresh or salt water exposure, history of diabetes, new medications, or any other concerns. States that she had something like this in the past which resolved with antibiotics. Called in order to schedule appointment with podiatry tomorrow, 05/02, they recommended she come to the emergency department before scheduling the appointment. History was obtained via conversation with patient. On arrival, patient hemodynamically stable, alert, oriented x4, appropriate, GCS 15, moving all extremities spontaneously, pupils equal and reactive to light. Full physical exam performed and significant for erythematous, tender, edematous right third through fifth digits. She does have blisters at the end of her third and fourth digits, the third digit blister has opened, the fourth digit blister has not. Neurovascularly intact aside from sensation deficits at baseline. Differential includes cellulitis, abscess, necrotizing infection, osteomyelitis, among others. Patient was given Bactrim and Keflex p.o. for symptomatic management and correction of underlying abnormalities. Workup independently interpreted and significant for no leukocytosis. Chemistry nonactionable. CRP only mildly elevated at 13.9. Hemoglobin A1c and ESR pending at time of discharge. X-ray of the foot without concern for osteomyelitis. see radiology read for full review of final results. On reevaluation, patient remains at baseline. It was recommended that she call and schedule appointment for tomorrow, 05/02 regardless of today's workup given appearance of foot, she voiced her understanding. Given patient presentation, workup, history, this most likely represents cellulitis of toes of her right foot without evidence of osteomyelitis. Because patient at baseline without signs or symptoms of clinical decompensation, deemed appropriate for discharge. Results were relayed to patient who voiced understanding and were agreeable to outpatient management and follow up. I discussed my clinical impression with patient and answered all questions. At this time, the evidence for any other entities in the differential is insufficient to warrant any further testing or ED observation. This was explained as well. Advisory was given that persistent or worsening symptoms require further evaluation. I confirmed the understanding of this discussion. Critical Care Critical Care Time Critical Care Time: No
[2023-05-02] MEDS: SULFA/TRIMETHOPRIM 1 TABLET 1 EACH PO (12:12)
[2023-05-02] MEDS: cephALEXin 500MG CAPSULE 1000 MG PO (12:12)
[2023-05-02 12:32] VITALS: BP 127/96; PULSE 74; O2SAT 98
[2023-05-02 13:00] VITALS: BP 140/83; PULSE 69; O2SAT 97
[2023-05-02 13:09] LABS: Basophils # 0.1 K/mm3 (0-0.2); Basophils % 1.3 % (0.1-2.0); Eosinophils # 0.1 K/mm3 (0.0-0.4); Eosinophils % 1.4 % (0.1-12.0); Hematocrit 44.1 % (37.0-47.0); Hemoglobin 14.8 g/dL (12.2-16.2); Lymphocytes # 3.3 K/mm3 (0.7-4.5); Lymphocytes % 34.4 % (10-50); Mean Corpuscular HGB Conc 33.5 g/dL (31.8-35.4); Mean Corpuscular Hemoglobin 31.7 pg (27.0-31.2); Mean Corpuscular Volume 94.6 fl (81-99); Mean Platelet Volume 7.3 fl (7.4-10.4); Monocytes # 0.4 K/mm3 (0.1-1.0); Monocytes % 4.3 % (1.7-9.3); Neutrophils # 5.7 K/mm3 (1.8-7.8); Neutrophils % 58.7 % (37.0-80.0); Platelet Count 366 K/mm3 (142-424); Red Blood Count 4.67 M/mm3 (4.20-5.40); Red Cell Distribution Width 13.4 % (11.5-17.5); White Blood Count 9.7 K/mm3 (4.8-10.8)
[2023-05-02 13:18] LABS: Alanine Aminotransferase 21 U/L (12-78); Albumin Level 4.6 g/dl (3.5-5.0); Albumin/Globulin Ratio 1.3 (1.1-1.8); Alkaline Phosphatase 92 U/L (38-126); Aspartate Amino Transferase 28 U/L (14-36); Bilirubin,Total 0.4 mg/dl (0.2-1.3); Calcium 9.8 mg/dl (8.4-10.2); Globulin 3.5 g/dL (1.3-3.2); Glucose 129 mg/dl (74-100); Potassium 3.3 mmoL/L (3.5-5.1); Sodium 137 mmol/L (136-145); Total Protein,Serum 8.1 g/dl (6.3-8.2)
[2023-05-02 13:20] LABS: Anion Gap 12.3 mEq/L (5-15); Blood Urea Nitrogen 22 mg/dl (7-17); Carbon Dioxide 29 mmol/L (22.0-30.0); Chloride 99 mmol/L (98-107); Creatinine Clearance Estimated 69 mL/min (50-200); Estimated Glomerular Filt Rate 57 ml/min (>60); GFR (African American) 69 ML/MIN (>60)
[2023-05-02 13:24] LABS: C-Reactive Protein 13.9 mg/L (0-4)
--- NOTE | 2023-05-02 13:25 | PC.NURSE ---
Rounded on pt. No needs or complaints voiced.
[2023-05-02 13:50] LABS: HDL Cholesterol 36 mg/dl (40-60); Triglycerides 294 mg/dl (30-150); VLDL Cholesterol 59 mg/dL (0-40)
[2023-05-02 13:55] VITALS: BP 117/97; PULSE 67; RESP 18; TEMP 36.6; O2SAT 97
--- NOTE | 2023-05-02 14:01 | PC.NURSE ---
wrapped right foot with gauze and coband. pt tolerated well
[2023-05-02 15:38] LABS: Erythrocyte Sedimentation Rate 28 mm/hr (0-30)
[2023-05-02 15:48] LABS: Chol/HDL Ratio 10.8 (1-3.5); Cholesterol 389 mg/dl (140-200)
[2023-05-02 15:56] LABS: Hemoglobin A1C 5.9 % (4.0-6.0)
== END 2023-05-02 14:04 | disposition home or self-care (01) ==
PROVIDERS: Emergency Provider Emergency Medicine; PCP Internal Medicine Adolescent Medicine
DX: L03.115 Cellulitis of right lower limb (principal); G62.9 Polyneuropathy, unspecified; I50.20 Unspecified systolic (congestive) heart failure; I42.0 Dilated cardiomyopathy; I25.2 Old myocardial infarction; L40.52 Psoriatic arthritis mutilans; J45.40 Moderate persistent asthma, uncomplicated; E03.9 Hypothyroidism, unspecified; K21.9 Gastro-esophageal reflux disease without esophagitis; E78.5 Hyperlipidemia, unspecified; I10 Essential (primary) hypertension; I25.10 Atherosclerotic heart disease of native coronary artery without angina pectoris
CPT/HCPCS: 73630; 80053; 80061; 83036; 85025; 85651; 86140; 99285

== ENCOUNTER 2023-05-03 16:36 | Outpatient (CLI) | payer MEDICARE, SELFPAY | END 2023-05-03 23:59 | LOC: LAB.DROPOF 16:36 | PROVIDERS: PCP Podiatrist; Visit Provider Podiatrist | DX: L03.031 Cellulitis of right toe (principal) | CPT/HCPCS: 87070; 87205 ==

== ENCOUNTER 2023-05-08 14:31 | Outpatient (CLI) | payer MEDICARE, SELFPAY ==
--- NOTE | 2023-05-08 14:31 | US_ITS ---
FINAL REPORT CLINICAL HISTORY: Decreased Pedal Pulses, ex smoker, HLD, HTN, CAD FINDINGS: ANKLE-BRACHIAL PRESSURE INDICES Pressure indices are as follows: RIGHT LOWER EXTREMITY: Ankle-brachial pressure index: 1.1 Comments: Normal LEFT LOWER EXTREMITY: Ankle-brachial pressure index: 1.1 Comments: Normal IMPRESSION: No evidence of significant obstructive peripheral vascular disease of the lower extremities Reviewed, Interpreted and Dictated by Becka Lemus MD Transcribed by Margarita Mancini Authenticated and [facility]
== END 2023-05-08 23:59 ==
LOC: RT 14:31
PROVIDERS: PCP Internal Medicine Adolescent Medicine; Visit Provider Podiatrist
DX: R09.89 Other specified symptoms and signs involving the circulatory and respiratory systems (principal)
CPT/HCPCS: 93923

== ENCOUNTER 2023-05-10 09:50 | Outpatient (CLI) | payer MEDICARE, SELFPAY ==
--- NOTE | 2023-05-10 11:05 | PC.NURSE ---
PT IN A BOOT, UNABLE TO PERFORM 6MW
[2023-05-10] MEDS: ALBUTEROL 0.083% 2.5 MG/3 ML NEB IH (11:06)
== END 2023-05-10 23:59 ==
LOC: RT 09:52
PROVIDERS: PCP Internal Medicine Adolescent Medicine; Visit Provider Internal Medicine Pulmonary Disease
DX: R06.09 Other forms of dyspnea (principal)
CPT/HCPCS: 94060; 94726; 94729

== ENCOUNTER 2023-06-14 11:12 | Outpatient (CLI) | payer MEDICARE, SELFPAY ==
[2023-06-14 11:28] LABS: Basophils # 0.1 K/mm3 (0-0.2); Eosinophils # 0.2 K/mm3 (0.0-0.4); Eosinophils % 1.4 % (0.1-12.0); Hematocrit 45.1 % (37.0-47.0); Hemoglobin 15.3 g/dL (12.2-16.2); Lymphocytes # 4.1 K/mm3 (0.7-4.5); Mean Corpuscular HGB Conc 34.1 g/dL (31.8-35.4); Mean Corpuscular Volume 90.9 fl (81-99); Mean Platelet Volume 7.3 fl (7.4-10.4); Monocytes # 0.6 K/mm3 (0.1-1.0); Neutrophils # 6.7 K/mm3 (1.8-7.8); Neutrophils % 57.6 % (37.0-80.0); Platelet Count 413 K/mm3 (142-424); Red Blood Count 4.96 M/mm3 (4.20-5.40); Red Cell Distribution Width 13.3 % (11.5-17.5); White Blood Count 11.7 K/mm3 (4.8-10.8)
[2023-06-14 12:03] LABS: Free T4 (Free Thyroxine) 1.17 ng/dl (0.78-2.19)
[2023-06-14 12:12] LABS: Alanine Aminotransferase 22 U/L (12-78); Albumin Level 4.8 g/dl (3.5-5.0); Albumin/Globulin Ratio 1.6 (1.1-1.8); Alkaline Phosphatase 94 U/L (38-126); Anion Gap 13.6 mEq/L (5-15); Aspartate Amino Transferase 29 U/L (14-36); Bilirubin,Total 0.7 mg/dl (0.2-1.3); Blood Urea Nitrogen 18 mg/dl (7-17); Calcium 9.9 mg/dl (8.4-10.2); Carbon Dioxide 30 mmol/L (22.0-30.0); Chloride 99 mmol/L (98-107); Estimated Glomerular Filt Rate 51 ml/min (>60); GFR (African American) 62 ML/MIN (>60); Glucose 110 mg/dl (74-100); Potassium 3.6 mmoL/L (3.5-5.1); Sodium 139 mmol/L (136-145); Total Protein,Serum 7.8 g/dl (6.3-8.2)
== END 2023-06-14 23:59 | disposition home or self-care (01) ==
LOC: LAB 11:13
PROVIDERS: PCP Internal Medicine Adolescent Medicine; Visit Provider Psychiatry & Neurology Psychosomatic Medicine
DX: Z01.89 Encounter for other specified special examinations (principal); E53.8 Deficiency of other specified B group vitamins; E55.9 Vitamin D deficiency, unspecified; L40.50 Arthropathic psoriasis, unspecified; N28.9 Disorder of kidney and ureter, unspecified; R76.8 Other specified abnormal immunological findings in serum; Z79.899 Other long term (current) drug therapy
CPT/HCPCS: 36415; 80053; 84439; 84443; 85025

== ENCOUNTER 2023-07-18 13:34 | Outpatient (POV) | payer MEDICARE, SELFPAY | END 2023-07-18 23:59 | disposition home or self-care (01) | LOC: SC 13:34 | PROVIDERS: PCP Internal Medicine Adolescent Medicine; Visit Provider Dermatology | DX: Z00.00 Encounter for general adult medical examination without abnormal findings (principal) ==

== ENCOUNTER 2023-08-02 12:20 | Outpatient (CLI) | payer MEDICARE, SELFPAY ==
[2023-08-02 12:47] LABS: Basophils # 0.1 K/mm3 (0-0.2); Basophils % 1.3 % (0.1-2.0); Eosinophils # 0.1 K/mm3 (0.0-0.4); Eosinophils % 1.6 % (0.1-12.0); Hematocrit 44.5 % (37.0-47.0); Lymphocytes # 3.1 K/mm3 (0.7-4.5); Lymphocytes % 37.2 % (10-50); Mean Corpuscular HGB Conc 33.8 g/dL (31.8-35.4); Mean Corpuscular Hemoglobin 31.5 pg (27.0-31.2); Mean Corpuscular Volume 93.2 fl (81-99); Mean Platelet Volume 7.6 fl (7.4-10.4); Monocytes # 0.4 K/mm3 (0.1-1.0); Monocytes % 5.1 % (1.7-9.3); Neutrophils # 4.5 K/mm3 (1.8-7.8); Neutrophils % 54.8 % (37.0-80.0); Platelet Count 402 K/mm3 (142-424); Red Blood Count 4.78 M/mm3 (4.20-5.40); Red Cell Distribution Width 12.8 % (11.5-17.5); White Blood Count 8.3 K/mm3 (4.8-10.8)
[2023-08-02 13:06] LABS: Hemoglobin A1C 5.6 % (4.0-6.0)
[2023-08-02 13:41] LABS: Alanine Aminotransferase 18 U/L (12-78); Albumin Level 4.5 g/dl (3.5-5.0); Albumin/Globulin Ratio 1.5 (1.1-1.8); Alkaline Phosphatase 101 U/L (38-126); Anion Gap 12.8 mEq/L (5-15); Aspartate Amino Transferase 27 U/L (14-36); Bilirubin,Total 0.4 mg/dl (0.2-1.3); Blood Urea Nitrogen 22 mg/dl (7-17); Calcium 9.7 mg/dl (8.4-10.2); Carbon Dioxide 33 mmol/L (22.0-30.0); Chloride 96 mmol/L (98-107); Estimated Glomerular Filt Rate 51 ml/min (>60); GFR (African American) 62 ML/MIN (>60); Glucose 116 mg/dl (74-100); Potassium 3.8 mmoL/L (3.5-5.1); Sodium 138 mmol/L (136-145); Total Protein,Serum 7.5 g/dl (6.3-8.2)
[2023-08-02 13:46] LABS: C-Reactive Protein 7.2 mg/L (0-4)
[2023-08-02 13:56] LABS: Erythrocyte Sedimentation Rate 14 mm/hr (0-30)
== END 2023-08-02 23:59 | disposition home or self-care (01) ==
LOC: LAB 12:21
PROVIDERS: PCP Internal Medicine Adolescent Medicine; Visit Provider Podiatrist
DX: L84 Corns and callosities (principal); E11.621 Type 2 diabetes mellitus with foot ulcer; L97.512 Non-pressure chronic ulcer of other part of right foot with fat layer exposed; L97.519 Non-pressure chronic ulcer of other part of right foot with unspecified severity; Z79.84 Long term (current) use of oral hypoglycemic drugs
CPT/HCPCS: 36415; 80053; 83036; 85025; 85651; 86140

== ENCOUNTER 2023-09-05 12:04 | Outpatient (CLI) | payer MEDICARE, SELFPAY | END 2023-09-05 23:59 | disposition home or self-care (01) | LOC: RT 12:06 | PROVIDERS: PCP Internal Medicine Adolescent Medicine; Visit Provider Nurse Practitioner | DX: R00.2 Palpitations (principal) | CPT/HCPCS: 93270 ==

== ENCOUNTER 2023-09-20 18:19 | Inpatient (IN) | payer MEDICARE, SELFPAY ==
[2023-09-20] VITALS (22 sets, daily range): BP systolic 119–187; BP diastolic 78–127; PULSE 86–130; RESP 15–31; TEMP 36.6–36.8; O2SAT 95–127; BMI 26.6; BMI 25.8; BMI 25.9
--- NOTE | 2023-09-20 | IR_ITS ---
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 COMPLICATIONS None Estimated Blood Loss: Less than 10 mls TECHNIQUE One percent lidocaine used to anesthetize the right anterior aspect of the wrist. The right radial artery was accessed via the Seldinger technique. A 6 [place] sheath was placed in the right radial artery. 2.5 mg of Verapamil, 800 mcg of nitroglycerin, 1mg Lidocaine and 5000 U Heparin were given through the arterial sheath. The papa catheter was also used to perform left heart catheterization, left ventriculogram and selective coronary angiogram. Poppa catheter was used to perform bilateral nonselective renal angiography. At the end of the procedure the sheath was removed good hemostasis was achieved using Traclet band, patient was transferred to the postop holding area in stable condition. ANGIOGRAPHIC RESULTS The left main artery Normal The left anterior descending artery Mild 10% luminal regularities The circumflex artery Normal The right coronary artery Normal The BRITTON ventriculogram reveals Hyperdynamic 75% The left ventricular end-diastolic pressure 10 mmHg Right renal artery singular normal Left renal artery singular normal IMPRESSION Mild nonflow limiting luminal regularities Hyperdynamic ventricle Normal LVEDP Normal renal arteries bilaterally PLAN 1. Metoprolol tartrate 50 mg p.o. x 1 now 2. Continue nitroglycerin drip and titrate to lower blood pressure 3. Recommend renal ultrasound in the morning to look for renal cell carcinoma in the setting of polycythemia 4. Recommend sleep study 5. Workup for polycythemia. Is possible patient may have polycythemia vera and may require phlebotomy. 6. Risk factor modification 7. Formal echocardiogram in the morning Electronically signed by : Robert Carrillo MD 09/20/2023 20:31:06
--- NOTE | 2023-09-20 18:26 | ECG_ITS ---
APPROVED REPORT Exam: Resting ECG HR:96 bpm ECG Measurements Heart Rate 96 AXES MO 176 P 61 QRSd 88 QRS 53 QT 368 T 54 QTc 421 Conclusion SINUS RHYTHM WITH SINUS ARRHYTHMIA MODERATE ST DEPRESSION [0.05+ mV ST DEPRESSION] Electronically signed by : LAI HAYDEN, 09/22/2023 15:05:07
--- NOTE | 2023-09-20 18:41 | ECG_ITS ---
APPROVED REPORT Exam: Resting ECG HR:87 bpm ECG Measurements Heart Rate 87 AXES WI 172 P 57 QRSd 89 QRS 85 QT 382 T 58 QTc 427 Conclusion SINUS RHYTHM MODERATE ST DEPRESSION [0.05+ mV ST DEPRESSION] ABNORMAL ECG Electronically signed by : LAI HAYDEN, 09/22/2023 15:04:45
--- NOTE | 2023-09-20 18:44 | XR_ITS ---
PROCEDURE INFORMATION: Exam: XR Chest Exam date and time: 09/20/2023 6:45 PM Age: 58 years old Clinical indication: Pain; Chest pressure; Additional info: Chest pain TECHNIQUE: Imaging protocol: Radiologic exam of the chest. Views: 1 view. COMPARISON: 1. CR XR CHEST 2V 08/15/2023 14:[address] ANGIO CHEST 09/20/2023 7:01 PM FINDINGS: Lungs: Unremarkable. No consolidation. Pleural spaces: Unremarkable. No pleural effusion. No pneumothorax. Heart/Mediastinum: Unremarkable. No cardiomegaly. Bones/joints: Unremarkable. IMPRESSION: No acute findings.
--- NOTE | 2023-09-20 18:48 | PC.NURSE ---
Dr. Seth speaking with Dr. Carrillo.
[2023-09-20 18:51] LABS: Basophils # 0.1 K/mm3 (0-0.2); Basophils % 0.5 % (0.1-2.0); Eosinophils # 0.2 K/mm3 (0.0-0.4); Eosinophils % 0.8 % (0.1-12.0); Hematocrit 52.1 % (37.0-47.0); Hemoglobin 17.7 g/dL (12.2-16.2); Lymphocytes # 2.5 K/mm3 (0.7-4.5); Lymphocytes % 10.6 % (10-50); Mean Corpuscular HGB Conc 34.1 g/dL (31.8-35.4); Mean Corpuscular Hemoglobin 31.7 pg (27.0-31.2); Mean Platelet Volume 7.2 fl (7.4-10.4); Monocytes % 4.1 % (1.7-9.3); Neutrophils # 19.8 K/mm3 (1.8-7.8); Platelet Count 489 K/mm3 (142-424); Red Cell Distribution Width 12.9 % (11.5-17.5); White Blood Count 23.6 K/mm3 (4.8-10.8)
--- NOTE | 2023-09-20 18:52 | CT_ITS ---
PROCEDURE INFORMATION: Exam: CTA Chest With Contrast Exam date and time: 09/20/2023 7:01 PM Age: 58 years old Clinical indication: Pain; Chest pressure; Additional info: Chest pain TECHNIQUE: Imaging protocol: Computed tomographic angiography of the chest with contrast. Exam focused on the arteries. 3D rendering (Not supervised by radiologist): MIP and/or 3D reconstructed images were created by the technologist. Radiation optimization: All CT scans at this facility use at least one of these dose optimization techniques: automated exposure control; mA and/or kV adjustment per patient size (includes targeted exams where dose is matched to clinical indication); or iterative reconstruction. Contrast material: ISOVUE; Contrast volume: 80 ml; Contrast route: INTRAVENOUS (IV); COMPARISON: CR XR CHEST PORTABLE 08/21/2023 18:45 FINDINGS: Pulmonary arteries: No pulmonary emboli. Aorta: Unremarkable. No aortic aneurysm. No aortic dissection. Lungs: Mild scarring and atelectasis in the lower lungs. Pleural spaces: Unremarkable. No pneumothorax. No pleural effusion. Heart: Borderline cardiomegaly. Lymph nodes: Unremarkable. No enlarged lymph nodes. Bones/joints: Unremarkable. No acute fracture. Soft tissues: Unremarkable. Other findings: Stigmata of old granulomatous disease. IMPRESSION: No pulmonary emboli.
[2023-09-20 18:54] LABS: Albumin Level 4.9 g/dl (3.5-5.0); Chloride 98 mmol/L (98-107); Potassium 3.1 mmoL/L (3.5-5.1); Sodium 140 mmol/L (136-145)
[2023-09-20 18:55] LABS: MANUAL DIFFERENTIAL MANUAL DIFFERENTIAL (MANUAL DIFF)
--- NOTE | 2023-09-20 18:55 | HMH.EDGENADL ---
Discharge Plan Disposition Chief Complaint: Nausea/Vomiting/Diarrhea Prescriptions Prescriptions: No Action duloxetine [Cymbalta] 60 mg capsule,delayed release(DR/EC) 60 mg PO BID bupropion HCl 150 mg tablet extended release 24 hr 150 mg PO DAILY furosemide 40 mg tablet 40 mg PO DAILY Qty: 90 3RF gentamicin 0.1 % cream 1 applic topical BID 21 Days Qty: 30 0RF fluoxetine 20 mg capsule 20 mg PO BID Jardiance 10 mg tablet 10 mg PO DAILY Qty: 90 1RF levothyroxine 200 mcg tablet 200 mcg PO DAILY metoprolol succinate [Toprol XL] 25 mg tablet extended release 24 hr 25 mg PO DAILY Qty: 90 3RF Entresto 49-51 mg tablet 1 tab PO BID Qty: 180 3RF fluticasone propionate 100 mcg/actuation blister with device 1 inh inhalation BID 90 Days Qty: 60 2RF fluoxetine 20 mg tablet 20 mg PO DAILY estradiol 2 mg tablet 2 mg PO DAILY Qty: 30 11RF acetaminophen-codeine 300-30 mg tablet 1 tab PO DAILY spironolactone [Aldactone] 50 mg tablet 50 mg PO DAILY Qty: 30 5RF tizanidine 4 mg tablet 4 mg PO Q8H PRN (Reason: Muscle Pain) oxcarbazepine 300 mg Tablet 300 mg PO BID gabapentin 800 mg tablet 800 mg PO TID docusate sodium [Colace] 100 mg Capsule 100 mg PO DAILY omeprazole 20 mg capsule,delayed release(DR/EC) 20 mg PO BID cholecalciferol (vitamin D3) [Vitamin D3] 50 mcg (2,000 unit) Capsule 50 mcg PO DAILY aspirin 81 mg Tablet,Delayed Release (Dr/Ec) 81 mg PO DAILY 30 Days Qty: 30 0RF Referrals Follow up/Referrals: Kody Dunn MD [Primary Care Provider] - See instructions Clinical Impressions Clinical Impression: Non-ST elevation ND (NSTEMI) Instructions Patient Instructions: DI for Diarrhea and Traveler's Diarrhea -- Adult, DI for Diarrhea and Traveler's Diarrhea -- Child, DI for Nausea -- Adult, DI for Nausea -- Child Print Language Print Language: Chilean Discharge ED Provider: Yelitza Seth General Adult HPI General Chief complaint: Nausea/Vomiting/Diarrhea Stated complaint: HBP, upper abd pain Time Seen by Provider: 09/20/23 18:44 Mode of Arrival: Ambulatory Source of Information: Patient Limitations: No Limitations Description of Symptoms (Recalled from ER Triage Doc. by RN): c/o upper gastric pain with n/v that started this morning. History of Present Illness HPI narrative: Patient is a 58-year-old female presenting today with epigastric/chest discomfort. This been ongoing all day long and worsening. It is associated with exertion improved with rest associated with nausea and shortness of breath. No significant radiation associated with this. Of note she did have an NSTEMI in February of this year that was attributed to a viral cause most likely influenza possibly COVID. She had an echo at that time that showed 20% LVEF possibly Takotsubo cardiomyopathy. She had a left heart cath which was largely clean. She tells me that she had improvement and resolution of her EF which is not documented here. No history of coronary artery disease that she is aware of. She was diagnosed with nonischemic cardiomyopathy at that time. She denies any fevers chills or any other preceding symptoms and states that she has only been having these severe symptoms in the last 24 hours. Related Data Home Medications ?Medication ?Instructions ?Recorded ?Confirmed levothyroxine 200 mcg tablet 200 mcg PO DAILY 01/30/18 09/05/23 duloxetine 60 mg capsule,delayed 60 mg PO BID 03/19/18 09/05/23 release (Cymbalta) fluoxetine 20 mg tablet 20 mg PO DAILY 12/01/22 09/05/23 cholecalciferol (vitamin D3) 50 50 mcg PO DAILY 02/18/23 09/05/23 mcg (2,000 unit) capsule (Vitamin D3) docusate sodium 100 mg capsule 100 mg PO DAILY 02/18/23 09/05/23 (Colace) gabapentin 800 mg tablet 800 mg PO TID 02/18/23 09/05/23 omeprazole 20 mg capsule,delayed 20 mg PO BID 02/18/23 09/05/23 release oxcarbazepine 300 mg tablet 300 m
--- NOTE | 2023-09-20 18:55 | PC.NURSE ---
pt to ct
[2023-09-20 18:57] LABS: Alanine Aminotransferase 50 U/L (12-78); Albumin/Globulin Ratio 1.3 (1.1-1.8); Alkaline Phosphatase 127 U/L (38-126); Anion Gap 21.1 mEq/L (5-15); Aspartate Amino Transferase 57 U/L (14-36); Bilirubin,Total 0.9 mg/dl (0.2-1.3); Blood Urea Nitrogen 19 mg/dl (7-17); Calcium 10.1 mg/dl (8.4-10.2); Carbon Dioxide 24 mmol/L (22.0-30.0); Creatinine Clearance Estimated 79 mL/min (50-200); Estimated Glomerular Filt Rate 64 ml/min (>60); GFR (African American) 77 ML/MIN (>60); Globulin 3.8 g/dL (1.3-3.2); Glucose 178 mg/dl (74-100); Total Protein,Serum 8.7 g/dl (6.3-8.2)
[2023-09-20 18:59] LABS: Activated Partial Thrombo Time 28.8 seconds (22.8-30.6); INR 0.92 (0.9-1.1); Lipase 117 U/L (23-300); Prothrombin Time 10.4 seconds (10.1-12.5)
--- NOTE | 2023-09-20 19:05 | PC.NURSE ---
pt arrived back to room from ct
[2023-09-20 19:13] LABS: Troponin I 0.82 ng/ml (0.00-0.034)
[2023-09-20 19:14] LABS: D-Dimer 0.62 ug/mL (0.0-0.5)
--- NOTE | 2023-09-20 19:15 | PC.NURSE ---
TRN in room at bedside with and charge nurse Evelyn Cano at bedside. VO from MD to administer one dose of SL nitro for hypertension. First dose administered at 1917, nitro gtt increased to 25 mcg at 1919, second dose SL nitro administered at 1922 with increase of nitro gtt to 30 mcg at 1924. Patient is alert and answering all questions appropriately at this time. Zoll pads in place, and shaved in groin area by MARITZA Arteaga prior to transfer to laborer wharf.
--- NOTE | 2023-09-20 19:15 | PC.NURSE ---
house notified of need for rd lab technician to be called in, radiology notified of need to turn on rd lab technician
[2023-09-20 19:25] LABS: Erythrocyte Sedimentation Rate 11 mm/hr (0-30)
--- NOTE | 2023-09-20 19:35 | PC.NURSE ---
@ 1911 Critical Trop was called to Evelyn Cano RN. RN notified Dr. Seth.
--- NOTE | 2023-09-20 19:52 | PC.NURSE ---
microbiology lab technician ready
[2023-09-20 20:06] LABS: Lymphocytes % 13 % (10-50); Monocytes % 6 % (2-9); Neutrophils % 81 % (42-76); Platelet Estimate Slight Increase; RBC Morphology Normal; Total Cells Counted 100
--- NOTE | 2023-09-20 20:38 | EXP.HP ---
History of Present Illness *Admission Date: 09/20/23 *Reason for visit:: CP *History of present illness: 58-year-old female presenting today with epigastric/chest discomfort. This been ongoing all day long and worsening. It is associated with exertion improved with rest associated with nausea and shortness of breath. No significant radiation associated with this. Of note she did have an NSTEMI in February of this year that was attributed to a viral cause most likely influenza possibly COVID. She had an echo at that time that showed 20% LVEF possibly Takotsubo cardiomyopathy. She had a left heart cath which was largely clean. She tells me that she had improvement and resolution of her EF which is not documented here. No history of coronary artery disease that she is aware of. She was diagnosed with nonischemic cardiomyopathy at that time. She denies any fevers chills or any other preceding symptoms and states that she has only been having these severe symptoms in the last 24 hours. [facility] Disclaimer: The information contained in this section may have been updated after the patient was seen, as this information can be updated by other users. Medical History Callus of foot Heart failure with improved ejection fraction (HFimpEF) Chest pain HFrEF (heart failure with reduced ejection fraction) LV dysfunction Dilated cardiomyopathy NSTEMI (non-ST elevated myocardial infarction) Sepsis Multifocal pneumonia Dyspnea Influenza A Diarrhea in adult patient Nausea & vomiting Hammertoes of both feet Acquired hallux valgus of both feet Chronic pain Chronic foot pain Class 1 obesity Osteoarthritis of feet, bilateral Psoriatic arthritis Foot ulcer SOB (shortness of breath) on exertion Dyspnea on exertion History of 2019 novel coronavirus disease (COVID-19) Moderate persistent asthma Dyspnea on exertion Hypothyroidism (acquired) Community acquired bilateral lower lobe pneumonia CAP (community acquired pneumonia) GERD (gastroesophageal reflux disease) Thyroid condition Asthma Neuropathy Diaphoresis Dyspnea Edema HLD (hyperlipidemia) HTN (hypertension) CAD (coronary artery disease) Neuropathy Surgical History History of hemorrhoidectomy History of cardiac cath History of carpal tunnel release History of hysterectomy Family History Other Family history of acute congestive heart failure Family history of cancer Social History Smoking Status: Unknown if ever smoked second hand exposure: No alcohol intake: never substance use type: denies use current occupational status: employed and retired Travel in the last 8 weeks: None household members: other housing: house 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 current occupational exposures/hazards: No caffeine: Yes Meds Home Medications and Allergies Home Medications ?Medication ?Instructions ?Recorded ?Confirmed ?Type acetaminophen 300 mg-codeine 30 mg 1 tab PO NEEDED PRN Migraine 09/20/23 09/20/23 History tablet Headache aspirin 81 mg tablet 81 mg PO DAILY 09/20/23 09/20/23 History biotin 5,000 mcg chewable tablet 5,000 mcg PO DAILY 09/20/23 09/20/23 History cholecalciferol (vitamin D3) 50 50 mcg PO DAILY 09/20/23 09/20/23 History mcg (2,000 unit) tablet (Vitamin D3) docusate sodium 100 mg capsule 200 mg PO DAILY 09/20/23 09/20/23 History duloxetine 60 mg capsule,delayed 60 mg PO BID 09/20/23 09/20/23 History release empagliflozin 10 mg tablet 10 mg PO DAILY 09/20/23 09/20/23 History (Jardiance) estradiol 2 mg tablet 2 mg PO DAILY 09/20/23 09/21/23 History fluoxetine 20 mg capsule 20 mg PO BID 09/20/23 09/21/23 History furosemide 40 mg tablet 40 mg PO BID 09/20/23 09/20/23 History gabapentin 800 mg tablet 800 mg PO TID 09/20/23
[2023-09-20 20:52] LABS: C-Reactive Protein 18.8 mg/L (0-4)
[2023-09-20 20:58] LABS: NT Pro Brain Natriuretic Pep. 4930 pg/mL (0-125)
--- NOTE | 2023-09-20 21:05 | PC.NURSE ---
Phone report received from LALIT Galdamez in Obstetrics Specialist. Patient stable at this time and coming up
--- NOTE | 2023-09-20 21:28 | PC.NURSE ---
LACHELLE Martin at bedside
[2023-09-20 22:18] LABS: Troponin I 1.57 ng/ml (0.00-0.034)
--- NOTE | 2023-09-20 22:18 | PC.NURSE ---
LACHELLE Martin notified for critical troponin of 1.57 per Marcie in lab. No new orders
[2023-09-21] VITALS (25 sets, daily range): BP systolic 97–149; BP diastolic 65–94; PULSE 66–111; RESP 14–22; TEMP 36.3–36.9; O2SAT 94–100; BMI 25.9
--- NOTE | 2023-09-21 | US_ITS ---
FINAL REPORT TECHNIQUE: Ultrasound images of the kidneys and bladder were obtained. CLINICAL HISTORY: . FINDINGS: The right kidney measures 11.0 cm in length. It is normal in echogenicity. There is no hydronephrosis. The left kidney measures 9.9 cm in length. It is normal in echogenicity. There is no hydronephrosis. There is a questionable small stone in the left kidney. The spleen is unremarkable. Incidental note is made of multiple gallstones in a moderately distended gallbladder. There is a small amount of pericholecystic fluid, cholecystitis is not excluded. IMPRESSION: Questionable small left renal stone. Cholelithiasis with a small amount of pericholecystic fluid, cholecystitis is not excluded. Reviewed, Interpreted and Dictated by Ck Mitchell III, MD Transcribed by Valentine Canela Authenticated and [facility][1]
--- NOTE | 2023-09-21 00:24 | PC.NURSE ---
DREW was removed without complication at 2300. Site dressed with gauze and tegaderm, C/D/I, CMS intact
--- NOTE | 2023-09-21 00:43 | PC.NURSE ---
3rd Troponin was canceled per AIR TRAFFIC CONTROL SUPERVISOR Mario
--- NOTE | 2023-09-21 03:47 | PC.NURSE ---
Patient tolerated titration to off for Nitro gtt. Step down care continued. NAD, VSS
--- NOTE | 2023-09-21 04:26 | PC.NURSE ---
Patient was admitted earlier in shift from our labelling machine operator after being sent there from our ER for a NSTEMI. Patient was cathed without intervention needed. She arrived to the stepdown unit a/o x3, GCS 15 and on 100mcg of Nitro gtt to maintain BP <160 systolic. Patient was medicated for nausea per APR and was finally able to lay and fall asleep. She has slept throughout the remainder of this shift without acute change. Her blood pressures remained <160 systolic, so Nitro gtt was titrated per titration record. Patient remains in NSR without ectopy on tele monitor. NAD, VSS otherwise. Stepdown care continues.
[2023-09-21 06:13] LABS: Basophils # 0.1 K/mm3 (0-0.2); Basophils % 0.5 % (0.1-2.0); Eosinophils # 0.1 K/mm3 (0.0-0.4); Eosinophils % 0.3 % (0.1-12.0); Hematocrit 44.4 % (37.0-47.0); Lymphocytes # 3.7 K/mm3 (0.7-4.5); Mean Corpuscular HGB Conc 35.2 g/dL (31.8-35.4); Mean Platelet Volume 7.4 fl (7.4-10.4); Monocytes # 1.8 K/mm3 (0.1-1.0); Monocytes % 8.9 % (1.7-9.3); Neutrophils # 14.8 K/mm3 (1.8-7.8); Neutrophils % 72.4 % (37.0-80.0); Platelet Count 413 K/mm3 (142-424); Red Blood Count 4.88 M/mm3 (4.20-5.40); Red Cell Distribution Width 13.1 % (11.5-17.5); White Blood Count 20.4 K/mm3 (4.8-10.8)
[2023-09-21 06:14] LABS: Albumin Level 4.4 g/dl (3.5-5.0); Chloride 101 mmol/L (98-107); Potassium 3.4 mmoL/L (3.5-5.1); Sodium 137 mmol/L (136-145)
[2023-09-21 06:17] LABS: Alanine Aminotransferase 25 U/L (12-78); Albumin/Globulin Ratio 1.3 (1.1-1.8); Alkaline Phosphatase 101 U/L (38-126); Anion Gap 13.4 mEq/L (5-15); Aspartate Amino Transferase 50 U/L (14-36); Bilirubin,Total 0.7 mg/dl (0.2-1.3); Blood Urea Nitrogen 21 mg/dl (7-17); Calcium 9.4 mg/dl (8.4-10.2); Carbon Dioxide 26 mmol/L (22.0-30.0); Creatinine Clearance Estimated 78 mL/min (50-200); Estimated Glomerular Filt Rate 64 ml/min (>60); GFR (African American) 77 ML/MIN (>60); Globulin 3.3 g/dL (1.3-3.2); Glucose 120 mg/dl (74-100); Total Protein,Serum 7.7 g/dl (6.3-8.2); Triglycerides 297 mg/dl (30-150); VLDL Cholesterol 59 mg/dL (0-40)
[2023-09-21 06:18] LABS: HDL Cholesterol 38 mg/dl (40-60); Magnesium 2.1 mg/dl (1.6-2.3)
[2023-09-21 06:24] LABS: MANUAL DIFFERENTIAL MANUAL DIFFERENTIAL (MANUAL DIFF)
[2023-09-21 06:27] LABS: Chol/HDL Ratio 9.4 (1-3.5); Cholesterol 358 mg/dl (140-200); Hemoglobin 15.8 g/dL (12.2-16.2)
[2023-09-21 06:28] LABS: Direct LDL Cholesterol 212.15 mg/dL (100-129)
[2023-09-21 06:34] LABS: T4 (Thyroxine) 10.6 ug/dl (5.53-11.0)
[2023-09-21 06:48] LABS: Thyroid Stimulating Hormone 0.03 uIU/mL (0.465-4.68)
[2023-09-21 07:33] LABS: Lymphocytes % 21 % (10-50); Monocytes % 13 % (2-9); Neutrophils % 66 % (42-76); Total Cells Counted 100
[2023-09-21 07:37] LABS: Platelet Estimate Slight Increase
--- NOTE | 2023-09-21 09:22 | CA_ITS ---
APPROVED REPORT EXAM: Comprehensive 2D, Doppler, and color-flow Echocardiogram Web Merchant: Sabra Wang, RT(R) Ht: 5 ft 7 in Wt: 164lbs BSA: 1.86 BP: 170/94 mmHg Indications: NSETMI, cp, dyspnea, history of HFrEF, GERD, EF 20% echo 02/2023 2D Dimensions Left Atrium 2.70 cm F: 2.7 - 3.8 LA Volume 20.30 mL LVOT 1.89 cm (M/F) 1.5-2.5 LA Volume Index 10.91 mL/m2 (M/F) 16-34 EF AP4 39.10 % GL Strain -14.2 % M-Mode Dimensions RVDd 2.93 cm (0.9-2.6) LVDd 5.02 cm (3.5-5.7) Ao Diam 2.54 cm (2.0-3.7) LVDs 3.74 cm (3.5-5.7) IVSd 0.76 cm (0.6-1.1) PWd 0.56 cm (0.6-1.1) EF (Teich) 50.00% FS 25.50% EDV (Teich) 119.30 mL ESV (Teich) 59.60 mL LV Diastology E Decel Time 244 (160-240 msec) E/A Ratio 0.7 MED E' 4.4 (>= 7 cm/sec) E'/MED E' Ratio 12.95 (<= 14) LAT E' 6.3 (>= 10 cm/sec) E/LAT E' Ratio 9.05 (<= 14) Mitral Valve MV E Max Nikolai. 57.0 (40-130 cm/s) MV A Velocity 77.0 (40-130 cm/s) E/A Ratio 0.74 MV Decel. Time 244 (160-240 ms) Left Ventricle The left ventricle is normal size. The left ventricular systolic function is normal. The left ventricular ejection fraction is within the normal range. There is normal left ventricular wall thickness. There is normal LV segmental wall motion. Transmitral Doppler flow pattern suggests impaired LV relaxation. LVEF is 60%. Right Ventricle The right ventricle is normal size. The right ventricular systolic function is normal. Atria The left atrium size is normal. The right atrium size is normal. There is no Doppler evidence of interatrial shunt. Aortic Valve The aortic valve is mildly thickened. There is no aortic valvular stenosis. Trace aortic regurgitation. Mitral Valve The mitral valve is normal in structure. No evidence of mitral valve stenosis. Mild mitral regurgitation. Tricuspid Valve The tricuspid valve leaflets are thin and pliable. Trace tricuspid regurgitation. There is insufficient TR jet to estimate RVSP. Pulmonic Valve The pulmonary valve is normal in structure. Trace pulmonic regurgitation. Great Vessels The aortic root is normal in size. The ascending aorta is not well visualized. IVC is normal in size and collapses >50% with inspiration. Pericardium There is no pericardial effusion. Conclusion Normal biventricular systolic function. Mild MR. Electronically signed by : Nadia Bundy MD 09/21/2023 20:10:44
--- NOTE | 2023-09-21 09:48 | HMH.PHAINT1 ---
Pharmacy Intervention Comments: HOME MEDICATION LIST VERIFIED USING LIST FROM OUTPATIENT PHARMACY AND PT INTERVIEW
--- NOTE | 2023-09-21 10:27 | US_ITS ---
FINAL REPORT CLINICAL HISTORY: RUQ pain/vomiting FINDINGS: RIGHT UPPER QUADRANT ULTRASOUND Sonographic images of the right upper quadrant were obtained. The pancreas is partially obscured.The liver has an unremarkable appearance. There are multiple gallstones. There is adenomyomatosis of the gallbladder. Gallbladder wall thickening measures 7 mm. There is a small amount of pericholecystic fluid. Findings are worrisome for acute cholecystitis. The common duct measures 3 mm. Limited images of the right kidney are normal. IMPRESSION: Findings worrisome for acute cholecystitis. Reviewed, Interpreted and Dictated by Ck Mitchell III, MD Transcribed by Valentine Caneal Authenticated and [facility]
--- NOTE | 2023-09-21 12:25 | EXP.SURG.CON ---
History of Present Illness *Admission Date: 09/20/23 *Reason for visit:: Acute calculus cholecystitis *History of present illness: This is a 4-year-old female seen in consultation from the primary service for evaluation regarding cholecystitis. An ultrasound performed earlier today revealed numerous gallstones, distended gallbladder, gallbladder wall thickening, and pericholecystic fluid. Please see HPI forwarded from admission H&P below. Forwarded from admission H&P 58-year-old female presenting today with epigastric/chest discomfort. This been ongoing all day long and worsening. It is associated with exertion improved with rest associated with nausea and shortness of breath. No significant radiation associated with this. Of note she did have an NSTEMI in February of this year that was attributed to a viral cause most likely influenza possibly COVID. She had an echo at that time that showed 20% LVEF possibly Takotsubo cardiomyopathy. She had a left heart cath which was largely clean. She tells me that she had improvement and resolution of her EF which is not documented here. No history of coronary artery disease that she is aware of. She was diagnosed with nonischemic cardiomyopathy at that time. She denies any fevers chills or any other preceding symptoms and states that she has only been having these severe symptoms in the last 24 hours. Heart cath performed yesterday evening: IMPRESSION Mild nonflow limiting luminal regularities Hyperdynamic ventricle Normal LVEDP Normal renal arteries bilaterally PLAN 1. Metoprolol tartrate 50 mg p.o. x 1 now 2. Continue nitroglycerin drip and titrate to lower blood pressure 3. Recommend renal ultrasound in the morning to look for renal cell carcinoma in the setting of polycythemia 4. Recommend sleep study 5. Workup for polycythemia. Is possible patient may have polycythemia vera and may require phlebotomy. 6. Risk factor modification 7. Formal echocardiogram in the morning PFSH PFS Disclaimer: The information contained in this section may have been updated after the patient was seen, as this information can be updated by other users. Medical History Callus of foot Heart failure with improved ejection fraction (HFimpEF) Chest pain HFrEF (heart failure with reduced ejection fraction) LV dysfunction Dilated cardiomyopathy NSTEMI (non-ST elevated myocardial infarction) Sepsis Multifocal pneumonia Dyspnea Influenza A Diarrhea in adult patient Nausea & vomiting Hammertoes of both feet Acquired hallux valgus of both feet Chronic pain Chronic foot pain Class 1 obesity Osteoarthritis of feet, bilateral Psoriatic arthritis Foot ulcer SOB (shortness of breath) on exertion Dyspnea on exertion History of 2019 novel coronavirus disease (COVID-19) Moderate persistent asthma Dyspnea on exertion Hypothyroidism (acquired) Community acquired bilateral lower lobe pneumonia CAP (community acquired pneumonia) GERD (gastroesophageal reflux disease) Thyroid condition Asthma Neuropathy Diaphoresis Dyspnea Edema HLD (hyperlipidemia) HTN (hypertension) CAD (coronary artery disease) Neuropathy Surgical History History of hemorrhoidectomy History of cardiac cath History of carpal tunnel release History of hysterectomy Family History Other Family history of acute congestive heart failure Family history of cancer Social History Smoking Status: Unknown if ever smoked second hand exposure: No alcohol intake: never substance use type: denies use current occupational status: employed and retired Travel in the last 8 weeks: None household members: other hous
--- NOTE | 2023-09-21 14:57 | EXP.CARD.CON ---
History of Present Illness History of Present Illness Consult date: 09/21/23 Requesting physician: Escobar Maradiaga Consult reason: chest pain Chief complaint: chest pain, soa History of present illness: 58-year-old white female established patient of our office who was new to us in February with a hospital admission for Takotsubo cardiomyopathy with EF 20%. She was discharged home with guideline directed medical therapy and LifeVest. Cardiac MRI March 2023 showed completely recovered EF to 61%. She is maintained on her medication regimen. She reports coming to the emergency room last night with several days of weakness chills diaphoresis. Yesterday she developed right upper quadrant and epigastric pain and her friend drove her to the emergency room. On arrival she was in distress with diaphoresis, chest pain, BP 180s, tachypnea. Lab workup revealed polycythemia with WBC 23,000, hemoglobin 17.7, platelets 489. Her D-dimer was elevated at 0.62, troponin was 0.8 then herbert to 1.57 and NT proBNP was 4930. She was taken urgently to the [facility] around midnight which revealed nonflow limiting disease hyperdynamic ventricle and normal LVEDP. Her renals were also evaluated and there was no stenosis noted. She was admitted overnight for blood pressure control and further workup. This morning she reports she is very fatigued and still has some right upper quadrant discomfort. There is also some consideration for serotonin syndrome given her home psychiatric medication. [facility] Disclaimer: The information contained in this section may have been updated after the patient was seen, as this information can be updated by other users. Medical History Callus of foot Heart failure with improved ejection fraction (HFimpEF) Chest pain HFrEF (heart failure with reduced ejection fraction) LV dysfunction Dilated cardiomyopathy NSTEMI (non-ST elevated myocardial infarction) Sepsis Multifocal pneumonia Dyspnea Influenza A Diarrhea in adult patient Nausea & vomiting Hammertoes of both feet Acquired hallux valgus of both feet Chronic pain Chronic foot pain Class 1 obesity Osteoarthritis of feet, bilateral Psoriatic arthritis Foot ulcer SOB (shortness of breath) on exertion Dyspnea on exertion History of 2019 novel coronavirus disease (COVID-19) Moderate persistent asthma Dyspnea on exertion Hypothyroidism (acquired) Community acquired bilateral lower lobe pneumonia CAP (community acquired pneumonia) GERD (gastroesophageal reflux disease) Thyroid condition Asthma Neuropathy Diaphoresis Dyspnea Edema HLD (hyperlipidemia) HTN (hypertension) CAD (coronary artery disease) Neuropathy Surgical History History of hemorrhoidectomy History of cardiac cath History of carpal tunnel release History of hysterectomy Family History Other Family history of acute congestive heart failure Family history of cancer Social History Smoking Status: Unknown if ever smoked second hand exposure: No alcohol intake: never substance use type: denies use current occupational status: employed and retired Travel in the last 8 weeks: None household members: other housing: house 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
--- OUTSIDE RECORDS SUMMARY | 2023-09-21 15:17 | XMS_ITS ---
Author Organization Dialysis Clinic, [facility] . Address [facility] [place] [address] Care Team Providers Care Rv Body Mechanic Name Role Phone Kody Dunn Primary Care Provider Unavaillauren e Ck Kay Unavailable [phone] Sara Bob Unavailable Unavailable Encounters Encounter Location Date Provider Diagnosis [address] [place] [address] 04/27/2023 Ck Kay PLAN OF TREATMENT No Information Progress Notes * Charles RONQUILLOaDOB:1965 (58 yo F)Acc No.[id number]:04/27/2023 Progress Note Patient:??Jeannie RONQUILLO Provider:??Ck Kay MD :1965?Age:57 Y?Sex:Fe male Date:04/27/2023 Address[address] [place], [id number] Pcp:Kody Dunn Subjective: * Chief Complaints: * ? * Medical History:?? Objective: Assessment: Plan: * Treatment: * *
--- OUTSIDE RECORDS SUMMARY | 2023-09-21 15:18 | XMS_ITS ---
Author Organization Dialysis Clinic, [facility] . Address [facility] [place] [address] Care Team Providers Care Hasher Operator Name Role Phone Kody Dunn Primary Care Provider UnavailCk Oliva Unavailable [phone] Sara Bob Unavailable Unavailable ALLERGIES Allergen (clinical drug ingredient) Drug/Non Drug Allergy documented on EMR Reaction Allergy Type Onset Date Status hydroxychloroquine Plaquenil hives Drug Allergy Active REASON FOR VISIT CKD MEDICATIONS Medication SIG (Take, Route, Frequency, Duration) Notes Start Date End Date Status Estradiol 2 MG 1 tablet Orally Once a day Active Omeprazole 20 MG 1 capsule 30 minutes before morning meal Orally Once a day Active Magnesium 400 MG as directed Orally daily Active tiZANidine HCl 4 MG 1 tablet as needed Orally Three times a day Active Wellbutrin XL 300 MG 1 tablet in the mor tiffanie Orally Once a day Active OXcarbazepine 300 MG 1 tablet Orally Twi ce a day Active N-Acetyl Cysteine 600 MG 1 capsule Orall y Once a day Active DULoxetine HCl 60 MG 1 capsule Orally On ce a day Active Levothyroxine Sodium 200 MCG 1 tablet in the morning on an empty stomach Orally Once a day Active
--- OUTSIDE RECORDS SUMMARY | 2023-09-21 15:18 | XMS_ITS | Patient Health Record ---
Author Organization Dialysis Clinic, [facility] . Address [address] [place] [address] Care Team Providers Care Aviation Project Manager Name Role Phone Kody Dunn Primary Care Provider Unavaillauren Kay Ck Unavailable [phone] Sara Bob Unavailable Unavailable ALLERGIES Allergen (clinical [...]
--- OUTSIDE RECORDS SUMMARY | 2023-09-21 15:18 | XMS_ITS | Continuity of Care Document ---
Author Organization [facility] Address [address] [place] [address] Phone Care Team Providers Care Chinchilla Farmer Name Role Phone No Information Unavailable Unavailable Advance Directives Directive Yes / No Effective Date File Name No Information Encounters Encounter Description Practice Location Reason(s) For Visit Diagnoses Date Provider Providers Copied on Encounter [facility] , [address], [place], [address], [place] tel:[phone] JANE Nassar No Information No Information Family History Family Member Type Diagnosis Age At Onset No Information Payers Payer name Insurance type Covered libertarian ID Authoriza tion(s) No Information Social History Type Description Quantity Date Captured Comments Sex Female Smoking Status No Information Chief Complaint And Reason For Visit No Information Reason For Referral Reason For Referral No Information History Of Present Illness Encounter Date Complaint History Of Prese nt Illness No Information Functional Status Date Functional Assessmen t No Information Instructions Date Instruction Additional Infor mation No Information
--- NOTE | 2023-09-21 16:17 | EXP.DC.SUM ---
General Admission date:: 09/20/23 Discharge date: 09/21/23 HPI HPI HPI: 58-year-old female presenting today with epigastric/chest discomfort. This been ongoing all day long and worsening. 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 started on IV nitroglycerin as her symptoms are still highly concerning for possible acute coronary syndrome aspirin has been administered. labs are positive for significant leukocytosis. troponin are elevated. Hb is also elevated. DDdimer. EKG and CT are not showing any acute changes. patient seen and evaluated after procedure. discussed with ED and cardiology for admission Hospital Course Hospital Course Hospital Course: 58-year-old female presenting today with epigastric/chest discomfort. This been ongoing all day long and worsening. 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 started on IV nitroglycerin as her symptoms are still highly concerning for possible acute coronary syndrome aspirin has been administered. labs are positive for significant leukocytosis. troponin are elevated. Hb is also elevated. DDdimer. EKG and CT are not showing any acute changes. patient seen and evaluated after procedure. discussed with ED and cardiology for admission Patient was diagnosed with NSTEMI on arrival, patient had cardiac cath performed which was negative for any acute blockages, no stenting was performed. Patient also had GB US performed which did show signs of acute cholecystitis - patient was then transferred to [facility] for Surgical management. Patient and family agreed with the discharge plan, patient was discharged in stable condition. total time spent 37 mins Exam Data for Last 24 hours Vital signs and Labs for Last 24 Hours: Temp Pulse Resp BP Pulse Ox O2 Del Method O2 Flow Rate 97.4 F L 77 18 116/72 96 Room Air 2 09/21/23 13:00 09/21/23 13:00 09/21/23 13:00 09/21/23 13:00 09/21/23 13:00 09/21/23 15:29 09/21/23 02:00 Laboratory Results - last 24 hr 09/20/23 18:35: WBC 23.6 H*, RBC 5.60 H, Hgb 17.7 H, Hct 52.1 H, MCV 93.0, MCH 31.7 H, MCHC 34.1, RDW 12.9, Plt Count 489 H, MPV 7.2 L, Neut % (Auto) 84.0 H, Lymph % (Auto) 10.6, [place] % (Auto) 4.1, Eos % (Auto) 0.8, Baso % (Auto) 0.5, Neut # (Auto) 19.8 H, Lymph # (Auto) 2.5, [place] # (Auto) 1.0, Eos # (Auto) 0.2, Baso # (Auto) 0.1, Total Counted 100, Neutrophils % (Manual) 81 H, Lymphocytes % (Manual) 13, Monocytes % (Manual) 6, Platelet Estimate Slight increase, RBC Morphology Normal, ESR 11, PT 10.4, INR 0.92, APTT 28.8, D-Dimer 0.62 H, Sodium 140, Potassium 3.1 L, Chloride 98, Carbon Dioxide 24, Anion Gap 21.1 H, BUN 19 H, Creatinine 0.90, Estimated Creat Clear 79, Estimated GFR 64, Est GFR ( Amer) 77, Glucose 178 H, Calcium 10.1, Total Bilirubin 0.9, AST 57 H, ALT 50, Alkaline Phosphatase 127 H, Troponin I 0.82 H, C-Reactive Protein 18.8 H, NT-Pro-B Natriuret Pep 4930 H, Total Protein 8.7 H, Albumin 4.9, Globulin 3.8 H, Albumin/Globulin Ratio 1.3, Lipase 117 09/20/23 21:40: Troponin I 1.57 H 09/21/23 05:16: WBC 20.4 H*, RBC 4.88, Hgb 15.8 D, Hct 44.4, MCV 91.0, MCH 32.0 H, MCHC 35.2, RDW 13.1, Plt Count 413, MPV 7.4, Neut % (Auto) 72.4, Lymph % (Auto) 18.0, [place] % (Auto) 8.9, Eos % (Auto) 0.3, Baso % (Auto) 0.5, Neut # (Auto) 14.8 H, Lymph # (Auto) 3.7, [place] # (Auto) 1.8 H, Eos # (Auto) 0.1, Baso # (Auto) 0.1, Total Counted 100, Neutrophils % (Manual) 66, Lymphocytes % (Manual) 21, Monocytes % (Manual) 13 H, Platelet Estimate Slight increase, RBC Morphology Not Reportable, Sodium 137, Potassium 3.4 L, Chloride 101, Carbon Dioxide 26, Anion Gap 13.4, BUN 21 H, Creatinine 0.90, Estimated Creat Clear 78, Estimated GFR 64, Est GFR ( Amer) 77, Glucose 120 H D, Calcium 9.4, Magnesium 2.1, Total Bilirubin 0.7, AST 50 H, ALT 25 D, Alkaline Phosphatase 101, Total Protein 7.7, Albumin 4.4 D, Globulin 3.3 H, Albumin/Globulin Ratio 1.3, Triglycerides 297 H, Cholesterol 358 H, LDL Cholesterol Direct 212.15 H, VLDL Cholesterol 59 H, HDL Cholesterol 38 L, Cholesterol/HDL Ratio 9.4
--- NOTE | 2023-09-21 17:33 | PC.NURSE ---
pt has rested in her room this shift wioth a visitor at bedside. pt is a/o x 4 . nad noted. pt is awaiting transfer to [facility]. lungs are clear t/o. bowel sounds active in all quads. no hematoma or drainage noted to r radial site.
[2023-09-26 10:20] LABS: Serotonin, Serum <5 ng/mL (31-207)
== END 2023-09-21 17:54 | disposition short-term general hospital (02) | DRG 444 ==
LOC: ER 20:09 → CATHLAB 20:10 → 2ND 20:29
PROVIDERS: Internal Medicine; Nurse Practitioner Family; Admitting Provider Internal Medicine Adolescent Medicine; Emergency Provider Student in an Organized Health Care Education/Training Program; PCP Internal Medicine Adolescent Medicine; Visit Provider Internal Medicine Adolescent Medicine
DX: K80.42 Calculus of bile duct with acute cholecystitis without obstruction (principal); I21.A1 Myocardial infarction type 2; I42.0 Dilated cardiomyopathy; I50.22 Chronic systolic (congestive) heart failure; I51.81 Takotsubo syndrome; E66.9 Obesity, unspecified; Z68.25 Body mass index [BMI] 25.0-25.9, adult; I11.0 Hypertensive heart disease with heart failure; M19.072 Primary osteoarthritis, left ankle and foot; M19.071 Primary osteoarthritis, right ankle and foot; G89.29 Other chronic pain; M79.673 Pain in unspecified foot; E78.5 Hyperlipidemia, unspecified; F41.9 Anxiety disorder, unspecified
CPT/HCPCS: 36252; 36415; 71045; 71275; 76705; 76770; 80050; 80053; 80061; 83690; 83735; 83880; 84260; 84436; 84443; 84484; 85007; 85025; 85027; 85378; 85610; 85651; 85730; 86140; 93005; 93306; 93458; 99152; C1725; C1769; J1200; J1644; J2250; J2270; J2405; J2550; J3010; Q9967

== ENCOUNTER 2023-09-30 09:33 | Outpatient (CLI) | payer MEDICARE, SELFPAY ==
[2023-09-30 09:52] LABS: Basophils # 0.1 K/mm3 (0-0.2); Basophils % 1.4 % (0.1-2.0); Eosinophils # 0.3 K/mm3 (0.0-0.4); Eosinophils % 2.7 % (0.1-12.0); Hematocrit 38.6 % (37.0-47.0); Hemoglobin 13.8 g/dL (12.2-16.2); Lymphocytes # 3.9 K/mm3 (0.7-4.5); Lymphocytes % 37.4 % (10-50); Mean Corpuscular HGB Conc 35.7 g/dL (31.8-35.4); Mean Corpuscular Volume 97.9 fl (81-99); Mean Platelet Volume 7.4 fl (7.4-10.4); Monocytes # 0.5 K/mm3 (0.1-1.0); Monocytes % 5.2 % (1.7-9.3); Neutrophils # 5.5 K/mm3 (1.8-7.8); Neutrophils % 53.3 % (37.0-80.0); Platelet Count 468 K/mm3 (142-424); Red Blood Count 3.95 M/mm3 (4.20-5.40); Red Cell Distribution Width 13.2 % (11.5-17.5); White Blood Count 10.3 K/mm3 (4.8-10.8)
[2023-09-30 10:29] LABS: Alanine Aminotransferase 17 U/L (12-78); Albumin Level 4.1 g/dl (3.5-5.0); Albumin/Globulin Ratio 1.4 (1.1-1.8); Alkaline Phosphatase 99 U/L (38-126); Anion Gap 8.9 mEq/L (5-15); Aspartate Amino Transferase 24 U/L (14-36); Bilirubin,Total 0.4 mg/dl (0.2-1.3); Blood Urea Nitrogen 20 mg/dl (7-17); Calcium 9.6 mg/dl (8.4-10.2); Carbon Dioxide 32 mmol/L (22.0-30.0); Chloride 103 mmol/L (98-107); Estimated Glomerular Filt Rate 64 ml/min (>60); GFR (African American) 77 ML/MIN (>60); Glucose 123 mg/dl (74-100); Potassium 3.9 mmoL/L (3.5-5.1); Sodium 140 mmol/L (136-145); Total Protein,Serum 7.1 g/dl (6.3-8.2)
== END 2023-09-30 23:59 | disposition home or self-care (01) ==
PROVIDERS: PCP Nurse Practitioner Family; Visit Provider Nurse Practitioner Family
DX: Z90.49 Acquired absence of other specified parts of digestive tract (principal)
CPT/HCPCS: 36415; 80053; 85025

== ENCOUNTER 2024-05-20 14:11 | Outpatient (CLI) | payer MEDICARE, SELFPAY ==
[2024-05-20 15:45] LABS: Free T4 (Free Thyroxine) 1.35 ng/dl (0.78-2.19)
[2024-05-20 16:00] LABS: Thyroid Stimulating Hormone < 0.02 uIU/mL (0.465-4.68)
[2024-05-21 03:36] LABS: Triiodothyronine (T3) Free 2.4 pg/mL (2.0-4.4)
--- OUTSIDE RECORDS SUMMARY | 2024-05-23 20:39 | XMS_ITS | Data Portability ---
Author Organization [facility] Address [address] [place] [address] Assessment No assessment recorded. Plan of Treatment Reminders Order Date Submit Date Provider Last Modified By Organization Details Last Modified Time Details Appointments None recorded . Lab T4, free, serum 025 05/15/19 25 [facility], [address] [place] [address], [phone], 5 16:48:18 TSH, serum or plasma 025 05/15/19 25 [facility], [address] [place] [address], [phone], 5 18:29:19 T3, free, serum or plasma 025 05/15/19 25 [facility], [address] [place] [address], [phone], 5 09:13:36 Referral None recorded . Procedures None recorded . Surgeries None recorded . Imaging None recorded . Medication Orders None recorded . Patient TargetsNo targets recorded. Patient InstructionsNo instructions recorded. Reason for Referral None Reported. Medical Equipment None Reported. Allergies Allergen ID Allergen Name Allergen Category Reaction Reaction Severity Criticality Documentation Date Start Date Code Code System Note Provider Name and Address Organization Details Recorded Time 313331 Plaquenil medicatio n Not available Not available Not available 05/14/202464372 2 RxNorm Lala martinez [facility] 5 15:19:09 Medications Name Sig Start Date Stop Date Status Note LastModified by Organization Details LastModified Time furosemide 40 mg tablet Take 1 tablet every day by oral route. active Not Available Not Available No t Available bupropion HCl SR 150 mg tablet,12 hr sustained-relea se Take 1 tablet twice a day by oral route. active Not Available Not Available No t Available tizanidine 2 mg tablet Take 1 tablet every 6 hours by oral route. active Not Available Not Available No t Available oxcarbazepine 300 mg tablet 1 tablet AM 3 tablets qhs active Not Available Not Available No t Available gabapentin 800 mg tablet Take 1 tablet 3 times a day by oral route. active Not Available Not Available No t Available fluoxetine 20 mg tablet Take 1 tablet every day by oral route. active Not Available Not Available No t Available docusate sodium 100 mg capsule Take 1 capsule every day by oral route. active Not Available Not Available No t Available estradiol 2 mg tablet Take 1 tablet every day by oral route. active Not Available Not Available No t Available levothyroxine 200 mcg tablet Take 1 tablet every day by oral route. active Not Available Not Available No t Available metoprolol succinate ER 25 mg tablet,extended release 24 hr Take 1 tablet every day by oral route. active Not Available Not Available No t Available spironolactone 50 mg tablet Take 1 tablet every day by oral route. active Not Available Not Available No t Available duloxetine 60 mg capsule,delayed release Take 1 capsule every day by oral route. active Not Available Not Available No t Available biotin active Not Available Not Availa ble Not Available Vitamin D3 active Not Available Not Av ailable Not Available omeprazole 20 mg tablet,delayed release Take by oral route. active Not Available Not Available No t Available Jardiance 10 mg tablet Take 1 tablet every day by oral route. active Not Available Not Available No t Available Entresto 49 mg-51 mg tablet Take 1 tablet twice a day by oral route. active Not Available Not Available No t Available aspirin 81 mg capsule Take 1 capsule every day by oral route. active Not Available Not Available No t Available Vitals Date Recorded Body weight Heart rate Systolic blood pressure Diastolic blood pressure Provider Name and Address Organization Details Last Updated DateTime 05/14/2024 74372.33 g 63 /min 116 mm[Hg] 70 mm[Hg] [facility] 05/14/2024 15:25:54 Social History None recorded. Functional Status None recorded. Mental Status None recorded. Family History Nothing Reported. Medical History No medical history recorded. Gynecological HistoryNo gynecological history recorded. Obstetrics History GPAL:G 0 P 0 0 0 0 Past Encounters Encounter ID Performer Location Encounter Start Date Encounter Closed Date Diagnosis/Indication Diagnosis SNOMED-CT Code Diagnosis ICD10 Code Diagnosis Note [id number] ENZO PALOMARES MD [facility] [address] [place] [address] 05/14/2024 15:12:47 05/15/2024 08:54:38 Hypothyroidism 48335808 E03.9 New consultati on thyroid Reported plethora of symptoms which are likely to be multifacto rial due to psoriatic arthritis, bipolar depression Unremarkab le thyroid exam Laboratory workup from outside facility showed repeatedly low TSH of 0.12 and 0.02 in the context of normal total T4 and free thyroxine index. She is currently taking over-the-c ounter biotin supplement ation at a dose of 10,000 mcg daily She denies any symptoms of exogenous hyperthyro idism We had a discussion about exogenous hyperthyro idism deleteriou s consequenc es in the form of increased risk of postmenopa usal osteoporos is and A-fib/del estive heart failure Recommenda tions:Cont inue current levothyrox ine 200 mcg every a.m.Jaleel walker was instructed on the appropriat e method of levothyrox in administra tion to be taken every a.m. on an empty stomach as new food, drinks or other medication s for at least 30 minutes. PPI and calcium -containin g preparatio ns is preferred to be given at least of her hours before or after levothyrox in therapy. Discontinu e biotin supplement ation for 3-4 days Recheck TSH, free T4 and free T3 Further adjustment of her dose as appropriat e Patient verbalized understand ing and agreed with the above mentioned plan of care. Health Concerns Section Related Observation LastModified by Organization Detai ls LastModified Time None Recorded Concern Status LastModified by Organization Details LastModified Time None Recorded Advance Directives Directive None Recorded Payers Encounter Date Sequence Insurance Name Policy Number Policy Owens Covered Member ID Owens Member ID Guarantor Name 05/14/2024 1 [employer] (MEDICARE REPLACEMENT/A DVANTAGE - PPO) Jeannie Ronquillo [id number] Jeannie oRnquillo Notes Date Note Type Note Provider Name and Address Organization Details Recorded Time 05/14/2024 text/html 58-year-old female patient with a past medical history significant for bipolar depression, diabetes, hypothyroidism on thyroid hormone replacement therapy, psoriatic arthritis seen today as a new consultation thyroid evaluation. Requesting provider: Dr. Kody Almonte is tearful throughout the encounter and stated that she has not been feeling well and reported the following symptoms Fatigue and lack of energy Weight gain mentioned as the cause of consultation but more recently she is losing weight due to recent COVID infection. She reported hair loss She currently takes biotin 10,000 mcg daily For hypothyroidism which she had for at least 40 years, she currently takes levothyroxine 200 mcg every a.m. She denies any palpitations, shaking, excessive sweating or heat intolerance ENZO PALOMARES MD [address] [place] [address], [phone], [facility] 05/14/2024 16:23:33 OBGyn Episode No OBEpisode recorded.
--- OUTSIDE RECORDS SUMMARY | 2024-05-23 20:39 | XMS_ITS | Continuity of Care Document ---
Author Organization [facility] Address [address] [place] [phone] Assessment No assessment recorded. Plan of Treatment Reminders Order Date Submit Date Provider Last Modified By Organization Details Last Modified Time Details Appointments None recorded . Lab T4, free, serum 025 05/15/19 25 [facility], [address] [place] [address], [phone], 5 16:48:18 TSH, serum or plasma 025 05/15/19 25 [facility], [address] [place] [address], [phone], 5 18:29:19 T3, free, serum or plasma 025 05/15/19 25 [facility], [address] [place] [address], [phone], 5 09:13:36 Referral None recorded . Procedures [...] Name and Address Organization Details Recorded Time 142144 Plaquenil medicatio n Not available Not available Not available 05/14/202401778 2 [facility] 5 15:[facility]09 Medications Name Sig Start Date [...] Address Organization Details Last Updated DateTime 05/14/2024 53787.33 g 63 /min 116 mm[Hg] 70 mm[Hg] [facility] 05/14/2024 15:25:54 Social History None recorded. Functional Status None recorded. Mental Status None recorded. Family History Nothing Reported. Medical History No medical history recorded. Gynecological HistoryNo gynecological history recorded. Obstetrics History GPAL:G 0 P 0 0 0 0 Past Encounters Encounter ID Performer Location Encounter Start Date Encounter Closed Date Diagnosis/Indication Diagnosis SNOMED-CT Code Diagnosis ICD10 Code Diagnosis Note [id number] ENZO PALOMARES MD [facility] [address] [place] [address] 05/14/2024 15:12:47 05/15/2024 08:54:38 Hypothyroidism 76951154 E03.9 New consultati on thyroid Reported plethora [...] current levothyrox ine 200 mcg every a.m.Jaleel t was instructed on the appropriat e method [...] by Organization Details LastModified Time None Recorded Payers Encounter Date Sequence Insurance Name Policy Number Policy Owens Covered Member ID Owens Member ID Guarantor Name 05/14/2024 1 [employer] (MEDICARE REPLACEMENT/A DVANTAGE - PPO) Jeannie Ronquillo [id number] Jeannie Ronquillo Notes Date Note Type Note Provider Name [...] sweating or heat intolerance ENZO PALOMARES MD [address] [place] [address], [phone], [facility] 05/14/2024 16:23:33 OBGyn Episode No OBEpisode recorded.
== END 2024-05-20 23:59 | disposition home or self-care (01) ==
LOC: LAB 14:13
PROVIDERS: PCP Internal Medicine Adolescent Medicine; Visit Provider Internal Medicine
DX: E03.9 Hypothyroidism, unspecified (principal)
CPT/HCPCS: 36415; 84439; 84443; 84481